=== PATIENT | male | born 1945 | race Caucasian/White ===

== ENCOUNTER 2018-10-03 01:19 | Outpatient (CLI) | payer OTHER, SELFPAY ==
[2018-10-03 12:19] LABS: Anion Gap 10.6 mmol/L (3-11); BUN 19 mg/dL (7-18); CO2 25.4 mmol/L (21.0-32.0); CREATININE 1.11 mg/dL (0.70-1.30); Calcium 9.3 mg/dL (8.5-10.1); Chloride 103 mmol/L (98-107); Glucose 143 mg/dL (70-100); Potassium 4.5 mmol/L (3.5-5.1); Sodium 139 mmol/L (136-145)
== END 2018-10-03 01:39 ==
PROVIDERS: PCP Family Medicine; Visit Provider Family Medicine
DX: I10 Essential (primary) hypertension (principal)
CPT/HCPCS: 36415; 80048

== ENCOUNTER 2018-11-21 12:22 | Outpatient (REF) | payer OTHER, SELFPAY ==
--- NOTE | 2018-11-21 11:40 | SKI_PTH ---
PATIENT: Anthony Jones LOC: PAGE U#:[id number] AGE/SX: 73/M ROOM: RE11/21/[address]: Vahe Bah MD : 1945 BED: DIS: 11/21/2018 SPEC #: [id number] RECD: 11/21/18 12:53 STATUS: NOHEMYMitul RECesar #: [id number] VIVIENNE: 11/21/18 11:[address]: Vahe Bah DEPT: Surgical Specimen RECD BY: Tanya Corey Tissues: 1 - SKIN BIOPSY(SHAVE/PUNCH) Procedures: SKIN LEVEL 4 Comments: [id number]
== END 2018-11-21 12:42 ==
LOC: LBN 12:22
PROVIDERS: PCP Family Medicine; Visit Provider Family Medicine
DX: L73.8 Other specified follicular disorders (principal)
CPT/HCPCS: 88305

== ENCOUNTER 2018-12-09 13:35 | Emergency (ER) | payer OTHER, SELFPAY ==
[2018-12-09 13:53] VITALS: BP 122/66; PULSE 80; RESP 14; TEMP 36.3; O2SAT 96
--- NOTE | 2018-12-09 14:18 | W.ED.GENAD ---
Discharge Plan Disposition Patient Disposition: HOME Condition: Good Discharge Details Chief Complaint: Orthopedic Clinical Impression: Contusion of elbow, right Reason For Visit: right elbow injury Primary Care Provider: Vahe Bah ED Provider: Nelson King Adena Meds and New Rx's Prescriptions: Continued lisinopril 5 mg tablet 5 mg PO DAILY Qty: 90 RF: 4 sildenafil (antihypertensive) 20 mg tablet 20 mg PO As Directed MDD 100 mg Qty: 30 RF: 4 hydrocortisone [Proctozone-HC] 30 GM cream with perineal applicator 1 applic RC QID Qty: 30 RF: 2 simvastatin 40 MG tablet 40 mg PO DAILY Qty: 90 RF: 4 nitroglycerin 0.4 mg tablet, sublingual 0.4 mg SL ONCE MDD 2 tabs Qty: 50 RF: 0 ibuprofen 600 mg Tablet 600 mg PO PRN PRNRF: 0 Discharge Instructions Additional Instructions: X-rays of your elbow show no acute fracture. Should get better over the next week. Use the sling for comfort for the first few days as needed. Ice on and off to help with pain and swelling. Ibuprofen or acetaminophen as needed for pain. Follow-up with your doctor in 1-2 weeks if not getting better. Return to ED for any significant worsening of pain, numbness, weakness. Referrals: Vahe Bah MD [Primary Care Provider] - Medical Decision Making Patient with isolated injury to the right elbow status post fall. He had no loss of consciousness and did not strike his head. Spine is cleared clinically. He has no other complaints. He took ibuprofen at home. X-ray of the right elbow obtained. Per my review as well as radiology read there is no acute fracture. Patient will be placed in a sling for comfort for the next couple of days. Continue use of Tylenol or Motrin for pain. Ice on and off. Follow-up with primary care in 1-2 weeks if not better. Return to ED for worsening pain/swelling, numbness or weakness distally. HPI General Mode of arrival: ambulatory. Date/Time Provider Initiated Documentation: 12/09/18 14:12. Limitations to Documentation: no limitations. Information obtained by: patient. HPI Narrative: Patient presents to ED with right elbow pain. Slipped and fell on the ice landing on his right elbow directly. He is right-hand dominant. He denies injury elsewhere. He did not strike his head. He has no neck or back pain. He has no chest pain or difficulty breathing. He has pain in the elbow only but had pain in the entire arm with the initial fall. He has no numbness or weakness. Related Data Home Medications Medication Instructions Recorded Confirmed hydrocortisone [Proctozone-HC] 1 applic QID #30 script 11/29/17 12/09/18 simvastatin 40 mg PO DAILY #90 tab-cap 11/29/17 12/09/18 lisinopril 5 mg tablet 5 mg PO DAILY #90 tab-cap 09/12/18 12/09/18 nitroglycerin 0.4 mg sublingual 0.4 mg SL ONCE #50 tab MDD 2 tabs 09/12/18 12/09/18 tablet sildenafil (antihypertensive) 20 20 mg PO As Directed #30 tab MDD 09/12/18 12/09/18 mg tablet 100 mg ibuprofen 600 mg PO PRN PRN 12/09/18 12/09/18 Previous Rx's Medication Instructions Recorded hydrocortisone [Proctozone-HC] 1 applic QID #30 script 11/29/17 simvastatin 40 mg PO DAILY #90 tab-cap 11/29/17 lisinopril 5 mg tablet 5 mg PO DAILY #90 tab-cap 09/12/18 nitroglycerin 0.4 mg sublingual 0.4 mg SL ONCE #50 tab MDD 2 tabs 09/12/18 tablet sildenafil (antihypertensive) 20 20 mg PO As Directed #30 tab MDD 09/12/18 mg tablet 100 mg Allergies Allergy/AdvReac Type Severity Reaction Status Date / Time cetirizine HCl [From [facility]] Allergy Intermediate Hives Verified 12/09/18 13:58 atorvastatin AdvReac Severe joint pains Verified 12/09/18 13:58 General Stated Complaint: Orthopedic BHARAT: 4 Review of Systems Constitutional Denies headache(s) ENT Denies headache(s) Cardiovascular Denies chest pain, Denies syncope and Denies dyspnea Respiratory Denies dyspnea Gastrointestinal Denies nausea and Denies vomiting Musculoskeletal Denies numbness and Denies tingling Comments: elbow pain Integumentary/Breasts Denies wounds Neurologic Denies syncope, Denies headache(s), Denies focal weakness, Denies numbness, Denies sensory deficit, Denies tingling and Denies paresthesias [facility] Medical History Coronary atherosclerosis of [place] coronary vessel (Chronic 08/23/95) 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 Maternal Grandfather Heart disease Sister No problems noted. Son No problems noted. Daughter No problems noted. Daughter No problems noted. Social History Smoking/Tobacco Use Status: Former Tobacco Use Quit Date: 09/24/05 Alcohol Intake: current Alcohol Intake frequency: holidays/special occasions only Drug use: Never Substance use type: does not use Pets and animals: Yes Pets and animals: cat(s) Duration: decline to answer Frequency: 3-4 times per week Jennifer/Mu-Ism: Rastafarian Special jennifer needs: No Do you feel safe at home: Yes Do you feel safe in your relationship?: Yes Exam Const General: cooperative, comfortable and no acute distress Orientation: alert and oriented x3 HENMT Head: normocephalic and atraumatic Neck Neck: trachea midline and supple Chest Chest: no tenderness Resp Effort & Inspection: normal respiratory effort Auscultation: clear to auscultation bilaterally Cardio Rate: regular rate Rhythm: regular rhythm Heart Sounds: S1 normal and S2 normal Back/Spine/Pelvis Cervical Spine: cervical ROM normal and No cervical spinal tenderness Thoracic/Lumbar Spine: thoraco-lumbar ROM normal, No thoracic spinal tenderness and No lumbar spinal tenderness Skin Trauma: no lacerations or abrasions Neuro General: alert, oriented x3, no focal motor deficits and CN's II-XI intact bilaterally Cognition: normal cognition Speech: speech normal Extrem General: normal exam except as noted Right upper extremity: shoulder/upper arm Details: normal to inspection and normal ROM; no tenderness, elbow/forearm Details: normal to inspection, tenderness Location: of the radial head, abnormal ROM and distal pulses intact; no swelling and wrist Details: normal to inspection and normal ROM Course Vital Signs Temperature 97.3 F L 12/09/18 13:53 Pulse 80 12/09/18 13:53 Respiratory Rate 14 12/09/18 13:53 Blood Pressure 122/66 12/09/18 13:53 Pulse Oximetry 96 12/09/18 13:53 Temperature 97.3 F L 12/09/18 13:53 Temperature Source Temporal Artery Scan 12/09/18 13:53 Pulse 80 12/09/18 13:53 Respiratory Rate 14 12/09/18 13:53 Respiratory Effort 12/09/18 13:57 Blood Pressure 122/66 12/09/18 13:53 Pulse Oximetry 96 12/09/18 13:53 Oxygen Delivery Method Room Air 12/09/18 13:53 Oxygen Flow Rate 0 12/09/18 13:53 Pain Level 3 12/09/18 13:53
--- NOTE | 2018-12-09 14:44 | DI.RAD_ITS ---
SYMPTOMS/DIAGNOSIS: TRAUMA RIGHT ELBOW: Three views. No acute fracture or dislocation is present.
== END 2018-12-09 15:40 | disposition home or self-care (01) ==
PROVIDERS: Emergency Provider Emergency Medicine; PCP Family Medicine
DX: S50.01XA Contusion of right elbow, initial encounter (principal); W00.0XXA Fall on same level due to ice and snow, initial encounter
CPT/HCPCS: 99283; 73080; 99282

== ENCOUNTER 2019-01-07 13:36 | Outpatient (CLI) | payer OTHER, SELFPAY ==
[2019-01-07 14:04] LABS: Hemoglobin A1C 5.7 % (4.5-6.2)
== END 2019-01-07 13:56 ==
PROVIDERS: PCP Family Medicine; Visit Provider Family Medicine
DX: R73.9 Hyperglycemia, unspecified (principal)
CPT/HCPCS: 36415; 83036

== ENCOUNTER 2019-06-16 14:54 | Outpatient (REF) | payer OTHER, SELFPAY ==
--- NOTE | 2019-06-16 14:48 | SKI_PTH ---
PATIENT: Anthony Jones LOC: PAGE U#:[id number] AGE/SX: 73/M ROOM: RE06/16/[address]: Fernando Singh DO : 1945 BED: DIS: 06/16/2019 SPEC #: [id number] RECD: 06/16/19 18:11 STATUS: FATOU REQ #: [id number] VIVIENNE: 06/16/19 14:[address]: Fernando Singh DEPT: Surgical Specimen RECD BY: Tanya Corey ENTERED: 06/16/19 18:12 SP TYPE: EDWARD LI DR: Vahe Bah MD Tissues: 1 - SKIN BIOPSY(SHAVE/PUNCH) Procedures: SKIN LEVEL 4 Comments: [id number]
== END 2019-06-16 15:14 ==
LOC: LBN 14:54
PROVIDERS: PCP Family Medicine; Visit Provider Otolaryngology Otolaryngology/Facial Plastic Surgery
DX: C44.41 Basal cell carcinoma of skin of scalp and neck (principal); Z85.828 Personal history of other malignant neoplasm of skin
CPT/HCPCS: 88305

== ENCOUNTER 2019-07-21 06:09 | Day surgery (SDC) | payer OTHER, SELFPAY ==
[2019-07-21 06:33] VITALS: BP 104/66; PULSE 66; RESP 16; TEMP 36.6; O2SAT 94
[2019-07-21] MEDS: Lactated Ringers 1,000 ML 80 ML IV (07:01)
--- NOTE | 2019-07-21 07:56 | SKI_PTH ---
PATIENT: Anthony Jones LOC: CLAUDE U#:[id number] AGE/SX: 73/M ROOM: RE07/21/[address]: Fernando Singh DO : 1945 BED: DIS: 07/21/2019 SPEC #: [id number] RECD: 07/21/19 12:14 STATUS: FATOU REQ #: [id number] VIVIENNE: 07/21/19 07:[address]: Fernando Singh DEPT: Surgical Specimen RECD BY: Tanya Corey ENTERED: 07/21/19 12:22 SP TYPE: EDWARD LI DR: Vahe Bah MD Tissues: 1 - SKIN BIOPSY(SHAVE/PUNCH) 2 - SKIN BIOPSY(SHAVE/PUNCH) 3 - FROZEN SECTION EXAM Procedures: FROZEN SECTION EXTRA SKIN LEVEL 4 FROZEN SECTION EXAM Comments: [id number]
[2019-07-21] MEDS: Oxymetazolone 0.05% SPRAY 15 ML BTL (08:03)
[2019-07-21] MEDS: Bacitracin 30 GM TUBE (08:21)
--- NOTE | 2019-07-21 08:24 | W.PM.DSUDISC ---
Discharge Plan Disposition Patient Disposition: HOME Condition: Good Discharge Details Attending Provider: Fernando Singh Primary Care Provider: Vahe Bah Home Meds and New Rx's Prescriptions: No Action lisinopril 5 mg tablet 5 mg PO BID Qty: 180 RF: 4 nitroglycerin 0.4 mg tablet, sublingual 0.4 mg SL ONCE MDD 2 tabs Qty: 50 RF: 0 simvastatin 40 mg tablet 40 mg PO DAILY Qty: 90 RF: 4 hydrocortisone [Proctozone-HC] 2.5 % cream with perineal applicator 1 applic topical QID Qty: 30 RF: 2 ibuprofen 600 mg Tablet 600 mg PO PRN PRNRF: 0 Discharge Instructions Additional Instructions: see sheet Equipment/Supplies: Brace Remove Dressings/Wound Care:: 24 hours Shower/Bathe:: 24 hours Diet:: As Tolerated
[2019-07-21 09:55] VITALS: BP 100/70; PULSE 61; RESP 14; TEMP 36.5; O2SAT 96
--- NOTE | 2019-07-21 10:57 | ROE_ITS ---
DATE OF PROCEDURE: July 21, 2019 PREOPERATIVE DIAGNOSIS: Basal cell carcinoma left infralobular area upper neck. POSTOPERATIVE DIAGNOSIS: Same. PROCEDURE: Excision basal cell carcinoma frozen section and complex closure with T-plasty superiorly for reconstruction right below the earlobe, left side. SURGEON: Fernando Singh D.O. ANESTHESIA: MAC sedation and 9 cc's of 1% Lidocaine with 1:100,000 epinephrine. COMPLICATIONS: None. CONDITION: The patient tolerated the procedure well. SPECIMENS: Frozen section left neck, initially positive at the base and periphery; frozen section ma rgins clear; complex reconstruction performed. INDICATIONS FOR PROCEDURE: This is a pleasant 73-year-old male who presents with a basal cell carcin kelly of the left neck, proven on biopsy in the office. The decision was made forth to proceed with de la rosa rgery. Risks and complications were discussed in detail. Consent was placed in the Chart. PROCEDURE: The patient was brought back to the operating suite in stable condition, given IV sedatio n. A time-out was taken to confirm proper patient and procedure. 9 cc's of 1% Lidocaine with 1:100, 000 epinephrine was injected into the left infralobular area of the left upper neck. The patient was prepped and draped in a sterile fashion. A #15 blade scalpel was used to excise a 2.5 primary lesio n. Colored sutures were placed for pathological analysis. Frozen section was performed. Margins we re negative. Complex reconstruction was performed, #4-0 Monocryl T-plasty superiorly to not distort the earlobe with reconstruction was performed with back-cut and 12 o'clock permanent dog-ear excision . #4-0 nylon in a running fashion was performed with interrupted technique at the T-plasty superiorl y at 12 o'clock margin. Total blood loss 2 cc's. The patient was stable to PACU.
== END 2019-07-21 09:55 | disposition home or self-care (01) ==
PROVIDERS: PCP Family Medicine; Visit Provider Otolaryngology Otolaryngology/Facial Plastic Surgery
PROC: (CPT 11623; principal; 2019-07-21 07:30)
DX: C44.41 Basal cell carcinoma of skin of scalp and neck (principal)
CPT/HCPCS: 11623; 13132; 88305; 88331; 88332

== ENCOUNTER 2019-09-30 08:00 | Outpatient (CLI) | payer OTHER, SELFPAY ==
[2019-09-30 09:41] LABS: Anion Gap 10.7 mmol/L (3-11); BUN 19 mg/dL (7-18); CO2 25.3 mmol/L (21.0-32.0); CREATININE 1.04 mg/dL (0.70-1.30); Calcium 8.9 mg/dL (8.5-10.1); Chloride 106 mmol/L (98-107); Glucose 92 mg/dL (74-106); Potassium 4.3 mmol/L (3.5-5.1); Sodium 142 mmol/L (136-145)
== END 2019-09-30 08:20 ==
PROVIDERS: PCP Family Medicine; Visit Provider Family Medicine
DX: I10 Essential (primary) hypertension (principal)
CPT/HCPCS: 80048

== ENCOUNTER 2020-05-19 10:57 | Outpatient (CLI) | payer OTHER, SELFPAY ==
--- NOTE | 2020-05-19 09:00 | DI.RAD_ITS ---
EXAM: XR SHOULDER RT COMPLETE 2+V CLINICAL HISTORY: right shoulder pain TECHNIQUE: COMPARISON: No exams were available for comparison FINDINGS: Two views were obtained. There is moderate marginal osteophyte formation of the humeral head and gle noid. Moderate hypertrophic degenerative changes of the AC joint noted. Cartilaginous joint space o f glenohumeral joint appears fairly well maintained. IMPRESSION: Degenerative changes as described above RADIATION DOSE DELIVERED: Total DLP
== END 2020-05-19 11:17 ==
PROVIDERS: PCP Family Medicine; Referring Provider Family Medicine; Visit Provider Student in an Organized Health Care Education/Training Program
DX: M19.011 Primary osteoarthritis, right shoulder (principal); M25.511 Pain in right shoulder; M75.21 Bicipital tendinitis, right shoulder; M75.22 Bicipital tendinitis, left shoulder; M75.51 Bursitis of right shoulder; I10 Essential (primary) hypertension
CPT/HCPCS: 99204; 99215; 73030

== ENCOUNTER 2020-06-21 08:57 | Inpatient (IN) | payer OTHER, SELFPAY ==
[2020-06-21] VITALS (101 sets, daily range): BP systolic 85–179; BP diastolic 48–109; PULSE 81–147; RESP 4–41; TEMP 36.7–39.6; O2SAT 82–99
--- NOTE | 2020-06-21 09:00 | RT.EKG_ITS ---
APPROVED REPORT Exam: Resting ECG Patient Location: E HR:106 bpm ECG Measurements Heart Rate 106 AXIS DE 139 P 70 QRSd 96 QRS -35 QT 337 T 42 QTc 447 Conclusion Regular sinus tachycardia with narrow complex qrs. Inferior infarct, old...Q >35mS, II III aVF
--- NOTE | 2020-06-21 09:30 | DI.RAD_ITS ---
EXAM: XR PORTABLE CHEST AP CLINICAL HISTORY: SOB, Cough, Chest pressure TECHNIQUE: 2D digital imaging was performed. COMPARISON: CR CHEST 2 VIEWS PA,LAT from 03/29/2010 FINDINGS: The heart size is normal. The aorta is mildly tortuous. There are increased interstitial markings g reater in the upper lobes. No superimposed infiltrate or effusion is seen. IMPRESSION: No acute abnormality.
--- NOTE | 2020-06-21 09:33 | W.ED.GENAD ---
Discharge Plan Disposition Patient Disposition: [facility] INPATIENT Condition: Stable Discharge Details Clinical Impression: Bilateral pneumonia Primary Care Provider: Darren Barbour ED Provider: Jose Luis Watts Home Meds and New Rx's Prescriptions: No Action sildenafil (pulm.hypertension) 20 mg tablet 20 mg PO As Directed MDD 100 mg Qty: 30 RF: 4 nitroglycerin 0.4 mg tablet, sublingual 0.4 mg SL ONCE MDD 2 tabs Qty: 50 RF: 0 hydrocortisone [Proctozone-HC] 2.5 % cream with perineal applicator 1 applic topical QID Qty: 30 RF: 2 simvastatin 40 mg tablet 40 mg PO DAILY Qty: 90 RF: 4 triamcinolone acetonide 0.1 % cream 1 applic TP BID PRN (Reason: scrotal dermatitis) Qty: 30 RF: 1 lisinopril 5 mg tablet 5 mg PO BID Qty: 180 RF: 4 ibuprofen 600 mg Tablet 600 mg PO PRN PRNRF: 0 minocycline 100 mg capsule 100 mg PO DAILY RF: 0 Medical Decision Making This is a 74-year-old male with coronary artery disease he states he presents today after 3 to 4 days of dry cough cough, low-grade fever at home, body aches, as well as shortness of breath that is worse with exertion and associated with chest tightness that improves with rest. He arrives afebrile with a pulse of 107, blood pressure 100/65 with increased respiratory rate approximately 28 and 92% on room air. Differential diagnosis would include a viral pneumonitis with hypoxia, pneumonia, ischemic coronary disease as well as congestive heart failure. Patient placed on a cardiac/vascular sonographer, IV access obtained he is referred for laboratory testing, chest x-ray, EKG. EKG reveals a sinus tachycardia of approximately [address] segment elevation. Labs: White count 10, hematocrit 41, platelets 160. D-dimer significantly elevated at greater than 7500. Sodium 133, potassium 4.3, chloride 101, bicarb 26, BUN 25, creatinine 1.5, AST 43, ALT 72, BNP 2356. Chest x-ray with increased interstitial markings, no infiltrate or effusion. Given elevated d-dimer, patient referred for CT scan of the chest: No PE. Patient does have bilateral upper lobe infiltrates. Upon return from CAT scan, patient noted to have shaking chill and to spike a temperature to 39 degrees for which he was given acetaminophen, and blood cultures and lactic acid were obtained. Consistent with bilateral upper lobe pneumonia with mild hypoxia. Note is made of his cardiac history and elevated BNP. We will continue judicious administration of fluids, antipyretics. Case discussed with Dr. Saleh and patient to be admitted. Of note, patient's second troponin resulted in indeterminate range of 0.18. HPI General Mode of arrival: ambulatory. Date/Time Provider Initiated Documentation: 06/21/20 09:02. Limitations to Documentation: no limitations. Information obtained by: patient. History of Present Illness 74 year old M presents to the emergency department with the chief complaint of Dry cough, low-grade fever, low oxygen at home, described as moderate, Quality is described as constant, and is localized to the chest. Patient reports no radiation. Patient started experiencing this day(s) and it has been intermittent. Rest improves symptom(s), Movement worsens symptoms . Patient notes chest pain, cough, fever/chills, shortness of breath and weakness; denies syncope. Patient did receive the following treatments prior to arrival, none Related Data Home Medications Medication Instructions Recorded Confirmed nitroglycerin 0.4 mg sublingual 0.4 mg SL ONCE #50 tab MDD 2 tabs 09/12/18 06/21/20 tablet ibuprofen 600 mg PO PRN PRN 12/09/18 06/21/20 hydrocortisone 2.5 % topical cream 1 applic TOPICAL QID #30 script 07/07/19 06/21/20 with perineal applicator sildenafil (pulm.hypertension) 20 20 mg PO As Directed #30 tab MDD 09/23/19 06/21/20 mg tablet 100 mg simvastatin 40 mg tablet 40 mg PO DAILY #90 tab-cap 04/09/20 06/21/20 triamcinolone acetonide 0.1 % 1 applic TP BID PRN #30 gm 05/25/20 06/21/20 topical cream lisinopril 5 mg tablet 5 mg PO BID #180 tab-cap 06/01/20 06/21/20 minocycline 100 mg PO DAILY 06/21/20 06/21/20 Previous Rx's Medication Instructions Recorded nitroglycerin 0.4 mg sublingual 0.4 mg SL ONCE #50 tab MDD 2 tabs 09/12/18 tablet hydrocortisone 2.5 % topical cream 1 applic TOPICAL QID #30 script 07/07/19 with perineal applicator sildenafil (pulm.hypertension) 20 20 mg PO As Directed #30 tab MDD 09/23/19 mg tablet 100 mg simvastatin 40 mg tablet 40 mg PO DAILY #90 tab-cap 04/09/20 triamcinolone acetonide 0.1 % 1 applic TP BID PRN #30 gm 05/25/20 topical cream lisinopril 5 mg tablet 5 mg PO BID #180 tab-cap 06/01/20 Allergies Allergy/AdvReac Type Severity Reaction Status Date / Time cetirizine HCl [From [facility]] Allergy Intermediate Hives Verified 05/19/20 09:06 atorvastatin AdvReac Severe joint pains Verified 05/19/20 09:06 General Stated Complaint: Chest Pain BHARAT: 2 Review of Systems Narrative: Low-grade fever of 101 at home, low oxygen at home, no travel, no known sick contacts. 8 systems reviewed and otherwise negative. See HPI. 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 SMALLS; 3 TUBULAR ADENOMAS Colonoscopy - MAC (10/19/17) DR. SMALLS; 3 TUBULAR ADENOMAS History of colonoscopy History of intravascular stent placement History of surgical removal of lesion History of total cystectomy Open Carpal Tunnel release (~2006) PROCEDURES EXCISION OF PILONID CYST INSERT 3 VASCULAR STENTS, 05/30 Skin Cancer Removal (~2009) Status post carpal tunnel release Status post cholecystectomy Status post vasectomy Vasectomy Family History Mother , AGE 93 Heart disease Father , AGE 50 Pancreatic cancer Sister No problems noted. Maternal Grandfather , AGE 74 Heart disease Sister No problems noted. Son No problems noted. Daughter No problems noted. Daughter No problems noted. Social History Smoking/Tobacco Use Status: Former Tobacco Use Quit Date: 09/24/05 Tobacco: How many years used: 20 Alcohol Intake: current Alcohol Intake frequency: holidays/special occasions only Alcohol type: wine and hard liquor Drug use: Never Substance use type: does not use Caregiver/Support person: No Household members: spouse Housing: house Communication Needs: Hard of Hearing Do you need help understanding health information?: Rarely Pets and animals: No Sexually active: Yes Do you think of yourself as: straight/heterosexual Current gender identity: male What is your relationship status?: How often do you talk on the phone with friends or family?: once per week How often do you get together with friends or relatives?: once per week How often do you attend uatsdin or scientology services?: 1-3 times per year Do you belong to any clubs or organized social groups?: no Panel score (0-1 are the most socially isolated patients): 1 What type of physical activity do you participate in: walking and other Details: rowing machine Duration: 15-30 minutes/day Frequency: 3-4 times per week Jennifer/Caodaism: Gnosticism Special jennifer needs: No Seatbelt use: always Helmet use: Yes Helmet use: always Drive intox or ride w/intox 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 Pleasant, well groomed, interactive. HEAD: Normocephalic, atraumatic ENT: Mucous membranes moist, oropharynx unremarkable, External ear exam unremarkable EYES: PERRL, EOMI NECK: Full ROM, no MEGAN, no menigismus CHEST/RESP: Nontender, diminished bilaterally CARDIOVASCULAR: Regular and tachycardic, distant, no murmur, rub laith. 2+ Rad pulse bilateral ABDOMEN: Soft, nontender, no mass. +Bowel sounds EXT: Full ROM, no edema, no rash Neuro: Grossly normal neurologic exam, conversant, interactive. Psych: Speech fluent, thoughts congruent, affect normal Course Vital Signs Vital signs: Vital Signs Temperature 37 C 06/21/20 09:14 Pulse 107 H 06/21/20 09:14 Respiratory Rate 29 H 06/21/20 09:14 Blood Pressure 99/65 L 06/21/20 09:14 Pulse Oximetry 92 06/21/20 09:14 Temperature 37 C 06/21/20 09:14 Pulse 107 H 06/21/20 09:14 Respiratory Rate 20 06/21/20 09:26 Respiratory Effort 06/21/20 09:26 Respiratory Depth Normal 06/21/20 09:26 Respiratory Pattern Irregular 06/21/20 09:26 Blood Pressure 99/65 L 06/21/20 09:14 Blood Pressure Position Supine 06/21/20 09:14 Pulse Oximetry 96 06/21/20 09:15 Oxygen Delivery Method Nasal Cannula 06/21/20 09:15 Oxygen Flow Rate 2 06/21/20 09:15 Pain Level 1 06/21/20 09:26 Comment 06/21/20 09:14
[2020-06-21] MEDS: Normal Saline Flush 10 ML SYR IVP (09:40)
[2020-06-21 10:04] LABS: Absolute Basophil Count 0.01 10^3/uL (0.0-0.2); Absolute Eosinophil Count 0.52 10^3/uL (0.0-0.7); Absolute Lymphocyte Count 0.43 10^3/uL (1.2-3.4); Absolute Monocyte Count 0.67 10^3/uL (0.1-0.8); Absolute Neutrophil Count 8.76 10^3/uL (1.2-6.7); Basophils % 0.1; HCT 41.4 % (40.0-50.0); HGB 13.8 g/dL (13.5-17.5); Lymphocytes % 4.1; MCH 32.5 pg (27.0-33.0); MCHC 33.3 % (32.0-36.0); MCV 97.6 fL (80-95); MPV 9.1 fL (8.0-11.0); Monocytes % 6.4; Neutrophils % 83.4; Nucleated RBC 0 %; Platelet Count 160 10^3/uL (130-400); RBC 4.24 10^6/uL (4.36-5.78); RDW 13.2 % (11.8-14.1); RDW-SD 47.5 fL; WBC 10.49 10^3/uL (4.4-10.8)
[2020-06-21 10:20] LABS: INR 1.2 (0.9-1.1); PTT Activated 29.4 sec (21.0-31.4); Prothrombin Time 11.7 sec (9.3-11.0)
[2020-06-21 10:41] LABS: ALT 72 U/L (16-63); AST 43 U/L (15-37); Albumin 2.8 g/dL (3.4-5.0); Alkaline Phosphatase 82 U/L (46-116); Anion Gap 5.8 mmol/L (3-11); BUN 25 mg/dL (7-18); Bilirubin, Total 0.6 mg/dL (0.2-1.0); CO2 26.2 mmol/L (21.0-32.0); CREATININE 1.58 mg/dL (0.70-1.30); Calcium 8.5 mg/dL (8.5-10.1); Chloride 101 mmol/L (98-107); Estimated GFR 42.97 (mL/min/1.73m2); Glucose 139 mg/dL (74-106); Magnesium 2.1 mg/dL (1.8-2.4); NT-proBNP 2356 pg/mL (<300); Potassium 4.3 mmol/L (3.5-5.1); Sodium 133 mmol/L (136-145); Total Protein 6.8 g/dL (6.4-8.2); Troponin I 0.06 ng/mL (<0.06)
[2020-06-21 10:57] LABS: D-Dimer > 7500 ng/mlFEU (<500)
--- NOTE | 2020-06-21 11:40 | DI.CT_ITS ---
EXAM: CT CHEST PE CTA CLINICAL HISTORY: Shortness of breath, low-grade fever, elev ddimer. TECHNIQUE: Imaging Protocol: Axial CT angiography was performed with multi-slice acquisition and mu lti-planar and/or 3D reconstructions. CONTRAST MATERIAL: Intravenous: Omnipaque 350 Contrast volume:70 ml COMPARISON: CR CHEST 2 VIEWS PA,LAT from 03/29/2010 CR XR PORTABLE CHEST AP from 06/21/2020 FINDINGS: Exam is somewhat limited due to respiratory motion. Pulmonary Arteries: No evidence of filling defect to suggest pulmonary emboli. Tracheobronchial tree: Patent where visualized. Mediastinum and Mago: No dominant adenopathy or fluid collection. Pulmonary parenchyma: There are patchy areas of increased opacities in both upper lobes. The finding s are greatest in the medial right upper lobe, superior to the right hilum. Dependent changes versus additional infiltrate right lung base. There are underlying interstitial changes. Pleura: No effusion or pneumothorax. Heart: The heart is not dilated. coronary artery calcifications are seen. Aorta: Thoracic aorta non-dilated. No evidence of dissection. Upper abdomen: Small hiatal hernia. Status post cholecystectomy. Bones: Degenerative changes. IMPRESSION: No evidence of pulmonary embolism. Bilateral infiltrates, greatest in the right upper lobe medially. 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 RADIATION DOSE DELIVERED: 335.05mGy.cm Total DLP DATA REPOSITORY: All CT scans at this facility are submitted to the National Radiology Data Registry (NRDR) Dose Index Registry (DIR) with the [employer] (ACR). RADIATION OPTIMIZATION: All CT scans at this facility use at least one of these dose optimization te chniques: automated exposure control; mA and/or kV adjustment per patient size (includes targeted exa ms where dose is matched to clinical indication); or iterative reconstruction.
[2020-06-21] MEDS: Omnipaque 350 MG/ML 100 ML BTL IV (11:52)
[2020-06-21] MEDS: Acetaminophen 500 MG TAB 650 MG PO (11:53)
[2020-06-21] MEDS: Normal Saline 1,000 ML 150 ML IV (12:06)
[2020-06-21 12:12] LABS: Bilirubin Negative (Negative); Blood Small (Negative); Clarity Clear (Clear); Glucose Negative (Negative); Ketones Negative (Negative); Leukocyte Esterase Negative (Negative); Nitrite Negative (Negative); Urobilinogen 0.2 EU/dL (Up TO 0.2); pH 5.5 (5-8)
[2020-06-21 12:22] LABS: Bacteria Moderate HPF (Negative); Crystals Negative HPF (Negative); Epithelial Cells Rare HPF (Negative); Other Cells Few Renal (Negative)
[2020-06-21 12:23] LABS: C & S Indicated? Yes; Mucus Trace (Negative)
[2020-06-21] MEDS: cefTRIAXone 1 GM/50 ML BAG IVPB ×3 (12:23→16:19)
[2020-06-21 12:30] LABS: Troponin I 0.18 ng/mL (<0.06)
[2020-06-21] MEDS: Albuterol/Ipratropium 3 ML UPD VIAL UPD (12:32)
[2020-06-21] MEDS: Aspirin 325 MG TAB PO (12:46)
[2020-06-21 12:47] LABS: Lactate 2.2 mmol/L (0.9-1.7)
[2020-06-21 12:58] LABS: C-Reactive Protein 18.96 mg/dL (0.0-0.3)
[2020-06-21 13:20] LABS: Ferritin 813 ng/mL (26-388)
[2020-06-21 13:33] LABS: Procalcitonin 0.8 ng/mL
[2020-06-21] MEDS: DOXYCYCLINE 100 MG in Normal Saline 100 ML IVPB (16:10)
[2020-06-21] MEDS: Enoxaparin 40 MG/0.4 ML SYR SC (16:10)
[2020-06-21] MEDS: Normal Saline 1,000 ML 1000 ML IV (16:36)
[2020-06-21] MEDS: Acetaminophen 325 MG TAB 650 MG PO (16:39)
[2020-06-21] MEDS: Lidocaine 2% Jelly 6 ML SYR (17:15)
--- NOTE | 2020-06-21 17:41 | HPE_ITS ---
Date of service: 06/21/20 Time of Service: 17:41 Assessment and Plan Assessment and plan (1) Sepsis: Status: Acute Assessment and plan: Due to bilateral PNA, present on admission. I wonder if dental work or the scrotal cellulitis could not have been the inciting events. Await blood cultures. I have changed abx to vancomycin, zosyn, and doxycycline. Continue aggressive IVF. Monitor I/Os. Patient was upgraded to ICU level of care due to borderline low BPs. Trend CRP, lactates, procalcitonin. (2) Sepsis associated hypotension: Status: Acute Assessment and plan: As above. Fluid responsive at this time. Patient is full code and is willing to have pressors/central line, if needed. So far MAPs are >65. Monitor in the ICU. (3) Bilateral pneumonia: Status: Acute Assessment and plan: As above (4) JERRELL (acute kidney injury): Status: Acute Assessment and plan: Due to sepsis. Continue IVF and treat underlying infection. Perkins catheter ordered for I/O's. (5) DVT prophylaxis: Status: Acute Assessment and plan: lovenox (6) Discharge planning issues: Status: Acute Assessment and plan: Full code. Total Critical Care Time 45 minutes. History of Present Illness History of Present Illness Chief Complaint: dry cough, fever, shortness of rbeath Narrative: Mr Jones is a 74 year old male with PMHx of CAD s/p 3 stents, as well as h/o HTN, dislipidemia, and recent scrotal cellulitis, treated with minocycline as outpatient, who presented to [facility] ED today with 4 days of malaise, fatigue/somnolence, as well as body aches, shortness of breath, especially with exertion, and dry cough. He thought it might be COVID-19, but had not been in contact with anyone who might have COVID-19, per him. His family does not always wear masks around him when they visit, however. He did have subjective fevers. When he came to the ED today, he was found to have a temperature of 39, tachycardia to low 100s. He was placed on 2L of O2 for O2 sats of 82%, but this has since been weaned off. His workup revealed bilateral infiltrates, greatest in RUL, as well as chronic interstitial changes. He was initiated on broad spectrum antibiotics, and we were asked to admit the patient. The patient does endorse getting a dental cleaning about 10 days ago. 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 SMALLS; 3 TUBULAR ADENOMAS Colonoscopy - MAC (10/19/17) DR. SMALLS; 3 TUBULAR ADENOMAS History of colonoscopy History of intravascular stent placement History of surgical removal of lesion History of total cystectomy Open Carpal Tunnel release (~2006) PROCEDURES EXCISION OF PILONID CYST INSERT 3 VASCULAR STENTS, 05/30 Skin Cancer Removal (~2009) Status post carpal tunnel release Status post cholecystectomy Status post vasectomy Vasectomy Family History Mother , AGE 93 Heart disease Father , AGE 50 Pancreatic cancer Sister No problems noted. Maternal Grandfather , AGE 74 Heart disease Sister No problems noted. Son No problems noted. Daughter No problems noted. Daughter No problems noted. Social History Smoking/Tobacco Use Status: Former Tobacco Use Quit Date: 09/24/05 Tobacco: How many years used: 20 Alcohol Intake: current Alcohol Intake frequency: holidays/special occasions only Alcohol type: wine and hard liquor Drug use: Never Substance use type: does not use Caregiver/Support person: No Household members: spouse Housing: house Communication Needs: Hard of Hearing Do you need help understanding health information?: Rarely Pets and animals: No Sexually active: Yes Do you think of yourself as: straight/heterosexual Current gender identity: male What is your relationship status?: How often do you talk on the phone with friends or family?: once per week How often do you get together with friends or relatives?: once per week How often do you attend yazidism or scientology services?: 1-3 times per year Do you belong to any clubs or organized social groups?: no Panel score (0-1 are the most socially isolated patients): 1 What type of physical activity do you participate in: walking and other Details: rowing machine Duration: 15-30 minutes/day Frequency: 3-4 times per week Jennifer/Pentecostal: Latter Day Special jennifer needs: No Seatbelt use: always Helmet use: Yes Helmet use: always Drive intox 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 w/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: No Do you feel safe at home: Yes Do you feel safe in your relationship?: Yes Meds Home Medications and Allergies Home Medications Medication Instructions Recorded Confirmed Type simvastatin 40 mg tablet 40 mg PO DAILY #90 tab-cap 04/09/20 06/21/20 Rx lisinopril 5 mg tablet 5 mg PO BID #180 tab-cap 06/01/20 06/21/20 Rx Allergies Allergy/AdvReac Type Severity Reaction Status Date / Time cetirizine HCl [From [facility]] Allergy Intermediate Hives Verified 05/19/20 09:06 atorvastatin AdvReac Severe joint pains Verified 05/19/20 09:06 Exam Narrative Exam Narrative: General: pleasant middle-aged male, A&Ox3, appears sick, but is mentating well and able to answer all questions appropriately Neurological: A&Ox3, no focal deficits Psychiatric: appropriate speech pattern/content Skin: Visible skin intact, including scrotum HEENT: Atraumatic, normocephalic, EOMI, dry MM, clear oropharynx, no subman dibular or cervical lymphadenopathy, no goiter or JVD Cardiovascular: RRR, tachycardic to 110s, no m/r/g Lungs: Breath sounds difficult to hear due to negative pressure fan in the room, but he does have B air entry; seemingly nonlabored breathing Gastrointestinal: soft, nontender, nondistended Genitourinary: scrotum without evidence of cellulitis/rash/folliculitis Extremities: no edema BLEs, BLEs are warm, +1 pedal pulses B Results Imaging Additional studies: CXR: No acute abnormality. CTA chest: No evidence of pulmonary embolism. Bilateral infiltrates, greatest in the right upper lobe medially. Interstitial changes, likely chronic. EKG: HR 106, sinus tachycardia, old inferior infarct, nonspecific ST-T changes Labs Result diagrams: 06/21/20 09:40 06/21/20 09:40 Labs: Laboratory Results - last 24 hr 06/21/20 06/21/20 06/21/20 09:40 09:40 09:40 WBC 10.49 RBC 4.24 L Hgb 13.8 Hct 41.4 MCV 97.6 H MCH 32.5 MCHC 33.3 RDW 13.2 Plt Count 160 MPV 9.1 Immature Gran % 1.0 Neutrophils % 83.4 Lymphocytes % 4.1 Monocytes % 6.4 Eosinophils % 5.0 Basophils % 0.1 Nucleated RBC % 0 Absolute Neutrophils 8.76 H Absolute Lymphocytes 0.43 L Absolute Monocytes 0.67 Absolute Eosinophils 0.52 Absolute Basophils 0.01 PT 11.7 H INR 1.2 H APTT 29.4 D-Dimer > 7500 H VBG Lactate Sodium 133 L Potassium 4.3 Chloride 101 Carbon Dioxide 26.2 Anion Gap 5.8 BUN 25 H Creatinine 1.58 H Estimated GFR/1.73 m2 42.97 Glucose 139 H Calcium 8.5 Magnesium 2.1 Ferritin Total Bilirubin 0.6 AST 43 H ALT 72 H Alkaline Phosphatase 82 Troponin I 0.06 C-Reactive Protein NT-Pro-B Natriuret Pep 2356 H Total Protein 6.8 Albumin 2.8 L Procalcitonin Urine Color Urine Clarity Urine pH Ur Specific [place] Urine Protein Urine Ketones Urine Blood Urine Nitrite Urine Bilirubin Urine Urobilinogen Ur Leukocyte Esterase Urine RBC Urine WBC Ur Epithelial Cells Urine Crystals Urine Bacteria Urine Casts Urine Mucus Urine Other Ur Culture Indicated? Urine Glucose 06/21/20 06/21/20 06/21/20 11:55 12:00 12:15 WBC RBC Hgb Hct MCV MCH MCHC RDW Plt Count MPV Immature Gran % Neutrophils % Lymphocytes % Monocytes % Eosinophils % Basophils % Nucleated RBC % Absolute Neutrophils Absolute Lymphocytes Absolute Monocytes Absolute Eosinophils Absolute Basophils PT INR APTT D-Dimer VBG Lactate 2.2 H* Sodium Potassium Chloride Carbon Dioxide Anion Gap BUN Creatinine Estimated GFR/1.73 m2 Glucose Calcium Magnesium Ferritin Total Bilirubin AST ALT Alkaline Phosphatase Troponin I 0.18 H* C-Reactive Protein NT-Pro-B Natriuret Pep Total Protein Albumin Procalcitonin Urine Color Yellow Urine Clarity Clear Urine pH 5.5 Ur Specific [place] 1.020 Urine Protein 30 H Urine Ketones Negative Urine Blood Small H Urine Nitrite Negative Urine Bilirubin Negative Urine Urobilinogen 0.2 Ur Leukocyte Esterase Negative Urine RBC 10-20 H Urine WBC 5-10 Ur Epithelial Cells Rare Urine Crystals Negative Urine Bacteria Moderate Urine Casts Comment Urine Mucus Trace Urine Other Few renal Ur Culture Indicated? Yes Urine Glucose Negative 06/21/20 06/21/20 06/21/20 12:15 12:15 12:17 WBC RBC Hgb Hct MCV MCH MCHC RDW Plt Count MPV Immature Gran % Neutrophils % Lymphocytes % Monocytes % Eosinophils % Basophils % Nucleated RBC % Absolute Neutrophils Absolute Lymphocytes Absolute Monocytes Absolute Eosinophils Absolute Basophils PT INR APTT D-Dimer VBG Lactate Sodium Potassium Chloride Carbon Dioxide Anion Gap BUN Creatinine Estimated GFR/1.73 m2 Glucose Calcium Magnesium Ferritin 813 H Total Bilirubin AST ALT Alkaline Phosphatase Troponin I Cancelled C-Reactive Protein 18.96 H NT-Pro-B Natriuret Pep Total Protein Albumin Procalcitonin 0.8 Urine Color Urine Clarity Urine pH Ur Specific [place] Urine Protein Urine Ketones Urine Blood Urine Nitrite Urine Bilirubin Urine Urobilinogen Ur Leukocyte Esterase Urine RBC Urine WBC Ur Epithelial Cells Urine Crystals Urine Bacteria Urine Casts Urine Mucus Urine Other Ur Culture Indicated? Urine Glucose Last Vital Signs Temp 38.3 C H 06/21/20 16:39 Pulse 104 H 06/21/20 17:31 Resp 20 06/21/20 17:31 BP 105/66 06/21/20 17:31 Pulse Ox 94 06/21/20 17:31 COVID-19 Screening Have you,or household,traveled outside [place] in last 14 days?: No Had IN PERSON contact w/suspected or confirmed C-19 person: No
[2020-06-21 18:39] LABS: Troponin I 0.81 ng/mL (<0.06)
[2020-06-21 18:43] LABS: Lactate 0.7 mmol/L (0.6-1.4)
--- NOTE | 2020-06-21 18:45 | RT.EKG_ITS ---
APPROVED REPORT Exam: Resting ECG Patient Location: I HR:96 bpm ECG Measurements Heart Rate 96 AXIS SC 143 P 47 QRSd 101 QRS -39 QT 340 T 28 QTc 430 Conclusion Sinus rhythm...normal P axis, V-rate 60- 99 Inferior infarct, old...Q >35mS, II III aVF
[2020-06-21] MEDS: PIPERACILLIN/TAZO 3.375 GM in Normal Saline 50 ML IVPB (19:55)
[2020-06-21 21:51] LABS: Lactate 1.1 mmol/L (0.6-1.4)
[2020-06-22] VITALS (49 sets, daily range): BP systolic 87–153; BP diastolic 60–98; PULSE 83–110; RESP 15–39; TEMP 36.5–38.6; O2SAT 89–96
--- NOTE | 2020-06-22 | DI.US_ITS ---
APPROVED REPORT EXAM: Comprehensive 2D, Doppler, and color-flow Echocardiogram Patient Location: In-Patient Room/Bed: PNB522 Family Law Legal Assistant: Mary Javier RDCS (AE) Indications: Bacteremia, CHF, Pulmonary HTN Other Information Study Quality: Adequate Conclusion Left Ventricle : The left ventricle is normal size. The left ventricular systolic function is normal. The left ventricular ejection fraction is within the normal range. There is normal left ventricular wall thickness. There is normal LV segmental wall motion. The left ventricular diastolic function is normal. LVEF is 55-60%. Right Ventricle : The right ventricle is normal size. The right ventricular systolic function is norm al. The RVSP is 23.9 mmHg. Atria : The left atrium size is normal. The right atrium size is normal. Valves: There are no hemodynamically significant valvular lesions. Great Vessels : The aortic root is normal in size. The ascending aorta is normal in size. Aortic arch is normal in caliber. IVC is normal in size and collapses >50% with inspiration. There are no prior images available for comparison. Wall motion Left Ventricle The left ventricle is normal size. The left ventricular systolic function is normal. The left ventric ular ejection fraction is within the normal range. There is normal left ventricular wall thickness. T here is normal LV segmental wall motion. The left ventricular diastolic function is normal. There is no ventricular septal defect visualized. LVEF is 55-60%. Right Ventricle The right ventricle is normal size. The right ventricular systolic function is normal. The RVSP is 23 .9 mmHg. Atria The left atrium size is normal. The right atrium size is normal. The interatrial septum is intact wit h no evidence for an atrial septal defect. Aortic Valve The aortic valve is normal in structure. Aortic valve is trileaflet. There is no aortic valvular sten osis. No aortic regurgitation is present. There is no aortic valvular vegetation. Mitral Valve The mitral valve is normal in structure. No evidence of mitral valve stenosis. Trace mitral regurgita tion. There is no evidence of mitral valve vegetations. Tricuspid Valve The tricuspid valve is normal in structure. There is no tricuspid valve stenosis. Trace tricuspid reg urgitation. There is no tricuspid valve vegetations. Pulmonic Valve Pulmonic valve is not well visualized. There is no pulmonic valvular stenosis. There is no pulmonic v alvular regurgitation. Great Vessels The aortic root is normal in size. The ascending aorta is normal in size. Aortic arch is normal in ca liber. IVC is normal in size and collapses >50% with inspiration. Pericardium There is no pericardial effusion. 2D Dimensions IVSD d PLAX 0.84 cm M: 0.6-1.2 LV Vol A2C d MOD 94.3 mL LVPW d PLAX 0.87 cm M: 0.6 - 1.2 LV Vol A4C d MOD 108.6 mL LVID d PLAX 5.12 cm M: 4.2 - 5.8 LA vol/ BSA A2C s A-L 17.3 mL/m2 LVDs 3.55 cm M: 2.5 - 4.0 LA vol/ BSA A4C s A-L 15.7 mL/m2 Ao Root d 3.00 cm M: 3.1 - 3.7 LA Vol/ BSA Biplane s A-L 17.4 mL/m2 RA Area A4C 13.63 cm2 LA Area A4C s MOD 12.53 cm2 RA Vol/ BSA A4C s A-L 19.6 mL/m2 LA Area A2C s MOD 12.46 cm2 Ao Asc Diam d 3.38 cm M: 2.6 - 3.4 LV EF A4C MOD 57.3 % LV EF Teichholz 56.6 % LV EF A2C MOD 54.8 % LVEF (Piña's) 53.33 % M: 52 - 72 LV EF Biplane MOD 53.3 % LV Volume 77.29 mL M: 62 - 150 SV 53.98 mL LV Volume Index 40.89 mL/m2 M: 34 - 74 SV Index 28.46 mL/m2 LV Vol Biplane MOD 101.2 mL FS 29.75 % M-Mode TAPSE 2.37 cm (M/F) >1.7 LV Diastology MV E' medial 0.075 (>0.07 m/s) E/A Ratio 0.8 LV E/e MED 10.85 (<14) MV E Vmax 0.82 (0.4-1.3 m/s) MV E' lateral 0.108 (>0.1 m/s) MV A Vmax 1.00 (0.4-1.3 m/s) LV E/e LAT 7.55 (<14) MV E/A Ratio 0.80 MV E/E' medial 10.89 MV E/E' lateral 7.59 Aortic Valve LVOT Area 2.99 cm2 AoV Area Vmax 2.26 cm2 LVOT Vmax 1.08 m/s AoV Area/ BSA (Vmax) 1.19 cm2/m2 LVOT Mean [place]. 0.74 m/s BOONE Mean [place]. 2.16 cm2 LVOT Peak Grad 4.7 mmHg BOONE Mean [place]. Index 1.14 cm2/m2 LVOT Mean Grad 2.6 mmHg LVOT VTI 0.197 m LVOT Diam s 1.95 cm AoV Vmax 1.43 m/s Velocity Ratio 0.75 AoV Mean [place]. 1.03 m/s AoV Peak Grad 8.2 mmHg LVOT SV 58.93 mL AoV Mean Grad 4.6 mmHg AoV VTI 0.252 m AoV Area VTI 2.34 cm2 AoV Area/ BSA (VTI) 1.23 cm/m2 Mitral Valve MV DT 188 (160-240 msec) MV PHT 54 msec MV Area PHT 4.04 cm2 Pulmonary Valve PV Vmax 1.15 (0.5-1.5 m/s) RVOT Peak Gr. 3.43 mmHg PV Peak Grad 5.3 mmHg RVOT Mean Gr. 1.90 mmHg PV Mean Grad 3.4 mmHg RVOT VTI 0.167 m PV VTI 0.201 m RVOT Vmax 0.93 m/s Tricuspid Valve TR Peak Grad 20.8 mmHg TR Vmax 2.29 m/s RA Pressure 3.00 mmHg RVSP (TR) 23.9 mmHg
[2020-06-22] MEDS: PIPERACILLIN/TAZO 3.375 GM in Normal Saline 50 ML IVPB ×5 (00:05→23:59)
[2020-06-22] MEDS: Acetaminophen 325 MG TAB 650 MG PO ×3 (00:07→16:45)
[2020-06-22] MEDS: DOXYCYCLINE 100 MG in Normal Saline 100 ML IVPB ×2 (03:46→16:48)
[2020-06-22] MEDS: Normal Saline Flush 10 ML SYR IVP (04:05)
[2020-06-22 05:07] LABS: Lactate 0.7 mmol/L (0.6-1.4)
[2020-06-22 05:11] LABS: Abs Immature Grans 0.03 10^3/uL (0.0-0.06); Absolute Lymphocyte Count 0.62 10^3/uL (1.2-3.4); HCT 38.7 % (40.0-50.0); HGB 12.7 g/dL (13.5-17.5); MCH 31.8 pg (27.0-33.0); MCHC 32.8 % (32.0-36.0); MPV 9.2 fL (8.0-11.0); Nucleated RBC 0 %; Platelet Count 146 10^3/uL (130-400); RBC 3.99 10^6/uL (4.36-5.78); RDW 13.4 % (11.8-14.1); RDW-SD 47.9 fL; WBC 8.79 10^3/uL (4.4-10.8)
[2020-06-22 05:29] LABS: ALT 60 U/L (16-63); AST 37 U/L (15-37); Absolute Neutrophil Count 7.38 10^3/uL (1.2-6.7); Albumin 2.3 g/dL (3.4-5.0); Alkaline Phosphatase 72 U/L (46-116); Anion Gap 10.5 mmol/L (3-11); BUN 17 mg/dL (7-18); Bilirubin, Direct 0.19 mg/dL (0.00-0.20); Bilirubin, Total 0.5 mg/dL (0.2-1.0); C-Reactive Protein 17.59 mg/dL (0.0-0.3); CO2 22.5 mmol/L (21.0-32.0); CREATININE 1.11 mg/dL (0.70-1.30); Calcium 7.5 mg/dL (8.5-10.1); Chloride 105 mmol/L (98-107); Glucose 104 mg/dL (74-106); Magnesium 1.8 mg/dL (1.8-2.4); Potassium 4.3 mmol/L (3.5-5.1); Sodium 138 mmol/L (136-145); Total Protein 5.5 g/dL (6.4-8.2)
[2020-06-22 05:30] LABS: Absolute Eosinophil Count 0.26 10^3/uL (0.0-0.7); Absolute Monocyte Count 0.53 10^3/uL (0.1-0.8); Diff Comment Manual Differential
[2020-06-22 05:34] LABS: Troponin I 0.68 ng/mL (<0.06)
[2020-06-22 05:38] LABS: D-Dimer 5344 ng/mlFEU (<500)
[2020-06-22 06:26] LABS: Ferritin 949 ng/mL (26-388)
[2020-06-22] MEDS: Normal Saline 1,000 ML 125 ML IV (07:00)
--- NOTE | 2020-06-22 07:45 | RT.EKG_ITS ---
APPROVED REPORT Exam: Resting ECG Patient Location: I HR:94 bpm ECG Measurements Heart Rate 94 AXIS GA 146 P 66 QRSd 96 QRS -41 QT 347 T 36 QTc 434 Conclusion Sinus rhythm...normal P axis, V-rate 60- 99 Inferior infarct, old...Q >35mS, II III aVF
--- NOTE | 2020-06-22 08:16 | W.PM.PROGNOT ---
Date of Service Date of service: 06/22/20 Time of Service: 11:10 Assessment and Plan Assessment and plan (1) Sepsis: Status: Acute Assessment and plan: Due to bilateral PNA, present on admission. Clinically better and no longer hypotensive. Continue vancomycin, zosyn, and doxycycline. Await blood cultures. Decrease IVF. Continue to trend CRP, procalcitonin. LA normalized. Ok to d/c razo and [facility] Continue to monitor I/Os. (2) Sepsis associated hypotension: Status: Resolved Assessment and plan: As above. Fluid responsive, did not require pressors. Decrease IVF. Transfer out of ICU. LA normalized. (3) Bilateral pneumonia: Status: Acute Assessment and plan: As above (4) Elevated troponin: Status: Acute Assessment and plan: In setting of impending septic shock. Echo and cardiology consults are pending. The patient is on asa. Check FLP. (5) JERRELL (acute kidney injury): Status: Resolved Assessment and plan: Due to sepsis. Cr now at baseline. Decrease IVF and pull razo (will need a voiding trial). Continue to monitor Cr, I/O's, daily weights (6) DVT prophylaxis: Status: Acute Assessment and plan: lovenox (7) Discharge planning issues: Status: Acute Assessment and plan: Full code. Transfer out of ICU to NH with tele. Subjective Subjective Interval history since last seen: Feels better. Headache is better. Less short of breath. Cough productive of greenish sputum. Denies dizziness, chest pain, shortness of breath at rest, nausea. Temp is 36.6 right now. 38.6 overnight. SBPs up to 110s. Overnight 88-89% on RA, 1 L - 90s. Now on room air in the 90s. Good UOP. COVID negative. Exam Narrative Exam Narrative: General: pleasant middle-aged male, A&Ox3, looks better today HEENT: EOMI, MMM Cardiovascular: RRR, ?quiet TEODORA Lungs: Expiratory wheezing B which mostly clears with a cough. He does have a transient expiratory squak. Gastrointestinal: soft, nontender, nondistended Genitourinary: Has a razo - clear yellow urine Extremities: no edema BLEs Objective Last Vital Signs Temp 37.6 C H 06/22/20 05:55 Pulse 93 H 06/22/20 07:01 Resp 23 06/22/20 07:01 BP 122/66 06/22/20 07:01 Pulse Ox 93 06/22/20 07:01 Laboratory Results - last 24 hr 06/21/20 06/21/20 06/21/20 09:40 09:40 09:40 WBC 10.49 RBC 4.24 L Hgb 13.8 Hct 41.4 MCV 97.6 H MCH 32.5 MCHC 33.3 RDW 13.2 Plt Count 160 MPV 9.1 Immature Gran % 1.0 Neutrophils % 83.4 Lymphocytes % 4.1 Monocytes % 6.4 Eosinophils % 5.0 Basophils % 0.1 Nucleated RBC % 0 Absolute Neutrophils 8.76 H Absolute Lymphocytes 0.43 L Absolute Monocytes 0.67 Absolute Eosinophils 0.52 Absolute Basophils 0.01 PT 11.7 H INR 1.2 H APTT 29.4 D-Dimer > 7500 H VBG Lactate Sodium 133 L Potassium 4.3 Chloride 101 Carbon Dioxide 26.2 Anion Gap 5.8 BUN 25 H Creatinine 1.58 H Estimated GFR/1.73 m2 42.97 Glucose 139 H Calcium 8.5 Magnesium 2.1 Ferritin Total Bilirubin 0.6 Conjugated Bilirubin AST 43 H ALT 72 H Alkaline Phosphatase 82 Troponin I 0.06 C-Reactive Protein NT-Pro-B Natriuret Pep 2356 H Total Protein 6.8 Albumin 2.8 L Procalcitonin Urine Color Urine Clarity Urine pH Ur Specific [place] Urine Protein Urine Ketones Urine Blood Urine Nitrite Urine Bilirubin Urine Urobilinogen Ur Leukocyte Esterase Urine RBC Urine WBC Ur Epithelial Cells Urine Crystals Urine Bacteria Urine Casts Urine Mucus Urine Other Ur Culture Indicated? Urine Glucose 06/21/20 06/21/20 06/21/20 11:55 12:00 12:15 WBC RBC Hgb Hct MCV MCH MCHC RDW Plt Count MPV Immature Gran % Neutrophils % Lymphocytes % Monocytes % Eosinophils % Basophils % Nucleated RBC % Absolute Neutrophils Absolute Lymphocytes Absolute Monocytes Absolute Eosinophils Absolute Basophils PT INR APTT D-Dimer VBG Lactate 2.2 H* Sodium Potassium Chloride Carbon Dioxide Anion Gap BUN Creatinine Estimated GFR/1.73 m2 Glucose Calcium Magnesium Ferritin Total Bilirubin Conjugated Bilirubin AST ALT Alkaline Phosphatase Troponin I 0.18 H* C-Reactive Protein NT-Pro-B Natriuret Pep Total Protein Albumin Procalcitonin Urine Color Yellow Urine Clarity Clear Urine pH 5.5 Ur Specific [place] 1.020 Urine Protein 30 H Urine Ketones Negative Urine Blood Small H Urine Nitrite Negative Urine Bilirubin Negative Urine Urobilinogen 0.2 Ur Leukocyte Esterase Negative Urine RBC 10-20 H Urine WBC 5-10 Ur Epithelial Cells Rare Urine Crystals Negative Urine Bacteria Moderate Urine Casts Comment Urine Mucus Trace Urine Other Few renal Ur Culture Indicated? Yes Urine Glucose Negative 06/21/20 06/21/20 06/21/20 12:15 12:15 12:17 WBC RBC Hgb Hct MCV MCH MCHC RDW Plt Count MPV Immature Gran % Neutrophils % Lymphocytes % Monocytes % Eosinophils % Basophils % Nucleated RBC % Absolute Neutrophils Absolute Lymphocytes Absolute Monocytes Absolute Eosinophils Absolute Basophils PT INR APTT D-Dimer VBG Lactate Sodium Potassium Chloride Carbon Dioxide Anion Gap BUN Creatinine Estimated GFR/1.73 m2 Glucose Calcium Magnesium Ferritin 813 H Total Bilirubin Conjugated Bilirubin AST ALT Alkaline Phosphatase Troponin I Cancelled C-Reactive Protein 18.96 H NT-Pro-B Natriuret Pep Total Protein Albumin Procalcitonin 0.8 Urine Color Urine Clarity Urine pH Ur Specific [place] Urine Protein Urine Ketones Urine Blood Urine Nitrite Urine Bilirubin Urine Urobilinogen Ur Leukocyte Esterase Urine RBC Urine WBC Ur Epithelial Cells Urine Crystals Urine Bacteria Urine Casts Urine Mucus Urine Other Ur Culture Indicated? Urine Glucose 06/21/20 06/21/20 06/21/20 18:00 18:30 21:40 WBC RBC Hgb Hct MCV MCH MCHC RDW Plt Count MPV Immature Gran % Neutrophils % Lymphocytes % Monocytes % Eosinophils % Basophils % Nucleated RBC % Absolute Neutrophils Absolute Lymphocytes Absolute Monocytes Absolute Eosinophils Absolute Basophils PT INR APTT D-Dimer VBG Lactate 0.7 1.1 Sodium Potassium Chloride Carbon Dioxide Anion Gap BUN Creatinine Estimated GFR/1.73 m2 Glucose Calcium Magnesium Ferritin Total Bilirubin Conjugated Bilirubin AST ALT Alkaline Phosphatase Troponin I 0.81 H* C-Reactive Protein NT-Pro-B Natriuret Pep Total Protein Albumin Procalcitonin Urine Color Urine Clarity Urine pH Ur Specific [place] Urine Protein Urine Ketones Urine Blood Urine Nitrite Urine Bilirubin Urine Urobilinogen Ur Leukocyte Esterase Urine RBC Urine WBC Ur Epithelial Cells Urine Crystals Urine Bacteria Urine Casts Urine Mucus Urine Other Ur Culture Indicated? Urine Glucose 06/22/20 06/22/20 06/22/20 04:50 04:50 04:50 WBC 8.79 RBC 3.99 L Hgb 12.7 L Hct 38.7 L MCV 97.0 H MCH 31.8 MCHC 32.8 RDW 13.4 Plt Count 146 MPV 9.2 Immature Gran % See Differential Neutrophils % 84.0 Lymphocytes % 7.0 Monocytes % 6.0 Eosinophils % 3.0 Basophils % 0.0 Nucleated RBC % 0 Absolute Neutrophils 7.38 H Absolute Lymphocytes 0.62 L Absolute Monocytes 0.53 Absolute Eosinophils 0.26 Absolute Basophils 0.00 PT INR APTT D-Dimer VBG Lactate 0.7 Sodium 138 Potassium 4.3 Chloride 105 Carbon Dioxide 22.5 Anion Gap 10.5 BUN 17 D Creatinine 1.11 Estimated GFR/1.73 m2 >= 60.00 Glucose 104 Calcium 7.5 L Magnesium 1.8 Ferritin 949 H Total Bilirubin 0.5 Conjugated Bilirubin 0.19 AST 37 ALT 60 Alkaline Phosphatase 72 Troponin I C-Reactive Protein 17.59 H NT-Pro-B Natriuret Pep Total Protein 5.5 L Albumin 2.3 L Procalcitonin Urine Color Urine Clarity Urine pH Ur Specific [place] Urine Protein Urine Ketones Urine Blood Urine Nitrite Urine Bilirubin Urine Urobilinogen Ur Leukocyte Esterase Urine RBC Urine WBC Ur Epithelial Cells Urine Crystals Urine Bacteria Urine Casts Urine Mucus Urine Other Ur Culture Indicated? Urine Glucose 06/22/20 06/22/20 04:50 04:50 WBC RBC Hgb Hct MCV MCH MCHC RDW Plt Count MPV Immature Gran % Neutrophils % Lymphocytes % Monocytes % Eosinophils % Basophils % Nucleated RBC % Absolute Neutrophils Absolute Lymphocytes Absolute Monocytes Absolute Eosinophils Absolute Basophils PT INR APTT D-Dimer 5344 H VBG Lactate Sodium Potassium Chloride Carbon Dioxide Anion Gap BUN Creatinine Estimated GFR/1.73 m2 Glucose Calcium Magnesium Ferritin Total Bilirubin Conjugated Bilirubin AST ALT Alkaline Phosphatase Troponin I 0.68 H* C-Reactive Protein NT-Pro-B Natriuret Pep Total Protein Albumin Procalcitonin Urine Color Urine Clarity Urine pH Ur Specific [place] Urine Protein Urine Ketones Urine Blood Urine Nitrite Urine Bilirubin Urine Urobilinogen Ur Leukocyte Esterase Urine RBC Urine WBC Ur Epithelial Cells Urine Crystals Urine Bacteria Urine Casts Urine Mucus Urine Other Ur Culture Indicated? Urine Glucose EKG: ST, HR 93, old inferior [place], no changes from yesterday.
[2020-06-22 08:38] LABS: COVID-19 RT-PCR UVMMC Result Negative (Negative)
[2020-06-22] MEDS: Simvastatin 40 MG TAB PO (09:11)
[2020-06-22] MEDS: Aspirin E.C. 81 MG TABEC PO (09:11)
--- NOTE | 2020-06-22 11:06 | TELEFU_ITS ---
Date of service: 06/22/20 Time of Service: 11:06 Nutritional Follow up NOTE: 74 year old male admitted to ICU with sepsis, PNA with JERRELL with hx of CAD, HTN. BMI indicates obesity. Diet advanced today to Heart healthy but no intake. 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 Will continue to monitor and be available. Time Spent in Nutritional Counseling and Treatment: 0 time spent face to face
--- NOTE | 2020-06-22 11:13 | PHA.REVIEW ---
Pharmacy Admission Review - Admission Clinical Review (Last Reviewed 06/21/20 @ 17:49 by Nicolasa Saleh MD) Discharge planning issues (Acute) DVT prophylaxis (Acute) Sepsis associated hypotension (Acute) JERRELL (acute kidney injury) (Acute) Sepsis (Acute) Bilateral pneumonia (Acute) cetirizine HCl [From Zyrtec] Allergy (Intermediate, Verified 05/19/20 09:06) Hives atorvastatin Adverse Reaction (Severe, Verified 05/19/20 09:06) joint pains Height 5 ft 7 in Weight 87.3 kg - Renal Dosing Renal Dosing: BUN 17 mg/dL (7-18) D 06/22/20 04:50 Creatinine 1.11 mg/dL (0.70-1.30) 06/22/20 04:50 Medications needing adjustments: Reviewed (Crcl ~60.7 mL/min. Vanco dosing should be adjusted due to improvement in renal function. Zosyn could be increased for current indication, but might put the pt at an increased risk of JERRELL as it's being given with vanco. I talked to the provider about this, going to continue at the current dose.) - Anticoagulation Anticoagulation: Hgb 12.7 g/dL (13.5-17.5) L 06/22/20 04:50 Hct 38.7 % (40.0-50.0) L 06/22/20 04:50 Plt Count 146 10^3/uL (130-400) 06/22/20 04:50 INR 1.2 (0.9-1.1) H 06/21/20 09:40 Creatinine 1.11 mg/dL (0.70-1.30) 06/22/20 04:50 DVT Prohphylaxis: Reviewed Medications: Enoxaparin Therapeutic Anticoagulation: N/A - Opiate Usage Evaluate Pain Scale/Pains Meds: N/A - Relevant Labs Sodium 138 mmol/L (136-145) 06/22/20 04:50 Potassium 4.3 mmol/L (3.5-5.1) 06/22/20 04:50 Chloride 105 mmol/L (98-107) 06/22/20 04:50 Magnesium 1.8 mg/dL (1.8-2.4) 06/22/20 04:50 C-Reactive Protein 17.59 mg/dL (0.0-0.3) H 06/22/20 04:50 Electrolytes, C-Reactive P, ESR: Reviewed - DM Control DM Control: Glucose 104 mg/dL (74-106) 06/22/20 04:50 Insulin Dosing: N/A - Heart Failure/MT Heart Failure/MT: Troponin I 0.68 ng/mL (<0.06) H* 06/22/20 04:50 NT-Pro-B Natriuret Pep 2356 pg/mL (<300) H 06/21/20 09:40 EF%, SANDRA's, B-Blockers, Diuretics: Reviewed - BP Control BP Control: Blood Pressure 107/60 Blood Pressure 113/69 Blood Pressure 87/63 Blood Pressure 109/71 Blood Pressure 122/66 Blood Pressure 110/67 Blood Pressure 106/67 If elevated: N/A - Qtc Review If Elevated: N/A (Most recent QTc 434) - IV to PO Switch IV Medications: Reviewed - Home Meds Home Med List reviewed: Reviewed Relevent Home Meds Not ordered & why?: both meds ordered - Current meds Current Medication Order Review: Intervened (discontinued DI meds, already had been given) - Comments Comments/Follow Ups: Watch VS, SCr, labs, for med changes (renal dose adjustments), and for micro results. Antibiotic Activity - Pharmacy Antibiotic Review Pharmacy Antibiotic Activity: Renal function adjustment (Vanco dose adjusted due to improved renal function to target a trough of 16.2. Zosyn and doxycycline continue. Blood and urine cultures no growth @24 hours. Sputum culture pending.)
--- NOTE | 2020-06-22 11:33 | W.CARDCONSUL ---
Date of service: 06/22/20 Time of Service: 11:33 Assessment and Plan Assessment and plan (1) Elevated troponin: Status: Acute Assessment and plan: 1. Elevated troponin: This is most likely a type II non-STEMI in the setting of sepsis. The patient has known coronary artery disease with stenting in the past but has no symptoms to suggest a plaque rupture. EKG and echocardiogram are reassuring. The troponin peaked at 0.8 and is now downtrending already. ?Do not recommend anticoagulation. Aspirin should suffice without additional P2 Y 12 inhibitor. ?Continue simvastatin ?When patient is stable would reinitiate blood pressure medications. It sounds as though according to [facility] records he did not tolerate a beta-umair in the past. Okay to continue without this. ?Patient had nuclear stress test in January 2019 and I think without any additional symptoms, she is okay to hold off on further testing at this point. Would consider stress testing should the patient develop anginal type symptoms. History of Present Illness History of Present Illness Chief Complaint: Elevated trop Narrative: Mr Jones is a 74-year-old male with past medical history significant for hypertension hyperlipidemia coronary artery disease (status post NJ and PCI to the proximal and mid LAD, ostial d1) who was admitted yesterday with sepsis. The patient was found to have an elevated troponin at 0.8. He was diagnosed with bilateral pneumonia and JERRELL. Overnight he received broad-spectrum antibiotics and his sepsis-like picture resolved. He did not need pressors and responded well to fluid. His troponin has trended down. His echocardiogram this morning showed no wall motion abnormalities and he has not complained of any chest pain or recent cardiac like symptoms. 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 SMALLS; 3 TUBULAR ADENOMAS Colonoscopy - MAC (10/19/17) DR. SMALLS; 3 TUBULAR ADENOMAS History of colonoscopy History of intravascular stent placement History of surgical removal of lesion History of total cystectomy Open Carpal Tunnel release (~2006) PROCEDURES EXCISION OF PILONID CYST INSERT 3 VASCULAR STENTS, 05/30 Skin Cancer Removal (~2009) Status post carpal tunnel release Status post cholecystectomy Status post vasectomy Vasectomy Family History Mother , AGE 93 Heart disease Father , AGE 50 Pancreatic cancer Sister No problems noted. Maternal Grandfather , AGE 74 Heart disease Sister No problems noted. Son No problems noted. Daughter No problems noted. Daughter No problems noted. Social History Smoking/Tobacco Use Status: Former Tobacco Use Quit Date: 09/24/05 Tobacco: How many years used: 20 Alcohol Intake: current Alcohol Intake frequency: holidays/special occasions only Alcohol type: wine and hard liquor Drug use: Never Substance use type: does not use Caregiver/Support person: No Household members: spouse Housing: house Communication Needs: Hard of Hearing Do you need help understanding health information?: Rarely Pets and animals: No Sexually active: Yes Do you think of yourself as: straight/heterosexual Current gender identity: male What is your relationship status?: How often do you talk on the phone with friends or family?: once per week How often do you get together with friends or relatives?: once per week How often do you attend taoist or adventist services?: 1-3 times per year Do you belong to any clubs or organized social groups?: no Panel score (0-1 are the most socially isolated patients): 1 What type of physical activity do you participate in: walking and other Details: rowing machine Duration: 15-30 minutes/day Frequency: 3-4 times per week Jennifer/Cheondoism: Adventist Special jennifer needs: No Seatbelt use: always Helmet use: Yes Helmet use: always Drive intox or ride w/intox garbage 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: No Do you feel safe at home: Yes Do you feel safe in your relationship?: Yes Exam Const General: comfortable and no acute distress HENMT Head: normocephalic and atraumatic Eyes General: appearance normal, both eyes and all related structures Resp Effort & Inspection: normal respiratory effort Auscultation: clear to auscultation bilaterally Cardio Jugular venous pressure: no JVD Palpation: normal PMI Rate: regular rate Rhythm: regular rhythm Heart Sounds: S1 normal and S2 normal (No Murmurs, Rubs or Gallops) GI Palpation: soft Auscultation: normoactive bowel sounds Skin General skin exam: no rashes or lesions noted Extrem General: normal to inspection and no clubbing, cyanosis or edema Psych Appearance: grossly normal Results Last Vital Signs Temp 36.5 C 06/22/20 09:17 Pulse 91 H 06/22/20 10:01 Resp 34 H 06/22/20 10:01 BP 107/60 06/22/20 10:01 Pulse Ox 96 06/22/20 10:01 Labs Result diagrams: 06/22/20 04:50 06/22/20 04:50 Labs: Laboratory Results - last 24 hr 06/21/20 06/21/20 06/21/20 09:45 11:55 12:00 WBC RBC Hgb Hct MCV MCH MCHC RDW Plt Count MPV Immature Gran % Neutrophils % Lymphocytes % Monocytes % Eosinophils % Basophils % Nucleated RBC % Absolute Neutrophils Absolute Lymphocytes Absolute Monocytes Absolute Eosinophils Absolute Basophils D-Dimer VBG Lactate Sodium Potassium Chloride Carbon Dioxide Anion Gap BUN Creatinine Estimated GFR/1.73 m2 Glucose Calcium Magnesium Ferritin Total Bilirubin Conjugated Bilirubin AST ALT Alkaline Phosphatase Troponin I 0.18 H* C-Reactive Protein Total Protein Albumin Procalcitonin Urine Color Yellow Urine Clarity Clear Urine pH 5.5 Ur Specific [place] 1.020 Urine Protein 30 H Urine Ketones Negative Urine Blood Small H Urine Nitrite Negative Urine Bilirubin Negative Urine Urobilinogen 0.2 Ur Leukocyte Esterase Negative Urine RBC 10-20 H Urine WBC 5-10 Ur Epithelial Cells Rare Urine Crystals Negative Urine Bacteria Moderate Urine Casts Comment Urine Mucus Trace Urine Other Few renal Ur Culture Indicated? Yes Urine Glucose Negative COVID-19 PCR Negative Nasopharyn COVID-19 PCR Not Applicable Ref Test Perform Site [place] [facility] 06/21/20 06/21/20 06/21/20 12:15 12:15 12:15 WBC RBC Hgb Hct MCV MCH MCHC RDW Plt Count MPV Immature Gran % Neutrophils % Lymphocytes % Monocytes % Eosinophils % Basophils % Nucleated RBC % Absolute Neutrophils Absolute Lymphocytes Absolute Monocytes Absolute Eosinophils Absolute Basophils D-Dimer VBG Lactate 2.2 H* Sodium Potassium Chloride Carbon Dioxide Anion Gap BUN Creatinine Estimated GFR/1.73 m2 Glucose Calcium Magnesium Ferritin 813 H Total Bilirubin Conjugated Bilirubin AST ALT Alkaline Phosphatase Troponin I C-Reactive Protein 18.96 H Total Protein Albumin Procalcitonin 0.8 Urine Color Urine Clarity Urine pH Ur Specific [place] Urine Protein Urine Ketones Urine Blood Urine Nitrite Urine Bilirubin Urine Urobilinogen Ur Leukocyte Esterase Urine RBC Urine WBC Ur Epithelial Cells Urine Crystals Urine Bacteria Urine Casts Urine Mucus Urine Other Ur Culture Indicated? Urine Glucose COVID-19 PCR Nasopharyn COVID-19 PCR Ref Test Perform Site 06/21/20 06/21/20 06/21/20 12:17 18:00 18:30 WBC RBC Hgb Hct MCV MCH MCHC RDW Plt Count MPV Immature Gran % Neutrophils % Lymphocytes % Monocytes % Eosinophils % Basophils % Nucleated RBC % Absolute Neutrophils Absolute Lymphocytes Absolute Monocytes Absolute Eosinophils Absolute Basophils D-Dimer VBG Lactate 0.7 Sodium Potassium Chloride Carbon Dioxide Anion Gap BUN Creatinine Estimated GFR/1.73 m2 Glucose Calcium Magnesium Ferritin Total Bilirubin Conjugated Bilirubin AST ALT Alkaline Phosphatase Troponin I Cancelled 0.81 H* C-Reactive Protein Total Protein Albumin Procalcitonin Urine Color Urine Clarity Urine pH Ur Specific [place] Urine Protein Urine Ketones Urine Blood Urine Nitrite Urine Bilirubin Urine Urobilinogen Ur Leukocyte Esterase Urine RBC Urine WBC Ur Epithelial Cells Urine Crystals Urine Bacteria Urine Casts Urine Mucus Urine Other Ur Culture Indicated? Urine Glucose COVID-19 PCR Nasopharyn COVID-19 PCR Ref Test Perform Site 06/21/20 06/22/20 06/22/20 21:40 04:50 04:50 WBC RBC Hgb Hct MCV MCH MCHC RDW Plt Count MPV Immature Gran % Neutrophils % Lymphocytes % Monocytes % Eosinophils % Basophils % Nucleated RBC % Absolute Neutrophils Absolute Lymphocytes Absolute Monocytes Absolute Eosinophils Absolute Basophils D-Dimer VBG Lactate 1.1 0.7 Sodium 138 Potassium 4.3 Chloride 105 Carbon Dioxide 22.5 Anion Gap 10.5 BUN 17 D Creatinine 1.11 Estimated GFR/1.73 m2 >= 60.00 Glucose 104 Calcium 7.5 L Magnesium 1.8 Ferritin 949 H Total Bilirubin 0.5 Conjugated Bilirubin 0.19 AST 37 ALT 60 Alkaline Phosphatase 72 Troponin I C-Reactive Protein 17.59 H Total Protein 5.5 L Albumin 2.3 L Procalcitonin Urine Color Urine Clarity Urine pH Ur Specific [place] Urine Protein Urine Ketones Urine Blood Urine Nitrite Urine Bilirubin Urine Urobilinogen Ur Leukocyte Esterase Urine RBC Urine WBC Ur Epithelial Cells Urine Crystals Urine Bacteria Urine Casts Urine Mucus Urine Other Ur Culture Indicated? Urine Glucose COVID-19 PCR Nasopharyn COVID-19 PCR Ref Test Perform Site 06/22/20 06/22/20 06/22/20 04:50 04:50 04:50 WBC 8.79 RBC 3.99 L Hgb 12.7 L Hct 38.7 L MCV 97.0 H MCH 31.8 MCHC 32.8 RDW 13.4 Plt Count 146 MPV 9.2 Immature Gran % See Differential Neutrophils % 84.0 Lymphocytes % 7.0 Monocytes % 6.0 Eosinophils % 3.0 Basophils % 0.0 Nucleated RBC % 0 Absolute Neutrophils 7.38 H Absolute Lymphocytes 0.62 L Absolute Monocytes 0.53 Absolute Eosinophils 0.26 Absolute Basophils 0.00 D-Dimer 5344 H VBG Lactate Sodium Potassium Chloride Carbon Dioxide Anion Gap BUN Creatinine Estimated GFR/1.73 m2 Glucose Calcium Magnesium Ferritin Total Bilirubin Conjugated Bilirubin AST ALT Alkaline Phosphatase Troponin I 0.68 H* C-Reactive Protein Total Protein Albumin Procalcitonin Urine Color Urine Clarity Urine pH Ur Specific [place] Urine Protein Urine Ketones Urine Blood Urine Nitrite Urine Bilirubin Urine Urobilinogen Ur Leukocyte Esterase Urine RBC Urine WBC Ur Epithelial Cells Urine Crystals Urine Bacteria Urine Casts Urine Mucus Urine Other Ur Culture Indicated? Urine Glucose COVID-19 PCR Nasopharyn COVID-19 PCR Ref Test Perform Site
[2020-06-22] MEDS: guaiFENesin 600 MG TABCR PO ×2 (12:12→19:38)
[2020-06-22 12:26] LABS: Troponin I 0.62 ng/mL (<0.06)
--- NOTE | 2020-06-22 14:25 | CHAPLAIN ---
Anthony was in bed when I visited. His was on the phone, out of the room. Anthony shared some personal history telling me about his family work life. He is a member of the 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 He said it's likely she'll find out and he hopes not to be here long.
--- NOTE | 2020-06-22 16:47 | INITIAL_ITS ---
- If Service Date Differs Date of service: 06/22/20 Time of Service: 16:47 Care Management Initial Assess REASON FOR HOSPITALIZATION:: Sepsis due to PNA with Hypoxia, JERRELL PAST MEDICAL HISTORY/PAST SURGICAL HISTORY:: Medical History . Carpal tunnel syndrome. Cellulitis of scrotum. 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 Coronary atherosclerosis of [place] coronary vessel (08/23/95). A) [place] 05/30. B) 2 STENTS PLACED 06/12/06. Crohn's disease. Essential hypertension (08/31/16). Herpes zoster. Hypercholesterolemia. Malignant neoplasm of skin. 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 Myocardial infarction (08/23/05). Onychomycosis. Scrotal rash. Shoulder pain, right. Skin cancer, basal cell. Surgical History . Cholecystectomy. Colonoscopy - MAC (08/19/12). DR. SMALLS; 3 TUBULAR ADENOMAS. Colonoscopy - MAC (10/19/17). DR. SMALLS; 3 TUBULAR ADENOMAS. History of colonoscopy. History of intravascular stent placement. History of surgical removal of lesion. History of total cystectomy. Open Carpal Tunnel release (~2006). PROCEDURES. EXCISION OF PILONID CYST. INSERT 3 VASCULAR STENTS, 05/30. Skin Cancer Removal (~2009). Status post carpal tunnel release. Status post cholecystectomy. Status post vasectomy. Vasectomy PREVIOUS FUNCTIONAL STATUS/SOCIAL/FAMILY SUPPORTS:: Anthony lives in [facility] with his , Blanca. They live in a two story house. He is retired. He has three children and five grand children. He is independent at baseline, and is able to complete his ADL's without assistance. CURRENT FUNCTIONAL STATUS:: Anthony was sitting up in bed in the ICU when CM met with him. His was by his side. He stated that he was feeling better today than when he arrived. He was pleasant and engaged in conversation. Per report, provider is awaiting blood cultures to determine abx course. He was seen by Cardiology today as well. CM will continue to follow. ADVANCE DIRECTIVES:: On file, Blanca listed as agent. Has patient been provided with info about the portal/API?: Yes Did the patient sign up for the portal?: Yes (previously) CODE STATUS:: Full Code INSURANCE COVERAGE / FINANCIAL ISSUES:: Commercial MCR replacement- [employer] CURRENT HOME/COMMUNITY SERVICES/EQUIPMENT:: No current services or equipment. PRIMARY CARE PHYSICIAN:: Darren Barbour POTENTIAL DISCHARGE NEEDS:: Evaluations for further needs, follow up appointments PATIENT/FAMILY EDUCATION NEEDS:: Review discharge instructions regarding activity levels and medication, discussion of self care needs including ask me three and goals of care. ANTICIPATED BARRIERS TO DISCHARGE:: None identified. TRANSPORTATION:: Via private vehicle by family. PLAN:: Anticipate Anthony will return home when medically cleared. His will drive him home when ready via private vehicle. He will follow up with his PCP and discharge plan of care. CM will continue to follow.
[2020-06-22] MEDS: Enoxaparin 40 MG/0.4 ML SYR SC (16:48)
[2020-06-22] MEDS: Normal Saline 1,000 ML 75 ML IV ×2 (19:37→22:17)
[2020-06-23] VITALS (9 sets, daily range): BP systolic 113–134; BP diastolic 69–84; PULSE 80–101; RESP 2–22; TEMP 35.8–37.6; O2SAT 92–98
[2020-06-23] MEDS: Acetaminophen 325 MG TAB 650 MG PO (04:23)
[2020-06-23] MEDS: DOXYCYCLINE 100 MG in Normal Saline 100 ML IVPB ×2 (04:24→15:42)
[2020-06-23] MEDS: PIPERACILLIN/TAZO 3.375 GM in Normal Saline 50 ML IVPB ×3 (05:28→18:50)
[2020-06-23 06:56] LABS: Abs Immature Grans 0.03 10^3/uL (0.0-0.06); Absolute Basophil Count 0.01 10^3/uL (0.0-0.2); Absolute Eosinophil Count 0.62 10^3/uL (0.0-0.7); Absolute Lymphocyte Count 0.81 10^3/uL (1.2-3.4); Absolute Monocyte Count 0.71 10^3/uL (0.1-0.8); Basophils % 0.1; Eosinophils % 7.5; HCT 40.1 % (40.0-50.0); HGB 13.5 g/dL (13.5-17.5); Immature Grans % 0.4; Lymphocytes % 9.8; MCH 31.8 pg (27.0-33.0); MCHC 33.7 % (32.0-36.0); MCV 94.4 fL (80-95); Monocytes % 8.6; Neutrophils % 73.6; Nucleated RBC 0 %; Platelet Count 176 10^3/uL (130-400); RBC 4.25 10^6/uL (4.36-5.78); RDW 13.2 % (11.8-14.1); RDW-SD 45.9 fL; WBC 8.28 10^3/uL (4.4-10.8)
[2020-06-23 07:08] LABS: BUN 12 mg/dL (7-18); Chloride 104 mmol/L (98-107); Glucose 100 mg/dL (74-106); HDL Cholesterol 20 mg/dL (40-60); Magnesium 1.6 mg/dL (1.8-2.4); Potassium 3.7 mmol/L (3.5-5.1)
[2020-06-23 07:10] LABS: Anion Gap 9.9 mmol/L (3-11); CO2 22.1 mmol/L (21.0-32.0); CREATININE 0.93 mg/dL (0.70-1.30); Calcium 8.3 mg/dL (8.5-10.1); Calculated LDL 46 mg/dL (<100); Cholesterol 93 mg/dL (<200); Sodium 136 mmol/L (136-145); Triglyceride 137 mg/dL (<150)
[2020-06-23 07:21] LABS: C-Reactive Protein 12.72 mg/dL (0.0-0.3)
[2020-06-23 08:09] LABS: Hemoglobin A1C 5.6 % (<5.7)
--- NOTE | 2020-06-23 09:22 | DI.RAD_ITS ---
EXAM: XR PORTABLE CHEST AP CLINICAL HISTORY: worsening shortness of breath TECHNIQUE: 2D digital imaging was performed. COMPARISON: CR XR PORTABLE CHEST AP from 06/21/2020 FINDINGS: Leads overlie the chest. Heart size remains normal. The aorta is mildly tortuous. No focal area of consolidation or effusion is seen. There is no overt pulmonary edema. No pneumothorax is seen. IMPRESSION: No acute pulmonary findings. DATA REPOSITORY: RADIATION DOSE DELIVERED:
[2020-06-23] MEDS: Albuterol/Ipratropium 3 ML UPD VIAL UPD (09:27)
[2020-06-23] MEDS: Normal Saline Flush 10 ML SYR IVP ×2 (09:46→11:38)
[2020-06-23] MEDS: guaiFENesin 600 MG TABCR PO ×2 (09:46→20:05)
[2020-06-23] MEDS: Aspirin E.C. 81 MG TABEC PO (09:46)
[2020-06-23] MEDS: MAGNESIUM SULFATE 2 GM/50 ML BAG IVPB (11:30)
[2020-06-23 11:38] LABS: NT-proBNP 7228 pg/mL (<300)
--- NOTE | 2020-06-23 15:00 | PGE_ITS ---
Date of Service Date of service: 06/23/20 Time of Service: 15:01 Assessment and Plan Assessment and plan (1) Sepsis: Status: Resolved Assessment and plan: Due to bilateral PNA, present on admission, now much clinically improved. Continue zosyn, and doxycycline. D/c vancomycin. Blood cx negative. IVF d/c'ed. In fact, giving 1 dose of lasix due to suspected slight iatrogenic f luid overload. Continue to trend CRP, procalcitonin. LA normalized. Continue to monitor I/Os. (2) Sepsis associated hypotension: Status: Resolved Assessment and plan: As above. Fluid responsive, did not require pressors. D/c IVF. LA normalized. (3) Bilateral pneumonia: Status: Acute Assessment and plan: As above (4) Elevated troponin: Status: Acute Assessment and plan: Type 2 NSTEMI in setting of impending septic shock. Echo w/o wall motion abnormalities, LVEF 55-60%. Does have evidence of mild pulmonary hypertension, but that is unlikely to be of significance in current clinical situation. The patient is on asa. Continue statin. No need for further ischemic workup unless develops anginal sx, per cardiology. (5) JERRELL (acute kidney injury): Status: Resolved Assessment and plan: Due to sepsis. Cr now at baseline. Checking PVRs. (6) DVT prophylaxis: Status: Acute Assessment and plan: lovenox (7) Discharge planning issues: Status: Acute Assessment and plan: Full code. Anticipate discharge home within the next 24 hours. Subjective Subjective Interval history since last seen: Mr Jones feels better. He has been having coughing episodes where he gets severely short of breath. Per patient, he noticed that this happens especially when he lays down flat. The last time this happened was last night. He denies dizziness, chest pain, shortness of breath now, or nausea. He endorses urinary frequency. Exam Narrative Exam Narrative: General: pleasant middle-aged male, A&Ox3, looks better, but does appear slightly anxious. He is able to talk for about 4-5 words before needing to take a new breath HEENT: EOMI, MMM Cardiovascular: RRR, ?quiet TEODORA Lungs: Improved aeration B; no wheezing heard today; RLL crackles Gastrointestinal: soft, nontender, nondistended Extremities: no edema BLEs, wearing TEDs Objective Last Vital Signs Temp 36.7 C 06/23/20 11:05 Pulse 85 06/23/20 11:05 Resp 20 06/23/20 11:05 BP 113/69 06/23/20 11:05 Pulse Ox 95 06/23/20 11:05 Laboratory Results - last 24 hr 06/23/20 06/23/20 06/23/20 06:33 06:33 06:33 WBC 8.28 RBC 4.25 L Hgb 13.5 Hct 40.1 MCV 94.4 MCH 31.8 MCHC 33.7 RDW 13.2 Plt Count 176 MPV 9.0 Immature Gran % 0.4 Neutrophils % 73.6 Lymphocytes % 9.8 Monocytes % 8.6 Eosinophils % 7.5 Basophils % 0.1 Nucleated RBC % 0 Absolute Neutrophils 6.10 Absolute Lymphocytes 0.81 L Absolute Monocytes 0.71 Absolute Eosinophils 0.62 Absolute Basophils 0.01 Sodium 136 Potassium 3.7 Chloride 104 Carbon Dioxide 22.1 Anion Gap 9.9 BUN 12 Creatinine 0.93 Estimated GFR/1.73 m2 >= 60.00 Glucose 100 Hemoglobin A1c 5.6 Calcium 8.3 L Magnesium 1.6 L C-Reactive Protein 12.72 H NT-Pro-B Natriuret Pep 7228 H Triglycerides 137 Total Cholesterol 93 LDL Cholesterol, Calc 46 HDL Cholesterol 20 L CXR: No acute pulmonary findings.
[2020-06-23] MEDS: Furosemide 20 MG/2 ML VIAL IVP (15:42)
[2020-06-23] MEDS: Enoxaparin 40 MG/0.4 ML SYR SC (15:42)
--- NOTE | 2020-06-23 16:11 | CMPROGNOTE_ITS ---
- If Service Date Differs Date of service: 06/23/20 Time of Service: 16:11 Care Management Progress Note S/O: Anthony was sitting up in his chair when CM met with him. He reported that he is feeling much better today, and would like to discuss his discharge plan. Per provider, Anthony will remain at [facility] overnight for continued monitoring. He may be ready for discharge tomorrow. He has been having episodes of SOB, which is being monitored. Anthony states that he is anxious to return home. CM will continue to follow. A: Anthony is a 74 year old male admitted to [facility] on 06/21/20 with Sepsis d/t Bilateral PNA. P: Anticipate Anthony will return home with no additional services once medically cleared. His will drive him home via private vehicle when ready. He will follow up with his PCP and discharge plan of care. CM will continue to follow.
[2020-06-23 16:48] LABS: Bilirubin Negative (Negative); Blood Trace-lysed (Negative); Clarity Clear (Clear); Glucose Negative (Negative); Ketones Negative (Negative); Leukocyte Esterase Negative (Negative); Nitrite Negative (Negative); Specific Gravity 1.025 (1.005-1.025); Urobilinogen 0.2 EU/dL (Up TO 0.2)
[2020-06-23 16:59] LABS: Bacteria Negative HPF (Negative); C & S Indicated? No; Casts 0-2 Hyaline LPF (Negative); Crystals Negative HPF (Negative); Epithelial Cells Negative HPF (Negative); Mucus Trace (Negative); WBC 0-2 HPF (0-5)
[2020-06-23] MEDS: Simvastatin 40 MG TAB PO (20:05)
[2020-06-24] MEDS: PIPERACILLIN/TAZO 3.375 GM in Normal Saline 50 ML IVPB ×3 (00:40→11:55)
[2020-06-24] MEDS: Normal Saline Flush 10 ML SYR IVP ×2 (02:03→03:39)
[2020-06-24 03:26] VITALS: BP 134/87; PULSE 91; RESP 18; TEMP 36.9; O2SAT 93
[2020-06-24] MEDS: DOXYCYCLINE 100 MG in Normal Saline 100 ML IVPB (03:38)
--- NOTE | 2020-06-24 04:48 | NUR.NOTE ---
Nursing Note: This RN checked this patient to recheck the telemetry. The patient was standing and was about to go out of the room, he removed his telemetry and pull out his IV saying he was about to go home. RN reoriented the patient about the time and the place. Will assess as necessary.
[2020-06-24 06:55] LABS: Abs Immature Grans 0.05 10^3/uL (0.0-0.06); Absolute Basophil Count 0.02 10^3/uL (0.0-0.2); Absolute Eosinophil Count 0.75 10^3/uL (0.0-0.7); Absolute Lymphocyte Count 1.16 10^3/uL (1.2-3.4); Absolute Neutrophil Count 5.44 10^3/uL (1.2-6.7); Basophils % 0.2; Eosinophils % 9.1; HCT 37.1 % (40.0-50.0); HGB 12.8 g/dL (13.5-17.5); Immature Grans % 0.6; Lymphocytes % 14.1; MCH 32.2 pg (27.0-33.0); MCHC 34.5 % (32.0-36.0); MCV 93.2 fL (80-95); Monocytes % 9.7; Neutrophils % 66.3; Nucleated RBC 0 %; Platelet Count 208 10^3/uL (130-400); RBC 3.98 10^6/uL (4.36-5.78); RDW 13.2 % (11.8-14.1); RDW-SD 45.4 fL; WBC 8.22 10^3/uL (4.4-10.8)
[2020-06-24 07:30] LABS: BUN 13 mg/dL (7-18); CREATININE 1.01 mg/dL (0.70-1.30); Calcium 8.8 mg/dL (8.5-10.1); Chloride 104 mmol/L (98-107); Glucose 104 mg/dL (74-106); Magnesium 1.9 mg/dL (1.8-2.4); Potassium 3.7 mmol/L (3.5-5.1); Sodium 137 mmol/L (136-145)
[2020-06-24 07:37] VITALS: BP 129/78; PULSE 79; RESP 18; TEMP 36.9; O2SAT 94
[2020-06-24] MEDS: Aspirin E.C. 81 MG TABEC PO (07:52)
[2020-06-24] MEDS: guaiFENesin 600 MG TABCR PO (07:52)
[2020-06-24 09:17] LABS: Procalcitonin 1.1 ng/mL
[2020-06-24 09:35] LABS: Vancomycin, Trough 6.2 ug/mL (10.0-20.0)
--- NOTE | 2020-06-24 10:59 | IN_ITS ---
Date of service: 06/24/20 Time of Service: 10:59 PT Notes Visit Reasons: SEPSIS DUE TO BUE PNEUMONIA WITH HYPOXIA, JERRELL Physical Therapy Inpatient Initial Evaluation Date: 06/24/2020 Referring Doctor: Nicolasa Saleh MD PT Orders: PT CONSULT: Limited ability Precautions: Fall. Standard. Activity as tolerated. Patient Profile/Admitting Diagnosis: Anthnoy is a 74-year-old male to the ED on 06/13/2020 with 3 days worth of increasing cough, low-grade fever, body aches, and shortness of breath. Patient is diagnosed with sepsis, sepsis associated hypotension, bilateral pneumonia, acute kidney injury, and elevated troponin. 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 SMALLS; 3 TUBULAR ADENOMAS Colonoscopy - MAC (10/19/17) DR. SMALLS; 3 TUBULAR ADENOMAS History of colonoscopy History of intravascular stent placement History of surgical removal of lesion History of total cystectomy Open Carpal Tunnel release (~2006) PROCEDURES EXCISION OF PILONID CYST INSERT 3 VASCULAR STENTS, 05/30 Skin Cancer Removal (~2009) Status post carpal tunnel release Status post cholecystectomy Status post vasectomy Vasectomy Social History/Home Situation: Lives with Blanca in a 2-level house with a flight of steps to the cellar where his home office is and another flight of steps to the bedroom with rails on B sides with rails on B sides as well. Equipment Owned/DME: None Subjective: Feels significantly better today and is hopeful that he can go home today. Denies dizziness, chest pain, and lightheadedness. Objective: General Observation: Telemetry in place. Mental Status: ALert and oriented x 4 Pain: None reported ROM: Right Upper Extremity: Shoulder Flexion only allows 90 degrees of flexion. Shoulder abduction allows about 80 degrees of flexion. Elbow flexion WFL. Wrist flexion WFL. Opening and closing of hand WFL. Left Upper Extremity: Shoulder Flexion WFL. Shoulder abduction WFL. Elbow flex ion WFL. Wrist flexion WFL. Opening and closing of hand WFL. Right Lower Extremity: Hip flexion WFL. Hip abduction WFL. Knee flexion WFL. Ankle dorsiflexion WFL. Ankle plantarflexion WFL. Left Lower Extremity: Hip flexion WFL. Hip abduction WFL. Knee flexion WFL. Ankle dorsiflexion WFL. Ankle plantarflexion WFL. Strength: Right Upper Extremity: Shoulder flexors 3-/5. Shoulder abductors 3-/5. Elbow flexors 5/5. Elbow extensors 5/5. [employer] strong. Left Upper Extremity: Shoulder flexors 5/5. Shoulder abductors 5/5. Elbow flexors 5/5. Elbow extensors 5/5. [employer] Psychologist strong. Right Lower Extremity: Hip flexors 5/5. Hip abductors 5/5. Knee flexors 5/5. Knee extensors 5/5. Ankle dorsiflexors 5/5. Ankle plantarflexors 5/5. Left Lower Extremity:Hip flexors 5/5. Hip abductors 5/5. Knee flexors 5/5. Knee extensors 5/5. Ankle dorsiflexors 5/5. Ankle plantarflexors 5/5. Sensation: Intact as to pain and pressure on bilateral lower extremities. Bed Mobility/Transfers: Rolling independent Supine to sit independent Sit to supine independent Sit to stand independent Stand to sit independent Bed to chair independent Chair to bed independent Gait: Independent with level surface ambulation for 1,620 feet duirng the 6- minute walk test administered to him today with minimal SOB and oxygen saturation range of 90-96% on room air. Balance: Static Sitting: Normal Dynamic Sitting: Normal Static Standing: Normal Dynamic Standing: Normal Special Tests: Mobility Limitations Standardized Measure [facility] AM-PAC 6 clicks Basic Mobility Inpatient Short Form: Raw Score: 24 CMS Score: 0% deficit Informed Consent/Education: Patient instructed in purpose of PT consult and plan of care. Assessment: Anthony demonstrates limitation of range of motion and weakness on the right shoulder which he was getting outpatient therapy services for. He plans on resuming same services as soon as he discharges from this hospital. Mobility-christianson, he does not present any functional deficits at this time with 6- minute walk test result of 1,620 feet which is close to the norm of 1,729 feet for healthy individuals 70 to 79 years old[place] [address] low complexity based on the following: History: 74-year-old male with impairment level findings, functional limitations, and past medical history as indicated above Examination: No demonstrable impairment in mobility level as seen above Presentation: Stable Decision Makin low complexity Goals: N/A. PT eval only. Plan of Care/Treatment Plan: N/A. PT eval only. DISCHARGE RECOMMENDATIONS: Continue with outpatient PT services for rehabilitation of the right shoulder as previously. TREATMENT CODE/TIME: 33185 x 36 minutes beginning at 10:59 AM. Thank you for the opportunity to participate in the care of this patient. Melvi eMndez PT, DPT, CLT [facility] [place]
[2020-06-24 11:30] VITALS: BP 141/85; PULSE 87; RESP 18; TEMP 36.7; O2SAT 95
--- NOTE | 2020-06-24 14:23 | DSE_ITS ---
Date of service: 06/24/20 Time of Service: 14:24 DS: Diagnosis Discharge Diagnosis (1) Sepsis: Status: Resolved (2) Sepsis associated hypotension: Status: Resolved (3) Bilateral pneumonia: Status: Acute (4) NSTEMI (non-ST elevated myocardial infarction): Status: Acute (5) JERRELL (acute kidney injury): Status: Resolved (6) Lactic acidosis: Status: Resolved (7) COVID-19 ruled out by laboratory testing: Status: Acute Discharge Plan Disposition Patient Disposition: HOME Condition: Stable Discharge Details Reason For Visit: SEPSIS DUE TO BUE PNEUMONIA WITH HYPOXIA, JERRELL Admit Date/Time: 06/21/20 12:18 Admit Provider: Nicolasa Saleh Attending Provider: Nicolasa Saleh Primary Care Provider: Darren Barbour Hospital Course Hospital Course: Mr Jones is a 74 year old male with PMHx of CAD s/p stents x 3 in the past, as well as hypertension, hyperlipidemia, and suspected Crohn's disease in the past (presently quiescent), who was admitted to [facility] hospitalist service on 06/21/2020 with sepsis due to bilateral pneumonia. He was initiated on broad spectrum antibiotics (vancomycin, zosyn, doxycycline). Shortly after being admitted, he was noted to develop hypotension and was transferred to the ICU for aggressive IV fluids with closer monitoring. He was fluid responsive and did not require vasopressors and was transferred out of the ICU on hospital day 2. He was transiently hypoxic, but this resolved within the first couple of hours of admission. He did have elevated lactic acid and an JERRELL initially, but these resolved with above therapy. His blood cultures were negative. COVID-19 was ruled out by nasopharyngeal PCR. In setting of sepsis with impending septic s hock, he also had an elevation of his troponin which was felt to be a type 2 NSTEMI in setting of sepsis. Cardiology evaluated the patient and felt that, given lack of wall motion abnormalities on the echo, further ischemic workup is not warranted at this time, but should the patient develop any anginal symptoms, it would need to be pursued. The patient never had chest pain or any arrhythmic events during his hospitalization. He is being sent home with 1 week of augmentin and doxycycline due to the severity of his disease. It should be noted that the patient has changes consistent with chronic lung disease on his imaging and this should be further investigated as outpatient. He is medically stable for discharge home today. Care for patient as well as completion of his discharge summary on day of discharge took 1 hour. Home Meds and New Rx's Prescriptions: New aspirin 81 mg Tablet,Delayed Release (Dr/Ec) 81 mg PO DAILY Qty: 0 RF: 0 guaifenesin [Mucinex] 600 mg Tablet Extended Release 12hr 600 mg PO BID PRN PRN (Reason: cough) Qty: 14 RF: 0 amoxicillin-pot clavulanate [Augmentin] 875-125 mg tablet 1 tab PO BID Qty: 14 RF: 0 doxycycline hyclate 100 mg capsule 100 mg PO BID Qty: 14 RF: 0 albuterol sulfate 90 mcg/actuation HFA aerosol inhaler 2 puff inhalation QID PRN (Reason: shortness of breath or wheezing) Qty: 18 RF: 0 Continued simvastatin 40 mg tablet 40 mg PO DAILY Qty: 90 RF: 4 lisinopril 5 mg tablet 5 mg PO BID Qty: 180 RF: 4 Discharge Instructions Instructions: Doxycycline (By mouth), Piperacillin/Tazobactam (Injection), Bacterial Pneumonia (DC) Additional Instructions: Finish your antibiotics as prescribed. Your antibiotics can make you sensitive to sunlight - wear sunscreen and stay away from the sun, if possible. Return to the hospital with any fever, bleeding, chest pain, or shortness of breath. Referrals: Darren Barbour [Primary Care Provider] - 07/06/20 10:20 am Activity:: Activity as Tolerated Equipment/Supplies:: No Equipment Needed Diet:: As Tolerated Discharge Orders Discharge Orders: Discharge Order (Routine); Ordered 06/24/20 Ordered By: Nicolasa Saleh DS: Summary Status at Discharge Functional status at discharge: independent ambulation Overall status at discharge: patient is back to baseline Mental Status: mental status grossly normal Speech and Movement: speech and movement normal Mood: congruent mood Affect: normal affect Exam Narrative Exam Narrative: General: pleasant middle-aged male, A&Ox3, looks well, able to tell a lengthy story with no evidence of respiratory distress HEENT: EOMI, MMM Cardiovascular: RRR, no m/r/g Lungs: CTAB Gastrointestinal: soft, nontender, nondistended Extremities: no edema BLEs, wearing TEDs Psych Mental Status: mental status grossly normal Speech and Movement: speech and movement normal Mood: congruent mood Affect: normal affect DS: Data Vitals/I&O Vitals and I&O: Vital Signs Temperature 36.7 C 06/24/20 11:30 Temperature Source Tympanic 06/24/20 11:30 Pulse 87 06/24/20 11:30 Pulse Rhythm Regular 06/24/20 09:00 Pulse 106 H 06/22/20 18:01 Respiratory Rate 18 06/24/20 11:30 Respiratory Effort Non-Labored 06/24/20 09:00 Respiratory Depth Normal 06/24/20 09:00 Respiratory Pattern Normal 06/24/20 09:00 Blood Pressure 141/85 H 06/24/20 11:30 Blood Pressure Mean 85 06/22/20 18:01 Blood Pressure Position Supine 06/21/20 20:00 Pulse Oximetry 95 06/24/20 11:30 Oxygen Delivery Method Room Air 06/24/20 11:30 Oxygen Flow Rate 0 06/24/20 11:30 Pain Level 0 06/24/20 11:30 Comment 06/21/20 09:14 Intake & Output 06/23/20 06/24/20 06/24/20 23:59 11:59 23:59 Intake Total 1930 / 4210 1080 / 1130 50 / 1130 Output Total 575 / 1175 120 / 120 Balance 1355 / 3035 960 / 1010 50 / 1010 Weight 76.4 kg Intake: IV 1450 / 2850 200 / 250 50 / 250 Oral 480 / 1360 880 / 880 Output: Urine 575 / 1175 120 / 120 Other: Urine Color Pale Yellow Urine Appearance Clear Urine Odor Normal Comment void x1 by the toilet Voiding Methods Toilet Data Completed and Pending Completed studies during hospitalization [Text1]: CXR 06/21/2020: No acute abnormality. CTA chest 06/21/2020: No evidence of pulmonary embolism. Bilateral infiltrates, greatest in the right upper lobe medially. Interstitial changes, likely chronic. Echo 06/22/2020: Left Ventricle : The left ventricle is normal size. The left ventricular systolic function is normal. The left ventricular ejection fraction is within the normal range. There is normal left ventricular wall thickness. There is normal LV segmental wall motion. The left ventricular diastolic function is normal. LVEF is 55-60%. Right Ventricle : The right ventricle is normal size. The right ventricular systolic function is normal. The RVSP is 23.9 mmHg. Atria : The left atrium size is normal. The right atrium size is normal. Valves: There are no hemodynamically significant valvular lesions. Great Vessels : The aortic root is normal in size. The ascending aorta is normal in size. Aortic arch is normal in caliber. IVC is normal in size and collapses >50% with inspiration. There are no prior images available for comparison. CXR 06/23/2020: No acute pulmonary findings. Labs on day of discharge: Labs from last 24 hours 06/24/20 06/24/20 06/24/20 09:07 06:29 06:29 WBC 8.22 RBC 3.98 L Hgb 12.8 L Hct 37.1 L MCV 93.2 MCH 32.2 MCHC 34.5 RDW 13.2 Plt Count 208 MPV 9.0 Immature Gran % 0.6 Neutrophils % 66.3 Lymphocytes % 14.1 Monocytes % 9.7 Eosinophils % 9.1 Basophils % 0.2 Nucleated RBC % 0 Absolute Neutrophils 5.44 Absolute Lymphocytes 1.16 L Absolute Monocytes 0.80 Absolute Eosinophils 0.75 H Absolute Basophils 0.02 Sodium Potassium Chloride Carbon Dioxide Anion Gap BUN Creatinine Estimated GFR/1.73 m2 Glucose Calcium Magnesium Procalcitonin 1.1 Urine Color Urine Clarity Urine pH Ur Specific Leroy Urine Protein Urine Ketones Urine Blood Urine Nitrite Urine Bilirubin Urine Urobilinogen Ur Leukocyte Esterase Urine RBC Urine WBC Ur Epithelial Cells Urine Crystals Urine Bacteria Urine Casts Urine Mucus Ur Culture Indicated? Urine Glucose Vancomycin Trough 6.2 L 06/24/20 06/23/20 06:29 15:50 WBC RBC Hgb Hct MCV MCH MCHC RDW Plt Count MPV Immature Gran % Neutrophils % Lymphocytes % Monocytes % Eosinophils % Basophils % Nucleated RBC % Absolute Neutrophils Absolute Lymphocytes Absolute Monocytes Absolute Eosinophils Absolute Basophils Sodium 137 Potassium 3.7 Chloride 104 Carbon Dioxide 24.0 Anion Gap 9.0 BUN 13 Creatinine 1.01 Estimated GFR/1.73 m2 >= 60.00 Glucose 104 Calcium 8.8 Magnesium 1.9 Procalcitonin Urine Color Yellow Urine Clarity Clear Urine pH 6.0 Ur Specific Leroy 1.025 Urine Protein Negative Urine Ketones Negative Urine Blood Trace-lysed H Urine Nitrite Negative Urine Bilirubin Negative Urine Urobilinogen 0.2 Ur Leukocyte Esterase Negative Urine RBC 5-10 H Urine WBC 0-2 Ur Epithelial Cells Negative Urine Crystals Negative Urine Bacteria Negative Urine Casts 0-2 hyaline Urine Mucus Trace Ur Culture Indicated? No Urine Glucose Negative Vancomycin Trough Preliminary micro results at discharge 06/22/20 12:20 Sputum Culture - Preliminary Sputum - Expectorated Normal Marlys 06/21/20 12:27 Blood Culture - Preliminary Blood NO GROWTH 48 HOURS 06/21/20 12:15 Blood Culture - Preliminary Blood NO GROWTH 48 HOURS [facility] Medical History Carpal tunnel syndrome Cellulitis of scrotum Combined arterial insufficiency and corporo-venous occlusive erectile dysfunction (04/04/18) Coronary atherosclerosis of [place] coronary vessel (08/23/95) A) [place] 05/30 B) 2 STENTS PLACED 06/12/06 Crohn's disease Essential hypertension (08/31/16) Herpes zoster Hypercholesterolemia 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 SMALLS; 3 TUBULAR ADENOMAS Colonoscopy - MAC (10/19/17) DR. SMALLS; 3 TUBULAR ADENOMAS History of colonoscopy History of intravascular stent placement History of surgical removal of lesion History of total cystectomy Open Carpal Tunnel release (~2006) PROCEDURES EXCISION OF PILONID CYST INSERT 3 VASCULAR STENTS, 05/30 Skin Cancer Removal (~2009) Status post carpal tunnel release Status post cholecystectomy Status post vasectomy Vasectomy Family History Mother , AGE 93 Heart disease Father , AGE 50 Pancreatic cancer Sister No problems noted. Maternal Grandfather , AGE 74 Heart disease Sister No problems noted. Son No problems noted. Daughter No problems noted. Daughter No problems noted. Social History Smoking/Tobacco Use Status: Former Tobacco Use Quit Date: 09/24/05 Tobacco: How many years used: 20 Alcohol Intake: current Alcohol Intake frequency: holidays/special occasions only Alcohol type: wine and hard liquor Drug use: Never Substance use type: does not use Caregiver/Support person: No Household members: spouse Housing: house Communication Needs: Hard of Hearing Do you need help understanding health information?: Rarely Pets and animals: No Sexually active: Yes Do you think of yourself as: straight/heterosexual Current gender identity: male What is your relationship status?: How often do you talk on the phone with friends or family?: once per week How often do you get together with friends or relatives?: once per week How often do you attend rastafarian or rastafari services?: 1-3 times per year Do you belong to any clubs or organized social groups?: no Panel score (0-1 are the most socially isolated patients): 1 What type of physical activity do you participate in: walking and other Details: rowing machine Duration: 15-30 minutes/day Frequency: 3-4 times per week Jennifer/Yarsanism: Denominational Special jennifer needs: No Seatbelt use: always Helmet use: Yes Helmet use: always Drive intox or ride w/intox limo driver: No Do you feel safe at home: Yes Do you feel safe in your relationship?: Yes
--- NOTE | 2020-06-24 14:44 | PDOC.CMDIS ---
- If Service Date Differs Date of service: 06/24/20 Time of Service: 14:44 LACE Index Scoring Tool - Questions: Length of Stay (in days): 4 - 6 Acuity (Admit via E.D.?): Yes Comorbidities: Previous M.I., Mild Liver/Renal Disease, Any Tumor E.D. Visits: 1 - Answers: Total Score: 13 Risk of Readmission: High Risk Care Management Discharge Reason for Hospitalization: Sepsis due to PNA with Hypoxia, JERRELL Discharge Plan: Anthony will return home today with no additional services. His will drive him home via private vehicle when ready. He will follow up with her PCP and discharge plan of care. He is happy to be going home. Patient/Family Education Needs: Review discharge instructions regarding activity levels and medications, discussion of self care needs and goals of care.
== END 2020-06-24 16:06 | disposition home or self-care (01) | DRG 871 ==
LOC: ER 12:46 → ICU 06-22 06:55 → MS 06-22 21:49
PROVIDERS: General Practice; Admitting Provider Internal Medicine; Emergency Provider Emergency Medicine; PCP Family Medicine; Visit Provider Internal Medicine
DX: A41.9 Sepsis, unspecified organism (principal); I21.A1 Myocardial infarction type 2; J18.9 Pneumonia, unspecified organism; N17.9 Acute kidney failure, unspecified; K50.90 Crohn's disease, unspecified, without complications; Z11.59 Encounter for screening for other viral diseases; R09.02 Hypoxemia; I25.10 Atherosclerotic heart disease of native coronary artery without angina pectoris; Z95.5 Presence of coronary angioplasty implant and graft; I10 Essential (primary) hypertension; E78.5 Hyperlipidemia, unspecified; I25.2 Old myocardial infarction; E78.00 Pure hypercholesterolemia, unspecified
CPT/HCPCS: 36415; 71275; 80048; 80053; 80061; 80076; 84145; 87040; 90686; 93005; 93306; 94618; 94640; 96361; 96365; 97161; 97530; 99222; 99232; 99233; 99239; 99254; 99285; 99291; J1650; U0003; 71045; 80202; 81003; 81015; 82728; 83036; 83605; 83735; 83880; 84484; 85025; 85379; 85610; 85730; 86140; 87070; 87086; 87205; 93010; 94667; 99284; J0696; J1941; J2543; J3490; J7620

== ENCOUNTER → 2020-06-22 08:08 | Outpatient (BNVA) | payer OTHER, SELFPAY | PROVIDERS: PCP Family Medicine; Referring Provider Family Medicine; Visit Provider Internal Medicine Cardiovascular Disease | DX: R69 Illness, unspecified (principal) ==

== ENCOUNTER 2020-07-03 07:05 | Inpatient (IN) | payer OTHER, SELFPAY ==
[2020-07-03] VITALS (140 sets, daily range): BP systolic 99–143; BP diastolic 44–79; PULSE 78–125; RESP 16–38; TEMP 37.4–38.3; O2SAT 90–98
--- NOTE | 2020-07-03 07:00 | RT.EKG_ITS ---
APPROVED REPORT Exam: Resting ECG Patient Location: E HR:122 bpm ECG Measurements Heart Rate 122 AXIS OH 140 P 60 QRSd 95 QRS -59 QT 316 T 37 QTc 451 Conclusion Rate 122, sinus tachycardia, intervals normal, no significant ST elevation or depression. No evidenc e of STEMI. No significant changes from prior EKG on 06/22/2020
--- NOTE | 2020-07-03 07:25 | W.ED.GENAD ---
Discharge Plan Disposition Patient Disposition: [facility] INPATIENT Condition: Stable Discharge Details Clinical Impression: Pneumonia Admit Date/Time: 07/03/20 10:48 Admit Provider: Luis A Mccloud Attending Provider: Luis A Mccloud Primary Care Provider: Darren Barbour ED Provider: Jose Luis Watts Medical Decision Making <Attila R Jose - Last Filed: 07/03/20 07:46> 74-year-old male with past medical history of CAD s/p stents x 3, hypertension, high cholesterol, suspected Crohn's disease and quiescent phase who was recently admitted here at [facility] at the end of May with pneumonia that eventually led to an STEMI, acute kidney injury, and fulminant sepsis. He was discharged in days ago on Augmentin and doxycycline. He just finished the pills within the last 2 days. He has been taking everything as directed. Patient states that he has had a continued cough, but since he stopped taking the antibiotic he has had notable worsening of the cough, and then over the last 24 to 48 hours development of fever, chills, mild shortness of breath, and what he feels is a return of his previous symptoms. He states that his symptoms at this time feel identical to how he was when he was in the hospital. He denies any hemoptysis, numbness, tingling, weakness, vomiting or diarrhea. Echo on his last visit was relatively unremarkable. CTA on his last visit showed no evidence of mass or pulmonary embolism. Patient denies any other modifying factors. No other complaint at this time. Exam demonstrates minimal crackles in the bases, patient is tachycardic, oxygen appears to be stable. He was febrile at home and took Tylenol last night. His borderline oxygenation, his tachycardia and the suspected etiology of infection the patient does meet sepsis criteria. We will start with a liter bolus of normal saline, evaluate for urinary pulmonary infectious etiologies, get blood cultures. As the patient has been on antibiotics up until just a day or so ago I do feel it reasonable to hold off on broad-spectrum antibiotics right now until we further delineate a source. Patient will be signed out to my colleague Dr. Jose Luis Watts for reevaluation after labs and imaging have returned. EKG 7: 18 Rate 122, sinus tachycardia, intervals normal, no significant ST elevation or depression. No evidence of STEMI. No significant changes from prior EKG on 06/22/2020 <Jose Luis Watts MD - Last Filed: 07/03/20 12:09> Received signout from Dr. Garcia. Please see his note regarding details of today's presentation, history, exam and plan of care. The patient known to me from his emergency department visit on June 21 with admission for pneumonia, he was treated initially on broad-spectrum antibiotics, then discharged on doxycycline and Augmentin which he finished this past . Describes last night recurrent chills, weakness, body ache and cough. Persistent this morning and for which he now presents to the ER. His inflammatory markers are elevated. A noncontrast CT scan of the chest shows residual opacities but overall improved appearance. On my exam he has right basilar rhonchi. Clinically this is a recurrent pneumonia. Troponin negative. 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 Case discussed with Dr. Mccloud, patient to be admitted. Lab Data Lab results reviewed: Yes I reviewed the patient's lab results. Labs: Laboratory Results - last 24 hr 07/03/20 07/03/20 07/03/20 07:30 07:30 07:30 WBC 15.16 H RBC 4.36 Hgb 13.9 Hct 41.7 MCV 95.6 H MCH 31.9 MCHC 33.3 RDW 13.2 Plt Count 470 H D MPV 8.5 Immature Gran % 0.4 Neutrophils % 88.6 Lymphocytes % 3.2 Monocytes % 3.7 Eosinophils % 4.0 Basophils % 0.1 Nucleated RBC % 0 Absolute Neutrophils 13.43 H Absolute Lymphocytes 0.49 L Absolute Monocytes 0.56 Absolute Eosinophils 0.61 Absolute Basophils 0.02 PT INR APTT VBG pH VBG pCO2 VBG pO2 VBG HCO3 VBG Total CO2 VBG O2 Saturation VBG Base Excess VBG Lactate 3.5 H* Sodium 136 Potassium 4.3 Chloride 101 Carbon Dioxide 21.5 Anion Gap 13.5 H BUN 25 H Creatinine 1.37 H Estimated GFR/1.73 m2 50.66 Glucose 196 H Calcium 9.0 Total Bilirubin 0.5 AST 28 ALT 54 Alkaline Phosphatase 78 Troponin I < 0.05 NT-Pro-B Natriuret Pep 1431 H Total Protein 7.8 Albumin 3.1 L Procalcitonin Urine Color Urine Clarity Urine pH Ur Specific [place] Urine Protein Urine Ketones Urine Blood Urine Nitrite Urine Bilirubin Urine Urobilinogen Ur Leukocyte Esterase Urine RBC Urine WBC Ur Epithelial Cells Urine Crystals Urine Bacteria Urine Casts Urine Mucus Ur Culture Indicated? Urine Glucose 07/03/20 07/03/20 07/03/20 07:30 07:30 07:30 WBC RBC Hgb Hct MCV MCH MCHC RDW Plt Count MPV Immature Gran % Neutrophils % Lymphocytes % Monocytes % Eosinophils % Basophils % Nucleated RBC % Absolute Neutrophils Absolute Lymphocytes Absolute Monocytes Absolute Eosinophils Absolute Basophils PT 10.7 INR 1.1 APTT 27.0 VBG pH 7.41 VBG pCO2 33 L VBG pO2 65 VBG HCO3 21 L VBG Total CO2 18 L VBG O2 Saturation 93 VBG Base Excess -4 L VBG Lactate Sodium Potassium Chloride Carbon Dioxide Anion Gap BUN Creatinine Estimated GFR/1.73 m2 Glucose Calcium Total Bilirubin AST ALT Alkaline Phosphatase Troponin I NT-Pro-B Natriuret Pep Total Protein Albumin Procalcitonin 0.2 Urine Color Urine Clarity Urine pH Ur Specific [place] Urine Protein Urine Ketones Urine Blood Urine Nitrite Urine Bilirubin Urine Urobilinogen Ur Leukocyte Esterase Urine RBC Urine WBC Ur Epithelial Cells Urine Crystals Urine Bacteria Urine Casts Urine Mucus Ur Culture Indicated? Urine Glucose 07/03/20 07:50 WBC RBC Hgb Hct MCV MCH MCHC RDW Plt Count MPV Immature Gran % Neutrophils % Lymphocytes % Monocytes % Eosinophils % Basophils % Nucleated RBC % Absolute Neutrophils Absolute Lymphocytes Absolute Monocytes Absolute Eosinophils Absolute Basophils PT INR APTT VBG pH VBG pCO2 VBG pO2 VBG HCO3 VBG Total CO2 VBG O2 Saturation VBG Base Excess VBG Lactate Sodium Potassium Chloride Carbon Dioxide Anion Gap BUN Creatinine Estimated GFR/1.73 m2 Glucose Calcium Total Bilirubin AST ALT Alkaline Phosphatase Troponin I NT-Pro-B Natriuret Pep Total Protein Albumin Procalcitonin Urine Color Yellow Urine Clarity Clear Urine pH 5.5 Ur Specific [place] >= 1.030 H Urine Protein Negative Urine Ketones Negative Urine Blood Trace-intact H Urine Nitrite Negative Urine Bilirubin Negative Urine Urobilinogen 0.2 Ur Leukocyte Esterase Negative Urine RBC 3-5 H Urine WBC 3-5 Ur Epithelial Cells Negative Urine Crystals Negative Urine Bacteria Few Urine Casts Negative Urine Mucus Moderate Ur Culture Indicated? C&s done as ordered Urine Glucose Negative HPI <Attila Garcia, - Last Filed: 07/03/20 07:46> General Date/Time Provider Initiated Documentation: 07/03/20 07:12. HPI Narrative: 74-year-old male with past medical history of CAD s/p stents x 3, hypertension, high cholesterol, suspected Crohn's disease and quiescent phase who was recently admitted here at [facility] at the end of May with pneumonia that eventually led to an STEMI, acute kidney injury, and fulminant sepsis. He was discharged in days ago on Augmentin and doxycycline. He just finished the pills within the last 2 days. He has been taking everything as directed. Patient states that he has had a continued cough, but since he stopped taking the antibiotic he has had notable worsening of the cough, and then over the last 24 to 48 hours development of fever, chills, mild shortness of breath, and what he feels is a return of his previous symptoms. He states that his symptoms at this time feel identical to how he was when he was in the hospital. He denies any hemoptysis, numbness, tingling, weakness, vomiting or diarrhea. Echo on his last visit was relatively unremarkable. CTA on his last visit showed no evidence of mass or pulmonary embolism. Patient denies any other modifying factors. No other complaint at this time. Related Data Home Medications Medication Instructions Recorded Confirmed simvastatin 40 mg tablet 40 mg PO DAILY #90 tab-cap 04/09/20 07/03/20 lisinopril 5 mg tablet 5 mg PO BID #180 tab-cap 06/01/20 07/03/20 albuterol sulfate 2 puff INHALATION QID PRN #18 g 06/24/20 07/03/20 aspirin 81 mg PO DAILY #0 tab 06/24/20 07/03/20 Previous Rx's Medication Instructions Recorded simvastatin 40 mg tablet 40 mg PO DAILY #90 tab-cap 04/09/20 lisinopril 5 mg tablet 5 mg PO BID #180 tab-cap 06/01/20 albuterol sulfate 2 puff INHALATION QID PRN #18 g 06/24/20 aspirin 81 mg PO DAILY #0 tab 06/24/20 Allergies Allergy/AdvReac Type Severity Reaction Status Date / Time cetirizine HCl [From Zyrtec] Allergy Intermediate Hives Verified 07/03/20 07:13 atorvastatin AdvReac Severe joint pains Verified 07/03/20 07:13 General Stated Complaint: RespSymp BHARAT: 3 Review of Systems <Attila Garcia DO - Last Filed: 07/03/20 07:46> All systems reviewed & are unremarkable except as noted in HPI and below PFSH <Attila Garcia DO - Last Filed: 07/03/20 07:46> Medical History Carpal tunnel syndrome Cellulitis of scrotum Combined arterial insufficiency and corporo-venous occlusive erectile dysfunction (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 SMALLS; 3 TUBULAR ADENOMAS Colonoscopy - MAC (10/19/17) DR. SMALLS; 3 TUBULAR ADENOMAS History of colonoscopy History of intravascular stent placement History of surgical removal of lesion History of total cystectomy Open Carpal Tunnel release (~2006) PROCEDURES EXCISION OF PILONID CYST INSERT 3 VASCULAR STENTS, 05/30 Skin Cancer Removal (~2009) Status post carpal tunnel release Status post cholecystectomy Status post vasectomy Vasectomy Family History Mother , AGE 93 Heart disease Father , AGE 50 Pancreatic cancer Sister No problems noted. Maternal Grandfather , AGE 74 Heart disease Sister No problems noted. Son No problems noted. Daughter No problems noted. Daughter No problems noted. Social History Smoking/Tobacco Use Status: Former Tobacco Use Quit Date: 09/24/05 Tobacco: How many years used: 20 Alcohol Intake: current Alcohol Intake frequency: holidays/special occasions only Alcohol type: wine and hard liquor Drug use: Never Substance use type: does not use Caregiver/Support person: No Household members: spouse Housing: house Communication Needs: Hard of Hearing Do you need help understanding health information?: Rarely Pets and animals: No Sexually active: Yes Do you think of yourself as: straight/heterosexual Current gender identity: male What is your relationship status?: How often do you talk on the phone with friends or family?: once per week How often do you get together with friends or relatives?: once per week How often do you attend confucianism or congregation services?: 1-3 times per year Do you belong to any clubs or organized social groups?: no Panel score (0-1 are the most socially isolated patients): 1 What type of physical activity do you participate in: walking and other Details: rowing machine Duration: 15-30 minutes/day Frequency: 3-4 times per week Jennifer/Anglican: Presybeterian Special jennifer needs: No Seatbelt use: always Helmet use: Yes Helmet use: always Drive intox or ride w/intox school bus driver/custodian: No Do you feel safe at home: Yes Do you feel safe in your relationship?: Yes Exam <Attila Garcia DO - Last Filed: 07/03/20 07:46> Narrative Exam Narrative: 1.Const: Well-nourished, Well-developed, appearing stated age 2.Eyes: PERRL, no conjunctival injection, and symmetrical lids. 3.ENT: Atraumatic external nose and ears. Moist MM. Neck: Symmetric, trachea midline, No thyromegaly. 4.CVS: +S1/S2, No murmurs or gallops. Peripheral pulses 2+ and equal in all extremities. Brisk capillary refill in all extremities. 5.RESP: Unlabored respiratory effort. Minimal crackles in the bases. No rhonchi or wheezes. 6.GI: Soft, Nontender/Nondistended, No hepatosplenomegaly. No guarding or rebound. 7.MSK: Normocephalic/Atraumatic, Extremities w/o deformity or ttp No cyanosis or clubbing, Normal movement of all extremities, no calf tenderness. 8.Skin: Warm, Dry. No rashes or lesions. Small abdominal wall bruises present, likely from previous hospital stay. 9.Neuro: analytical strategist II-XII grossly intact. Sensation grossly intact, no focal neurologic deficits. 10.Psych: (AAO) x3. Appropriate mood and affect Course <Attila Garcia DO - Last Filed: 07/03/20 07:46> Vital Signs Vital signs: Vital Signs Temperature 37.4 C 07/03/20 07:08 Pulse 125 H 07/03/20 07:08 Respiratory Rate 18 07/03/20 07:08 Blood Pressure 142/77 H 07/03/20 07:08 Pulse Oximetry 91 L 07/03/20 07:08 Temperature 37.4 C 07/03/20 07:08 Temperature Source Oral 07/03/20 07:08 Pulse 125 H 07/03/20 07:08 Respiratory Rate 18 07/03/20 07:08 Respiratory Effort 07/03/20 07:16 Blood Pressure 142/77 H 07/03/20 07:08 Blood Pressure Position Sitting 07/03/20 07:08 Pulse Oximetry 91 L 07/03/20 07:08 Oxygen Delivery Method Room Air 07/03/20 07:08 Oxygen Flow Rate 0 07/03/20 07:08 Lab/Test Results Lab/Test Results: 07/03/20 07:22 Blood Blood Culture - Pending 07/03/20 07:22 Blood Blood Culture - Pending Sign Out <Attila Garcia DO - Last Filed: 07/03/20 07:46> Sign Out Data: Sign Out Comment: Pending labs and imaging Last updated by Attila Garcia DO at 07/03/20 07:56
[2020-07-03] MEDS: ACETAMINOPHEN 1,000 MG/100 ML BTL 400 MG IVPB (07:40)
[2020-07-03] MEDS: Normal Saline 1,000 ML 1000 ML IV (07:40)
[2020-07-03 07:47] LABS: BE (Venous) -4 mmol/L (-2-3); HCO3 (Venous) 21 mmol/L (23-28); O2 Sat (Venous) 93 %; TCO2 (Venous) 18 mmol/L (24-29); pCO2 (Venous) 33 mmHg (41-51); pH (Venous) 7.41 (7.31-7.41); pO2 (Venous) 65 mmHg
[2020-07-03 07:48] LABS: Abs Immature Grans 0.06 10^3/uL (0.0-0.06); Absolute Basophil Count 0.02 10^3/uL (0.0-0.2); Absolute Monocyte Count 0.56 10^3/uL (0.1-0.8); Basophils % 0.1; HCT 41.7 % (40.0-50.0); HGB 13.9 g/dL (13.5-17.5); Immature Grans % 0.4; Lymphocytes % 3.2; MCH 31.9 pg (27.0-33.0); MCHC 33.3 % (32.0-36.0); MCV 95.6 fL (80-95); MPV 8.5 fL (8.0-11.0); Monocytes % 3.7; Neutrophils % 88.6; Nucleated RBC 0 %; Platelet Count 470 10^3/uL (130-400); RBC 4.36 10^6/uL (4.36-5.78); RDW 13.2 % (11.8-14.1); RDW-SD 46.9 fL; WBC 15.16 10^3/uL (4.4-10.8)
[2020-07-03 07:50] LABS: Lactate 3.5 mmol/L (0.6-1.4)
[2020-07-03 07:53] LABS: Absolute Eosinophil Count 0.61 10^3/uL (0.0-0.7); Absolute Lymphocyte Count 0.49 10^3/uL (1.2-3.4); Absolute Neutrophil Count 13.43 10^3/uL (1.2-6.7)
[2020-07-03 07:58] LABS: Bilirubin Negative (Negative); Blood Trace-intact (Negative); Clarity Clear (Clear); Glucose Negative (Negative); Ketones Negative (Negative); Leukocyte Esterase Negative (Negative); Nitrite Negative (Negative); Specific Gravity >= 1.030 (1.005-1.025); Urobilinogen 0.2 EU/dL (Up TO 0.2); pH 5.5 (5-8)
[2020-07-03 08:09] LABS: Bacteria Few HPF (Negative); C & S Indicated? C&S Done As Ordered; Casts Negative LPF (Negative); Crystals Negative HPF (Negative); Epithelial Cells Negative HPF (Negative); Mucus Moderate (Negative)
[2020-07-03 08:17] LABS: Procalcitonin 0.2 ng/mL
[2020-07-03 08:18] LABS: INR 1.1 (0.9-1.1); Prothrombin Time 10.7 sec (9.3-11.0)
[2020-07-03 08:19] LABS: ALT 54 U/L (16-63); AST 28 U/L (15-37); Albumin 3.1 g/dL (3.4-5.0); Alkaline Phosphatase 78 U/L (46-116); Anion Gap 13.5 mmol/L (3-11); BUN 25 mg/dL (7-18); Bilirubin, Total 0.5 mg/dL (0.2-1.0); CO2 21.5 mmol/L (21.0-32.0); CREATININE 1.37 mg/dL (0.70-1.30); Chloride 101 mmol/L (98-107); Estimated GFR 50.66 (mL/min/1.73m2); Glucose 196 mg/dL (74-106); NT-proBNP 1431 pg/mL (<300); Potassium 4.3 mmol/L (3.5-5.1); Sodium 136 mmol/L (136-145); Total Protein 7.8 g/dL (6.4-8.2); Troponin I < 0.05 ng/mL (<0.06)
--- NOTE | 2020-07-03 08:36 | DI.CT_ITS ---
EXAM: CT CHEST WO CLINICAL HISTORY: Recurrent cough/fever. TECHNIQUE: Imaging protocol: Axial computed tomography images were obtained and coronal and sagittal reformatted images were created and reviewed. COMPARISON: CT CT CHEST PE CTA from 06/21/2020 FINDINGS: Tracheobronchial tree: Patent where visualized. Mediastinum and Mago: No dominant adenopathy or fluid collection. Small hiatal hernia. Pulmonary parenchyma: There has been no change in the subpleural nodule in the lateral aspect of the left lower lobe. There is persistent pleural parenchymal scarring in the lateral aspect of the right upper lobe. There is scarring, atelectasis or residual infiltrate in the left lingula. No new infi ltrates are seen. Atelectasis is seen in the lung bases. Overall, there is been improved appearance of the lungs compared to the prior examination. Pleura: No effusion or pneumothorax. Heart: The heart is not dilated. Moderate coronary artery calcification. No significant pericardial effusion. Aorta: Thoracic aorta non-dilated. Atherosclerosis. Upper abdomen: Status post cholecystectomy. Lymph nodes: Within normal limits. Bones:Degenerative changes in the spine. Soft tissues: Unremarkable. IMPRESSION: 1. Overall, markedly improved appearance of the lungs compared to the prior examination dated 06/13/20 20. 2. No new pulmonary infiltrates are present. 3. Unchanged pleural parenchymal thickening in the right upper lobe and is stable left lower lobe pul monary nodule. RADIATION DOSE DELIVERED: 488.32mGy.cm Total DLP 488.32mGy.cm Total DLP DATA REPOSITORY: All CT scans at this facility are submitted to the National Radiology Data Registry (NRDR) Dose Index Registry (DIR) with the [employer] ([employer]). RADIATION OPTIMIZATION: All CT scans at this facility use at least one of these dose optimization te chniques: automated exposure control; mA and/or kV adjustment per patient size (includes targeted exa ms where dose is matched to clinical indication); or iterative reconstruction.
[2020-07-03] MEDS: Normal Saline 1,000 ML 175 ML IV ×3 (08:45→21:49)
[2020-07-03] MEDS: PIPERACILLIN/TAZO 3.375 GM in Normal Saline 50 ML IVPB ×3 (10:20→21:40)
[2020-07-03 12:23] LABS: Lactate 1.2 mmol/L (0.6-1.4)
[2020-07-03 12:48] LABS: Troponin I 0.08 ng/mL (<0.06)
[2020-07-03] MEDS: Enoxaparin 40 MG/0.4 ML SYR SC (13:03)
--- NOTE | 2020-07-03 13:07 | W.PM.HP.N ---
Date of service: 07/03/20 Time of Service: 13:07 Assessment and Plan Assessment and plan (1) Pneumonia: Status: Acute Assessment and plan: Clinical assessment compatible with recurrent pneumonia: F/C, worsening cough. Also has elevated WBC count w/o other source of infection noted. CXR and CT chest did not reveal any acute infiltrates or consolidations. May seen PNA on a repeat CXR now that he has received IV fluid bolus / hydration. CXR in AM CBC in AM Cont Zosyn and Vanc. Qualifiers: Pneumonia type: due to unspecified organism Laterality: unspecified laterality Lung location: unspecified part of lung Qualified Code(s): J18.9 - Pneumonia, unspecified organism (2) Elevated troponin: Status: Acute Assessment and plan: Initial troponin negative. Repeat troponin 0.08 Likely demand ischemia Previous NSTEMI during last hospitalization. Repeat troponin pending. Telemetry (3) JERRELL (acute kidney injury): Status: Resolved Assessment and plan: Creatinine of 1.37. Creatinine at last admission 1.58 and normalized with fluids/tx of PNA to 1.01 Has received IV hydration. BMP in AM (4) Sepsis: Status: Resolved Assessment and plan: Based on elevated lactate level that has normalized with IV hydration, mild tachynpnea, elevated WBC count. Secondary to presumed PNA. Cont Zosyn and Vanc. (5) Coronary atherosclerosis of [place] coronary vessel: Status: Chronic Assessment and plan: No CP / angina Monitoring troponin level. (6) Essential hypertension: Status: Chronic Assessment and plan: Currently normotensive. On lisinopril at home. Holding currently Monitor History of Present Illness History of Present Illness Chief Complaint: Fever and chills Narrative: This is a 74 yo male with a h/o CAD s/p stents x 3, HTN, HLD, suspected Crohn's disease / quiescent phase. He presented after developing F/C, mild SOA the night prior to admission. He was admitted to [facility] on 06/21/2020 - 06/24/2020 for PNA, sepsis. He also was dxd with an NSTEMI during that hospitalization. He was discharged on Augmentin and Doxycycline. He finished the course of antibiotics 2 days ago. He has continued to cough since the previous admission; worsening since finishing the oral antibiotics. He states his symptoms appear to be similar to those that he presented with previously. He currently reports a ESPITIA that has improved but persists since receiving acetaminophen. No sputum, diarrhea, neck stiffness. On evaluation in ED his respiratory rate was 23, WBC count and Lactate were elevated. He meets sepsis criteris. His CXR did not show any infiltrates or consolidations. CT chest showed improvement in the previous noted pneumonia w/o any new findings. Procalcitonin of 0.2. He was started on Zosyn and Vanocmycin, given IV fluid bolus. His lactate normalized. 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 SMALLS; 3 TUBULAR ADENOMAS Colonoscopy - MAC (10/19/17) DR. SMALLS; 3 TUBULAR ADENOMAS History of colonoscopy History of intravascular stent placement History of surgical removal of lesion History of total cystectomy Open Carpal Tunnel release (~2006) PROCEDURES EXCISION OF PILONID CYST INSERT 3 VASCULAR STENTS, 05/30 Skin Cancer Removal (~2009) Status post carpal tunnel release Status post cholecystectomy Status post vasectomy Vasectomy Family History Mother , AGE 93 Heart disease Father , AGE 50 Pancreatic cancer Sister No problems noted. Maternal Grandfather , AGE 74 Heart disease Sister No problems noted. Son No problems noted. Daughter No problems noted. Daughter No problems noted. Social History Smoking/Tobacco Use Status: Former Tobacco Use Quit Date: 09/24/05 Tobacco: How many years used: 20 Alcohol Intake: current Alcohol Intake frequency: holidays/special occasions only Alcohol type: wine and hard liquor Drug use: Never Substance use type: does not use Caregiver/Support person: No Household members: spouse Housing: house Communication Needs: Hard of Hearing Do you need help understanding health information?: Rarely Pets and animals: No Sexually active: Yes Do you think of yourself as: straight/heterosexual Current gender identity: male What is your relationship status?: How often do you talk on the phone with friends or family?: once per week How often do you get together with friends or relatives?: once per week How often do you attend anglican or worship services?: 1-3 times per year Do you belong to any clubs or organized social groups?: no Panel score (0-1 are the most socially isolated patients): 1 What type of physical activity do you participate in: walking and other Details: rowing machine Duration: 15-30 minutes/day Frequency: 3-4 times per week Jennifer/Uatsdin: Scientologist Special jennifer needs: No Seatbelt use: always Helmet use: Yes Helmet use: always Drive intox 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 Do you feel safe at home: Yes Do you feel safe in your relationship?: Yes Meds Home Medications and Allergies Home Medications Medication Instructions Recorded Confirmed Type simvastatin 40 mg tablet 40 mg PO DAILY #90 tab-cap 04/09/20 07/03/20 Rx lisinopril 5 mg tablet 5 mg PO BID #180 tab-cap 06/01/20 07/03/20 Rx albuterol sulfate 2 puff INHALATION QID PRN #18 g 06/24/20 07/03/20 Rx aspirin 81 mg PO DAILY #0 tab 06/24/20 07/03/20 Rx Allergies Allergy/AdvReac Type Severity Reaction Status Date / Time cetirizine HCl [From [facility]] Allergy Intermediate Hives Verified 07/03/20 07:13 atorvastatin AdvReac Severe joint pains Verified 07/03/20 07:13 Exam Const General: cooperative, no acute distress and ill appearing Nutritional Appearance: average body habitus Orientation: alert and oriented x3 HENMT Head: normocephalic Eyes Conjunctivae: conjunctivae normal Sclera: sclerae normal Pupils: PERRL Neck Neck: full ROM and no JVD Resp Effort & Inspection: normal respiratory effort Auscultation: rales bilaterally in the lower lung wisdom (faint) Cardio Rate: regular rate Rhythm: regular rhythm Heart Sounds: S1 normal and S2 normal GI Palpation: soft Percussion: normal to percussion Auscultation: normal bowel sounds Skin General skin exam: no rashes or lesions noted Extrem General: no clubbing, cyanosis or edema and no calf tenderness Results Labs Result diagrams: 07/03/20 07:30 07/03/20 07:30 Labs: Laboratory Results - last 24 hr 07/03/20 07/03/20 07/03/20 07:30 07:30 07:30 WBC 15.16 H RBC 4.36 Hgb 13.9 Hct 41.7 MCV 95.6 H MCH 31.9 MCHC 33.3 RDW 13.2 Plt Count 470 H D MPV 8.5 Immature Gran % 0.4 Neutrophils % 88.6 Lymphocytes % 3.2 Monocytes % 3.7 Eosinophils % 4.0 Basophils % 0.1 Nucleated RBC % 0 Absolute Neutrophils 13.43 H Absolute Lymphocytes 0.49 L Absolute Monocytes 0.56 Absolute Eosinophils 0.61 Absolute Basophils 0.02 PT INR APTT VBG pH VBG pCO2 VBG pO2 VBG HCO3 VBG Total CO2 VBG O2 Saturation VBG Base Excess VBG Lactate 3.5 H* Sodium 136 Potassium 4.3 Chloride 101 Carbon Dioxide 21.5 Anion Gap 13.5 H BUN 25 H Creatinine 1.37 H Estimated GFR/1.73 m2 50.66 Glucose 196 H Calcium 9.0 Total Bilirubin 0.5 AST 28 ALT 54 Alkaline Phosphatase 78 Troponin I < 0.05 NT-Pro-B Natriuret Pep 1431 H Total Protein 7.8 Albumin 3.1 L Procalcitonin Urine Color Urine Clarity Urine pH Ur Specific [place] Urine Protein Urine Ketones Urine Blood Urine Nitrite Urine Bilirubin Urine Urobilinogen Ur Leukocyte Esterase Urine RBC Urine WBC Ur Epithelial Cells Urine Crystals Urine Bacteria Urine Casts Urine Mucus Ur Culture Indicated? Urine Glucose 07/03/20 07/03/20 07/03/20 07:30 07:30 07:30 WBC RBC Hgb Hct MCV MCH MCHC RDW Plt Count MPV Immature Gran % Neutrophils % Lymphocytes % Monocytes % Eosinophils % Basophils % Nucleated RBC % Absolute Neutrophils Absolute Lymphocytes Absolute Monocytes Absolute Eosinophils Absolute Basophils PT 10.7 INR 1.1 APTT 27.0 VBG pH 7.41 VBG pCO2 33 L VBG pO2 65 VBG HCO3 21 L VBG Total CO2 18 L VBG O2 Saturation 93 VBG Base Excess -4 L VBG Lactate Sodium Potassium Chloride Carbon Dioxide Anion Gap BUN Creatinine Estimated GFR/1.73 m2 Glucose Calcium Total Bilirubin AST ALT Alkaline Phosphatase Troponin I NT-Pro-B Natriuret Pep Total Protein Albumin Procalcitonin 0.2 Urine Color Urine Clarity Urine pH Ur Specific [place] Urine Protein Urine Ketones Urine Blood Urine Nitrite Urine Bilirubin Urine Urobilinogen Ur Leukocyte Esterase Urine RBC Urine WBC Ur Epithelial Cells Urine Crystals Urine Bacteria Urine Casts Urine Mucus Ur Culture Indicated? Urine Glucose 07/03/20 07/03/20 07/03/20 07:50 10:22 12:10 WBC RBC Hgb Hct MCV MCH MCHC RDW Plt Count MPV Immature Gran % Neutrophils % Lymphocytes % Monocytes % Eosinophils % Basophils % Nucleated RBC % Absolute Neutrophils Absolute Lymphocytes Absolute Monocytes Absolute Eosinophils Absolute Basophils PT INR APTT VBG pH VBG pCO2 VBG pO2 VBG HCO3 VBG Total CO2 VBG O2 Saturation VBG Base Excess VBG Lactate 1.2 Sodium Potassium Chloride Carbon Dioxide Anion Gap BUN Creatinine Estimated GFR/1.73 m2 Glucose Calcium Total Bilirubin AST ALT Alkaline Phosphatase Troponin I 0.08 H* NT-Pro-B Natriuret Pep Total Protein Albumin Procalcitonin Urine Color Yellow Urine Clarity Clear Urine pH 5.5 Ur Specific [place] >= 1.030 H Urine Protein Negative Urine Ketones Negative Urine Blood Trace-intact H Urine Nitrite Negative Urine Bilirubin Negative Urine Urobilinogen 0.2 Ur Leukocyte Esterase Negative Urine RBC 3-5 H Urine WBC 3-5 Ur Epithelial Cells Negative Urine Crystals Negative Urine Bacteria Few Urine Casts Negative Urine Mucus Moderate Ur Culture Indicated? C&s done as ordered Urine Glucose Negative Last Vital Signs Temp 37.4 C 07/03/20 07:08 Pulse 86 07/03/20 11:20 Resp 26 H 07/03/20 12:46 BP 110/65 07/03/20 11:20 Pulse Ox 98 07/03/20 12:40 COVID-19 Screening Have you,or household,traveled outside [place] in last 14 days?: No Had IN PERSON contact w/suspected or confirmed C-19 person: No
--- NOTE | 2020-07-03 14:34 | INITIAL_ITS ---
- If Service Date Differs Date of service: 07/03/20 Time of Service: 14:34 Care Management Initial Assess REASON FOR HOSPITALIZATION:: Pneumonia PAST MEDICAL HISTORY/PAST SURGICAL HISTORY:: Medical History . Carpal tunnel syndrome. Cellulitis of scrotum. 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 Coronary atherosclerosis of [place] coronary vessel (08/23/95). A) CT 05/30. B) 2 STENTS PLACED 06/12/06. Crohn's disease. Essential hypertension (08/31/16). Herpes zoster. Hypercholesterolemia. Malignant neoplasm of skin. 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 Myocardial infarction (08/23/05). Onychomycosis. Scrotal rash. Shoulder pain, right. Skin cancer, basal cell. Surgical History . Cholecystectomy. Colonoscopy - MAC (08/19/12). DR. SMALLS; 3 TUBULAR ADENOMAS. Colonoscopy - MAC (10/19/17). DR. SMALLS; 3 TUBULAR ADENOMAS. History of colonoscopy. History of intravascular stent placement. History of surgical removal of lesion. History of total cystectomy. Open Carpal Tunnel release (~2006). PROCEDURES. EXCISION OF PILONID CYST. INSERT 3 VASCULAR STENTS, 05/30. Skin Cancer Removal (~2009). Status post carpal tunnel release. Status post cholecystectomy. Status post vasectomy. Vasectomy PREVIOUS FUNCTIONAL STATUS/SOCIAL/FAMILY SUPPORTS:: Anthony lives in [facility] with his , Blanca. They live in a two story house. He is retired. He has three children and five grand children. He is independent at baseline, and is able to complete his ADL's without assistance. CURRENT FUNCTIONAL STATUS:: Anthony is currently on precautions r/o Covid. Anthony was recently admitted with pneumonia at the end of May. CM will complete full assessment when COVID ruled out. Anthony is a readmission and was found at last admission to have evidence of chronic lung changes requiring close follow up. ADVANCE DIRECTIVES:: On file, Blanca listed as agent. Has patient been provided with info about the portal/API?: No Did the patient sign up for the portal?: Yes (enrolled) CODE STATUS:: Full Code INSURANCE COVERAGE / FINANCIAL ISSUES:: Medicare MVP CURRENT HOME/COMMUNITY SERVICES/EQUIPMENT:: No current services. PRIMARY CARE PHYSICIAN:: POTENTIAL DISCHARGE NEEDS:: Follow up scheduled with primary care, potential referral to pulmonolgy if indicated. PATIENT/FAMILY EDUCATION NEEDS:: Discharge education, limitations and follow up plan of care including ask me three and self management. ANTICIPATED BARRIERS TO DISCHARGE:: None TRANSPORTATION:: Via private car with family at time of discharge PLAN:: Anthony is admitted to the ICU, he is receiving IV Abx, broad spectrim coverage. His WBC is elevated at time of admission, trending troponin's. CM will provide ongoing assessment for discharge needs and coordination of disposition. Readmission - Within the Past 30 Days Yes or No: Y - Date of First Admission Date of 1st Admission: 06/21/20 - Date of this Admission Date of Admission: 07/03/20 This admission was: Through ED - Office Visit Since 1st Admission Have you seen your PCP in the office since discharge?: No Had an appointment Been Scheduled?: Yes Date of Scheduled Appointment: 07/06/2020 - ED visits How many ED visits in the past 12 months: 3 - Assessment for Readmission Summary of readmission circumstances, based upon interviews: Anthony was found to have development of chronic lung concerns on previous admission. Per the documentation by chronic nurse healthcare manager at primary care practice she was unable to reach Anthony by phone and left a voicemail there was no further documentation. Anthony was identified as high risk for readmission last discharge scoring a 13 r/t recent CT, renal disease and history of malignant neoplasm of skin. Recommendations by CM include referral to pulmonary and palliative care during this admission. In addition to primary care appointment scheduled prior to discharge.
[2020-07-03] MEDS: Ketorolac 15 MG/ML VIAL IVP (14:41)
[2020-07-03 15:34] LABS: Troponin I 0.06 ng/mL (<0.06)
[2020-07-03] MEDS: Normal Saline Flush 10 ML SYR IVP (19:56)
[2020-07-03] MEDS: Acetaminophen 325 MG TAB 650 MG PO (20:16)
[2020-07-04] VITALS (53 sets, daily range): BP systolic 100–151; BP diastolic 59–96; PULSE 70–108; RESP 16–34; TEMP 36.9–38.3; O2SAT 93–100
--- NOTE | 2020-07-04 | DI.RAD_ITS ---
EXAM: XR CHEST 2V PA LATERAL CLINICAL HISTORY: PNA TECHNIQUE: 2D digital imaging was performed. COMPARISON: No exams were available for comparison FINDINGS: MEDIASTINUM: Normal. HEART: Normal. PULMONARY VASCULATURE: Normal. LUNGS: There is an infiltrate seen in the posterior basilar aspect of the left lower lobe. PLEURAL SPACE: There is blunting of the left costophrenic angle consistent with a small pleural effus ion. No right pleural effusion or pneumothorax is identified. BONE:Degenerative changes are seen in the spine. OTHER FINDINGS:Normal. IMPRESSION: Small left basilar infiltrate which may represent atelectasis or pneumonia. Small left pleural effus ion. DATA REPOSITORY: RADIATION DOSE DELIVERED:
[2020-07-04] MEDS: Acetaminophen 325 MG TAB 650 MG PO ×4 (00:35→20:05)
[2020-07-04] MEDS: PIPERACILLIN/TAZO 3.375 GM in Normal Saline 50 ML IVPB ×4 (03:58→21:29)
[2020-07-04] MEDS: Normal Saline Flush 10 ML SYR IVP ×3 (06:04→23:31)
[2020-07-04] MEDS: Normal Saline 1,000 ML 175 ML IV (06:20)
[2020-07-04 07:28] LABS: Abs Immature Grans 0.04 10^3/uL (0.0-0.06); Absolute Basophil Count 0.01 10^3/uL (0.0-0.2); Absolute Lymphocyte Count 0.46 10^3/uL (1.2-3.4); Basophils % 0.1; Eosinophils % 10.9; HCT 35.3 % (40.0-50.0); HGB 11.8 g/dL (13.5-17.5); Immature Grans % 0.4; MCH 32.1 pg (27.0-33.0); MCHC 33.4 % (32.0-36.0); MCV 95.9 fL (80-95); MPV 8.7 fL (8.0-11.0); Monocytes % 7.7; Neutrophils % 75.9; Nucleated RBC 0 %; Platelet Count 318 10^3/uL (130-400); RBC 3.68 10^6/uL (4.36-5.78); RDW 13.6 % (11.8-14.1); RDW-SD 48.7 fL; WBC 9.14 10^3/uL (4.4-10.8)
[2020-07-04 07:31] LABS: Absolute Neutrophil Count 6.94 10^3/uL (1.2-6.7)
[2020-07-04 07:39] LABS: ALT 40 U/L (16-63); AST 23 U/L (15-37); Albumin 2.3 g/dL (3.4-5.0); Alkaline Phosphatase 58 U/L (46-116); Anion Gap 7.9 mmol/L (3-11); BUN 11 mg/dL (7-18); Bilirubin, Total 0.6 mg/dL (0.2-1.0); CO2 24.1 mmol/L (21.0-32.0); CREATININE 1.01 mg/dL (0.70-1.30); Calcium 8.1 mg/dL (8.5-10.1); Chloride 107 mmol/L (98-107); Glucose 101 mg/dL (74-106); Potassium 3.9 mmol/L (3.5-5.1); Sodium 139 mmol/L (136-145); Total Protein 6.1 g/dL (6.4-8.2)
--- NOTE | 2020-07-04 08:03 | CMPROGNOTE_ITS ---
- If Service Date Differs Date of service: 07/04/20 Time of Service: 08:03 Care Management Progress Note S/O: Anthony remains acute today, CM reviewed his clinical chart, his WBC has improved as well as his lactate. Anthony's covid and blood cultures are pending will await COVID results before meeting with him face to face. Anticipate Anthony will be discharged home with his spouse once medically ready. A:Anthony is a 74 year old male admitted with pneumonia to the ICU. Recent admission discharged the first June on oral abx. P:Anthony will be discharged home when medically ready per provider. Anticipate a new referral to palliative care which CM has requested. He will need a new prim lucius care appointment scheduled as his is scheduled for 07/06/20 and anticipate he will be in the hospital during that time. CM send the [employer] Sales Representative a message notifying on patients admission. Anthony will transport home via family and private car at time of discharge.
[2020-07-04] MEDS: Aspirin E.C. 81 MG TABEC PO (08:47)
[2020-07-04] MEDS: Simvastatin 40 MG TAB PO (08:47)
--- NOTE | 2020-07-04 09:58 | PHACLINREV_ITS ---
Pharmacy Admission Review - Admission Clinical Review (Last Reviewed 07/03/20 @ 13:26 by Luis A Mccloud MD) Pneumonia (Acute) Elevated troponin (Acute) cetirizine HCl [From [facility]] Allergy (Intermediate, Verified 07/03/20 07:13) Hives atorvastatin Adverse Reaction (Severe, Verified 07/03/20 07:13) joint pains Height 5 ft 8 in Weight 65.771 kg - Renal Dosing Renal Dosing: BUN 11 mg/dL (7-18) D 07/04/20 07:00 Creatinine 1.01 mg/dL (0.70-1.30) 07/04/20 07:00 Medications needing adjustments: Reviewed (~59ML/MIN) - Anticoagulation Anticoagulation: Hgb 11.8 g/dL (13.5-17.5) L D 07/04/20 07:00 Hct 35.3 % (40.0-50.0) L 07/04/20 07:00 Plt Count 318 10^3/uL (130-400) D 07/04/20 07:00 INR 1.1 (0.9-1.1) 07/03/20 07:30 Creatinine 1.01 mg/dL (0.70-1.30) 07/04/20 07:00 DVT Prohphylaxis: Reviewed Medications: Enoxaparin Therapeutic Anticoagulation: N/A - Relevant Labs Sodium 139 mmol/L (136-145) 07/04/20 07:00 Potassium 3.9 mmol/L (3.5-5.1) 07/04/20 07:00 Chloride 107 mmol/L (98-107) 07/04/20 07:00 Electrolytes, C-Reactive P, ESR: Reviewed - DM Control DM Control: Glucose 101 mg/dL (74-106) D 07/04/20 07:00 Insulin Dosing: N/A - Heart Failure/WA Heart Failure/WA: Troponin I 0.06 ng/mL (<0.06) 07/03/20 14:45 NT-Pro-B Natriuret Pep 1431 pg/mL (<300) H 07/03/20 07:30 - BP Control BP Control: Blood Pressure 116/70 Blood Pressure 116/70 Blood Pressure 116/70 Blood Pressure 113/59 Blood Pressure 151/96 Blood Pressure 112/62 Blood Pressure 106/60 Blood Pressure 109/61 Blood Pressure 102/62 Blood Pressure 107/70 Blood Pressure 100/67 Blood Pressure 106/64 Blood Pressure 143/60 If elevated: N/A - Qtc Review If Elevated: N/A - IV to PO Switch IV Medications: Reviewed (IV vanco and pip/tazo, IVF) - Home Meds Home Med List reviewed: Reviewed (lisinopril not ordered(Currently normotensive, Md holding)) - Current meds Current Medication Order Review: Reviewed - Comments Comments/Follow Ups: vanco trough ordered for 07/05@0900
--- NOTE | 2020-07-04 12:19 | W.PM.PROGNOT ---
Date of Service Date of service: 07/04/20 Time of Service: 12:20 Assessment and Plan Assessment and plan (1) Pneumonia: Status: Acute Assessment and plan: Presumed dx. CXR today pending. On Rocephin. WBC count normalized. On RA with normal O2 saturations. Qualifiers: Pneumonia type: due to unspecified organism Laterality: unspecified laterality Lung location: unspecified part of lung Qualified Code(s): J18.9 - Pneumonia, unspecified organism (2) Elevated troponin: Status: Acute Assessment and plan: Mild initial elevation; 0.08. Repeat troponin 0.06. No CP. (3) JERRELL (acute kidney injury): Status: Resolved Assessment and plan: Mild Resolved with IV hydration. Initial creatinine 1.37; now 1.01. Stop IV hydration. (4) Abnormal urinalysis: Status: Acute Assessment and plan: Cx + for gram positive damon; preliminary results. Cont Rocephin and adjust antibiotics according to final ID and sensitivities. Subjective Subjective Patient reports: no new complaints, feels better and bowel movement; denies shortness of breath and fever Interval history since last seen: He states his cough is mild/intermittent Exam Const General: cooperative and no acute distress Nutritional Appearance: average body habitus Orientation: alert and oriented x3 Resp Effort & Inspection: normal respiratory effort Auscultation: rales bilaterally in the lower lung wisdom Cardio Jugular venous pressure: no JVD Rate: regular rate Rhythm: regular rhythm Heart Sounds: S1 normal and S2 normal GI Palpation: soft Auscultation: normal bowel sounds Extrem General: no clubbing, cyanosis or edema and no calf tenderness Objective Last Vital Signs Temp 36.9 C 07/04/20 08:00 Pulse 77 07/04/20 09:06 Resp 25 H 07/04/20 09:06 BP 116/70 07/04/20 09:06 Pulse Ox 97 07/04/20 09:25 Laboratory Results - last 24 hr 07/03/20 07/03/20 07/03/20 10:22 12:10 14:45 WBC RBC Hgb Hct MCV MCH MCHC RDW Plt Count MPV Immature Gran % Neutrophils % Lymphocytes % Monocytes % Eosinophils % Basophils % Nucleated RBC % Absolute Neutrophils Absolute Lymphocytes Absolute Monocytes Absolute Eosinophils Absolute Basophils VBG Lactate 1.2 Sodium Potassium Chloride Carbon Dioxide Anion Gap BUN Creatinine Estimated GFR/1.73 m2 Glucose Calcium Total Bilirubin AST ALT Alkaline Phosphatase Troponin I 0.08 H* 0.06 Total Protein Albumin 07/04/20 07/04/20 07:00 07:00 WBC 9.14 D RBC 3.68 L Hgb 11.8 L D Hct 35.3 L MCV 95.9 H MCH 32.1 MCHC 33.4 RDW 13.6 Plt Count 318 D MPV 8.7 Immature Gran % 0.4 Neutrophils % 75.9 Lymphocytes % 5.0 Monocytes % 7.7 Eosinophils % 10.9 Basophils % 0.1 Nucleated RBC % 0 Absolute Neutrophils 6.94 H Absolute Lymphocytes 0.46 L Absolute Monocytes 0.70 Absolute Eosinophils 1.00 H Absolute Basophils 0.01 VBG Lactate Sodium 139 Potassium 3.9 Chloride 107 Carbon Dioxide 24.1 Anion Gap 7.9 BUN 11 D Creatinine 1.01 Estimated GFR/1.73 m2 >= 60.00 Glucose 101 D Calcium 8.1 L Total Bilirubin 0.6 AST 23 ALT 40 Alkaline Phosphatase 58 Troponin I Total Protein 6.1 L Albumin 2.3 L
[2020-07-04] MEDS: Enoxaparin 40 MG/0.4 ML SYR SC (12:41)
[2020-07-04 21:33] LABS: COVID-19 RT-PCR UVMMC Result Negative (Negative)
[2020-07-05] VITALS (15 sets, daily range): BP systolic 120–144; BP diastolic 58–80; PULSE 73–91; RESP 15–34; TEMP 36.3–37.6; O2SAT 94–99
[2020-07-05] MEDS: PIPERACILLIN/TAZO 3.375 GM in Normal Saline 50 ML IVPB ×2 (04:07→09:41)
[2020-07-05] MEDS: Acetaminophen 325 MG TAB 650 MG PO (06:06)
[2020-07-05] MEDS: Aspirin E.C. 81 MG TABEC PO (07:57)
[2020-07-05] MEDS: Simvastatin 40 MG TAB PO (07:57)
[2020-07-05 09:28] LABS: Vancomycin, Trough 14.1 ug/mL (10.0-20.0)
[2020-07-05] MEDS: Enoxaparin 40 MG/0.4 ML SYR SC (11:18)
--- NOTE | 2020-07-05 12:11 | W.PM.DS.N ---
Date of service: 07/05/20 Time of Service: 12:11 DS: Diagnosis Discharge Diagnosis (1) Pneumonia: Status: Acute (2) Elevated troponin: Status: Acute (3) JERRELL (acute kidney injury): Status: Resolved (4) Abnormal urinalysis: Status: Acute Discharge Plan Disposition Patient Disposition: HOME Condition: Improving Discharge Details Reason For Visit: PNEUMONIA Admit Date/Time: 07/03/20 10:48 Admit Provider: Luis A Mccloud Attending Provider: Luis A Mccloud Primary Care Provider: Darren Barbour Hospital Course Hospital Course: This is a 74 yo male with a h/o CAD s/p stents x 3, HTN, HLD, suspected Crohn's disease / quiescent phase. He presented after developing F/C, mild SOA the night prior to admission. He was admitted to [facility] on 06/21/2020 - 06/24/2020 for PNA, sepsis. He also was dxd with an NSTEMI during that hospitalization. He was discharged on Augmentin and Doxycycline. He finished the course of antibiotics 2 days ago. He has continued to cough since the previous admission; worsening since finishing the oral antibiotics. He states his symptoms appear to be similar to those that he presented with previously. He currently reports a ESPITIA that has improved but persists since receiving acetaminophen. No sputum, diarrhea, neck stiffness. On evaluation in ED his respiratory rate was 23, WBC count and Lactate were elevated. He meets sepsis criteris. His CXR did not show any infiltrates or consolidations. CT chest showed improvement in the previous noted pneumonia w/o any new findings. Procalcitonin of 0.2. He was started on Zosyn and Vanocmycin, given IV fluid bolus. His lactate normalized. His WBC count normalized the day after admission. Clinically he improved each day. Repeat CXR did show a small left basilar infiltrate vs atelectasis. The former favored given the elevated WBC count and fevers. Tm was 38. No fevers noted after that. There is a concern for possible aspiration pneumonia so an outpt speech / swallow evaluation was ordered. He will d/c on 5 days of Augmentin 875mg BID. He has a PCP appt on the day following this discharge. Home Meds and New Rx's Prescriptions: New amoxicillin-pot clavulanate [Augmentin] 875-125 mg tablet 1 tab PO BID Qty: 10 RF: 0 Continued simvastatin 40 mg tablet 40 mg PO DAILY Qty: 90 RF: 4 lisinopril 5 mg tablet 5 mg PO BID Qty: 180 RF: 4 aspirin 81 mg Tablet,Delayed Release (Dr/Ec) 81 mg PO DAILY Qty: 0 RF: 0 albuterol sulfate 90 mcg/actuation HFA aerosol inhaler 2 puff inhalation QID PRN (Reason: shortness of breath or wheezing) Qty: 18 RF: 0 Discharge Instructions Instructions: Community Acquired Pneumonia (GEN) Additional Instructions: Refer to outpatient speech for swallow evaluation. DX: concern for aspiration pneumonia Stand Alone Forms: Juan Manuel Stewart (DSU) Activity:: Activity as Tolerated Equipment/Supplies:: No Equipment Needed Diet:: Low Sodium Discharge Orders Discharge Orders: Discharge Order (Routine); Ordered 07/05/20 Ordered By: Luis A Mccloud DS: Summary Status at Discharge Functional status at discharge: independent ambulation Overall status at discharge: patient is progressing back to baseline Mental Status: mental status grossly normal Speech and Movement: speech and movement normal Mood: congruent mood Affect: normal affect Exam Const General: cooperative and no acute distress Nutritional Appearance: average body habitus Resp Effort & Inspection: normal respiratory effort Auscultation: clear to auscultation bilaterally (with the exception of a short, faint basilar wheeze at end expiration) Cardio Jugular venous pressure: no JVD Rate: regular rate Rhythm: regular rhythm Heart Sounds: S1 normal and S2 normal GI Palpation: soft Auscultation: normal bowel sounds Extrem General: no clubbing, cyanosis or edema and no calf tenderness Psych Mental Status: mental status grossly normal Speech and Movement: speech and movement normal Mood: congruent mood Affect: normal affect DS: Data Vitals/I&O Vitals and I&O: Vital Signs Temperature 36.3 C L 07/05/20 08:50 Temperature Source Temporal Artery Scan 07/05/20 08:50 Pulse 78 07/05/20 08:01 Pulse Rhythm Regular 07/05/20 07:42 Pulse 86 07/05/20 08:01 Respiratory Rate 15 07/05/20 08:01 Respiratory Effort Non-Labored 07/05/20 07:42 Respiratory Depth Normal 07/05/20 07:42 Respiratory Pattern Normal 07/05/20 07:42 Blood Pressure 129/80 07/05/20 08:01 Blood Pressure Mean 92 07/05/20 08:01 Blood Pressure Position Supine 07/04/20 15:35 Pulse Oximetry 99 07/05/20 08:01 Oxygen Delivery Method Room Air 07/05/20 07:40 Oxygen Flow Rate 0 07/05/20 07:40 Pain Level 0 07/05/20 08:50 Intake & Output 07/04/20 07/05/20 07/05/20 23:59 11:59 23:59 Intake Total 490 / 2790.000 640 / 640 Output Total 1350 / 3350 1775 / 1775 Balance -860 / -560.000 -1135 / -1135 Weight 76.4 kg Intake: IV 250 / 2350.000 300 / 300 Oral 240 / 440 340 / 340 Output: Urine 1350 / 3350 1775 / 1775 Other: Urine Color Pale Yellow Yellow Urine Appearance Clear Clear Urine Odor None None Stool Size Moderate Stool Characteristics Formed Voiding Methods Urinal Urinal Data Completed and Pending Labs on day of discharge: Labs from last 24 hours 07/05/20 07/03/20 09:09 07:28 Vancomycin Trough 14.1 COVID-19 PCR Negative Nasopharyn COVID-19 PCR Not Applicable Ref Test Perform Site [facility] Preliminary micro results at discharge 07/03/20 07:55 Blood Culture - Preliminary Blood NO GROWTH 48 HOURS 07/03/20 07:30 Blood Culture - Preliminary Blood NO GROWTH 48 HOURS PFS Medical History Carpal tunnel syndrome Cellulitis of scrotum Combined arterial insufficiency and corporo-venous occlusive erectile dysfunction (04/04/18) Coronary atherosclerosis of [place] coronary vessel (08/23/95) A) [place] 05/30 B) 2 STENTS PLACED 06/12/06 Crohn's disease Essential hypertension (08/31/16) Herpes zoster Hypercholesterolemia 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 SMALLS; 3 TUBULAR ADENOMAS Colonoscopy - MAC (10/19/17) DR. SMALLS; 3 TUBULAR ADENOMAS History of colonoscopy History of intravascular stent placement History of surgical removal of lesion History of total cystectomy Open Carpal Tunnel release (~2006) PROCEDURES EXCISION OF PILONID CYST INSERT 3 VASCULAR STENTS, 05/30 Skin Cancer Removal (~2009) Status post carpal tunnel release Status post cholecystectomy Status post vasectomy Vasectomy Family History Mother , AGE 93 Heart disease Father , AGE 50 Pancreatic cancer Sister No problems noted. Maternal Grandfather , AGE 74 Heart disease Sister No problems noted. Son No problems noted. Daughter No problems noted. Daughter No problems noted. Social History Smoking/Tobacco Use Status: Former Tobacco Use Quit Date: 09/24/05 Tobacco: How many years used: 20 Alcohol Intake: current Alcohol Intake frequency: holidays/special occasions only Alcohol type: wine and hard liquor Drug use: Never Substance use type: does not use Caregiver/Support person: No Household members: spouse Housing: house Communication Needs: Hard of Hearing Do you need help understanding health information?: Rarely Pets and animals: No Sexually active: Yes Do you think of yourself as: straight/heterosexual Current gender identity: male What is your relationship status?: How often do you talk on the phone with friends or family?: once per week How often do you get together with friends or relatives?: once per week How often do you attend buddhist or cheondoism services?: 1-3 times per year Do you belong to any clubs or organized social groups?: no Panel score (0-1 are the most socially isolated patients): 1 What type of physical activity do you participate in: walking and other Details: rowing machine Duration: 15-30 minutes/day Frequency: 3-4 times per week Jennifer/Bahai: Congregational Special jennifer needs: No Seatbelt use: always Helmet use: Yes Helmet use: always Drive intox or ride w/intox helper/driver: No Do you feel safe at home: Yes Do you feel safe in your relationship?: Yes
--- NOTE | 2020-07-05 12:28 | PDOC.CMDIS ---
- If Service Date Differs Date of service: 07/05/20 Time of Service: 12:28 LACE Index Scoring Tool - Questions: Length of Stay (in days): 3 Acuity (Admit via E.D.?): Yes Comorbidities: Previous M.I., Any Tumor E.D. Visits: 2 - Answers: Total Score: 11 Risk of Readmission: High Risk Care Management Discharge Reason for Hospitalization: Pneumonia Discharge Plan: Anthony will return home with no additional services at this time. His will drive him home via private vehicle. He will follow up with his PCP and discharge plan of care. He is happy to be going home. Patient/Family Education Needs: Review discharge instructions regarding activity levels and medications, discussion of self care needs including ask me three.
--- NOTE | 2020-07-05 13:05 | PCNE_ITS ---
Date of service: 07/05/20 Time of Service: 13:05 History of Present Illness Narrative: I am meeting with Anthony and his Blanca at [facility]. He is in the ICU because of sepsis from recurrent pneumonia. The plan is for him to leave today. I was asked to see him regarding his CODE STATUS as well as goals of care. This is his second admission within a short time. They are concerned ab out COPD, CAD etc. When I talked with Anthony his biggest concern was that for the last several month s he has had intermittent skin rashes on his scrotum. 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 Peraza. He is tried antibiotics and triamcinolone cream. He has not tried any antifungals. He also states that it seemed to flare after he was in the hospital the last time and stopped his a ntibiotics. When I asked him how it was today he said that it was good and that you could not see any rash. Both he and his concur that he was becoming more short of breath. On Sunday morning he came to the hospital and was admitted for presumed sepsis. He states that he has had recurring night sweats. He can sometimes take his temperature with a forehead probe and it will read 100. He has not had any work-up for his night sweats that I can see. Consults Consult date: 07/05/20 Requesting physician: Luis A Mccloud Assessment and Plan Assessment and plan (1) Pneumonia: Status: Acute Qualifiers: Pneumonia type: due to unspecified organism Laterality: unspecified laterality Lung location: unspecified part of lung Qualified Code(s): J18.9 - Pneumonia, unspecified organism (2) NSTEMI (non-ST elevated myocardial infarction): Status: Acute (3) JERRELL (acute kidney injury): Status: Resolved (4) Palliative care patient: Status: Acute Assessment and plan: Regarding CODE STATUS we had a full conversation regarding CODE STATUS. He feels that at this time he would like to remain full code but that in 5 years he may change his mind. He and his do have advanced directives. I did remind both he and his that the most important thing is that he continue to discuss his wishes with his so that if things change that she is well aware of his wishes Pneumonia resolving. If he does have problems with COPD in the future I would recommend PFTs etc. CAD in recent past. He does have an appointment with Dr. Barbour tomorrow who will be addressing these issues At this time we did not make a future appointment but will see how things go. If he is hospital again soon I certainly will see him. Scrotal rash?I would recommend that a antifungal be tried if this recurs. The timing of it occurring after antibiotics makes me suspicious that this is actually a fungal infection. Thank you very much for this consult Review of Systems Narrative: He does not have any chest pain he did have shortness of breath he has some epigastric tenderness but intermittently, he has a rash on his scrotum which is now gone. He does have what he describes as night sweats with a temperature of about 100. 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 SMALLS; 3 TUBULAR ADENOMAS Colonoscopy - MAC (10/19/17) DR. SMALLS; 3 TUBULAR ADENOMAS History of colonoscopy History of intravascular stent placement History of surgical removal of lesion History of total cystectomy Open Carpal Tunnel release (~2006) PROCEDURES EXCISION OF PILONID CYST INSERT 3 VASCULAR STENTS, 05/30 Skin Cancer Removal (~2009) Status post carpal tunnel release Status post cholecystectomy Status post vasectomy Vasectomy Family History Mother , AGE 93 Heart disease Father , AGE 50 Pancreatic cancer Sister No problems noted. Maternal Grandfather , AGE 74 Heart disease Sister No problems noted. Son No problems noted. Daughter No problems noted. Daughter No problems noted. Social History Smoking/Tobacco Use Status: Former Tobacco Use Quit Date: 09/24/05 Tobacco: How many years used: 20 Alcohol Intake: current Alcohol Intake frequency: holidays/special occasions only Alcohol type: wine and hard liquor Drug use: Never Substance use type: does not use Caregiver/Support person: No Household members: spouse Housing: house Communication Needs: Hard of Hearing Do you need help understanding health information?: Rarely Pets and animals: No Sexually active: Yes Do you think of yourself as: straight/heterosexual Current gender identity: male What is your relationship status?: How often do you talk on the phone with friends or family?: once per week How often do you get together with friends or relatives?: once per week How often do you attend scientologist or roman catholic services?: 1-3 times per year Do you belong to any clubs or organized social groups?: no Panel score (0-1 are the most socially isolated patients): 1 What type of physical activity do you participate in: walking and other Details: rowing machine Duration: 15-30 minutes/day Frequency: 3-4 times per week Jennifer/Mormonism: Restorationism Special jennifer needs: No Seatbelt use: always Helmet use: Yes Helmet use: always Drive 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 Do you feel safe at home: Yes Do you feel safe in your relationship?: Yes Exam Const General: cooperative, healthy appearing and comfortable Nutritional Appearance: average body habitus Orientation: oriented x3 Limitations: mental status not altered HENMT Head: normal to inspection Ears: hearing grossly normal bilaterally Neck Neck: normal visual inspection Carotids: normal carotid upstroke Lymphatic: no lymphadenopathy noted Resp Effort & Inspection: normal respiratory effort, able to speak in complete sentences, no stridor and no use of accessory muscles Auscultation: clear to auscultation bilaterally and abnormal I/E ratio Cardio Rhythm: regular rhythm Heart Sounds: murmur Skin General skin exam: no rashes or lesions noted (I did not examine his scrotum) Results Last Vital Signs Temp 97.3 F L 07/05/20 08:50 Pulse 78 07/05/20 08:01 Resp 15 07/05/20 08:01 BP 129/80 07/05/20 08:01 Pulse Ox 99 07/05/20 08:01 Labs Result diagrams: 07/04/20 07:00 07/04/20 07:00 Labs: Laboratory Results - last 24 hr 07/03/20 07/05/20 07:28 09:09 Vancomycin Trough 14.1 COVID-19 PCR Negative Nasopharyn COVID-19 PCR Not Applicable Ref Test Perform Site [facility]
--- NOTE | 2020-07-08 16:03 | DI.VRAD_ITS ---
PROCEDURE INFORMATION: Exam: CT Chest Without Contrast Exam date and time: 07/03/2020 8:27 AM Age: 74 years old Clinical indication: Other: Recurrent cough/fever TECHNIQUE: Imaging protocol: Computed tomography of the chest without contrast. Radiation optimization: All CT scans at this facility use at least one of these dose optimization techniques: automated exposure control; mA and/or kV adjustment per patient size (includes targeted exams where dose is matched to clinical indication); or iterative reconstruction. COMPARISON: CT CHEST PE CTA 06/21/2020 11:21 AM FINDINGS: Lungs: Overall improved interval appearance of the lungs. Upper lobe predominant mild mosaic attenuation which likely reflects elements of air trapping. Unchanged areas of posterior pleuroparenchymal thickening. Left lower lobe subpleural solid pulmonary nodule measuring approximately 4 mm (series 4, image 427). Pleural space: No pneumothorax. No pleural effusion. Heart: There is moderate atherosclerotic calcification of the coronary arteries. There is no evidence of pericardial fluid collections. Mediastinal space: Small sliding hiatal hernia. Aorta: No aortic aneurysm. Lymph nodes: Scattered non pathologically enlarged mediastinal and hilar lymph nodes may reflect reactive process. Gallbladder and bile ducts: Cholecystectomy. Bones/joints: Degenerative changes. No acute fracture. Soft tissues: Unremarkable. IMPRESSION: 1. Overall improved interval appearance of the lungs when compared to CT chest dated 06/21/2020. There are residual opacities. 2. There is upper lobe predominant mild mosaic attenuation which likely reflects elements of air trapping; consider small airways process. 3. Unchanged areas of posterior pleuroparenchymal thickening and left lower lobe subpleural solid pulmonary nodule measuring 4 mm as above. 4. Scattered mediastinal and hilar lymph nodes may reflect the above reactive process. 5. Small hiatal hernia. Dictated and Authenticated by: Vahe Rivera MD. Ordering:MARCELLO Amaya MD
--- NOTE | 2020-07-08 16:03 | DI.VRAD_ITS ---
PROCEDURE INFORMATION: Exam: XR Chest, 2 Views Exam date and time: 07/04/2020 9:02 AM Age: 74 years old Clinical indication: Other: Pna TECHNIQUE: Imaging protocol: XR of the chest Views: 2 views. COMPARISON: CT CHEST WO 07/03/2020 8:29 AM FINDINGS: Lungs: There is subsegmental atelectasis in the left base along the left hemidiaphragm. Chronic fibrotic changes are present in the right apex. No pneumonia is seen. Pleural space: There is a new small left pleural effusion blunting the left costophrenic angle. Heart/Mediastinum: Unremarkable. No cardiomegaly. Bones/joints: Unremarkable. IMPRESSION: Since the previous CT scan the patient has developed subsegmental atelectasis in the left lung base and a small left pleural effusion. Dictated and Authenticated by: Nikolay Atkinson MD. Ordering:TOMMY Gunn MD
== END 2020-07-05 13:00 | disposition home or self-care (01) | DRG 871 ==
LOC: ER 10:51 → ICU 11:50
PROVIDERS: Student in an Organized Health Care Education/Training Program; Admitting Provider Family Medicine; Emergency Provider Emergency Medicine; PCP Family Medicine; Visit Provider Family Medicine
DX: A41.9 Sepsis, unspecified organism (principal); J18.9 Pneumonia, unspecified organism; I21.4 Non-ST elevation (NSTEMI) myocardial infarction; N17.9 Acute kidney failure, unspecified; I24.8 Other forms of acute ischemic heart disease; K50.90 Crohn's disease, unspecified, without complications; R51.9 Headache, unspecified; I10 Essential (primary) hypertension; I25.10 Atherosclerotic heart disease of native coronary artery without angina pectoris; Z95.5 Presence of coronary angioplasty implant and graft; E78.5 Hyperlipidemia, unspecified; I25.2 Old myocardial infarction; E78.00 Pure hypercholesterolemia, unspecified; Z11.59 Encounter for screening for other viral diseases
CPT/HCPCS: 36415; 71250; 80053; 82805; 84145; 87040; 87449; 93005; 96361; 96365; 96366; 96367; 99222; 99232; 99239; 99254; 99285; J1650; U0003; 71046; 80202; 81003; 81015; 83605; 83880; 84484; 85025; 85610; 85730; 87086; 93010; 94667; J0131; J1885; J2543; J3370

== ENCOUNTER 2020-11-08 09:04 | Outpatient (CLI) | payer OTHER, SELFPAY ==
[2020-11-08 12:37] LABS: Calculated LDL 73 mg/dL (<100); Cholesterol 132 mg/dL (<200); HDL Cholesterol 34 mg/dL (40-60); Triglyceride 129 mg/dL (<150)
== END 2020-11-08 09:05 | disposition home or self-care (01) ==
LOC: LOS 09:05
PROVIDERS: PCP Family Medicine; Visit Provider Nurse Practitioner Family
DX: E78.5 Hyperlipidemia, unspecified (principal)
CPT/HCPCS: 36415; 80061

== ENCOUNTER 2021-01-15 18:38 | Outpatient (REF) | payer OTHER, SELFPAY | END 2021-01-15 18:39 | disposition home or self-care (01) | LOC: LBN 18:38 | PROVIDERS: PCP Family Medicine; Visit Provider Physician Assistant | DX: L03.012 Cellulitis of left finger (principal) | CPT/HCPCS: 87077; 87070; 87186; 87205 ==

== ENCOUNTER 2021-09-08 07:53 | Emergency (ER) | payer MEDICARE, SELFPAY ==
[2021-09-08] VITALS (25 sets, daily range): BP systolic 101–124; BP diastolic 58–70; PULSE 70–94; RESP 4–24; TEMP 36.6; O2SAT 93–97
--- NOTE | 2021-09-08 08:00 | RT.EKG_ITS ---
APPROVED REPORT Exam: Resting ECG Reason for Exam: sob Patient Location: E HR:72 bpm ECG Measurements Heart Rate 72 AXIS SC 165 P 77 QRSd 112 QRS -24 QT 372 T 36 QTc 407 Conclusion Sinus rhythm...normal P axis, V-rate 60- 99 Inferior infarct, old...Q >35mS, II III aVF
--- NOTE | 2021-09-08 08:15 | DI.CT_ITS ---
Exam(s) CT CHEST PE CTA EXAM: CT CHEST PE CTA CLINICAL HISTORY: SOB, R/O PNA, PE. TECHNIQUE: Imaging Protocol: CT angiography of the chest was performed using pulmonary embolus arley col. Multi planar reconstructions were performed. CONTRAST MATERIAL: Intravenous: Omnipaque 350 Contrast volume: 100 cc COMPARISON: CT CT CHEST WO from 07/03/2020 FINDINGS: CHEST: PULMONARY ARTERIES: There are no intraluminal filling defects to suggest acute pulmonary emboli. LUNGS: There are no infiltrates nor evidence of pulmonary infarction.. No pleural effusions. Small p leural based nodule in the lateral basal segment of the left lower lobe is unchanged measuring 3 mill imeters. No new nodules. No focal findings in the trachea and mainstem bronchi. MEDIASTINUM: There is no hilar nor mediastinal adenopathy. Visualized thyroid unremarkable. CARDIAC: Heart size is upper normal. There is no pericardial effusion.Caliber of the thoracic aorta is within normal limits. Incidentally noted is left vertebral artery originating off the aortic arch instead of from the left subclavian artery. This is a variant of normal. There is no significant sh ift of the interventricular septum. PARTIALLY VISUALIZED UPPERMOST ABDOMEN: No obvious findings OSSEOUS: No significant osseous lesions.. IMPRESSION: 1. No evidence of acute pulmonary emboli. No evidence of pulmonary infarction.No pleural effusions. 2. No infiltrates. Small 3 millimeters pleural base nodule left lower lobe is unchanged from the gutierrez or study of June 2020 and therefore most probably benign. No additional nodules evident. 3. No intrathoracic adenopathy. RADIATION DOSE DELIVERED: 352.84mGy.cm Total DLP DATA REPOSITORY: All CT scans at this facility are submitted to the National Radiology Data Registry (NRDR) Dose Index Registry (DIR) with the [employer] (ACR). RADIATION OPTIMIZATION: All CT scans at this facility use at least one of these dose optimization te chniques: automated exposure control; mA and/or kV adjustment per patient size (includes targeted exa ms where dose is matched to clinical indication); or iterative reconstruction.
[2021-09-08] MEDS: Albuterol/Ipratropium 3 ML UPD VIAL (08:35)
--- NOTE | 2021-09-08 08:36 | ED.GENADUL_ITS ---
Discharge Plan Disposition Patient Disposition: HOME Condition: Stable Discharge Details Clinical Impression: Shortness of breath Primary Care Provider: Darren Barbour ED Provider: Sally Yusuf Home Meds and New Rx's Prescriptions: Continued montelukast [Singulair] 10 mg tablet 10 mg PO DAILY Qty: 30 RF: 2 albuterol sulfate 90 mcg/actuation HFA aerosol inhaler 2 puff inhalation QID PRN (Reason: shortness of breath or wheezing) Qty: 18 RF: 0 sildenafil (pulm.hypertension) 20 mg tablet 20 mg PO As Directed MDD 100 mg Qty: 30 RF: 4 hydrocortisone 2.5 % cream with perineal applicator 1 applic [place] QD-BID PRN (Reason: hemorrhoids) Qty: 30 RF: 2 triamcinolone acetonide 0.1 % cream 1 applic TP BID PRN (Reason: scrotal dermatitis) Qty: 30 RF: 2 aspirin 81 mg Tablet,Delayed Release (Dr/Ec) 81 mg PO DAILY Qty: 0 RF: 0 simvastatin 40 mg tablet 40 mg PO HS RF: 0 lisinopril 10 mg tablet 10 mg PO DAILY RF: 0 Discharge Instructions Instructions: Albuterol (By breathing), Dyspnea (ED) Additional Instructions: If recurrent shortness of breath and/or wheezing please use 2 puffs of the albuterol inhaler every 4-6 hours. If continued shortness of breath, fever, coughing up any yellow or colored sputum or chest pain please return to the ER. Your work-up including EKG, cardiac labs, chest CT are all within normal limits. Your liver enzymes were elevated. Please discuss this with your primary care provider. Follow up with primary care provider in 3-5 days. Return to ED sooner if any worsening or concerns. Increase oral fluids. Referrals: Darren Barbour MD [Primary Care Provider] - 5 days Discharge Data Discharge Date/Time-TO BE ENTERED AT DEPARTURE: 09/08/21 11:21 Medical Decision Making 75-year-old male with history of NSTEMI,, acute kidney injury, sepsis, pneu monia, hypertension and high cholesterol presents to the ER with chief complaint of shortness of breath which began this morning. He reports chest tightness and heaviness and some wheezing on the right side. He states that it feels exactly like when he had pneumonia last. Shortness of breath was resolved upon sitting up. He also reports a cough. He states that he did two rapid Covid test prior to arrival at home which were negative. He denies any other associated symptoms no fever chills nausea vomiting diarrhea or abdominal pain. He is alert and oriented x3 speaking full sentences upon initial exam. Cardiac work-up ordered including EKG serial troponins, chest CT, Covid test, 08 44: DuoNeb ordered at this time. EKG was reviewed by Dr. Antony Shell ER attending, please see his official report review old EKG is available for review. No significant change noted. CBC is largely unremarkable, CMP shows glucose 128, elevated transaminases AST is 247 ALT 582 and alk phos 180, initial troponin within normal limits. The elevated liver enzymes could be from his simvastatin the last normal results were in 2019. I will discuss this with him and have him follow-up with his PCP regarding these results. Bilirubin is within normal limits. FINDINGS: CHEST: PULMONARY ARTERIES: There are no intraluminal filling defects to suggest acute pulmonary emboli. LUNGS: There are no infiltrates nor evidence of pulmonary infarction.. No pleural effusions. Small pleural based nodule in the lateral basal segment of the left lower lobe is unchanged measuring 3 millimeters. No new nodules. No focal findings in the trachea and mainstem bronchi. MEDIASTINUM: There is no hilar nor mediastinal adenopathy. Visualized thyroid unremarkable. CARDIAC: Heart size is upper normal. There is no pericardial effusion.Caliber of the thoracic aorta is within normal limits. Incidentally noted is left vertebral artery originating off the aortic arch instead of from the left subc lavian artery. This is a variant of normal. There is no significant shift of the interventricular septum. PARTIALLY VISUALIZED UPPERMOST ABDOMEN: No obvious findings OSSEOUS: No significant osseous lesions.. IMPRESSION: 1. No evidence of acute pulmonary emboli. No evidence of pulmonary infarction.No pleural effusions. 2. No infiltrates. Small 3 millimeters pleural base nodule left lower lobe is unchanged from the prior study of June 2020 and therefore most probably benign. No additional nodules evident. 3. No intrathoracic adenopathy. 1045: Patient reevaluation lungs are clear to auscultation bilaterally. Patient is feeling much better. Discussed CT with him he reports that he has been working with [employer] with some mild for the last few days and he does reports he has had a allergy to cedar in the past this may have exacerbated his symptoms. I will send him home with an albuterol inhaler and I instructed him on the use and strict return, verbalized understanding. HPI General Mode of arrival: ambulatory . Date/Time Provider Initiated Documentation: 09/08/21 08:02 . Limitations to Documentation: no limitations . Information obtained by: patient, RN notes reviewed and old records reviewed . HPI Narrative: 75-year-old male with history of NSTEMI,, acute kidney injury, sepsis, pneumonia, hypertension and high cholesterol presents to the ER with chief complaint of shortness of breath which began this morning. He reports chest tightness and heaviness and some wheezing on the right side. He states that it feels exactly like when he had pneumonia last. Shortness of breath was resolved upon sitting up. He also reports a cough. He states that he did two rapid Covid test prior to arrival at home which were negative. He denies any other associated symptoms no fever chills nausea vomiting diarrhea or abdominal pain. He is alert and oriented x3 speaking full sentences upon initial exam. Related Data Home Medications Medication Instructions Recorded Confirmed aspirin 81 mg PO DAILY #0 tab 06/24/20 09/08/21 albuterol sulfate 90 mcg/actuation 2 puff INHALATION QID PRN #18 g 11/23/20 06/15/21 aerosol inhaler montelukast 10 mg tablet 10 mg PO DAILY #30 tab 03/29/21 09/08/21 hydrocortisone 2.5 % topical cream 1 applic [place] QD-BID PRN #30 gm 06/03/21 09/08/21 with perineal applicator sildenafil (pulm.hypertension) 20 20 mg PO As Directed #30 tab MDD 06/03/21 09/08/21 mg tablet 100 mg triamcinolone acetonide 0.1 % 1 applic TP BID PRN #30 gm 08/22/21 09/08/21 topical cream lisinopril 10 mg PO DAILY 09/08/21 09/08/21 simvastatin 40 mg PO HS 09/08/21 09/08/21 Previous Rx's Medication Instructions Recorded aspirin 81 mg PO DAILY #0 tab 06/24/20 albuterol sulfate 90 mcg/actuation 2 puff INHALATION QID PRN #18 g 11/23/20 aerosol inhaler montelukast 10 mg tablet 10 mg PO DAILY #30 tab 03/29/21 hydrocortisone 2.5 % topical cream 1 applic WV QD-BID PRN #30 gm 06/03/21 with perineal applicator sildenafil (pulm.hypertension) 20 20 mg PO As Directed #30 tab MDD 06/03/21 mg tablet 100 mg triamcinolone acetonide 0.1 % 1 applic TP BID PRN #30 gm 08/22/21 topical cream Allergies Allergy/AdvReac Type Severity Reaction Status Date / Time cetirizine HCl [From [facility]] Allergy Intermediate Hives Verified 06/15/21 14:40 atorvastatin AdvReac Severe joint pains Verified 06/15/21 14:40 General Stated Complaint: SOB BHARAT: 3 Review of Systems All systems reviewed & are unremarkable except as noted in HPI and below Cardiovascular Cardiovascular: Reports dyspnea Respiratory Respiratory: Reports cough, Reports dyspnea and Reports wheezing Allergic/Immunologic Allergic/Immunologic: Reports wheezing PFSH All Active Problems (Updated 09/08/21 @ 10:48 by Sally Yusuf) Shortness of breath (Acute) Chronic sinusitis (Acute) Palliative care patient (Acute) [place] Full COde Abnormal urinalysis (Acute) Pneumonia (Acute) NSTEMI (non-ST elevated myocardial infarction) (Acute) COVID-19 ruled out by laboratory testing (Acute) Elevated troponin (Acute) Discharge planning issues (Acute) DVT prophylaxis (Acute) Bilateral pneumonia (Acute) Biceps tendinitis of both shoulders (Acute) Left rotator cuff tear (Acute) Traumatic tear of right rotator cuff (Acute ~03/2018) Shoulder pain, right (Acute) Scrotal rash (Acute) Nasal sinus congestion (Acute) Skin cancer, basal cell (Acute) Decreased vision in both eyes (Acute) Double vision (Acute) Post-nasal drip (Acute) Rhinorrhea (Acute) Impacted cerumen of both ears (Acute) Neoplasm of unspecified behavior of bone, soft tissue, and skin (Acute) Inflamed sebaceous cyst (Acute) Polyp of colon (Acute) Bursitis of right shoulder (Chronic) Coronary atherosclerosis of [place] coronary vessel (Chronic 08/23/95) A) OK 05/30 B) 2 STENTS PLACED 06/12/06 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 SMALLS; 3 TUBULAR ADENOMAS Colonoscopy - MAC (10/19/17) DR. SMALLS; 3 TUBULAR ADENOMAS History of colonoscopy History of intravascular stent placement History of surgical removal of lesion History of total cystectomy Open Carpal Tunnel release (~2006) PROCEDURES EXCISION OF PILONID CYST INSERT 3 VASCULAR STENTS, 05/30 Skin Cancer Removal (~2009) Status post carpal tunnel release Status post cholecystectomy Status post vasectomy Vasectomy Family History Mother , AGE 93 Heart disease Father , AGE 50 Pancreatic cancer Sister No problems noted. Maternal Grandfather , AGE 74 Heart disease Sister No problems noted. Son No problems noted. Daughter No problems noted. Daughter No problems noted. Social History Smoking/Tobacco Use Status: Former Tobacco Use Quit Date: 09/24/05 Tobacco: How many years used: 20 Smoking risk assessment performed?: Yes Alcohol Intake: current Alcohol Intake frequency: holidays/special occasions only Alcohol type: wine and hard liquor Drug use: Never Substance use type: does not use Caregiver/Support person: No Household members: spouse Housing: house Communication Needs: Hard of Hearing Do you need help understanding health information?: Rarely Pets and animals: No Sexually active: Yes Do you think of yourself as: straight/heterosexual Current gender identity: male What is your relationship status?: How often do you talk on the phone with friends or family?: once per week How often do you get together with friends or relatives?: decline to answer How often do you attend mu-ism or rastafarian services?: decline to answer Do you belong to any clubs or organized social groups?: no Panel score (0-1 are the most socially isolated patients): 1 What type of physical activity do you participate in: walking and other Details: rowing machine Duration: 15-30 minutes/day Frequency: 1-2 times per week Jennifer/Mosque: [employer] Special jennifer needs: No Seatbelt use: always Helmet use: Yes Helmet use: always Drive intox or ride w/intox 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 Appears stated age. Normal body habitus. Head: Normocephalic, no trauma. Eyes: Pupils PERRL, Red reflex noted, EOM's intact. Eyelids symmetrical without lesions, discharge, or swelling. ENT: Bilateral TM's WNL, External ear normal to inspection, no mastoid TTP, swelling, or erythema, Nasal turbinates WNL, no nasal discharge. Normal dent ition, Posterior pharynx WNL, no exudate. Chest: RRR, Normal S1, S2, distal pulses intact. Resp: Expiratory wheezing noted to right lower base lung wisdom and right upper lung wisdom. Abdomen: Soft, non-distended, Normoactive bowel sounds all 4 quads. Musculoskeletal: Normal gait, 5/5 strength to all four extremities. Skin: No suspicious rashes or lesions. Capillary refill less than 2 sec. Neurologic: Cranial nerves II-XII intact. Alert and oriented x 3. Motor: No deficits noted. Sensory: Intact bilaterally all 4 extremities. Reflexes: DTR's intact bilaterally.. Hematologic/Lymphatic: No ecchymosis, no lymphadenopathy. Course Vital Signs Vital signs: Vital Signs Temperature 36.6 C 09/08/21 08:12 Pulse 76 09/08/21 08:12 Respiratory Rate 18 09/08/21 08:12 Blood Pressure 124/70 09/08/21 08:12 Pulse Oximetry 97 09/08/21 08:12 Temperature 36.6 C 09/08/21 08:12 Temperature Source Temporal Artery Scan 09/08/21 08:12 Pulse 72 09/08/21 08:35 Respiratory Rate 18 09/08/21 08:35 Respiratory Effort Non-Labored 09/08/21 08:19 Respiratory Depth Normal 09/08/21 08:19 Respiratory Pattern Normal 09/08/21 08:19 Blood Pressure 124/70 09/08/21 08:12 Blood Pressure Position Sitting 09/08/21 08:12 Pulse Oximetry 97 09/08/21 08:35 Oxygen Delivery Method Room Air 09/08/21 08:35 Oxygen Flow Rate 0 09/08/21 08:35
[2021-09-08 09:01] LABS: Source Nasal/Nares
[2021-09-08 09:05] LABS: Abs Immature Grans 0.01 10^3/uL (0.0-0.06); Absolute Basophil Count 0.02 10^3/uL (0.0-0.2); Absolute Eosinophil Count 0.41 10^3/uL (0.0-0.7); Absolute Lymphocyte Count 1.45 10^3/uL (1.2-3.4); Absolute Monocyte Count 0.46 10^3/uL (0.1-0.8); Absolute Neutrophil Count 2.94 10^3/uL (1.2-6.7); Basophils % 0.4; Eosinophils % 7.8; HCT 43.3 % (40.0-50.0); HGB 14.3 g/dL (13.5-17.5); Immature Grans % 0.2; Lymphocytes % 27.4; MCH 32.3 pg (27.0-33.0); MCV 97.7 fL (80-95); MPV 8.8 fL (8.0-11.0); Monocytes % 8.7; Neutrophils % 55.5; Nucleated RBC 0 %; Platelet Count 254 10^3/uL (130-400); RBC 4.43 10^6/uL (4.36-5.78); RDW 13.2 % (11.8-14.1); RDW-SD 48.4 fL; WBC 5.29 10^3/uL (4.4-10.8)
[2021-09-08 09:22] LABS: ALT 582 U/L (16-63); AST 247 U/L (15-37); Albumin 3.4 g/dL (3.4-5.0); Alkaline Phosphatase 180 U/L (46-116); Anion Gap 6.6 mmol/L (3-11); BUN 18 mg/dL (7-18); Bilirubin, Total 0.4 mg/dL (0.2-1.0); CO2 27.4 mmol/L (21.0-32.0); CREATININE 1.1 mg/dL (0.70-1.30); Calcium 8.8 mg/dL (8.5-10.1); Chloride 106 mmol/L (98-107); Glucose 128 mg/dL (74-106); Magnesium 2.2 mg/dL (1.8-2.4); Potassium 4.1 mmol/L (3.5-5.1); Sodium 140 mmol/L (136-145); Total Protein 7.8 g/dL (6.4-8.2); Troponin I < 50 ng/L (<or=60)
[2021-09-08 09:41] LABS: COVID-19 PCR Negative (Negative)
[2021-09-08] MEDS: Omnipaque 350 MG/ML 100 ML BTL 70 ML IJ (09:56)
[2021-09-08] MEDS: Inhaler, Assist Device 1 EACH MC (11:00)
[2021-09-08] MEDS: Albuterol HFA 8 GM 60 PUFF INH IH (11:15)
== END 2021-09-08 11:21 | disposition home or self-care (01) ==
PROVIDERS: Emergency Provider Registered Nurse Emergency; PCP Family Medicine
DX: R06.02 Shortness of breath (principal); R07.89 Other chest pain; R06.2 Wheezing; R05.1 Acute cough
CPT/HCPCS: 36415; 71275; 80053; 87635; 93005; 94640; 99285; 83735; 84484; 85025; 85379; 93010; 99284; J3490; J7620

== ENCOUNTER 2021-09-27 03:02 | Outpatient (CLI) | payer MEDICARE, SELFPAY ==
[2021-09-27 11:02] LABS: ALT 373 U/L (16-63); AST 162 U/L (15-37); Albumin 3.8 g/dL (3.4-5.0); Alkaline Phosphatase 125 U/L (46-116); Bilirubin, Direct 0.2 mg/dL (0.0-0.2); Bilirubin, Total 0.5 mg/dL (0.2-1.0); Total Protein 8.3 g/dL (6.4-8.2)
[2021-09-27 11:41] LABS: Vitamin B12 409 pg/mL (193-986)
[2021-09-28 11:38] LABS: Syphilis Serology (RPR) Negative (Negative)
== END 2021-09-27 03:03 | disposition home or self-care (01) ==
LOC: LBO 03:02
PROVIDERS: PCP Family Medicine; Visit Provider Family Medicine
DX: E03.9 Hypothyroidism, unspecified (principal); R74.8 Abnormal levels of other serum enzymes; R41.3 Other amnesia; D64.9 Anemia, unspecified
CPT/HCPCS: 36415; 80076; 82607; 84443; 86592

== ENCOUNTER 2021-10-10 02:19 | Outpatient (CLI) | payer MEDICARE, SELFPAY ==
[2021-10-10 09:51] LABS: ALT 137 U/L (16-63); AST 63 U/L (15-37); Albumin 3.6 g/dL (3.4-5.0); Alkaline Phosphatase 85 U/L (46-116); Bilirubin, Direct 0.1 mg/dL (0.0-0.2); Bilirubin, Total 0.3 mg/dL (0.2-1.0); Total Protein 7.8 g/dL (6.4-8.2)
== END 2021-10-10 02:20 | disposition home or self-care (01) ==
LOC: LBO 02:19
PROVIDERS: PCP Family Medicine; Visit Provider Family Medicine
DX: R74.8 Abnormal levels of other serum enzymes (principal)
CPT/HCPCS: 36415; 80076

== ENCOUNTER 2022-01-09 02:43 | Outpatient (CLI) | payer MEDICARE, SELFPAY ==
[2022-01-09 08:16] LABS: HCT 46.6 % (40.0-50.0); HGB 15.2 g/dL (13.5-17.5); MCH 32.8 pg (27.0-33.0); MCHC 32.6 % (32.0-36.0); MCV 100.4 fL (80-95); MPV 8.9 fL (8.0-11.0); Platelet Count 240 10^3/uL (130-400); RBC 4.64 10^6/uL (4.36-5.78); RDW 12.9 % (11.8-14.1); RDW-SD 47.6 fL
[2022-01-09 09:05] LABS: ALT 37 U/L (16-63); AST 23 U/L (15-37); Albumin 3.7 g/dL (3.4-5.0); Alkaline Phosphatase 60 U/L (46-116); Bilirubin, Direct 0.1 mg/dL (0.0-0.2); Bilirubin, Total 0.5 mg/dL (0.2-1.0); Total Protein 7.4 g/dL (6.4-8.2)
== END 2022-01-09 02:44 | disposition home or self-care (01) ==
LOC: LBO 02:43
PROVIDERS: PCP Family Medicine; Visit Provider Family Medicine
DX: G72.89 Other specified myopathies (principal); R53.83 Other fatigue
CPT/HCPCS: 36415; 80076; 85027

== ENCOUNTER 2022-06-22 04:25 | Outpatient (CLI) | payer MEDICARE, SELFPAY ==
[2022-06-22 12:46] LABS: Abs Immature Grans 0.02 10^3/uL (0.0-0.06); Absolute Basophil Count 0.03 10^3/uL (0.0-0.2); Absolute Eosinophil Count 0.33 10^3/uL (0.0-0.7); Absolute Lymphocyte Count 1.49 10^3/uL (1.2-3.4); Absolute Monocyte Count 0.59 10^3/uL (0.1-0.8); Absolute Neutrophil Count 4.57 10^3/uL (1.2-6.7); Basophils % 0.4; Eosinophils % 4.7; HCT 44.4 % (40.0-50.0); Immature Grans % 0.3; Lymphocytes % 21.2; MCH 32.2 pg (27.0-33.0); MCHC 33.8 % (32.0-36.0); MCV 95 fL (80-95); MPV 9.1 fL (8.0-11.0); Monocytes % 8.4; Platelet Count 287 10^3/uL (130-400); RBC 4.66 10^6/uL (4.36-5.78); RDW 13.2 % (11.8-14.1); RDW-SD 46.5 fL; WBC 7.03 10^3/uL (4.4-10.8)
[2022-06-22 14:19] LABS: ALT 40 U/L (16-63); AST 25 U/L (15-37); Albumin 3.7 g/dL (3.4-5.0); Alkaline Phosphatase 66 U/L (46-116); Anion Gap 8.2 mmol/L (3-11); BUN 19 mg/dL (7-18); Bilirubin, Total 0.4 mg/dL (0.2-1.0); CO2 24.8 mmol/L (21.0-32.0); CREATININE 0.9 mg/dL (0.70-1.30); Calcium 9.1 mg/dL (8.5-10.1); Chloride 105 mmol/L (98-107); Estimated GFR 87.96 (mL/min/1.73m2); Glucose 103 mg/dL (74-106); Potassium 4.3 mmol/L (3.5-5.1); Sodium 138 mmol/L (136-145); Total Protein 7.8 g/dL (6.4-8.2)
== END 2022-06-22 04:26 | disposition home or self-care (01) ==
LOC: LOS 04:26
PROVIDERS: PCP Family Medicine; Visit Provider Family Medicine
DX: D64.9 Anemia, unspecified (principal); R10.9 Unspecified abdominal pain
CPT/HCPCS: 36415; 80053; 85025

== ENCOUNTER 2023-01-25 01:50 | Outpatient (CLI) | payer MEDICARE, SELFPAY ==
[2023-01-25 12:08] LABS: HCT 48.3 % (40.0-50.0); MCH 31.7 pg (27.0-33.0); MCHC 33.1 % (32.0-36.0); MCV 96 fL (80-95); MPV 8.8 fL (8.0-11.0); Platelet Count 339 10^3/uL (130-400); RBC 5.04 10^6/uL (4.36-5.78); RDW 13.1 % (11.8-14.1); RDW-SD 46.1 fL; WBC 8.77 10^3/uL (4.4-10.8)
[2023-01-25 12:27] LABS: ALT 41 U/L (16-63); AST 26 U/L (15-37); Albumin 3.9 g/dL (3.4-5.0); Alkaline Phosphatase 63 U/L (46-116); Anion Gap 1.9 mmol/L (3-11); BUN 21 mg/dL (7-18); Bilirubin, Total 0.5 mg/dL (0.2-1.0); CO2 30.1 mmol/L (21.0-32.0); CREATININE 1.2 mg/dL (0.70-1.30); Calcium 9.1 mg/dL (8.5-10.1); Calculated LDL 75 mg/dL (<100); Chloride 105 mmol/L (98-107); Cholesterol 141 mg/dL (<200); Glucose 100 mg/dL (74-106); HDL Cholesterol 40 mg/dL (40-60); Potassium 4.4 mmol/L (3.5-5.1); Sodium 137 mmol/L (136-145); TSH (W/Ref FT4) 2.73 uIU/mL (0.36-3.74); Total Protein 8.4 g/dL (6.4-8.2); Triglyceride 133 mg/dL (<150)
== END 2023-01-25 01:51 | disposition home or self-care (01) ==
LOC: LOS 01:50
PROVIDERS: PCP Family Medicine; Visit Provider Family Medicine
DX: E78.5 Hyperlipidemia, unspecified (principal); E03.9 Hypothyroidism, unspecified; R10.9 Unspecified abdominal pain; R53.83 Other fatigue; R77.9 Abnormality of plasma protein, unspecified
CPT/HCPCS: 36415; 80053; 80061; 85027; 84443

== ENCOUNTER 2023-02-01 02:55 | Outpatient (CLI) | payer MEDICARE, SELFPAY ==
[2023-02-05 13:23] LABS: Albumin 56.6 % (55.8-66.1); Albumin g/dL 4.1 g/dL (3.6-5.2); Total Protein 7.3 g/dL (6.3-8.2)
== END 2023-02-01 02:56 | disposition home or self-care (01) ==
PROVIDERS: PCP Family Medicine; Visit Provider Family Medicine
DX: R53.83 Other fatigue (principal); E03.9 Hypothyroidism, unspecified
CPT/HCPCS: 36415; 84165

== ENCOUNTER → 2023-11-12 13:49 | Outpatient (BNVA) | payer MEDICARE, SELFPAY | PROVIDERS: PCP Family Medicine; Referring Provider Family Medicine; Visit Provider Surgery | DX: K64.8 Other hemorrhoids (principal); I25.2 Old myocardial infarction; Z86.73 Personal history of transient ischemic attack (TIA), and cerebral infarction without residual deficits; Z79.82 Long term (current) use of aspirin | CPT/HCPCS: 99213 ==

== ENCOUNTER → 2023-12-17 12:55 | Outpatient (BNVA) | payer MEDICARE, SELFPAY | PROVIDERS: PCP Family Medicine; Visit Provider Surgery | DX: K64.8 Other hemorrhoids (principal) | CPT/HCPCS: 99212 ==

== ENCOUNTER 2023-12-21 07:20 | Day surgery (SDC) | payer MEDICARE, SELFPAY ==
[2023-12-21 07:37] VITALS: BP 125/79; PULSE 82; RESP 20; TEMP 36.5; O2SAT 97
--- NOTE | 2023-12-21 08:46 | ANES.PREOP_ITS ---
General Info Date of Service Date Performed: 12/21/23 Height: 5 ft 8 in Weight: 71.7 kg Body Mass Index (BMI): 24.0 Surgical Procedure: Operation Date: 12/21/23 09:10 Proposed Procedure Side Surgeon p Cataract Extraction with IOL Implant Left Luis A Kc MD Meds Allergies and Home Medications Allergies Allergy/AdvReac Type Severity Reaction Status Date / Time cetirizine HCl [From [facility]] Allergy Intermediate Hives Verified 12/21/23 07:48 atorvastatin AdvReac Severe joint pains Verified 12/21/23 07:48 Home Medication Medication Instructions Recorded aspirin 81 mg tablet,delayed 81 mg PO DAILY #0 tabs 06/24/20 release triamcinolone acetonide 0.1 % 1 applic topical BID PRN scrotal 11/30/22 topical cream dermatitis #30 grams sildenafil (pulm.hypertension) 20 20 mg PO As Directed #30 tabs 10/15/23 mg tablet hydrocortisone acetate 25 mg 25 mg GA QHS Internal hemorrhoids 11/12/23 rectal suppository #24 ea lisinopril 10 mg tablet 10 mg PO DAILY #90 tabs 12/04/23 simvastatin 40 mg tablet 40 mg PO HS #90 tabs 12/04/23 Current Visit Medications: Current Medications Generic Name Dose Route Start Last Admin Trade Name Freq PRN Reason Stop Dose Admin Acetaminophen 1,000 mg 12/21/23 06:00 Acetaminophen 500 Mg Tab PO 01/20/24 05:59 Q4H PRN PRN Balanced Salt Solution 500 ml 12/21/23 06:00 Balanced Salt Soln.-Plus 500 Ml Bag OP 01/20/24 05:59 DIRECTED [facility] Miscellaneous Medication 0 ml 12/21/23 06:00 Prednisolone 1%, Moxifloxacin 0.5%, Bromfenac 0.09% 5ml Btl OS 01/20/24 05:59 DIRECTED NOELLE Miscellaneous Medication 0 ml 12/21/23 06:00 12/21/23 08:07 Tropicam./Phenyleph. (1/2.5%) 10 Ml Btl OS 01/20/24 05:59 1 drp DIRECTED NOELLE Administration Tetracaine HCl 0 ml 12/21/23 06:00 Tetracaine 0.5% 4 Ml Btl OS 01/20/24 05:59 DIRECTED NOELLE PFSH Active Problems Active Problems: Problem Status Onset Code Nuclear age-related cataract, left eye H25.12 Internal hemorrhoid, bleeding K64.8 Bleeding hemorrhoids K64.9 Foot pain, left M79.672 Eczema L30.9 Elevated serum protein level R77.9 Fatigue R53.83 Trigger finger M65.30 Exposure to COVID-19 virus Z20.822 Knee pain, left M25.562 Memory impairment R41.3 Elevated liver enzymes R74.8 Shortness of breath R06.02 Chronic sinusitis J32.9 Abnormal urinalysis R82.90 Pneumonia J18.9 Lactic acidosis E87.2 NSTEMI (non-ST elevated myocardial infarction) I21.4 COVID-19 ruled out by laboratory testing Z03.818 Elevated troponin R79.89 Discharge planning issues Z02.9 DVT prophylaxis Z29.9 Sepsis associated hypotension A41.9, I95.9 JERRELL (acute kidney injury) N17.9 Sepsis A41.9 Bilateral pneumonia J18.9 Biceps tendinitis of both shoulders M75.21, M75.22 Left rotator cuff tear M75.102 Traumatic tear of right rotator cuff ~03/2018 S46.011A Shoulder pain, right M25.511 Scrotal rash R21 Nasal sinus congestion R09.81 Skin cancer, basal cell C44.91 Decreased vision in both eyes H54.3 Double vision H53.2 Post-nasal drip R09.82 Rhinorrhea J00 Impacted cerumen of both ears H61.23 Neoplasm of unspecified behavior of bone, soft tissue, and skin D49.2 Inflamed sebaceous cyst L72.3 Polyp of colon K63.5 Bursitis of right shoulder M75.51 Coronary atherosclerosis of [place] coronary vessel 08/23/95 I25.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 Crohn's disease K50.90 Essential hypertension 08/31/16 I10 Hypercholesterolemia E78.00 Malignant neoplasm of skin C44.90 Smoker F17.200 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 SMALLS; 3 TUBULAR ADENOMAS Colonoscopy - MAC (08/19/12) DR. SMALLS; 3 TUBULAR ADENOMAS Cholecystectomy Tobacco Smoking/Tobacco Use Status: Former Tobacco Use Passive smoking exposure: Yes Second hand exposure: Yes Alcohol Alcohol Intake: current Alcohol intake frequency: a few times a month Alcohol type: wine Substance Use Substance use: Never Substance use type: does not use Vital Signs and Lab Results Vital Signs Most Recent Vital Signs in EMR: Most Recent Vital Signs Temp Pulse Resp BP Pulse Ox 36.5 C 82 20 125/79 97 12/21/23 07:37 12/21/23 07:37 12/21/23 07:37 12/21/23 07:37 12/21/23 07:37 Lab Results Blood Type / Crossmatch: No Data to Display Complete Blood Count: No Data to Display Complete Metabolic Panel: No Data to Display Liver Function Panel: No Data to Display Coagulation Panel: No Data to Display Cardiac Panel: No Data to Display Arterial Blood Gas: No Data to Display Venous Blood Gas: No Data to Display Pancreas Panel: No Data to Display Thyroid Panel: No Data to Display Infectious Disease: No Data to Display Blood Cultures: No Data to Display Toxicology Panel: No Data to Display Imaging and Studies Imaging and Studies Study information below may be from another EMR and interpreted by another provider. Please see original notes in EMR for more complete details. EKG Summary: 09/08/2021: Exam: Resting ECG Reason for Exam: sob Patient Location: E HR:72 bpm ECG Measurements Heart Rate 72 AXIS GA 165 P 77 QRSd 112 QRS -24 QT 372 T36 QTc 407 Conclusion Sinus rhythm...normal P axis, V-rate 60- 99 Inferior infarct, old...Q >35mS, II III aVF I have reviewed and I agree with the emergency room physician's ECG interpretation. Electronically signed by: <Electronically signed by Rhonda Garcia M.D. in [place]> 09/08/21 1127 Cosigned by: Echocardiogram Summary: 06/22/2020: Conclusion Left Ventricle : The left ventricle is normal size. The left ventricular systolic function is normal. The left ventricular ejection fraction is within the normal range. There is normal left ventricular wall thickness. There is normal LV segmental wall motion. The left ventricular diastolic function is normal. LVEF is 55-60%. Right Ventricle : The right ventricle is normal size. The right ventricular systolic function is normal. The RVSP is 23.9 mmHg. Atria : The left atrium size is normal. The right atrium size is normal. Valves: There are no hemodynamically significant valvular lesions. Great Vessels : The aortic root is normal in size. The ascending aorta is normal in size. Aortic arch is normal in caliber. IVC is normal in size and collapses >50% with inspiration. There are no prior images available for comparison. Anesthesia Assessment and Plan Anesthesia History Personal History: No History of Anesthesia Complications Family History: No Family History of Anesthesia Complications Exercise Tolerance Exercise Tolerance: Metabolic Equivalents>4 Pertinent Negatives Pertinent Negatives: No Symptoms of GERD Cardiac & Pulmonary Exam Cardiac Exam: Normal S1/S2 Heart Sounds Pulmonary Exam: Clear Bilateral Breath Sounds Implantable Cardiac Device Does patient have a Pacemaker or an ICD?: No Airway Exam Known Difficult Airway: No Mallampati Class: 2 Mouth Opening: Normal (> 3cm) Thyromental Distance: Greater than 3 cm Neck Range of Motion: Full ROM Neck Circumference: Normal Teeth Condition: Normal Dentition ASA Classification ASA Score: ASA 3 Emergency Case?: No NPO Status NPO Status: NPO Clears >2 hours, Solids >8 hours Anesthesia Plan Resuscitation Status: Full Code Anesthesia Technique: MAC Anesthesia Airway Planned: Natural Airway Monitors Used: Standard Monitors
[2023-12-21 09:14] VITALS: BMI 24.0
[2023-12-21] MEDS: Balanced Salt Soln.-PLUS 500 ML BAG OP (09:25)
[2023-12-21] MEDS: Duovisc Viscoelastic System EACH 1 EACH (09:26)
[2023-12-21] MEDS: Povidone-Iodine Ophth 30 ML BTL (09:27)
[2023-12-21] MEDS: Tetracaine 0.5% 4 ML BTL OS (09:28)
[2023-12-21] MEDS: Lidocaine 1% Pres-Free 5 ML VIAL (09:28)
[2023-12-21 09:40] VITALS: BP 135/76; PULSE 73; RESP 14; TEMP 36.4; O2SAT 97
--- NOTE | 2023-12-21 09:42 | ROE_ITS ---
Date of service: 12/21/23 Time of Service: 09:42 Operative Note Operative Note DATE OF PROCEDURE: 12/21/23 PRE-OP DIAGNOSIS: Nuclear cataract, left eye POST-OP DIAGNOSIS: same PROCEDURE: Cataract extraction using phacoemulsification with intraocular lens implant, left eye SURGEON: Luis A Kc ANESTHESIA TYPE: Local By Surgeon and MAC Refer to Anesthesia Record PATHOLOGY: none sent COMPLICATIONS: None Patient was transported to: same day Patient's condition: stable Implants: Morgan Clareon [id number] Indications: Progressive decreased vision due to cataract, left eye Procedure Description: CATARACT SURGERY OPERATIVE REPORT PREOPERATIVE DIAGNOSIS: Nuclear cataract, left eye POSTOPERATIVE DIAGNOSIS: Same OPERATION: Cataract extraction using phacoemulsification with posterior chamber intraocular lens implant, left eye. IOL: IOL Foster Care Case Manager/Model: Morgan Clareon [id number] IOL Power: + 25.5 diopters IOL Serial Number: [id number] Optic Diameter: 6.0mm Haptic/Overall Diameter: 13.0mm PHACO INFO: Morgan Mozillaurion Vision System with OZil and Active Fluidics Cumulative Dispersed Energy (CDE): 6.59 seconds SURGEON: Luis A Kc MD, CYNTHIA ANESTHESIA: Monitored Anesthesia Care (MAC), with local sub-tenon's anesthetic infiltration COMPLICATIONS: None SPECIMENS: None INDICATIONS FOR PROCEDURE: The patient is a 78-year-old male with history of diminished visual acuity in his left eye secondary to the development of nuclear cataract. He is significantly symptomatic that he desires cataract surgery and attempt to improve and maximize his vision. The option of cataract surgery was offered to the patient and he wished to proceed. See office notes for detailed information. PROCEDURE: The correct surgical eye was identified and marked as the left eye and the pupil was dilated in the preoperative area using mydriatics and cycloplegics. The dilated pupil size was 6.0 mm. The patient elected to proceed without oral sedation. The patient was brought to the operating room where cardiopulmonary monitoring was instituted and surgical time-out was performed, confirming the correct operative eye and IOL power. Topical anesthesia was administered and ophthalmic povidone-iodine 5% was instilled into the conjunctival fornices. The emily-ocular area was prepped with Betadine 10% solution and draped in the usual sterile fashion for intraocular surgery, including an aperture drape. A Tegaderm transparent film dressing was cut in half and used to cover the lashes and lid margins. Care was taken to sequester the lashes and lid margins under the Tegaderm dressing. A lid speculum was placed between the lids of the operative eye and the Morgan LuxOR Revalia operating microscope was maneuvered into position. Gini scissors were then used to make a conjunctival buttonhole approximately 6mm posterior to the limbus in the inferonasal quadrant. Blunt dissection was carried out to expose bare sclera, and a blunt-tipped sub-tenon?s anesthesia cannula was introduced and passed posteriorly along the globe where non- preserved plain lidocaine was injected into posterior sub-Tenon?s space. A sideport knife was used to make a paracentesis port. Intraocular phenylephrine/lidocaine was injected into the anterior chamber. The anterior chamber was then filled with viscoelastic. A keratome knife was used construct a two-plane clear corneal tunnel extending 2.0mm into clear cornea. A flap was raised on the anterior capsule and capsulorhexis forceps were used to complete a continuous curvilinear capsulorhexis of 5.0 mm. Balanced salt solution was then used to perform cortical cleaving hydrodissection and nuclear hydrodelineation until the lens could be freely rotated within the capsular bag. The lens nucleus was then disassembled and removed within the capsular bag and iris plane using phacoemulsification. Residual cortical material was removed using the irrigation/aspiration handpiece. The posterior capsule was carefully polished to remove as much residual lens epithelial cells as safely possible. The capsular bag was then inflated and the anterior chamber deepened with viscoelastic. The lens implant described above was inserted into the capsular bag using the Morgan Autonome Injector. A Kuglen hook was used to dial the IOL into position. Residual viscoelastic was then removed first from posterior to the IOL, then from the anterior chamber using the I/A handpiece. The lens implant was noted to center nicely within the capsular bag. The incisions were stromally hydrated, and the anterior chamber was reformed using BSS. Then 0.5cc of moxifloxacin 1.0mg/ml were injected into the capsular bag and anterior chamber. The incisions were checked with a Weck spear and found to be secure. Several drops of ophthalmic povidone-iodine 5% were then applied to the eye followed by two drops of combination steroid/NSAID/antibiotic solution. The drapes were removed and a clear plastic protective eye shield was placed over the eye. The patient was then returned to Same Day Surgery in stable condition.
--- NOTE | 2023-12-21 09:42 | W.PM.DSUDISC ---
Date of service: 12/21/23 Time of Service: 09:42 Discharge Plan Disposition Patient Disposition: Home Discharge Details Attending Provider: Luis A Kc Primary Care Provider: Darren Barbour Home Meds and New Rx's Prescriptions: No Action simvastatin 40 mg tablet 40 mg PO HS Qty: 90 3RF lisinopril 10 mg tablet 10 mg PO DAILY Qty: 90 3RF hydrocortisone acetate 25 mg suppository 25 mg MO QHS Qty: 24 6RF triamcinolone acetonide 0.1 % cream 1 applic TP BID PRN (Reason: scrotal dermatitis) Qty: 30 2RF sildenafil (pulm.hypertension) 20 mg tablet 20 mg PO As Directed MDD 100 mg Qty: 30 4RF Rx Instructions: 2-5 tabs two hours before intercourse aspirin 81 mg Tablet,Delayed Release (Dr/Ec) 81 mg PO DAILY Qty: 0 0RF Discharge Instructions Stand Alone Forms: DSU Post-Op Cataract, Juan Manuel Stewart (DSU) Discharge Orders Discharge Orders: Discharge Order (Routine); Ordered 12/21/23 Ordered By: Luis A Kc DS: Diagnosis Discharge Diagnosis (1) Nuclear age-related cataract, left eye: Status: Resolved
--- NOTE | 2023-12-21 10:04 | W.ANESPOSTOP ---
Postoperative Evaluation Date, Time and Location Date Performed: 12/21/23 Time Performed: 09:45 Patient Location: Day Surgery Unit Vital Signs Most Recent Imported Vital Signs: Most Recent Vital Signs Temp Pulse Resp BP Pulse Ox 36.4 C L 73 14 135/76 97 12/21/23 09:40 12/21/23 09:40 12/21/23 09:40 12/21/23 09:40 12/21/23 09:40 Pain Score Most Recent Pain Score: Most Recent Pain Score Pain Level 0 12/21/23 09:40 Assessment Mental Status: Awake (Alert & Oriented to Patient Baseline) Airway and Respiratory Function: Patent airway with normal (patient baseline) respiratory exam Cardiovascular Function: Hemodynamically Stable Hydration Status: Adequately Hydrated Nausea & Vomiting: No Nausea or Vomiting Pain: Pt. Denies Any Pain Peripheral Nerve Block: Patient did not receive a nerve block
--- NOTE | 2023-12-21 10:27 | ROE_ITS ---
Date of service: 12/21/23 Time of Service: 10:28 Operative Note Operative Note DATE OF PROCEDURE: 12/21/23 PRE-OP DIAGNOSIS: Nuclear/cortical cataract, left eye POST-OP DIAGNOSIS: same PROCEDURE: Morgan Clareon [id number] SURGEON: Luis A Kc ANESTHESIA TYPE: Local By Surgeon and MAC Refer to Anesthesia Record PATHOLOGY: none sent COMPLICATIONS: None Patient was transported to: same day Patient's condition: stable Implants: Morgan Clareon [id number] Indications: Progressive decreased vision due to cataract, left eye Procedure Description: CATARACT SURGERY OPERATIVE REPORT PREOPERATIVE DIAGNOSIS: Nuclear/cortical cataract, left eye POSTOPERATIVE DIAGNOSIS: Same OPERATION: Cataract extraction using phacoemulsification with posterior chamber intraocular lens implant, left eye. IOL: IOL Outreach Rep/Model: Morgan Clareon [id number] IOL Power: + 19.0 diopters IOL Serial Number: [id number] Optic Diameter: 6.0mm Haptic/Overall Diameter: 13.0mm PHACO INFO: Morgan Interventional Imagingurion Vision System with OZil and Active Fluidics Cumulative Dispersed Energy (CDE): 8.21 seconds SURGEON: Luis A Kc MD, CYNTHIA ANESTHESIA: Monitored Anesthesia Care (MAC), with local sub-tenon's anesthetic infiltration COMPLICATIONS: None SPECIMENS: None INDICATIONS FOR PROCEDURE: Patient is a 67-year-old male with history of diminished visual acuity in both eyes secondary to the development of bilateral nuclear/cortical cataract. He is previous undergone cataract surgery in his right eye in 2008. He now presents for cataract surgery in the left eye to improve and maximize his vision there. See office notes for detailed information. PROCEDURE: The correct surgical eye was identified and marked as the left eye and the pupil was dilated in the preoperative area using mydriatics and cycloplegics. The dilated pupil size was 7.0 mm. The patient was brought to the operating room where cardiopulmonary monitoring was instituted and surgical time-out was performed, confirming the correct operative eye and IOL power. He was given intravenous sedation, Versed 3 mg. Topical anesthesia was administered and ophthalmic povidone-iodine 5% was instilled into the conjunctival fornices. The emily-ocular area was prepped with Betadine 10% solution and draped in the usual sterile fashion for intraocular surgery, including an aperture drape. A Tegaderm transparent film dressing was cut in half and used to cover the lashes and lid margins. Care was taken to sequester the lashes and lid margins under the Tegaderm dressing. A lid speculum was placed between the lids of the operative eye and the Morgan LuxOR Revalia operating microscope was maneuvered into position. Gini scissors were then used to make a conjunctival buttonhole approximately 6mm posterior to the limbus in the inferonasal quadrant. Blunt dissection was carried out to expose bare sclera, and a blunt-tipped sub-tenon?s anesthesia cannula was introduced and passed posteriorly along the globe where non- preserved plain lidocaine was injected into posterior sub-Tenon?s space. A sideport knife was used to make a paracentesis port. Intraocular phenylephrine/lidocaine was injected into the anterior chamber. The anterior chamber was then filled with viscoelastic. A keratome knife was used construct a two-plane clear corneal tunnel extending 2.0mm into clear cornea. A flap was raised on the anterior capsule and capsulorhexis forceps were used to complete a continuous curvilinear capsulorhexis of 5.0 mm. Balanced salt solution was then used to perform cortical cleaving hydrodissection and nuclear hydrodelineation until the lens could be freely rotated within the capsular bag. The lens nucleus was then disassembled and removed within the capsular bag and iris plane using phacoemulsification. Residual cortical material was removed using the irrigation/aspiration handpiece. The posterior capsule was carefully polished to remove as much residual lens epithelial cells as safely possible. The capsular bag was then inflated and the anterior chamber deepened with viscoelastic. The lens implant described above was inserted into the capsular bag using the Morgan Autonome Injector. A Kuglen hook was used to dial the IOL into position. Residual viscoelastic was then removed first from posterior to the IOL, then from the anterior chamber using the I/A handpiece. The lens implant was noted to center nicely within the capsular bag. The incisions were stromally hydrated, and the anterior chamber was reformed using BSS. Then 0.5cc of moxifloxacin 1.0mg/ml were injected into the capsular bag and anterior chamber. The incisions were checked with a Weck spear and found to be secure. Several drops of ophthalmic povidone-iodine 5% were then applied to the eye followed by two drops of combination steroid/NSAID/antibiotic solution. The drapes were removed and a clear plastic protective eye shield was placed over the eye. The patient was then returned to Same Day Surgery in stable condition.
--- NOTE | 2023-12-21 10:27 | W.PM.DSUDISC ---
Date of service: 12/21/23 Time of Service: 10:27 Discharge Plan Disposition Patient Disposition: Home Discharge Details Attending Provider: Luis A Kc Primary Care Provider: Darren Barbour Home Meds and New Rx's Prescriptions: No Action simvastatin 40 mg tablet 40 mg PO HS Qty: 90 3RF lisinopril 10 mg tablet 10 mg PO DAILY Qty: 90 3RF hydrocortisone acetate 25 mg suppository 25 mg [place] QHS Qty: 24 6RF triamcinolone acetonide 0.1 % cream 1 applic TP BID PRN (Reason: scrotal dermatitis) Qty: 30 2RF sildenafil (pulm.hypertension) 20 mg tablet 20 mg PO As Directed MDD 100 mg Qty: 30 4RF Rx Instructions: 2-5 tabs two hours before intercourse aspirin 81 mg Tablet,Delayed Release (Dr/Ec) 81 mg PO DAILY Qty: 0 0RF Discharge Instructions Stand Alone Forms: DSU Post-Op Cataract, Juan Manuel Stewart (DSU) Discharge Orders Discharge Orders: Discharge Order (Routine); Ordered 12/21/23 Ordered By: Luis A Kc DS: Diagnosis Discharge Diagnosis (1) Nuclear age-related cataract, left eye: Status: Resolved
== END 2023-12-21 09:50 | disposition home or self-care (01) ==
LOC: SUR 07:21
PROVIDERS: PCP Family Medicine; Visit Provider Ophthalmology
PROC: (CPT 66984; principal; 2023-12-21 09:00)
DX: H25.12 Age-related nuclear cataract, left eye (principal); Z98.41 Cataract extraction status, right eye
CPT/HCPCS: 66984; 00123; V2632; J2003

== ENCOUNTER 2024-01-04 07:00 | Day surgery (SDC) | payer MEDICARE, SELFPAY ==
--- NOTE | 2024-01-03 20:44 | W.PREOPHP ---
Assessment and Plan Assessment and plan (1) Nuclear age-related cataract, right eye: Status: Acute Assessment and plan: Assessment: Visually significant cataract, right eye. Plan: Cataract extraction with intraocular lens implant, left eye History of Present Illness History of Present Illness Chief Complaint: decreased vision right eye Narrative: The patient is a 77-year-old male with history of progressive decreased vision in both eyes at both distance and near. He was noted today significant difficulty with night driving due to glare, and had difficulty with reading fine print. He is using a magnifying glass to read. On examination he was noted to have moderate bilateral nuclear cataracts. He was significantly symptomatic that he desired cataract surgery and attempt to improve and maximize his vision. He underwent cataract surgery in the left eye on 12/20/2023, and is doing well postoperatively. He now presents for cataract surgery in the right eye. Review of Systems All systems reviewed & are unremarkable except as noted in HPI and below PFSH All Active Problems Nuclear age-related cataract, right eye (Acute) Internal hemorrhoid, bleeding (Acute) Bleeding hemorrhoids (Acute) Foot pain, left (Acute) Eczema (Acute) Elevated serum protein level (Acute) Fatigue (Acute) Trigger finger (Acute) left 5th Exposure to COVID-19 virus (Acute) Knee pain, left (Acute) Memory impairment (Acute) Elevated liver enzymes (Acute) Shortness of breath (Acute) Chronic sinusitis (Acute) Abnormal urinalysis (Acute) Pneumonia (Acute) NSTEMI (non-ST elevated myocardial infarction) (Acute) COVID-19 ruled out by laboratory testing (Acute) Elevated troponin (Acute) Discharge planning issues (Acute) DVT prophylaxis (Acute) Bilateral pneumonia (Acute) Biceps tendinitis of both shoulders (Acute) Left rotator cuff tear (Acute) Traumatic tear of right rotator cuff (Acute ~03/2018) Shoulder pain, right (Acute) Scrotal rash (Acute) Nasal sinus congestion (Acute) Skin cancer, basal cell (Acute) Decreased vision in both eyes (Acute) Double vision (Acute) Post-nasal drip (Acute) Rhinorrhea (Acute) Impacted cerumen of both ears (Acute) Neoplasm of unspecified behavior of bone, soft tissue, and skin (Acute) Inflamed sebaceous cyst (Acute) Polyp of colon (Acute) Bursitis of right shoulder (Chronic) Coronary atherosclerosis of [place] coronary vessel (Chronic 08/23/95) A) [place] 05/30 B) 2 STENTS PLACED 06/12/06 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) Crohn's disease (Chronic) Essential hypertension (Chronic 08/31/16) Hypercholesterolemia (Chronic) Malignant neoplasm of skin (Chronic) nasal tip-basal cell; parietal region-basal cell; 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 SMALLS; 3 TUBULAR ADENOMAS Colonoscopy - MAC (08/19/12) DR. SMALLS; 3 TUBULAR ADENOMAS Cholecystectomy Family History Mother , AGE 93 Heart disease Father , AGE 50 Pancreatic cancer Sister No problems noted. Maternal Grandfather , AGE 74 Heart disease Sister No problems noted. Son No problems noted. Daughter No problems noted. Daughter No problems noted. Social History Smoking/Tobacco Use Status: Former Tobacco Use Quit Date: 09/24/05 Tobacco: How many years used: 36 Second Hand Exposure: Yes Smoking risk assessment performed?: Yes Alcohol Intake: current Alcohol Intake frequency: a few times a month Alcohol type: wine Drug use: Never Substance use type: does not use Caregiver/Support person: Yes Household members: spouse Housing: house Communication Needs: Hard of Hearing Do you need help understanding health information?: Rarely Pets and animals: No Sexually active: Yes Do you think of yourself as: straight/heterosexual Current gender identity: male What is your relationship status?: How often do you talk on the phone with friends or family?: decline to answer How often do you get together with friends or relatives?: decline to answer How often do you attend orthodox or rastafarian services?: decline to answer Do you belong to any clubs or organized social groups?: no Panel score (0-1 are the most socially isolated patients): 1 What type of physical activity do you participate in: walking and other Details: rowing machine Duration: 30-45 minutes/day Frequency: daily Jennifer/Scientology: No preference Special jennifer needs: No Seatbelt use: always Helmet use: Yes Helmet use: always Drive intox or ride 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 Do you feel safe at home: Yes Do you feel safe in your relationship?: Yes Meds Allergies and Home Medications Allergies Allergy/AdvReac Type Severity Reaction Status Date / Time cetirizine HCl [From [facility]] Allergy Intermediate Hives Verified 01/04/24 07:18 atorvastatin AdvReac Severe joint pains Verified 01/04/24 07:18 Home Medications Medication Instructions Recorded Confirmed Type aspirin 81 mg tablet,delayed 81 mg PO DAILY #0 tabs 06/24/20 01/04/24 Rx release triamcinolone acetonide 0.1 % 1 applic topical BID PRN scrotal 11/30/22 01/04/24 Rx topical cream dermatitis #30 grams sildenafil (pulm.hypertension) 20 20 mg PO As Directed #30 tabs 10/15/23 01/04/24 Rx mg tablet hydrocortisone acetate 25 mg 25 mg ID QHS Internal hemorrhoids 11/12/23 01/04/24 Rx rectal suppository #24 ea lisinopril 10 mg tablet 10 mg PO DAILY #90 tabs 12/04/23 01/04/24 Rx simvastatin 40 mg tablet 40 mg PO HS #90 tabs 12/04/23 01/04/24 Rx hydrocortisone 2.5 % topical cream applic topical 01/04/24 History Exam Eyes Other: Most recent ocular examination is significant for corrected visual acuity of 20/30 OD, 20/40 OS. Extract motility is normal. Intraocular pressure is 20 OD, 16 OS. Slit-lamp examination is significant for moderate nuclear cataract in the right eye. There is a well-positioned PCIOL in the left eye with Clear posterior capsule. Pupils dilate to 6 mm. Funduscopic examination shows disc cupping of 0.6 OD 0.5 OS with normal vessels, macula and peripheral retina. There are number of moderate floaters in the vitreous in both eyes. Resp Auscultation: clear to auscultation bilaterally Cardio Rate: regular rate Rhythm: regular rhythm
[2024-01-04 07:00] VITALS: BP 127/77; PULSE 82; RESP 16; TEMP 36.4; O2SAT 95
--- NOTE | 2024-01-04 07:16 | W.ANESPRE ---
General Info Date of Service Date Performed: 01/04/24 Height: 5 ft 8 in Weight: 71.7 kg Body Mass Index (BMI): 24.0 Surgical Procedure: Operation Date: 01/04/24 08:40 Proposed Procedure Side Surgeon p Cataract Extraction with IOL Implant Right Luis A Kc MD Meds Allergies and Home Medications Allergies Allergy/AdvReac Type Severity Reaction Status Date / Time cetirizine HCl [From [facility]] Allergy Intermediate Hives Verified 01/02/24 11:47 atorvastatin AdvReac Severe joint pains Verified 01/02/24 11:47 Home Medication Medication Instructions Recorded aspirin 81 mg tablet,delayed 81 mg PO DAILY #0 tabs 06/24/20 release triamcinolone acetonide 0.1 % 1 applic topical BID PRN scrotal 11/30/22 topical cream dermatitis #30 grams sildenafil (pulm.hypertension) 20 20 mg PO As Directed #30 tabs 10/15/23 mg tablet hydrocortisone acetate 25 mg 25 mg AL QHS Internal hemorrhoids 11/12/23 rectal suppository #24 ea lisinopril 10 mg tablet 10 mg PO DAILY #90 tabs 12/04/23 simvastatin 40 mg tablet 40 mg PO HS #90 tabs 12/04/23 Current Visit Medications: Current Medications Generic Name Dose Route Start Last Admin Trade Name Freq PRN Reason Stop Dose Admin Acetaminophen 1,000 mg 01/04/24 06:00 Acetaminophen 500 Mg Tab PO 02/03/24 05:59 Q4H PRN PRN Balanced Salt Solution 500 ml 01/04/24 06:00 Balanced Salt Soln.-Plus 500 Ml Bag OP 02/03/24 05:59 DIRECTED [facility] Miscellaneous Medication 0 ml 01/04/24 06:00 Prednisolone 1%, Moxifloxacin 0.5%, Bromfenac 0.09% 5ml Btl OD 02/03/24 05:59 DIRECTED [facility]ELLE Miscellaneous Medication 0 ml 01/04/24 06:00 Tropicam./Phenyleph. (1/2.5%) 10 Ml Btl OD 02/03/24 05:59 DIRECTED NOELLE Tetracaine HCl 0 ml 01/04/24 06:00 Tetracaine 0.5% 4 Ml Btl OD 02/03/24 05:59 DIRECTED NOELLE PFSH Active Problems Active Problems: Problem Status Onset Code Nuclear age-related cataract, right eye H25.11 Nuclear age-related cataract, left eye H25.12 Internal hemorrhoid, bleeding K64.8 Bleeding hemorrhoids K64.9 Foot pain, left M79.672 Eczema L30.9 Elevated serum protein level R77.9 Fatigue R53.83 Trigger finger M65.30 Exposure to COVID-19 virus Z20.822 Knee pain, left M25.562 Memory impairment R41.3 Elevated liver enzymes R74.8 Shortness of breath R06.02 Chronic sinusitis J32.9 Abnormal urinalysis R82.90 Pneumonia J18.9 Lactic acidosis E87.2 NSTEMI (non-ST elevated myocardial infarction) I21.4 COVID-19 ruled out by laboratory testing Z03.818 Elevated troponin R79.89 Discharge planning issues Z02.9 DVT prophylaxis Z29.9 Sepsis associated hypotension A41.9, I95.9 JERRELL (acute kidney injury) N17.9 Sepsis A41.9 Bilateral pneumonia J18.9 Biceps tendinitis of both shoulders M75.21, M75.22 Left rotator cuff tear M75.102 Traumatic tear of right rotator cuff ~03/2018 S46.011A Shoulder pain, right M25.511 Scrotal rash R21 Nasal sinus congestion R09.81 Skin cancer, basal cell C44.91 Decreased vision in both eyes H54.3 Double vision H53.2 Post-nasal drip R09.82 Rhinorrhea J00 Impacted cerumen of both ears H61.23 Neoplasm of unspecified behavior of bone, soft tissue, and skin D49.2 Inflamed sebaceous cyst L72.3 Polyp of colon K63.5 Bursitis of right shoulder M75.51 Coronary atherosclerosis of [place] coronary vessel 08/23/95 I25.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 Crohn's disease K50.90 Essential hypertension 08/31/16 I10 Hypercholesterolemia E78.00 Malignant neoplasm of skin C44.90 Smoker F17.200 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 SMALLS; 3 TUBULAR ADENOMAS Colonoscopy - MAC (08/19/12) DR. SMALLS; 3 TUBULAR ADENOMAS Cholecystectomy Tobacco Smoking/Tobacco Use Status: Former Tobacco Use Passive smoking exposure: Yes Second hand exposure: Yes Alcohol Alcohol Intake: current Alcohol intake frequency: a few times a month Alcohol type: wine Substance Use Substance use: Never Substance use type: does not use Vital Signs and Lab Results Lab Results Blood Type / Crossmatch: No Data to Display Complete Blood Count: No Data to Display Complete Metabolic Panel: No Data to Display Liver Function Panel: No Data to Display Coagulation Panel: No Data to Display Cardiac Panel: No Data to Display Arterial Blood Gas: No Data to Display Venous Blood Gas: No Data to Display Pancreas Panel: No Data to Display Thyroid Panel: No Data to Display Infectious Disease: No Data to Display Blood Cultures: No Data to Display Toxicology Panel: No Data to Display Imaging and Studies Imaging and Studies Study information below may be from another EMR and interpreted by another provider. Please see original notes in EMR for more complete details. EKG Summary: 09/08/2021: Exam: Resting ECG Reason for Exam: sob Patient Location: E HR:72 bpm ECG Measurements Heart Rate 72 AXIS AL 165 P 77 QRSd 112 QRS -24 QT 372 T36 QTc 407 Conclusion Sinus rhythm...normal P axis, V-rate 60- 99 Inferior infarct, old...Q >35mS, II III aVF I have reviewed and I agree with the emergency room physician's ECG interpretation. Electronically signed by: <Electronically signed by Rhonda Garcia M.D. in OV> 09/08/21 1127 Cosigned by: Echocardiogram Summary: 06/22/2020: Conclusion Left Ventricle : The left ventricle is normal size. The left ventricular systolic function is normal. The left ventricular ejection fraction is within the normal range. There is normal left ventricular wall thickness. There is normal LV segmental wall motion. The left ventricular diastolic function is normal. LVEF is 55-60%. Right Ventricle : The right ventricle is normal size. The right ventricular systolic function is normal. The RVSP is 23.9 mmHg. Atria : The left atrium size is normal. The right atrium size is normal. Valves: There are no hemodynamically significant valvular lesions. Great Vessels : The aortic root is normal in size. The ascending aorta is normal in size. Aortic arch is normal in caliber. IVC is normal in size and collapses >50% with inspiration. There are no prior images available for comparison. Anesthesia Assessment and Plan Anesthesia History Personal History: No History of Anesthesia Complications Family History: No Family History of Anesthesia Complications Exercise Tolerance Exercise Tolerance: Metabolic Equivalents>4 Pertinent Negatives Pertinent Negatives: No Symptoms of GERD Cardiac & Pulmonary Exam Cardiac Exam: Normal S1/S2 Heart Sounds Pulmonary Exam: Clear Bilateral Breath Sounds Implantable Cardiac Device Does patient have a Pacemaker or an ICD?: No Airway Exam Known Difficult Airway: No Mallampati Class: 2 Mouth Opening: Normal (> 3cm) Thyromental Distance: Greater than 3 cm Neck Range of Motion: Full ROM Neck Circumference: Normal Teeth Condition: Normal Dentition ASA Classification ASA Score: ASA 2 Emergency Case?: No NPO Status NPO Status: NPO Clears >2 hours, Solids >8 hours Anesthesia Plan Resuscitation Status: Full Code Anesthesia Technique: MAC Anesthesia Airway Planned: Natural Airway Monitors Used: Standard Monitors
[2024-01-04 07:17] VITALS: BMI 24.0
[2024-01-04] MEDS: Lidocaine 1% Pres-Free 5 ML VIAL (08:20)
[2024-01-04] MEDS: Duovisc Viscoelastic System EACH 1 EACH (08:20)
[2024-01-04] MEDS: Povidone-Iodine Ophth 30 ML BTL (08:21)
[2024-01-04] MEDS: Tetracaine 0.5% 4 ML BTL OD (08:22)
[2024-01-04] MEDS: Balanced Salt Soln.-PLUS 500 ML BAG OP (08:22)
[2024-01-04 08:38] VITALS: BP 125/81; PULSE 75; RESP 16; TEMP 36.8; O2SAT 97
--- NOTE | 2024-01-04 08:38 | W.PM.DSUDISC ---
Date of service: 01/04/24 Time of Service: 08:38 Discharge Plan Disposition Patient Disposition: Home Discharge Details Attending Provider: Luis A Kc Primary Care Provider: Darren Barbour Home Meds and New Rx's Prescriptions: No Action simvastatin 40 mg tablet 40 mg PO HS Qty: 90 3RF lisinopril 10 mg tablet 10 mg PO DAILY Qty: 90 3RF hydrocortisone acetate 25 mg suppository 25 mg [place] QHS Qty: 24 6RF triamcinolone acetonide 0.1 % cream 1 applic TP BID PRN (Reason: scrotal dermatitis) Qty: 30 2RF sildenafil (pulm.hypertension) 20 mg tablet 20 mg PO As Directed MDD 100 mg Qty: 30 4RF Rx Instructions: 2-5 tabs two hours before intercourse hydrocortisone 2.5 % cream TOPICAL Patient Comments: APPLY RECTALLY TO HEMORRHOIDS ONE TO TWO TIMES DAILY NEEDED aspirin 81 mg Tablet,Delayed Release (Dr/Ec) 81 mg PO DAILY Qty: 0 0RF Discharge Instructions Stand Alone Forms: DSU Post-Op CataractJuan Manuel (DSU) Discharge Orders Discharge Orders: Discharge Order (Routine); Ordered 01/04/24 Ordered By: Luis A Kc DS: Diagnosis Discharge Diagnosis (1) Nuclear age-related cataract, right eye: Status: Resolved
--- NOTE | 2024-01-04 08:39 | W.PM.OP ---
Date of service: 01/04/24 Time of Service: 08:39 Operative Note Operative Note DATE OF PROCEDURE: 01/04/24 PRE-OP DIAGNOSIS: Nuclear cataract, right eye POST-OP DIAGNOSIS: same PROCEDURE: Cataract extraction using phacoemulsification with intraocular lens implant, right eye SURGEON: Luis A Kc ANESTHESIA TYPE: Local By Surgeon and MAC Refer to Anesthesia Record ESTIMATED BLOOD LOSS: 0 PATHOLOGY: none sent COMPLICATIONS: None Patient was transported to: same day Patient's condition: stable Implants: Morgan Clareon [id number] Indications: Progressive decreased vision due to cataract, right eye Procedure Description: CATARACT SURGERY OPERATIVE REPORT PREOPERATIVE DIAGNOSIS: Nuclear cataract, right eye POSTOPERATIVE DIAGNOSIS: Same OPERATION: Cataract extraction using phacoemulsification with posterior chamber intraocular lens implant, right eye. IOL: IOL Hair Spinning Machine Operator/Model: Morgan Clareon [id number] IOL Power: + 24.5 diopters IOL Serial Number: [id number] Optic Diameter: 6.0mm Haptic/Overall Diameter: 13.0mm PHACO INFO: MorganBureaux A Partagerurion Vision System with OZil and Active Fluidics Cumulative Dispersed Energy (CDE): 5.76 seconds SURGEON: Luis A Kc MD, CYNTHIA ANESTHESIA: Monitored Anesthesia Care (MAC), with local sub-tenon's anesthetic infiltration COMPLICATIONS: None SPECIMENS: None INDICATIONS FOR PROCEDURE: The patient is a 78-year-old male with history of diminished visual acuity in both eyes secondary to the development of bilateral nuclear cataract. He is significantly symptomatic that he desires cataract surgery and attempt to improve and maximize his vision. The option of cataract surgery was offered to the patient and he wished to proceed. He has already undergone cataract surgery in the left eye and is doing well postoperatively. See office notes for detailed information. PROCEDURE: The correct surgical eye was identified and marked as the right eye and the pupil was dilated in the preoperative area using mydriatics and cycloplegics. The dilated pupil size was 7.0 mm. The patient elected to proceed without oral sedation. The patient was brought to the operating room where cardiopulmonary monitoring was instituted and surgical time-out was performed, confirming the correct operative eye and IOL power. Topical anesthesia was administered and ophthalmic povidone-iodine 5% was instilled into the conjunctival fornices. The emily-ocular area was prepped with Betadine 10% solution and draped in the usual sterile fashion for intraocular surgery, including an aperture drape. A Tegaderm transparent film dressing was cut in half and used to cover the lashes and lid margins. Care was taken to sequester the lashes and lid margins under the Tegaderm dressing. A lid speculum was placed between the lids of the operative eye and the Morgan LuxOR Revalia operating microscope was maneuvered into position. Gini scissors were then used to make a conjunctival buttonhole approximately 6mm posterior to the limbus in the inferonasal quadrant. Blunt dissection was carried out to expose bare sclera, and a blunt-tipped sub-tenon?s anesthesia cannula was introduced and passed posteriorly along the globe where non-preserved plain lidocaine was injected into posterior sub-Tenon?s space. A sideport knife was used to make a paracentesis port. Intraocular phenylephrine/lidocaine was injected into the anterior chamber. The anterior chamber was then filled with viscoelastic. A keratome knife was used to construct a two--plane clear corneal tunnel extending 2.0mm into clear cornea. A flap was raised on the anterior capsule and capsulorhexis forceps were used to complete a continuous curvilinear capsulorhexis of 5.5 mm. Balanced salt solution was then used to perform cortical cleaving hydrodissection and nuclear hydrodelineation until the lens could be freely rotated within the capsular bag. The lens nucleus was then disassembled and removed within the capsular bag and iris plane using phacoemulsification. Residual cortical material was removed using the I/A handpiece. The posterior capsule was carefully polished to remove as much residual lens epithelial cells as safely possible. The capsular bag was then inflated and the anterior chamber deepened with cohesive viscoelastic. The lens implant described above was inserted into the capsular bag using the Morgan Autonome Injector. A Kuglen hook was used to dial the IOL into position. Residual viscoelastic was then removed first from posterior to the IOL, then from the anterior chamber using the I/A handpiece. The lens implant was noted to center nicely within the capsular bag. The incisions were stromally hydrated, and the anterior chamber was reformed using BSS. Then 0.5cc of moxifloxacin 1.0mg/ml were injected into the capsular bag and anterior chamber. The incisions were checked with a Weck spear and found to be secure. Several drops of ophthalmic povidone-iodine 5% were then applied to the eye followed by two drops of combination steroid/NSAID/antibiotic solution. The drapes were removed and a clear plastic protective eye shield was placed over the eye. The patient was then returned to Same Day Surgery in stable condition.
--- NOTE | 2024-01-04 08:50 | W.ANESPOSTOP ---
Postoperative Evaluation Date, Time and Location Date Performed: 01/04/24 Time Performed: 08:50 Patient Location: Day Surgery Unit Vital Signs Most Recent Imported Vital Signs: Most Recent Vital Signs Temp Pulse Resp BP Pulse Ox 36.8 C 75 16 125/81 97 01/04/24 08:38 01/04/24 08:38 01/04/24 08:38 01/04/24 08:38 01/04/24 08:38 Pain Score Most Recent Pain Score: Most Recent Pain Score Pain Level 0 01/04/24 08:38 Assessment Mental Status: Awake (Alert & Oriented to Patient Baseline) Airway and Respiratory Function: Patent airway with normal (patient baseline) respiratory exam Cardiovascular Function: Hemodynamically Stable Hydration Status: Adequately Hydrated Nausea & Vomiting: No Nausea or Vomiting Pain: Pt. Denies Any Pain Peripheral Nerve Block: Patient did not receive a nerve block
== END 2024-01-04 08:53 | disposition home or self-care (01) ==
LOC: SUR 07:01
PROVIDERS: PCP Family Medicine; Visit Provider Ophthalmology
PROC: (CPT 66984; principal; 2024-01-04 08:30)
DX: H25.11 Age-related nuclear cataract, right eye (principal); F17.200 Nicotine dependence, unspecified, uncomplicated; I10 Essential (primary) hypertension; Z98.42 Cataract extraction status, left eye
CPT/HCPCS: 66984; 00123; V2632; J2003

== ENCOUNTER 2024-01-30 08:58 | Outpatient (CLI) | payer MEDICARE, SELFPAY ==
[2024-01-30 12:25] LABS: Estimated GFR 76.56 (mL/min/1.73m2); Potassium 4.5 mmol/L (3.5-5.1)
== END 2024-01-30 08:59 | disposition home or self-care (01) ==
LOC: LOS 08:58
PROVIDERS: PCP Family Medicine; Referring Provider Family Medicine; Visit Provider Family Medicine
DX: I10 Essential (primary) hypertension (principal)
CPT/HCPCS: 36415; 82565; 84132

== ENCOUNTER 2024-05-30 00:42 | Outpatient (CLI) | payer MEDICARE, SELFPAY ==
--- OUTSIDE RECORDS SUMMARY | 2024-05-30 00:44 | XMS_ITS | Encounter Summary ---
Author Organization [facility] Address [address] [place] [address] Care Team Providers Care Teacher Citizenship Name Role Phone Lety Camacho MD Primary Care Provider [phone] Encounter Details Date Type Department Care Team (Late st Contact Info) Description 07/21/2019 Results Only [facility] [phone] Laverne Alegria, [address] [place] [address] Social History Tobacco Use Types Packs/Day Years Used Date Smoking Tobacco: Never Assessed Sex and Gender Information Value Date Recorded Sex Assigned at Not on file Gender Identity Not on file Sexual Orientation Not on file documented as of this encounter Plan of Treatment Not on file documented as of this encounter Procedures Procedure Name Priority Date/Time Associated Diagnosis Comments SURGICAL PATHOLOGY Routine 07/21/2019 17 :16 EDT documented in this encounter Results * SURGICAL PATHOLOGY (07/21/2019 17:16 EDT) Pathology Report: SURGICAL PATHOLOGY REPORT Reports generated via electronic interface contain original data; however they are lacking the format of the original report. Caution should be taken when reading/interpret ing unformatted reports. Name: ? ANTHONY JONES ? Accession #: ? [id number] ? : ? 1945 (Age: 73) ??M ? Collect Date: ? 07/21/2019 ? Location: ? [facility] ? Receive Date: ? 07/21/2019 ? Provider: LAVERNE ALEGRIA DO Copy to: LETY CAMACHO MD ? Final Pathologic Diagnosis: A. ??SKIN OF NECK, LEFT INFRALOBULAR/UPPE R, EXCISION: - Basal cell carcinoma, nodular type. - Margins negative for basal cell carcinoma. - Epidermal reparative change and dermal scar, consistent with biopsy site. B. ??SKIN OF NECK, LEFT INFRALOBULAR/UPPE R, 12 O'CLOCK DOG EAR, EXCISION: - No basal cell carcinoma identified. Microscopic Description: Irregularly shaped islands of atypical basal cells infiltrate the dermis. ??The basal cells have scant cytoplasm and round dark nuclei. ??Mitotic figures and apoptotic bodies are evident. ??The nuclei at the periphery of the islands have a palisaded arrangement. ??The islands are associated with a fibromyxoid stroma and there is cleft formation between some of the islands and stroma. ??(Dr. Joshua)/[facility] Document reviewed and electronically signed by: MELISA JOSHUA MD Report ??Date: 07/23/2019 17:46 By the signature above, the attending physician certifies that he/she has personally conducted a gross and/or microscopic examination of the described specimens and rendered or confirmed the above diagnosis. Specimen(s) Received: A. ??Left infralobular/uppe r neck, 12 o'clock blank, 3 o'clock white, 6 o'clock blue, 9 o'clock black B. ??12 o'clock dog ear, left infralobular upper neck, purple Clinical History: Left neck skin cancer Intraoperative Interpretation: A. ??SKIN, LEFT UPPER NECK, INFRALOBULAR, ELLIPSE EXCISION: - FSA1: ??Residual basal cell carcinoma. ??Skin edge and deep margins are free of carcinoma. - FSA2: ??Residual basal cell carcinoma. ??Skin edge and deep margins are free of carcinoma. - FSA3: ??No definitive carcinoma identified. - Frozen section diagnoses were discussed with Dr. Alegria on 07/21/19 at 8:29 AM in person. ?? Frozen section was performed and evaluated at [facility] on 07/21/[address] Ronald Baez. ??Specimen received at 7:58 AM. Staining and slide quality acceptable for interpretation. ??Dr. Ronald Baez 07/21/19 9:00 AM B. ??SKIN, 12 O'CLOCK DOG EAR, LEFT INFRALOBULAR UPPER NECK, ADDITIONAL MARGIN, EXCISION (FSB1): - No definitive carcinoma identified. - Frozen section diagnosis discussed with Dr. Alegria in person on 07/21/19 at 8:29 AM. Frozen section performed and evaluated at [facility] on 07/21/[address] Ronald Baez. ??Specimen received at 8:10 AM. ??Staining and slide quality acceptable for interpretation. ??Dr. Ronald Baez 07/21/19 9:10 AM Gross Description: A. ?Received fresh labelled with proper patient identification (initials B, B) and left infralobular upper neck is an oriented elliptical excision of skin with a white suture designating 3 o'clock, a blue suture designating 6 o'clock and a black suture designating 9 o'clock (2.6 cm from 12 o'clock to 6 o'clock, 1.5 cm from 3 o'clock to 9 o'clock, and is excised to a depth of 0.5 cm). The 12-3-6 o'clock aspect is blue inked and the 6-9-12 o'clock aspect is black inked. The specimen is serially sectioned from 12 o'clock (level 1) to 6 o'clock (level 7) and is entirely submitted for frozen section analysis as FS A1 through FS A3 with the interpretation as above. The specimen is entirely submitted as follows: BLOCK JUÁREZ A1- ??FS control A1, 12 o'clock tip, reverse en face A2- ??FS control A1, level 2 A3- ??FS control A1, level 3 A4- ??FS control A2, level 4 A5- ??FS control A2, level 5 A6- ??FS control A3 level 6 A7- ??FS control A3, 6 o'clock tip, reverse en face B. ?Received fresh labelled with proper patient identification (initials B, B) and 12 o'clock dog ear purple, left infralobular upper neck is a small excision of skin (1.5 x 0.3 cm, excised to a depth of 0.3 cm). Purple ink is on one edge. The subcutis and dermis is inked, and the specimen is submitted whole en face as FSB1 with the interpretation as above. The specimen is submitted whole in B1. CHRISTOPHER Muse (ASCP) 07/22/2019 9:37 AM End of Report [facility] 07/21/2019 17:1 6 EDT 07/21/2019 17:16 EDT Laverne Alegria DO PATHOLOGY ORDER [facility] [address] [place] [address] documented in this encounter Visit Diagnoses Not on filedocumented in this encounter Care Teams Teacher Citizenship Relationship Specialty Start Date End Date Lety Camacho MD PCP - General 08/21/12 documented as of this encounter
--- OUTSIDE RECORDS SUMMARY | 2024-05-30 00:44 | XMS_ITS | Clinical Summary ---
Author Organization [facility] Address [address] [place] [address] Care Team Providers Care Glass Selector Name Role Phone Vahe Bah MD Primary Care Provider [phone] Social History Tobacco Use Types Packs/Day Years Used Date Smoking Tobacco: Never Assessed Interpersonal Safety Answer Date Record ed Physically Hurt Never 04/25/2020 Verbally Threaten Not on file 04/25/2020 Sex and Gender Information Value Date Recorded Sex Assigned at Not on file Gender Identity Not on file Sexual Orientation Not on file Plan of Treatment Health Maintenance Due Date Last Done Comments Hepatitis C Screen 1945 RSV Immunization ( o r 60+ Years) (1 - 1-dose 60+ series) 2004 Fall Risk Screening 2009 COVID-19 Vaccine (2022-24 season) 2023 Care Teams Glass Selector Relationship Specialty Start Date End Date Vahe Bah MD PCP - General 08/21/12
--- OUTSIDE RECORDS SUMMARY | 2024-05-30 00:44 | XMS_ITS | Encounter Summary ---
Author Organization [facility] Address [address] [place] [address] Care Team Providers Care Concrete Building Assembler Name Role Phone Vahe Bah MD Primary Care Provider [phone] Encounter Details Date Type Department Care Team (Latest Contact Info) Description 07/21/2019 14:05 EDT - 07/21/2019 23:59 EDT Hospital Encounter [address] [address] Unknown, Provider, Discharge Disposition: Home or Self Care Social History Tobacco Use Types Packs/Day Years Used Date Smoking Tobacco: Never Assessed Sex and Gender Information Value Date Recorded Sex Assigned at Not on file Gender Identity Not on file Sexual Orientation Not on file documented as of this encounter Discharge Disposition Disposition Code Departure Means Destination Home or Self Nursing Home documented in this encounter Plan of Treatment Not on file documented as of this encounter Visit Diagnoses Not on filedocumented in this encounter Care Teams Concrete Building Assembler Relationship Specialty Start Date End Date Vahe Bah MD PCP - General 08/21/12 documented as of this encounter
--- OUTSIDE RECORDS SUMMARY | 2024-05-30 00:44 | XMS_ITS | Encounter Summary ---
Author Organization [facility] Address [facility] [place] [address] Care Team Providers Care Drafter Civil Name Role Phone Darren Barbour MD Primary Care Provider [phone] Encounter Details Date Type Department Care Team (Late st Contact Info) Description 06/07/2020 Refill Dermatology at [address] [place] [address] Anahi Ness, COIL REWIND MACHINE OPERATOR Social History Tobacco Use Types Packs/Day Years Used Date Smoking Tobacco: Never Smokeless Tobacco: Never Alcohol Use Standard Drinks/Week Comments Not Asked 0 (1 standard drink = 0.6 oz pur e alcohol) Sex and Gender Information Value Date Recorded Sex Assigned at Not on file Gender Identity Not on file Sexual Orientation Not on file documented as of this encounter Plan of Treatment Not on file documented as of this encounter Visit Diagnoses Not on filedocumented in this encounter Care Teams Drafter Civil Relationship Specialty Start Date End Date Darren Barbour MD [address] [place] [address] [address] [place] [address] PCP - General Family Medicine 05/07/20 documented as of this encounter
--- OUTSIDE RECORDS SUMMARY | 2024-05-30 00:44 | XMS_ITS | Encounter Summary ---
Author Organization Count Includes [facility] Address [facility] [place] [address] Care Team Providers Care Pastoral Assistant Name Role Phone Vahe Bah MD Primary Care Provider [phone] Encounter Details Date Type Department Care Team (Late st Contact Info) Description 05/13/2019 9:00 AM EDT Office Visit Cardiology at [address] [address] Mario Alberto Londono MD [facility] [place] [address] Coronary artery disease, angina presence unspecified, unspecified vessel or lesion type, unspecified whether enterprise or transplanted heart; Chest pain, unspecified type; Essential hypertension Social History Tobacco Use Types Packs/Day Years Used Date Smoking Tobacco: Never Smokeless Tobacco: Never Alcohol Use Standard Drinks/Week Comments Not Asked 0 (1 standard drink = 0.6 oz pur e alcohol) Sex and Gender Information Value Date Recorded Sex Assigned at Not on file Gender Identity Not on file Sexual Orientation Not on file documented as of this encounter Last Filed Vital Signs Vital Sign Reading Time Taken Comments Blood Pressure 105/68 05/13/2019 9:02 AM EDT Pulse 88 05/13/2019 9:02 AM EDT Temperature - - Respiratory Rate - - Oxygen Saturation 98% 05/13/2019 9:02 AM EDT Inhaled Oxygen Concentration - - Weight 76.2 kg (168 lb) 05/13/2019 9:02 AM EDT Height 172.7 cm (5' 8) 05/13/2019 9:02 AM EDT Body Mass Index 25.54 05/13/2019 9:02 AM EDT documented in this encounter Progress Notes * Mario Alberto Londono MD - 05/13/2019 9:00 AM EDT Cardiology Clinic Note CC: Chest pain Patient Name: Anthony Jones HPI: 73 yr old man with HLD, HTN, CAD s/p MD and PCI to prox and mid-LAD, ostial D1 who here for evaluation of CAD. Did not receive routine CV follow up care after his MD back in 2005. Sent for a stress test back in January and is here to f/u on the results. He denies any recurrence of exertional sxs since our last appt. States that he has been busy/active all Summer with no symptoms. Denies CP, HANSON, etc. Currently renovating a house next door to him. Taking lisinopril 5 mg BID with good control of BP. Did not like metoprolol-- felt worn down on this medication. Has an [facility] spreadsheet of his BPs with him today; SBP: 110-130 mmHg; Avg BP: 125/69 mmHg. 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 Basal cell carcinoma C44.91 ??? 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 Hyperlipidemia E78.5 ??? CAD (coronary artery disease) I25.10 ??? Actinic keratosis L57.0 ??? History of basal cell carcinoma Z85.828 ??? Urticaria L50.9 ??? Chest pain R07.9 ??? Essential hypertension I10 ??? Crohn's disease K50.90 No past surgical history on file. Meds: Outpatient Medications Marked as Taking for the 05/13/19 encounter (Office Visit) with Mario Alberto Londono MD Medication Sig Dispense Refill ??? simvastatin (ZOCOR) 40 mg Tablet Take 40 mg by mouth daily. ??? lisinopril (PRINIVIL;ZESTRIL) 5 mg tablet Take 5 mg by mouth 2 times daily. ??? [DISCONTINUED] simvastatin (ZOCOR) 80 mg tablet 40MG = 1 Tablet(s), PO, Once daily ??? nystatin-triamcinolone (MYCOLOG) ointment 1 Appl(s), Top, PRN ??? triamcinolone (KENALOG) 0.1 % ointment 1 Appl(s), Top, PRN Social History Socioeconomic History ??? Marital status: Spouse name: Not on file ??? Number of children: Not on file ??? Years of education: Not on file ??? Highest education level: Not on file Occupational History ??? Not on file Social Needs ??? Financial resource strain: Not on file ??? Food insecurity: Worry: Not on file Inability: Not on file ??? Transportation needs: Medical: Not on file Non-medical: Not on file Tobacco Use ??? Smoking status: Never Smoker ??? Smokeless tobacco: Never Used Substance and Sexual Activity ??? Alcohol use: Not on file ??? Drug use: Not on file ??? Sexual activity: Not on file Lifestyle ??? Physical activity: Days per week: Not on file Minutes per session: Not on file ??? Stress: Not on file Relationships ??? Social connections: Talks on phone: Not on file Gets together: Not on file Attends confucianist service: Not on file Active member of club or organization: Not on file Attends meetings of clubs or organizations: Not on file Relationship status: Not on file ??? Intimate partner violence: Fear of current or ex partner: Not on file Emotionally abused: Not on file Physically abused: Not on file Forced sexual activity: Not on file Other Topics Concern ??? Not on file Social History Narrative ??? Not on file 24 HR Review of Systems: Constitutional: No fevers; chills or malaise Eyes: No visual disturbances ENT: No jaw pain; no difficulty swallowing or chewing, no mouth sores/mucositis Neck: No neck pain Cardiovascular: No Chest Pain; No palpitations Respiratory: No SOB; No HANSON; No cough GI/Abdomen: No Diarrhea; No Constipation; No Nausea/Vomiting : No dysuria; no hematuria Extremities: No swelling; No calf tenderness; no bleeding Neuro: No headaches; No sensory deficits Vitals: Last value Range last 24 hrs Temperature Temp: -- Heart Rate Heart Rate: 88 Heart Rate: [88] Blood Pressure BP: 105/68 BP: (105)/(68) Respiratory Rate Resp: -- SpO2 SpO2: 98 % SpO2: [98 %] Examination: CONST: Pleasant, Well-appearing NEURO: Oriented x3; no obvious deficits PSYCH: NAD, Normal mood HEENT: Non-icteric sclera MSK: Ambulates w/o difficulty CV: JVP not elevated; RRR, normal S1+S2, no murmurs PULM: CTAB GI: Soft, non-tender, non-distended, +BS EXTREMITIES: No lower extremity edema; 2+ Radial pulses bilaterally SKIN: No rashes Laboratory: No results for input(s): WBC, HGB, HCT, PLATELET in the last 168 hours. No results for input(s): NA, K, CL, CO2, BUN, CREATININE in the last 168 hours. No results for input(s): AST, ALT, ALKPHOS, BILITOT, BILIDIR in the last 168 hours. No results for input(s): CALCIUM, PHOS in the last 168 hours. EKG: Diagnostic Studies: Nuclear Stress Test (01/2019) FINDINGS: No fixed or reversible perfusion defects are present. Myocardial function: There is normal wall motion and wall thickening. Left ventricular ejection fraction: 67 % (normal greater than 50%) IMPRESSION: No ischemia or scar. Left ventricular function is normal. TTE (2005) 1) Mild AR. 2) Atrial septal aneurysm, Doppler and constrast suggestive but not diagnostic for small shunt flow. 3) Normal biventricular function. 4) No prior images available for comparison except cath 11-Jun-06 stents x3 LAD/D1. Cardiac Cath (2005) Conclusions: * One vessel coronary artery disease (LAD) * Moderately decreased left ventricular ejection fraction (EF-45%) * No evidence of mitral regurgitation * Successful stent insertion of the proximal LAD lesion * Successful stent insertion of the mid LAD lesion * Successful stent insertion of the ostial D1 lesion I have personally reviewed the above ECG & imaging studies ASSESSMENT: This is an extremely pleasant 73 yr old man with HLD, HTN, CAD s/p MD and PCI to prox and mid-LAD, ostial D1 who was referred here by his PCP after experiencing an unusual constellation of symptoms during strenuous exertion approximately 5 months ago. He describes feeling rapid onset, intense fatigue associated with a headache while pulling up hiwot in a house that he is rehabilitating. Denied any chest discomfort or dyspnea during this episode. Fortunately, his symptoms have resolved since I last saw him. He is remained active all summer with no chest discomfort or dyspnea despite remaining quite physically active renovating the house next door to him. I did send him for a nuclear stress test which was performed back in January. The results of this were largely reassuring. There is no evidence of ischemia or scar. He performed 7 METS of activity with a Pepper treadmill score of 6 (low risk). Overall, I am quite pleased that his testing was benign and that he is feeling well today. He felt tired on metoprolol and has since discontinued that medication. Blood pressure remains well controlled on lisinopril 5 mg twice daily. No other changes were made today. PLAN: # ASCVD - No recurrence of exertional sxs; doing well overall - Nuclear stress test was benign (01/2019); 7.4 METS, DTS: 6 (low risk) - Resume ASA 81 mg daily; - Continue simvastatin 40 mg daily; has had joint aches/pains with other statins # Hypertension - Well controlled - Avg BP at home: 125/69 mmHg - Continue lisinopril 5 mg BID Follow-up in 1 yr Mario Alberto Londono MD, FACP, FACC Section of Cardiovascular Medicine [facility] Interpretative Dancercdl program coordinator [facility] documented in this encounter Plan of Treatment Not on file documented as of this encounter Visit Diagnoses Diagnosis Coronary artery disease, angina presence unspecified, unspecified vessel or lesion type, unspecified whether enterprise or transplanted heart Chest pain, unspecified type Essential hypertension Unspecified essential hypertension documented in this encounter Care Teams Pastoral Assistant Relationship Specialty Start Date End Date Vahe Bah MD [address] [place] [address] PCP - General 08/16/10 05/06/20 documented as of this encounter
--- OUTSIDE RECORDS SUMMARY | 2024-05-30 00:44 | XMS_ITS | Encounter Summary ---
Author Organization [facility] Address [address] [place] [address] Care Team Providers Care Drum Worker Name Role Phone Lety Camacho MD Primary Care Provider [phone] Encounter Details Date Type Department Care Team (Late st Contact Info) Description 06/16/[address] [facility] [phone] Laverne Alegria, [address] [place] [address] Social History Tobacco Use Types Packs/Day Years Used Date Smoking Tobacco: Never Assessed Sex and Gender Information Value Date Recorded Sex Assigned at Not on file Gender Identity Not on file Sexual Orientation Not on file documented as of this encounter Plan of Treatment Not on file documented as of this encounter Procedures Procedure Name Priority Date/Time Associated Diagnosis Comments SURGICAL PATHOLOGY Routine 06/16/2019 22 :56 EDT documented in this encounter Results * SURGICAL PATHOLOGY (06/16/2019 22:56 EDT) Pathology Report: SURGICAL PATHOLOGY REPORT Reports generated via electronic interface contain original data; however they are lacking the format of the original report. Caution should be taken when reading/interpret ing unformatted reports. Name: ? ANTHONY JONES ? Accession #: ? [id number] ? : ? 1945 (Age: 73) ??M ? Collect Date: ? 06/16/2019 ? Location: ? [facility] ? Receive Date: ? 06/16/2019 ? Provider: LAVERNE ALEGRIA DO Copy to: LETY CAMACHO MD ? Final Pathologic Diagnosis: SKIN OF INFRALOBULE, LEFT, SHAVE BIOPSY: - Basal cell carcinoma, nodular type, involving the biopsy base and peripheral edges. Document reviewed and electronically signed by: BERHANE GOYAL MD Report ??Date: 06/18/2019 09:12 By the signature above, the attending physician certifies that he/she has personally conducted a gross and/or microscopic examination of the described specimens and rendered or confirmed the above diagnosis. Specimen(s) Received: Left infralobule Clinical History: History of skin cancer, recent punch biopsy showing at least actinic; clinical diagnosis code: ??D49.2 Gross Description: ? Received in formalin labelled with proper patient identification (initials B, B) and left infralobule is a shave biopsy of mari-white partially brown skin lesion (1.4 x 1.1 x 0.1 cm). The margin is inked blue. Quadrisected and submitted in 1 and 2. Gena Calzada 06/17/2019 8:09 AM End of Report [facility] 06/16/2019 22:5 6 EDT 06/16/2019 22:56 EDT Laverne Alegria DO PATHOLOGY ORDER [facility] [address] [place] [address] documented in this encounter Visit Diagnoses Not on filedocumented in this encounter Care Teams Drum Worker Relationship Specialty Start Date End Date Lety Camacho MD PCP - General 08/21/12 documented as of this encounter
--- OUTSIDE RECORDS SUMMARY | 2024-05-30 00:44 | XMS_ITS | Encounter Summary ---
Author Organization [facility] Address [facility] [place] [address] Care Team Providers Care Bar Finish Operator Name Role Phone Vahe Bah MD Primary Care Provider [phone] Reason for Visit * Diagnostic Test (Routine) - Closed Specialty Diagnoses / Procedures Referred By Contac t Referred To Contact Radiology Diagnoses Coronary artery disease, angina presence unspecified, unspecified vessel or lesion type, unspecified whether [place] or transplanted heart Chest pain, unspecified type Procedures NM Exercise Stress Myocardial Perfusion Mario Alberto Londono MD [facility] [place] [address] [place] [address] Referral ID Status Reason Start Date Expiration Date V isits Requested Visits Authorized [id number] Closed Specialty Service Requested 02/14/2019 03/31/2019 1 1 Encounter Details Date Type Department Care Team (Latest Contact Info) Description 02/18/2019 10:10 AM EDT - 02/18/2019 11:59 PM EDT Hospital Encounter [place] [address] Mario Alberto Londono MD [facility] [place] [address] Discharge Disposition: Home Social History Tobacco Use Types Packs/Day Years Used Date Smoking Tobacco: Never Smokeless Tobacco: Never Alcohol Use Standard Drinks/Week Comments Not Asked 0 (1 standard drink = 0.6 oz pur e alcohol) Sex and Gender Information Value Date Recorded Sex Assigned at Not on file Gender Identity Not on file Sexual Orientation Not on file documented as of this encounter Medications at Time of Discharge Medication Sig Dispensed Refills Start Date End Date lisinopril (PRINIVIL;ZESTRIL) 5 mg tablet Take 5 mg by mouth 2 times daily. nystatin-triamcinolone (MYCOLOG) ointment 1 Appl(s), Top, PRN 08/10/2006 triamcinolone (KENALOG) 0.1 % ointment 1 Appl(s), Top, PRN 08/10/2006 metoprolol succinate (TOPROL-XL) 25 mg Tablet Sustained Release 24 hr Take 1 tablet by mouth daily for 90 days. 90 tablet 3 02/05/2019 05/06/2019 aspirin 81 mg Tablet, Delayed Release (E.C.) Take 1 tablet by mouth daily. 30 tablet 3 02/05/2019 05/13/2019 simvastatin (ZOCOR) 80 mg tablet 40MG = 1 Tablet(s), PO, Once daily 12/07/2006 05/13/2019 documented as of this encounter Plan of Treatment Not on file documented as of this encounter Procedures Procedure Name Priority Date/Time Associated Diagnosis Comments NM EXERCISE STRESS AND REST MYOCARDIAL PERFUSION Routine 02/18/2019 12:09 PM EDT Coronary artery disease, angina presence unspecified, unspecified vessel or lesion type, unspecified whether [place] or transplanted heart Chest pain, unspecified type documented in this encounter Visit Diagnoses Not on filedocumented in this encounter Administered Medications Inactive Administered Medications - up to 3 most recent administrations Medication Order MAR Action Action Date Dose Rate Site technetium (Tc-99m) sestamibi injection 7.5 mCi 7.5 mCi, Intravenous, ONCE PRN, 1 dose, Starting on Sun02/18/19 at 1030, Until Sun02/18/19 at 1030, Per Protocol, IV: R-ACF, Routine Given 02/18/2019 10:30 AM EDT 7.5 mCi documented in this encounter Care Teams Bar Finish Operator Relationship Specialty Start Date End Date Vahe Bah MD [address] [place] [address] [facility] [address] [place] [address] PCP - General 08/16/10 05/06/20 documented as of this encounter
--- OUTSIDE RECORDS SUMMARY | 2024-05-30 00:44 | XMS_ITS | Encounter Summary ---
Author Organization [facility] Address [address] [place] [address] Care Team Providers Care Jukebox Operator Name Role Phone Lety Bah MD Primary Care Provider Encounter Details Date Type Department Care Team (Late st Contact Info) Description 11/21/2018 Results Only [facility] [phone] Lety Bah MD [address] [place] [address] Social History Tobacco Use Types Packs/Day Years Used Date Smoking Tobacco: Never Assessed Sex and Gender Information Value Date Recorded Sex Assigned at Not on file Gender Identity Not on file Sexual Orientation Not on file documented as of this encounter Plan of Treatment Not on file documented as of this encounter Procedures Procedure Name Priority Date/Time Associated Diagnosis Comments SURGICAL PATHOLOGY Routine 11/21/2018 16 :05 EST documented in this encounter Results * SURGICAL PATHOLOGY (11/21/2018 16:05 EST) Pathology Report: SURGICAL PATHOLOGY REPORT Reports generated via electronic interface contain original data; however they are lacking the format of the original report. Caution should be taken when reading/interpreting unformatted reports. Name: ? ANTHONY JONES ? Accession #: ? [id number] ? : ? 1945 (Age: 73) ??M ? Collect Date: ? 11/21/2018 ? Location: ? [facility] ? Receive Date: ? 11/21/2018 ? Provider: LETY BAH MD Copy to: ? Final Pathologic Diagnosis: SKIN OF NECK, LEFT, PUNCH BIOPSY: - Portion of skin with chronic actinic damage and prominent sebaceous lobules. See microscopic and comment. Comment: Although the findings are not fully developed, in one portion of the biopsy, the sebaceous lobules appear more prominent raising sebaceous hyperplasia as a consideration. ??Clinical correlation is recommended. ??(Dr. Morales)/[facility] [[email or web address]] Microscopic Description: Sections consist of a punch biopsy of skin. ??There is basketweave to compacted orthokeratosis overlying an epidermis which is relatively unremarkable. ??Ectatic blood vessels and patchy lymphomononuclear inflammation is noted within the dermis. ??At one edge, the sebaceous lobules appear greater in density. ??Multiple levels have been reviewed. ??(Dr. Morales)/[facility] [[email or web address]] Document reviewed and electronically signed by: BROOKE MORALES MD Report ??Date: 11/22/2018 15:17 By the signature above, the attending physician certifies that he/she has personally conducted a gross and/or microscopic examination of the described specimens and rendered or confirmed the above diagnosis. Specimen(s) Received: Left side of neck Clinical History: 4.0 mm punch biopsy edge of lesion Gross Description: ? Received in formalin labelled with proper patient identification (initials B, B) and Lt side of neck is a 0.4 cm dusky pink mari circular skin excised to a depth of 0.2 cm. Entirely submitted in 1. CHRISTOPHER Hutchins (ASCP) 11/21/2018 4:22 PM End of Report [facility] 11/21/2018 16:0 5 EST 11/21/2018 16:05 EST Lety Bah MD PATHOLOGY ORDERABLES [facility] [address] [place] [address] documented in this encounter Visit Diagnoses Not on filedocumented in this encounter Care Teams Jukebox Operator Relationship Specialty Start Date End Date Lety Bah MD PCP - General 08/21/12 documented as of this encounter
--- OUTSIDE RECORDS SUMMARY | 2024-05-30 00:44 | XMS_ITS | Encounter Summary ---
Author Organization [facility] Address [facility] [place] [address] Care Team Providers Care Director Of Research And Development Name Role Phone Vahe Bah MD Primary Care Provider [phone] Reason for Visit * Diagnostic Test (Routine) - Closed Specialty Diagnoses / Procedures Referred By Contac t Referred To Contact Radiology Diagnoses Coronary artery disease, angina presence unspecified, unspecified vessel or lesion type, unspecified whether [place] or transplanted heart Chest pain, unspecified type Procedures NM Exercise Stress Myocardial Perfusion Mario Alberto Londono MD [facility] [place] [address] [place] [address] Referral ID Status Reason Start Date Expiration Date V isits Requested Visits Authorized [id number] Closed Specialty Service Requested 02/14/2019 03/31/2019 1 1 Encounter Details Date Type Department Care Team (Latest Contact Info) Description 02/18/2019 10:10 AM EDT - 02/18/2019 11:59 PM EDT Hospital Encounter [place] [address] Mario Alberto Londono MD [facility] [place] [address] Discharge Disposition: Home Social History [...] unspecified vessel or lesion type, unspecified whether [place] or transplanted heart Chest pain, unspecified type documented in this encounter Visit Diagnoses Not on filedocumented in this encounter Administered Medications Inactive Administered Medications - up to 3 most recent administrations Medication Order MAR Action Action Date Dose Rate Site technetium (Tc-99m) sestamibi injection 25.5 mCi 25.5 mCi, Intravenous, ONCE PRN, 1 dose, Starting on Sun02/18/19 at 1202, Until Sun02/18/19 at 1202, Per Protocol, IV: R-ACF, Routine Given 02/18/2019 12:02 PM EDT 25.5 mCi documented in this encounter Care Teams Director Of Research And Development Relationship Specialty Start Date End Date Vahe Bah MD [address] [place] [address] [address] [facility] [address] [place] [address] PCP - General 08/16/10 05/06/20 documented as of this encounter
--- OUTSIDE RECORDS SUMMARY | 2024-05-30 00:44 | XMS_ITS | Encounter Summary ---
Author Organization [facility] Address [address] [place] [address] Care Team Providers Care Plaster Patternmaker Name Role Phone Vahe Bah MD Primary Care Provider [phone] Encounter Details Date Type Department Care Team (Latest Contact Info) Description 11/21/2018 18:37 EST - 11/21/2018 23:59 EST Hospital Encounter [address] [address] Unknown, Provider, Discharge Disposition: Home or Self Care Social History Tobacco Use Types Packs/Day Years Used Date Smoking Tobacco: Never Assessed Sex and Gender Information Value Date Recorded Sex Assigned at Not on file Gender Identity Not on file Sexual Orientation Not on file documented as of this encounter Discharge Disposition Disposition Code Departure Means Destination Home or Self [place] documented in this encounter Plan of Treatment Not on file documented as of this encounter Visit Diagnoses Not on filedocumented in this encounter Care Teams Plaster Patternmaker Relationship Specialty Start Date End Date Vahe Bah MD PCP - General 08/21/12 documented as of this encounter
--- OUTSIDE RECORDS SUMMARY | 2024-05-30 00:44 | XMS_ITS | Encounter Summary ---
Author Organization [facility] [place] [address] Care Team Providers Care Field Support Specialist Name Role Phone Darren Barbour MD Primary Care Provider [phone] Reason for Visit * Reason Comments Follow-up Encounter Details Date Type Department Care Team (Late st Contact Info) Description 08/03/2020 4:30 PM EST Office Visit Dermatology at [address] [phone] Kevin Peraza MD [address] [place] [address], [place] [address] Scrotal erythema Social History Tobacco Use Types Packs/Day Years Used Date Smoking Tobacco: Never Smokeless Tobacco: Never Alcohol Use Standard Drinks/Week Comments Not Asked 0 (1 standard drink = 0.6 oz pur e alcohol) Sex and Gender Information Value Date Recorded Sex Assigned at Not on file Gender Identity Not on file Sexual Orientation Not on file documented as of this encounter Progress Notes * Kevin Peraza MD - 08/03/2020 4:30 PM EST Problem: 1. Follow-up Red scrotum syndrome Anthony follows up after last being seen 2 months ago. I seen him in the middle of May and started on a 2-month course of minocycline. By the end the month however he developed a pneumonia and was in and out was hospitalized and the minocycline stopped. He only took it for about 10 days. He states that the itching and redness of the scrotum tends to be a bit better than it was before but is still present. It has not totally resolved. Physical examination today reveals mild erythema of the scrotum without scaling or peeling. He has a noriega red hemangioma of the right upper cutaneous lip. Assessment and plan: Red scrotum syndrome, improved 1. Continue with topical applications of triamcinolone 0.1% cream 3-4 times a week when needed if needed to control this. 2. Expressed to patient my belief that this will run its course over the course the winter and thenresolve. 3. Patient notes that he is much better than baseline and he is seeing improvement gradually over time. Noriega red hemangioma right upper lip 1. Could consider electro desiccation of this 2. Patient reassured about its benign nature. CC: Darren Barbour MD documented in this encounter Plan of Treatment Not on file documented as of this encounter Visit Diagnoses Diagnosis Scrotal erythema Other specified disorder of male genital organs documented in this encounter Care Teams Field Support Specialist Relationship Specialty Start Date End Date Darren Barbour MD [address] [place] [address] PCP - General Family Medicine 05/07/20 documented as of this encounter
--- OUTSIDE RECORDS SUMMARY | 2024-05-30 00:44 | XMS_ITS | Encounter Summary ---
Author Organization [facility] Address [address] [place] [address] Care Team Providers Care Onshore Diver Name Role Phone Vahe Bah MD Primary Care Provider [phone] Encounter Details Date Type Department Care Team (Late st Contact Info) Description 07/03/2020 Lab Requisition [facility] Pathology & Laboratory Medicine - [address] [address] Outr Resulting Lab, Provider Social History Tobacco Use Types Packs/Day Years [...] Procedure Name Priority Date/Time Associated Diagnosis Comments ZZCOVID-19 TEST [facility] PCR Today 07/03/2020 7:28 EDT COVID-19 TESTING Routine 07/03/2020 7:28 EDT documented in this encounter Results * COVID-19 TEST [facility] PCR (07/03/2020 7:28 EDT) Swab ENTIRE NASOPHARYNX / Unknown 07/03/2020 7:28 EDT 07/04/2020 15:59 EDT Provider Outr Resulting Lab MICROBIOLOGY - GENERAL ORDERABLES [facility] [address] [place] [address] * COVID-19 TESTING (07/03/2020 7:28 EDT) COVID-19 rt-PCR Result Negative Negative 07/04/2020 19:12 EDT [facility] Comment: This test has not been FDA cleared or approved. This test has been authorized by FDA under an EUA for use by authorized laboratories. This test has been authorized only for detection of nucleic acid from 2019-nCoV, not for any other viruses or pathogens. This test is only authorized for the duration of the declaration that circumstances exist justifying the authorization of emergency use of in vitro diagnostic tests for detection and/or diagnosis of 2019-nCoV under section 564(b)(1) of Act, 21 U.S.C ?? 360bbb-3(b) (1), unless the authorization is terminated or revoked sooner. Negative results do not preclude 2019-nCoV infection and should not be used as the sole basis for treatment or other patient management decisions. Negative results must be combined with clinical observations, patient history, and epidemiological information. Performed on the [employer] Fusion instrument Performing Lab [place] [facility] Lab 07/04/2020 19:12 EDT [facility] Swab 07/03/2020 7:28 EDT 07/04/2020 15:59 EDT Provider Outr Resulting Lab MICROBIOLOGY - GENERAL ORDERABLES [facility] [address] [place] [address] documented in this encounter Visit Diagnoses Not on filedocumented in this encounter Care Teams Onshore Diver Relationship Specialty Start Date End Date Vahe Bah MD PCP - General 08/21/12 documented as of this encounter
--- OUTSIDE RECORDS SUMMARY | 2024-05-30 00:44 | XMS_ITS | Encounter Summary ---
Author Organization [facility] Address [address] [place] [address] Care Team Providers Care Vending Machine Collector Name Role Phone Unavailable Primary Care Provider Unavailabl e Encounter Details Date Type Department Care Team (Late st Contact Info) Description 07/04/2010 Results Only [facility] [phone] Laverne Alegria, [address] [place], [place] [id number] Social History Tobacco Use Types Packs/Day Years Used Date Smoking Tobacco: Never Assessed Sex and Gender Information Value Date Recorded Sex Assigned at Not on file Gender Identity Not on file Sexual Orientation Not on file documented as of this encounter Plan of Treatment Not on file documented as of this encounter Procedures Procedure Name Priority Date/Time Associated Diagnosis Comments SURGICAL PATHOLOGY Routine 07/04/2010 0:00 EDT documented in this encounter Results * SURGICAL PATHOLOGY (07/04/2010 0:00 EDT) Pathology Report: SURGICAL PATHOLOGY REPORT ? Reports generated via electronic interface contain original data; ? however they are lacking the format of the original report. ? Caution should be taken when reading/interpreting unformatted reports. ? Name: ? ROBERT, ANTHONY ? Accession #: ? [id number] ? : ? 1945 (Age: 64) ??M ? Collect Date: ? 07/04/2010 ? Location: ? [facility] ? Receive Date: ? 07/05/2010 ? Provider: LAVERNE M ALEGRIA DO ? Copy to: CHUY MAHESH PA ? Final Pathologic Diagnosis: ? A. ?Skin of nasal tip, shave biopsy: ? 1. ?Basal cell carcinoma, superficial and nodular types. ??See ? microscopic and comment. ? - Lesion extends to base of biopsy specimen. ? B. ?? Skin of parietal region, right medial, shave biopsy: ? 1. ?? Basal cell carcinoma, superficial and nodular types, with focal ? infiltrative pattern. ?- Lesion extends to peripheral edge and base of biopsy specimen. ? C. ?? Skin of parietal region, right lateral, shave biopsy: ? 1. ?? Focal squamous cell carcinoma in situ. ? - Follicular extension identified. ? - Squamous cell carcinoma in situ extends to base of biopsy specimen. ? Comment: ? In specimen (C), the predominant finding within the biopsy specimen is that of an actinic keratosis. ??However, in foci, full thickness atypia is identified, consistent with squamous cell carcinoma in situ. ??The in situ component shows ?? follicular extension which extends to the biopsy base. ??Features of actinic ? keratosis extend to the biopsy edge and base. ??(Dr. Everett)/[facility] ? Microscopic Description: ? (A) ??Emanating from the epidermis and present within the dermis are ? irregularly shaped islands of atypical basal cells. The basal cells have scant ?? cytoplasm and round dark nuclei. ??Mitotic figures and apoptotic bodies are ? evident. ??The nuclei at the periphery of the islands have a palisaded ? arrangement. ??The islands are associated with a fibromyxoid stroma and there is cleft formation between some of the islands and stroma. ? (B) ??Emanating from the epidermis and extending into the dermis are irregularly shaped islands and cords of atypical basal cells. ??Many of the islands are small and angulate. ??The basal cells have scant cytoplasm and round dark nuclei. ? Mitotic figures and apoptotic bodies are evident. ??Some nuclei at the periphery of some of the larger islands have a palisaded arrangement. ??There is ? fibroplasia and myxoid change of the stroma with cleft formation between some of the islands and stroma. ? (C) ??The stratum corneum is thickened by orthokeratosis and parakeratosis. The epidermis is of variable thickness with areas of relative hyperplasia. ??The keratinocytes show a variable degree of nuclear atypia that focally involves the full thickness of the epidermis. ??There is nuclear enlargement, dispolarity and overlap. ??Mitotic figures are noted in superficial layers of the epidermis. ??The dermis is marked by solar elastosis, vascular ectasia, and a lymphohistiocytic ?? infiltrate. (Dr. Everett)/[facility] ? Document reviewed and electronically signed by: ? BROOKE EVERETT MD ? Report ??Date: 07/07/2010 16:27 ? By the signature above, the attending physician certifies that he/she has ? personally conducted a gross and/or microscopic examination of the described ? specimens and rendered or confirmed the above diagnosis. ? Specimen(s) Received: ? A. ?Nasal tip ? B. ? Right parietal ??medial ? C. ? Right parietal ??lateral ? Clinical History: ? Rash and other non-specific skin eruption; clinical diagnosis code: 782.1 ? Gross Description: ? Received in formalin labelled Robert Anthony and nasal tip is a shave ?? biopsy of mari skin measuring 0.5 x 0.5 x 0.1 cm. ??The specimen is bisected and ?? submitted entirely as (A). ? Received in formalin labelled [place], Anthony and R parietal medial is a shave biopsy of mari-white skin measuring 0.8 x 0.8 x 0.1 cm. ??The specimen is ? quadrisected and submitted entirely as (B). ? Received in formalin labelled Robert, Anthony and R parietal lateral is a ? shave biopsy of letty ribeiro skin measuring 0.9 x 0.8 x 0.1 cm. ??The ? specimen is quadrisected and submitted entirely as (C). ??(Aliyah Martinez)/[facility] ? End of Report ? VICKIE SANTOS 07/04/2010 07/05/2010 8:4 2 EDT Laverne Alegria DO PATHOLOGY ORDER [facility] VICKIE SANTOS [address] [place] [address] documented in this encounter Visit Diagnoses Not on filedocumented in this encounter
--- OUTSIDE RECORDS SUMMARY | 2024-05-30 00:44 | XMS_ITS | Encounter Summary ---
Author Organization [facility] Address [facility] [place] [address] Care Team Providers Care Dinkey Engine Operator Name Role Phone Vahe Bah MD Primary Care Provider [phone] Encounter Details Date Type Department Care Team (Latest Contact Info) Description 02/18/2019 10:09 AM EDT Hospital Encounter [place] [phone] Mario Alberto Londono MD [facility] [place] [address] Coronary artery disease, angina presence unspecified, unspecified vessel or lesion type, unspecified whether [place] or transplanted heart; Chest pain, unspecified type Discharge Disposition: Home Social History Tobacco Use [...] Procedure Name Priority Date/Time Associated Diagnosis Comments NUCLEAR EXERCISE STRESS CARDIOLOGY Routine 02/18/2019 12:08 PM EDT Coronary artery disease, angina presence unspecified, unspecified vessel or lesion type, unspecified whether [place] or transplanted heart Chest pain, unspecified type documented in this encounter Results * Nuclear Exercise Stress Cardiology (02/18/2019 12:08 PM EDT) Anatomical Region Laterality Modality Other Mario Alberto Londono MD [facility] documented in this encounter Visit Diagnoses Diagnosis Coronary artery disease, angina presence unspecified, unspecified vessel or lesion type, unspecified whether [place] or transplanted heart Chest pain, unspecified type documented in this encounter Care Teams Dinkey Engine Operator Relationship Specialty Start Date End Date Vahe Bah MD [address] [place] [address] PCP - General 08/16/10 05/06/20 documented as of this encounter
--- OUTSIDE RECORDS SUMMARY | 2024-05-30 00:44 | XMS_ITS | Encounter Summary ---
Author Organization [facility] Address [address] [place] [address] Care Team Providers Care Quiller Operator Name Role Phone Vaeh Bah MD Primary Care Provider [phone] Encounter Details Date Type Department Care Team (Late st Contact Info) Description 06/21/2020 Lab Requisition [facility] Pathology & Laboratory Medicine - [address] [address] Outr Resulting Lab, Provider Social History Tobacco [...] Comments ZZCOVID-19 TEST [facility] PCR Today 06/21/2020 9:45 EDT COVID-19 TESTING Routine 06/21/2020 9:45 EDT documented in this encounter Results * COVID-19 TEST [facility] PCR (06/21/2020 9:45 EDT) Swab ENTIRE NASOPHARYNX / Unknown 06/21/2020 9:45 EDT 06/21/2020 15:34 EDT Provider Outr Resulting Lab MICROBIOLOGY - GENERAL ORDERABLES [facility] [address] [place] [address] * COVID-19 TESTING (06/21/2020 9:45 EDT) COVID-19 rt-PCR Result Negative Negative 06/21/2020 22:56 EDT [facility] Comment: This test has not [...] history, and epidemiological information. Performed on the [employer] Fusion instrument Performing Lab [facility] Lab 06/21/2020 22:56 EDT [facility] Swab 06/21/2020 9:45 EDT 06/21/2020 15:34 EDT Provider Outr Resulting Lab MICROBIOLOGY - GENERAL ORDERABLES [facility] [address] [place] [address] documented in this encounter Visit Diagnoses Not on filedocumented in this encounter Care Teams Quiller Operator Relationship Specialty Start Date End Date Vahe Bah MD PCP - General 08/21/12 documented as of this encounter
--- OUTSIDE RECORDS SUMMARY | 2024-05-30 00:44 | XMS_ITS | Encounter Summary ---
Author Organization [facility] Address [facility] [place] [address] Care Team Providers Care Gold Prospector Name Role Phone Vahe Bah MD Primary Care Provider [phone] Reason for Referral * Diagnostic Test (Routine) - Closed Specialty Diagnoses / Procedures Referred By Contac t Referred To Contact Radiology Diagnoses Coronary artery disease, angina presence unspecified, unspecified vessel or lesion type, unspecified whether [place] or transplanted heart Chest pain, unspecified type Procedures NM Exercise Stress Myocardial Perfusion Mario Alberto Londono MD [facility] [place] [address] [place] [address] Referral ID Status Reason Start Date Expiration Date V isits Requested Visits Authorized [id number] Closed Specialty Service Requested 02/14/2019 03/31/2019 1 1 * Diagnostic Test (Routine) - Closed Specialty Diagnoses / Procedures Referred By Contac t Referred To Contact Radiology Diagnoses Coronary artery disease, angina presence unspecified, unspecified vessel or lesion type, unspecified whether [place] or transplanted heart Chest pain, unspecified type Procedures NM Exercise Stress CT Component Mario Alberto Londono MD [facility] [place] [address] [facility] [place] [address] Referral ID Status Reason Start Date Expiration Date V isits Requested Visits Authorized [id number] Closed Specialty Service Requested 02/05/2019 02/05/2020 1 1 Reason for Visit * Consultation (Routine) - Closed Specialty Diagnoses / Procedures Referred By Contac t Referred To Contact Cardiology Diagnoses CHEST PAIN Vahe Bah MD [address] [facility] [address] [place] [address] [facility] Cardiology [address] [place] [phone] Referral ID Status Reason Start Date Expiration Date V isits Requested Visits Authorized [id number] Closed Consult, Test & Treat Connection Center 01/28/2019 01/28/2020 1 1 Encounter Details Date Type Department Care Team (Late st Contact Info) Description 02/05/2019 10:00 AM EDT Office Visit Cardiology at [address] [phone] Mario Alberto Londono MD [facility] [place] [address] Coronary artery disease, angina presence unspecified, unspecified vessel or lesion type, unspecified whether [place] or transplanted heart; Essential hypertension; Chest pain, unspecified type Social History Tobacco Use Types Packs/Day Years [...] Sign Reading Time Taken Comments Blood Pressure 147/78 02/05/2019 10:03 AM EDT Pulse 71 02/05/2019 10:03 AM EDT Temperature - - Respiratory Rate - - Oxygen Saturation 98% 02/05/2019 10:03 AM EDT Inhaled Oxygen Concentration - - Weight 77.8 kg (171 lb 8 oz) 02/05/2019 10:03 AM EDT Height 172.7 cm (5' 8) 02/05/2019 10:03 AM EDT Body Mass Index 26.08 02/05/2019 10:03 AM EDT documented in this encounter Progress Notes * Mario Alberto Londono MD - 02/05/2019 10:00 AM EDT Cardiology Clinic Note CC: Patient Name: Anthony Jones HPI: 73 yr old man with HLD, HTN, CAD s/p SC and PCI to prox and mid-LAD, ostial D1 who here for evaluation of CAD. Did not receive routine CV follow up care after his SC back in 2005. Approx 3 weeks ago, he reports that he was doing very strenuous work pulling up hiwot at a househe is working on. While working he developed right shoulder pain-- has chronic right shoulder pain.Also developed intense fatigue and a headache; both symptoms occurred rather abruptly. Symptoms resolved in about 30 mins with rest. Has not had any recurrence of these symptoms. Notes some dyspnea with physical exertion (ie walking up hills) but states that this is not necessarily a new symptom. Never had chest discomfort or pressure. During his prior SC, presenting symptom was headache and jaw pain. Never had chest pain. The fatigue he experienced during his recent episode reminded him of hisMI; did not have the diaphoresis or clammy feeling this time, however. Prior to this episode, he denies similar symptoms but does note that he has not felt great in thepast 6 months. No specific cardiac complaints; rather, has felt a lack of ambition. 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 lisinopril (PRINIVIL;ZESTRIL) 5 mg tablet Take 5 mg by mouth daily. ??? simvastatin (ZOCOR) 80 mg tablet 40MG = [...] file Gets together: Not on file Attends mandaeism service: Not on file Active member of [...] Temperature Temp: -- Heart Rate Heart Rate: 71 Heart Rate: [71] Blood Pressure BP: 147/78 BP: (147)/(78) Respiratory Rate Resp: -- SpO2 SpO2: 98 [...] the last 168 hours. EKG: Diagnostic Studies: TTE (2005) 1) Mild AR. 2) Atrial [...] old man with HLD, HTN, CAD s/p SC and PCI to prox and mid-LAD, ostial D1 who is referred here by his PCP after experiencing an unusual constellation of symptoms during strenuous exertion approximately 1 month ago. He describes feeling rapid onset, intense fatigueassociated with a headache while pulling up hiwot in a house that he is rehabilitating. Denies any chest discomfort or dyspnea during this episode. However, the intense fatigue reminded him of symptoms which preceded his SC back in 2005. Since this episode, he is back to his baseline state of health and denies any current cardiovascular issues or complaints. He has a printout of his vital signs from home, which reveals that his blood pressure is well controlled outside of the office despite being slightly elevated at today's visit. Physical exam is largely benign and his ECG demonstrates an inferior infarct. Given his moderate to high pretest probability based on risk factors and his medical history, I think proceeding with a nuclear stress test for further evaluation of his atypical symptoms is reasonable. In terms of medical therapies, he is only taking simvastatin. I will have him resume aspirin 81 mg daily and add metoprolol succinate 25 mg daily. We briefly discussed the idea of changing statins, though I am reluctant to change too many things at today's visit. We will readdress his statin therapy at our next visit. PLAN: # ASCVD - One episode of atypical symptoms 1 month ago - Resume ASA 81 mg daily; start metop succinate 25 mg daily - Continue simvastatin 40 mg daily; briefly discussed changing; will defer for now and discuss changing this again at next visit - Will start metoprolol succinate 25 mg daily # Exertional symptoms - Will send for a nuclear stress test; advised to hold metoprolol for 48 hours prior to stress test - Start metoprolol, as above - Discussed signs and symptoms prompt him to call me or seek medical attention Follow-up with me in 3 months Mario Alberto Londono MD, FACP, FACC Section of Cardiovascular Medicine [facility] [place] Finisheresthetician makeup artist [facility] documented in this encounter Plan of Treatment Not on file documented as of this encounter Procedures Procedure Name Priority Date/Time Associated Diagnosis Comments EKG 12-LEAD Routine 02/05/2019 10:10 AM EDT Coronary artery disease, angina presence unspecified, unspecified vessel or lesion type, unspecified whether [place] or transplanted heart Essential hypertension Chest pain, unspecified type documented in this encounter Results * NM Exercise Stress CT Component (02/18/2019 12:33 PM EDT) Anatomical Region Laterality Modality Nuclear Medicine Narrative 02/18/2019 5:01 PM EDT EXAMINATION: NM EXERCISE STRESS CT COMPONENT CLINICAL HISTORY: Study performed for attenuation correction of the myocardial perfusion scan. TECHNIQUE: A limited field of view, non-contrast, non-breath hold, low dose CT scan of the region surrounding the myocardium was performed for the purpose of attenuation correction of the myocardial perfusion scan. COMPARISON: None INCIDENTAL CT FINDINGS: Coronary and aortic calcifications. Thank you for letting us participate in the care of this patient. For questions regarding this report, please contact the number below. ? Procedure Note Tommy Verma MD - 02/18/2019 EXAMINATION: NM EXERCISE STRESS CT COMPONENT CLINICAL HISTORY: Study performed for attenuation correction of themyocardial perfusion scan. TECHNIQUE: A limited field of view, non-contrast, non-breath hold, lowdose CT scan of the region surrounding the myocardium was performed for thepurpose of attenuation correction of the myocardial perfusion scan. COMPARISON: None INCIDENTAL CT FINDINGS: Coronary and aortic calcifications. Thank you for letting us participate in the care of this patient. Forquestions regarding this report, please contact the number below. Mario Alberto Londono MD IMG NM ORDERABLES * NM Exercise Stress Myocardial Perfusion (02/18/2019 12:09 PM EDT) Anatomical Region Laterality Modality Nuclear Medicine Impressions 02/18/2019 12:56 PM EDT No ischemia or scar. ??Left ventricular function is normal. Thank you for letting us participate in the care of this patient. For questions regarding this report, please contact the number below. ? Electronically signed by: SURINDER Garcia [facility] ([phone]), at 02/18/2019 12:56 PM Narrative 02/18/2019 12:56 PM EDT EXAMINATION: NM EXERCISE STRESS MYOCARDIAL PERFUSION CLINICAL HISTORY: 73 yr old man with CAD s/p SC (2005) now with recurrent symptoms (facial tightness, shoulder pain) TECHNIQUE: During rest, 7.5 mCi of technetium-99 sestamibi were administered intravenously. Approximately 15 minutes later, SPECT images of the heart were obtained with reconstruction in the short, vertical long and horizontal long axes. The patient was then exercised to 7 METS to a peak heart rate of 139 bpm which is 95 % of the maximum predicted heart rate. ??25.5 mCi of technetium-99m sestamibi was then administered intravenously and the patient was exercised for one and one half additional minutes. Images of the heart were then again obtained with SPECT reconstruction. A low dose CT scan was acquired for the purpose of attenuation correction. COMPARISON: None FINDINGS: No fixed or reversible perfusion defects are present. Functional analysis: Myocardial function: There is normal wall motion and wall thickening. Left ventricular ejection fraction: 67 % (normal greater than 50%) INCIDENTAL CT FINDINGS: Procedure Note Ernesto Padilla MD - 02/18/2019 EXAMINATION: NM EXERCISE STRESS MYOCARDIAL PERFUSION CLINICAL HISTORY: 73 yr old man with CAD s/p SC (2005) now withrecurrent symptoms (facial tightness, shoulder pain) TECHNIQUE: During rest, 7.5 mCi of technetium-99 sestamibi wereadministered intravenously. Approximately 15 minutes later, SPECT images of the heartwere obtained with reconstruction in the short, vertical long and horizontallong axes. The patient was then exercised to 7 METS to a peak heart rate of 139 bpmwhich is 95 % of the maximum predicted heart rate. 25.5 mCi of technetium-99m sestamibi was then administered intravenously and the patient wasexercised for one and one half additional minutes. Images of the heart were then again obtained with SPECT reconstruction. A low dose CT scan was acquired for the purpose of attenuationcorrection. COMPARISON: None FINDINGS: No fixed or reversible perfusion defects are present. Functional analysis: Myocardial function: There is normal wall motion and wall thickening. Left ventricular ejection fraction: 67 % (normal greater than 50%) INCIDENTAL CT FINDINGS: IMPRESSION No ischemia or scar. Left ventricular function is normal. Thank you for letting us participate in the care of this patient. Forquestions regarding this report, please contact the number below. Electronically signed by: Ernesto Padilla [facility]([phone]), at 02/18/2019 12:56 PM Mario Alberto Londono MD IMG NM ORDERABLES * Nuclear Exercise Stress Cardiology (02/18/2019 12:08 PM EDT) Anatomical Region Laterality Modality Other Mario Alberto Londono MD CARDIAC SERVICES O RDERABLES * EKG 12 Lead (02/05/2019 10:10 AM EDT) Ventricular rate 66 BPM MUSE SYSTEM Atrial Rate 66 BPM MUSE SYSTEM P-R Interval 144 ms MUSE SYSTEM QRS Duration 98 ms MUSE SYSTEM Q-T Interval 376 ms MUSE SYSTEM QTC Calculated (Bezet) 394 ms MUSE SYSTEM Calculated P [place] 66 degrees MUSE SYSTEM Calculated R [place] -6 degrees MUSE SYSTEM Calculated T [place] 29 degrees MUSE SYSTEM INTERPRETATION Normal sinus rhythm Inferior infarct (cited on or before 10-JUN-2006) Abnormal ECG When compared with ECG of 12-JUN-2006 07:13, T wave inversion no longer evident in Anterolateral leads Confirmed by MD MARIO, DOMITILA ([id number]) on 02/05/2019 10:46:08 AM MUSE SYSTEM 02/05/2019 10:1 0 AM EDT 02/05/2019 10:46 AM EDT Mario Alberto Londono MD ECG ORDERABLES MUSE SYSTEM documented in this encounter Visit Diagnoses Diagnosis Coronary artery disease, angina presence unspecified, unspecified vessel or lesion type, unspecified whether [place] or transplanted heart Essential hypertension Unspecified essential hypertension Chest pain, unspecified type Coronary artery disease, angina presence unspecified, unspecified vessel or lesion type, unspecified whether [place] or transplanted heart Chest pain, unspecified type Coronary artery disease, angina presence unspecified, unspecified vessel or lesion type, unspecified whether [place] or transplanted heart Chest pain, unspecified type documented in this encounter Care Teams Gold Prospector Relationship Specialty Start Date End Date Vahe Bah MD [address] [facility] [address] [place] [address] PCP - General 08/16/10 05/06/20 documented as of this encounter
--- OUTSIDE RECORDS SUMMARY | 2024-05-30 00:44 | XMS_ITS | Encounter Summary ---
Author Organization [facility] Address [address] [place] [address] Care Team Providers Care Seafood Specialist Name Role Phone Unavailable Primary Care Provider Unavailabl e Encounter Details Date Type Department Care Team (Late st Contact Info) Description 08/12/2004 Results Only [facility] [address] [place] [address] Archie Grigsby MD [address] [place] [id number] Social History Tobacco Use Types Packs/Day Years Used Date Smoking Tobacco: Never Assessed Sex and Gender Information Value Date Recorded Sex Assigned at Not on file Gender Identity Not on file Sexual Orientation Not on file documented as of this encounter Plan of Treatment Not on file documented as of this encounter Procedures Procedure Name Priority Date/Time Associated Diagnosis Comments SURGICAL PATHOLOGY Routine 08/12/2004 0:00 EST documented in this encounter Results * SURGICAL PATHOLOGY (08/12/2004 0:00 EST) Pathology Report: SURGICAL PATHOLOGY REPORT Reports generated via electronic interface contain original data; however they are lacking the format of the original report. Caution should be taken when reading/interpreti ng unformatted reports. Name: ? ROBERTANTHONY Bauman ? Accession #: ? [id number] ? : ? 1945 (Age: 58) ??M ? Collect Date: ? 08/12/2004 ? Location: ? [facility] ? Receive Date: ? 08/12/2004 ? Provider: ARCHIE GRIGSBY MD Copy to: LETY GRAF MD ? Final Pathologic Diagnosis: ? Gallbladder, cholecystectomy: 1. ?Acute and chronic cholecystitis. 2. ?Cholelithiasis. Document reviewed and electronically signed by: JUNIOR VAUGHAN MD Report ??Date: 08/16/2004 18:06 By the signature above, the attending physician certifies that he/she has personally conducted a gross and/or microscopic examination of the described specimens and rendered or confirmed the above diagnosis. Specimen(s) Received: ? Gallbladder Clinical History: ? Biliary colic Gross Description: ? Received in formalin labelled Robert and gallbladder is the product of a cholecystectomy which includes gallbladder and a portion of the cystic duct. The gallbladder measures 10.0 x 3.2 x 2.9 cm. ??The cystic duct portion measures 0.5 cm in length by 0.4 cm in average outer diameter. ??The pre-serosal surface is mari-pink with focal white fibrosis. ??The gallbladder is opened to reveal approximately 30.0 cc' s of green-brown bile. ??There is one mari-brown, ovoid, pure cholesterol cholelith measuring 2.2 x 1.5 x 1.5 cm. ??The gallbladder mucosa is predominantly mari-yellow and velvety. ??There are areas of focal hemorrhagic mucosa which cover approximately 20% of the mucosal surface. ??The cystic duct emits a probe. ??The cystic duct margin is black inked. ??No cystic duct lymph node is grossly identified. ??The cystic duct margin and mid and distal portions of the gallbladder mucosa are submitted in one cassette. ??(Dr. Goddard)/m End of Report [facility] 08/12/2004 08/12/2004 15: 05 EST Archie Grigsby MD PATHOLOGY ORDERABLE S Performing Organization Address City/State/[facility] Co de Phone Number [facility] [address] [place] [address] documented in this encounter Visit Diagnoses Not on filedocumented in this encounter
--- OUTSIDE RECORDS SUMMARY | 2024-05-30 00:44 | XMS_ITS | Referral Summary ---
Author Organization [facility] Address [address] [place] [address] Care Team Providers Care Cracker Dough Mixer Name Role Phone Vahe Bah MD Primary Care Provider [phone] Social History Tobacco Use Types Packs/Day Years Used Date Smoking Tobacco: Never Assessed Interpersonal Safety Answer Date Record ed Physically Hurt Never 04/25/2020 Verbally Threaten Not on file 04/25/2020 Sex and Gender Information Value Date Recorded Sex Assigned at Not on file Gender Identity Not on file Sexual Orientation Not on file Plan of Treatment Not on file Care Teams Cracker Dough Mixer Relationship Specialty Start Date End Date Vahe Bah MD PCP - General 08/21/12
--- OUTSIDE RECORDS SUMMARY | 2024-05-30 00:44 | XMS_ITS | Encounter Summary ---
Author Organization [facility] Address [address] [place] [address] Care Team Providers Care Job Training Specialist Name Role Phone Vahe Bah MD Primary Care Provider [phone] Encounter Details Date Type Department Care Team (Latest Contact Info) Description 06/16/2019 14:23 EDT - 06/16/2019 23:59 EDT Hospital Encounter [address] [address] Unknown, Provider, Discharge Disposition: Home or Self Care Social History Tobacco Use Types Packs/Day Years Used Date Smoking Tobacco: Never Assessed Sex and Gender Information Value Date Recorded Sex Assigned at Not on file Gender Identity Not on file Sexual Orientation Not on file documented as of this encounter Discharge Disposition Disposition Code Departure Means Destination Home or Self Half-Way documented in this encounter Plan of Treatment Not on file documented as of this encounter Visit Diagnoses Not on filedocumented in this encounter Care Teams Job Training Specialist Relationship Specialty Start Date End Date Vahe Bah MD PCP - General 08/21/12 documented as of this encounter
--- OUTSIDE RECORDS SUMMARY | 2024-05-30 00:44 | XMS_ITS | Encounter Summary ---
Author Organization [facility] Address [address] [place] [address] Care Team Providers Care Vapor Coater Name Role Phone Unknown, Provider Primary Care Provider Encounter Details Date Type Department Care Team (Late st Contact Info) Description 08/19/2012 Results Only [facility] ([facility]) [address] [place], [place] [address] Tj Moreno MD [address] [place], [place] [id number] Social History Tobacco Use Types Packs/Day Years Used Date Smoking Tobacco: Never Assessed Sex and Gender Information Value Date Recorded Sex Assigned at Not on file Gender Identity Not on file Sexual Orientation Not on file documented as of this encounter Plan of Treatment Not on file documented as of this encounter Procedures Procedure Name Priority Date/Time Associated Diagnosis Comments SURGICAL PATHOLOGY Routine 08/19/2012 0:00 EST documented in this encounter Results * SURGICAL PATHOLOGY (08/19/2012 0:00 EST) Pathology Report: SURGICAL PATHOLOGY REPORT Reports generated via electronic interface contain original data; however they are lacking the format of the original report. Caution should be taken when reading/interpreti ng unformatted reports. Name: ? ANTHONY JONES ? Accession #: ? [id number] ? : ? 1945 (Age: 66) ??M ? Collect Date: ? 08/19/2012 ? Location: ? [facility] ? Receive Date: ? 08/19/2012 ? Provider: TJ MORENO MD Copy to: LETY CAMACHO MD ? Final Pathologic Diagnosis: ? Colon, transverse, polyps, biopsies: ? - Tubular adenomas. Document reviewed and electronically signed by: JUNIOR VAUGHAN MD Report ??Date: 08/22/2012 15:39 By the signature above, the attending physician certifies that he/she has personally conducted a gross and/or microscopic examination of the described specimens and rendered or confirmed the above diagnosis. Specimen(s) Received: ? Transverse colon polyps x3 Clinical History: ? H/O colon adenomas Gross Description: ? Received in formalin labelled Robert, Anthony and transverse colon polyps x3 are three mari-white to light mari biopsies which vary in size from 0.4 x 0.2 x 0.1 cm up to 0.3 x 0.3 x 0.2 cm. ??The specimens are submitted intact in one cassette. (Rosanna Perez)/mpl End of Report [facility] 08/19/2012 08/19/2012 16: 48 EST Tj Moreno MD PATHOLOGY ORDERABLES [facility] [address] [place] [address] documented in this encounter Visit Diagnoses Not on filedocumented in this encounter Care Teams Vapor Coater Relationship Specialty Start Date End Date Unknown, Provider, PCP - General 07/07/10 08/20/12 documented as of this encounter
--- OUTSIDE RECORDS SUMMARY | 2024-05-30 00:44 | XMS_ITS | Encounter Summary ---
Author Organization [facility] [place] [address] Care Team Providers Care Bioinformaticist Name Role Phone Darren Barbour MD Primary Care Provider [phone] Reason for Visit * Reason Comments Follow-up Encounter Details Date Type Department Care Team (Late Contact Info) Description 06/07/2020 9:45 AM EDT Office Visit Dermatology at [address] [phone] Kevin Peraza MD [address] [place] [address], [place] [address] Scrotal erythema Social History Tobacco Use Types [...] Progress Notes * Kevin Peraza MD - 06/07/2020 9:45 AM EDT Problem: Red scrotum syndrome Anthony follows up after last seeing me in 2012. In the meantime, starting in February of this year, he developed an itchy red discomfort of the scrotum and gives me a 3 page detailed accounting of his physician interactions since then. Dr. Grecia Bardales from Urology had contacted me about this problem back in late February and I had suggested the option of doxycycline and the option of nonsteroidal creams such as Protopic and Elidel. He has continued to use triamcinolone cream and gets rapid improvement of his symptoms with this he states. He was seen by dermatology at [facility] in April and was advisedto use triamcinolone cream as needed, and the note mentioned the option of using other nonsteroidaltopicals. Patient had states that this area remains red. It is not anywhere near as itchy as it wasback in February but is also not totally gone. His scrotum will start out a light pink color in the morning but beet red by the end of the day. He was given a course of doxycycline 100 mg 1 p.o. daily,which he took for a month. Unfortunately this made him feel very fatigued, he had to take 2 naps a day. He also noted that it made him somewhat photosensitive. Physical examination reveals a pleasant 74-year-old gentleman who has light redness almost appearing physiologic rather than pathologic on the scrotum, but it is early on in the day. There are no excoriations, there is no dermatitis. The inner thighs are clear without any intertrigo dermatitis. Assessment and plan: Red scrotum syndrome 1. Would recommend systemic therapy would recommend that we try minocycline 100 mg 1 p.o. nightly for the next 2 months then return to clinic dispense #60 with 1 refill 2. Prescription will be called in to [facility] 3. Continue as needed use of triamcinolone 0.1% cream. He knows to use this minimally. He understands the potential for steroidal atrophy. 4. Addressed the patient's frustration with a long course of this condition. Explained that it is not quickly cured but takes time. 5. Return to clinic in 2 months for repeat check. Cc: MD Grecia Hartley MD documented in this encounter Plan of Treatment Not on file documented as of this encounter Visit Diagnoses Diagnosis Scrotal erythema Other specified disorder of male genital organs documented in this encounter Care Teams Bioinformaticist Relationship Specialty Start Date End Date Darren Barbour MD [address] [place] [address] PCP - General Family Medicine 05/07/20 documented as of this encounter
--- OUTSIDE RECORDS SUMMARY | 2024-05-30 00:44 | XMS_ITS | Encounter Summary ---
Author Organization [facility] Address [address] [place] [address] Care Team Providers Care County Or City Auditor Name Role Phone Vahe Bah MD Primary Care Provider [phone] Encounter Details Date Type Department Care Team (Late st Contact Info) Description 02/02/2023 Lab Requisition [facility] Pathology & Laboratory Medicine - [address] [address] Outr Resulting Lab, Provider Social History Tobacco [...] Procedure Name Priority Date/Time Associated Diagnosis Comments SPEP, INCLUDES QUANTITATION OF MONOCLONAL SPIKE PERFORMABLE Today 02/01/2023 16:20 EDT SPEP, INCLUDES QUANTITATION OF MONOCLONAL SPIKE Routine 02/01/2023 16:20 EDT PROTEIN, TOTAL Today 02/01/2023 16:20 EDT documented in this encounter Results * (ABNORMAL) SPEP, INCLUDES QUANTITATION OF MONOCLONAL SPIKE PERFORMABLE (02/01/2023 16:20 EDT) Albumin % 56.6 55.8 - 66.1 % 02/05/2023 13:17 [facility] Albumin g/dL 4.1 3.6 - 5.2 g/dL 02/05/2023 13:17 [facility] Alpha-1 % 3.9 2.9 - 4.9 % 02/05/2023 13:17 [facility] Alpha-1 g/dL 0.30 0.15 - 0.40 g/dL 02/05/2023 13:17 [facility] Alpha-2 % 9.4 7.1 - 11.8 % 02/05/2023 13:17 [facility] Alpha-2 g/dL 0.70 0.50 - 1.00 g/dL 02/05/2023 13:17 [facility] Beta % 11.2 8.4 - 13.1 % 02/05/2023 13:17 [facility] Beta g/dL 0.80 0.60 - 1.20 g/dL 02/05/2023 13:17 [facility] Gamma % 18.9(H) 11.1 - 18.8 % 02/05/2023 13:17 [facility] Gamma g/dL 1.40 0.60 - 1.60 g/dL 02/05/2023 13:17 [facility] SPEP Comment No apparent monoclonal protein seen on serum electrophoresis 02/05/2023 13:17 [facility] Comment:See scanned/suppleme ntary report. Total Protein 7.3 6.3 - 8.2 g/dL 02/05/2023 13:17 [facility] Blood VENOUS BLOOD / Unknown 02/01/2023 16:20 EDT 02/02/2023 18:01 EDT Provider Outr Resulting Lab CHEMISTRY & BLOOD GAS ORDERABLES [facility] [address] [place] [address] * PROTEIN, TOTAL (02/01/2023 16:20 EDT) Blood VENOUS BLOOD / Unknown 02/01/2023 16:20 EDT 02/02/2023 18:01 EDT Provider Outr Resulting Lab CHEMISTRY & BLOOD GAS ORDERABLES [facility] [address] [place] [address] documented in this encounter Visit Diagnoses Not on filedocumented in this encounter Care Teams [place] City Auditor Relationship Specialty Start Date End Date Vahe Bah MD PCP - General 08/21/12 documented as of this encounter
--- OUTSIDE RECORDS SUMMARY | 2024-05-30 00:44 | XMS_ITS | Encounter Summary ---
Author Organization [facility] Address [facility] [place] [address] Care Team Providers Care Finance Officer Name Role Phone Vahe Bah MD Primary Care Provider [phone] Encounter Details Date Type Department Care Team (Late st Contact Info) Description 01/29/2019 Orders Only Cardiology at [address] [phone] Mario Alberto Londono MD [facility] [place] [address] Chest pain, unspecified type (Primary Dx); Coronary artery disease, angina presence unspecified, unspecified vessel or lesion type, unspecified whether [place] or transplanted heart; Essential hypertension Social History Tobacco Use Types Packs/Day Years Used Date Smoking Tobacco: Never Alcohol Use Standard Drinks/Week Comments Not Asked 0 (1 standard drink = 0.6 oz pur e alcohol) Sex and Gender Information Value Date Recorded Sex Assigned at Not on file Gender Identity Not on file Sexual Orientation Not on file documented as of this encounter Plan of Treatment Not on file documented as of this encounter Results * EKG 12 Lead (02/05/2019 10:10 AM EDT) Ventricular rate 66 BPM MUSE SYSTEM Atrial Rate 66 BPM MUSE SYSTEM P-R Interval 144 ms MUSE SYSTEM QRS Duration 98 ms MUSE SYSTEM Q-T Interval 376 ms MUSE SYSTEM QTC Calculated (Bezet) 394 ms MUSE SYSTEM Calculated P [place] 66 degrees MUSE SYSTEM Calculated R [place] -6 degrees MUSE SYSTEM Calculated T [place] 29 degrees MUSE SYSTEM INTERPRETATION Normal sinus [...] documented in this encounter Visit Diagnoses Diagnosis Chest pain, unspecified type- Primary Coronary artery disease, angina presence unspecified, unspecified vessel or lesion type, unspecified whether [place] or transplanted heart Essential hypertension Unspecified essential hypertension documented in this encounter Care Teams Finance Officer Relationship Specialty Start Date End Date Vahe Bah MD [address] [place] [address] PCP - General 08/16/10 05/06/20 documented as of this encounter
--- OUTSIDE RECORDS SUMMARY | 2024-05-30 00:44 | XMS_ITS | Encounter Summary ---
Author Organization [facility] Address [address] [place] [address] Care Team Providers Care Automatic Lathe Tender Name Role Phone Vahe Bah MD Primary Care Provider [phone] Encounter Details Date Type Department Care Team (Late st Contact Info) Description 09/27/2021 Lab Requisition [facility] Pathology & Laboratory Medicine - [address] [address] Outr Resulting Lab, Provider Social History Tobacco [...] Procedure Name Priority Date/Time Associated Diagnosis Comments SYPHILIS SEROLOGY Routine 09/27/2021 9:08 EST documented in this encounter Results * SYPHILIS SEROLOGY (09/27/2021 9:08 EST) Syphilis Serology Negative Negative 09/28/2021 11:33 EST [facility] Blood VENOUS BLOOD / Unknown 09/27/2021 9:08 EST 09/27/2021 18:09 EST Provider Outr Resulting Lab IMMUNOLOGY A [place] SEROLOGY ORDERABLES [facility] [address] [place] [address] documented in this encounter Visit Diagnoses Not on filedocumented in this encounter Care Teams Automatic Lathe Tender Relationship Specialty Start Date End Date Vahe Bah MD PCP - General 08/21/12 documented as of this encounter
--- OUTSIDE RECORDS SUMMARY | 2024-05-30 00:44 | XMS_ITS | Encounter Summary ---
Author Organization [facility] Address [facility] [place] [address] Care Team Providers Care Top Frame Fitter Name Role Phone Darren Barbour MD Primary Care Provider [phone] Reason for Visit * Reason Comments Dermatitis * Consultation (Routine) - Closed Specialty Diagnoses / Procedures Referred By oRro carcamo Referred To Contact Dermatology Diagnoses Dermatitis, unspecified SCROTAL DERMATITIS Rula Payne M, [employer] OF [employer] SLAKER [address] [place] [address] [facility] Dermatology [address] [place] [address] Referral ID Status Reason Start Date Expiration Date V isits Requested Visits Authorized [id number] Closed Consult, Test & Treat Connection Center PCP Updated and/or Approved 04/07/2020 04/07/2021 1 1 Encounter Details Date Type Department Care Team (Late st Contact Info) Description 05/07/2020 3:30 PM EDT Office Visit Dermatology at [facility] [address] [place] [phone] Gala Poole MD [facility] [place] [address] Scrotal erythema Social History Tobacco Use Types [...] as of this encounter Progress Notes * Gala Poole T - 05/07/2020 3:30 PM EDT Images from the original note were not included. DERMATOLOGY - NEW PATIENT NOTE Date of service: 05/07/2020 Anthony Jones : 1945, 74 y.o. Chief Complaint: Chief Complaint Patient presents with ??? Dermatitis HPI: Anthony Jones is a 74 y.o. male referred by Rula Payne with the following concerns: New patient here today for a rash located on the scrotum that has been present since early February. The affected areas were very itchy, painful, and burning, especially when sitting, walking, and showering. He has previously treated the rash with cephalexin 500 mg QID for 5 days, nystatin cream, triamcinolone cream, and doxycycline 100 mg for 1 month. The rash has since been getting better and todayis a good day with minimal redness and no symptoms of stinging/itching/burning. He has not been applying triamcinolone for 1 week nor taking any other medicines or applying any topicals. He denies any changes to his skin care routine prior to the onset of the rash. He uses a hypoallergenic soap. Hedenies every having a problem like this before. Patient notes that he was working outside while it was warm prior to the onset of the rash. Relevant Skin History: - Okay to leave detailed message with results? Yes - Skin cancer (including type): Yes - BCC on the face x2 - 2019: BCC on face x1 - 2019: BCC on neck Family History: - Melanoma: unknown Relevant Social History: - - Retired - 3 children Meds: Current Outpatient Medications Medication Sig Dispense Refill ??? simvastatin (ZOCOR) 40 mg Tablet Take 40 mg by mouth daily. ??? lisinopril (PRINIVIL;ZESTRIL) 5 mg tablet Take 5 mg by mouth 2 times daily. ??? nystatin-triamcinolone (MYCOLOG) ointment 1 Appl(s), Top, PRN ??? triamcinolone (KENALOG) 0.1 % ointment 1 Appl(s), Top, PRN No current facility-administered medications for this visit. Allergies: Allergies Allergen Reactions ??? Atorvastatin Other (See Comments) muscle aches ??? Cetirizine Hives Review of Systems: - General: Feels well - Skin: No other skin concerns. Examination: - Constitutional: Patient was alert, well-appearing and in no noticeable distress. - Focused Exam: Skin examination of the lower abdomen, genitals, and thighs was normal with the exception of the findings listed below - A nurse/MA was present and on standby during my examination. Diagnosis/Skin findings/Assessment/Plan: #. Scrotal erythema: Ill-defined mild erythema limited to the sctrutm without any scaling. Surrounding skin clear - patient reported hx of worsened redness and stinging which is improved today - discussed possibility of an irritant contact dermatitis that is improving - Recommend loose-fitting breathable clothing and changing out of sweaty clothes immediately - Recommend sensitive skin care: Dove fragrance free bar soap (folds/feet only), Cerave cream/Vanicream/Aveeno daily moisturizer within a few minutes of getting out of shower, lukewarm showers. Pat dry wet areas rather than rubbing, and making sure the areas are dry prior to getting dressed. - If rash recurs, can continue Rx: triamcinolone 0.1% cream with flares: apply twice daily to the affected areas on the scotum for 7 days, then stop - Discussed risks of prolonged topical corticosteroid use - Consider pimecrolimus (elidel) treatment if further treatment is required - Instructed patient to call if rash recurs RTC: PRN Note initiated by FRANK Del Cid. I, FRANK Del Cid, have performed the documentation for this encounter in the presence of andacting as a scribe for Gala Poole MD. I performed the services which were documented by the scribe, and I agree with the accuracy of the documentation in this encounter. Gala Poole MD Reviewed and signed by Gala Poole MD Resident in Dermatology [facility] Staff manufacturing test engineer: Abraham Stevens MD Department of Dermatology [facility] * Abraham Stevens MD - 05/07/2020 3:30 PM EDT I directly supervised Dr. Poole during this office visit. Dr. Poole presented the history and physical exam to me. I then saw and examined this patient with Dr. Poole. We reviewed the history and pertinent details and I confirmed the physical findings. I agree with the details of the history and physical exam as documented in Dr. Poole's note. Discussed the importance of avoiding [facility] use of triamcinolone ointment on the scrotum. If recurs then should transition to tacrolimus ointment. ABRAHAM STEVENS MD Staff Physician documented in this encounter Plan of Treatment Not on file documented as of this encounter Visit Diagnoses Diagnosis Scrotal erythema Other specified disorder of male genital organs documented in this encounter Care Teams Top Frame Fitter Relationship Specialty Start Date End Date Darren Barbour MD [address] [place] [address] PCP - General Family Medicine 05/07/20 documented as of this encounter
--- OUTSIDE RECORDS SUMMARY | 2024-05-30 00:44 | XMS_ITS | Encounter Summary ---
Author Organization [facility] Address [address] [place] [address] Care Team Providers Care Contract Negotiator Name Role Phone Unavailable Primary Care Provider Unavailabl e Encounter Details Date Type Department Care Team (Late st Contact Info) Description 11/22/1999 Results Only [facility] [address] [place] [address] Dion East MD Social History Tobacco Use Types Packs/Day Years Used Date Smoking Tobacco: Never Assessed Sex and Gender Information Value Date Recorded Sex Assigned at Not on file Gender Identity Not on file Sexual Orientation Not on file documented as of this encounter Plan of Treatment Not on file documented as of this encounter Procedures Procedure Name Priority Date/Time Associated Diagnosis Comments SURGICAL PATHOLOGY Routine 11/22/1999 15 :53 EST documented in this encounter Results * SURGICAL PATHOLOGY (11/22/1999 15:53 EST) Pathology Report: SURGICAL PATHOLOGY REPORT Reports generated via electronic interface contain original data; however they are lacking the format of the original report. Caution should be taken when reading/interpreti ng unformatted reports. Name: ? ROBERT ANTHONY ? Accession #: ? [id number] ? : ? 1945 (Age: 54) ??M ? Collect Date: ? 11/22/1999 ? Location: ?Receive Date: ? 11/22/1999 ? Provider: DION EAST MD Copy to: DION GRAF MD ? Final Pathologic Diagnosis: MICROSCOPIC DIAGNOSIS: ? Rectum, 5 cm, biopsies: ? - No specific pathologic features. Document reviewed and electronically signed by: Conversion for VANESSA DE PAZ Report ??Date: 11/24/1999 00:00 By the signature above, the attending physician certifies that he/she has personally conducted a gross and/or microscopic examination of the described specimens and rendered or confirmed the above diagnosis. Specimen(s) Received: TISSUE SUBMITTED: ? 1. ??5 cm CLINICAL DATA: ? R/O colitis, flex sig bxy - WNL, pruritis ani and rectal bleeding ? x1 despite Rx Gross Description: GROSS: ? Received in formalin labelled Robert and rectum 5 cm are two ? irregular mari-pink, focally hemorrhagic soft tissues each ? measuring 0.3 cm in greatest dimension. ??Submitted intact in one ? cassette. ??(Dr. Michel-MAZIN)/tmg ?? End of Report VICKIE SANTOS 11/22/1999 15:5 3 EST 11/22/1999 15:54 EST Dion East MD PATHOLOGY ORDERABLES VICKIE SANTOS [address] [place] [address] documented in this encounter Visit Diagnoses Not on filedocumented in this encounter
--- OUTSIDE RECORDS SUMMARY | 2024-05-30 00:44 | XMS_ITS | Encounter Summary ---
Author Organization [facility] Address [address] [place] [address] Care Team Providers Care Registered Nurse Practitioner Name Role Phone Unavailable Primary Care Provider Unavailabl e Encounter Details Date Type Department Care Team (Late st Contact Info) Description 06/16/2004 Results Only [facility] - [facility] [address] [place] [address] Lety Rodgers MD [address] [place] [phone] Social History Tobacco Use Types Packs/Day Years Used Date Smoking Tobacco: Never Assessed Sex and Gender Information Value Date Recorded Sex Assigned at Not on file Gender Identity Not on file Sexual Orientation Not on file documented as of this encounter Plan of Treatment Not on file documented as of this encounter Procedures Procedure Name Priority Date/Time Associated Diagnosis Comments SURGICAL PATHOLOGY Routine 06/16/2004 0:00 EDT documented in this encounter Results * SURGICAL PATHOLOGY (06/16/2004 0:00 EDT) Pathology Report: SURGICAL PATHOLOGY REPORT Reports generated via electronic interface contain original data; however they are lacking the format of the original report. Caution should be taken when reading/interpreti ng unformatted reports. Name: ? ANTHONY JONES ? Accession #: ? [id number] ? : ? 1945 (Age: 58) ??M ? Collect Date: ? 06/16/2004 ? Location: ? [facility] ? Receive Date: ? 06/16/2004 ? Provider: ERMIAS RODGERS MD Copy to: LETY GRAF MD ? Final Pathologic Diagnosis: ? Colon, splenic flexure, biopsy: 1. ?Tubular adenoma. 2. ?No high grade dysplasia. Document reviewed and electronically signed by: Viridiana Walters MD Report ??Date: 06/20/2004 16:17 By the signature above, the attending physician certifies that he/she has personally conducted a gross and/or microscopic examination of the described specimens and rendered or confirmed the above diagnosis. Specimen(s) Received: ? Polyp @ splenic flexure Clinical History: ? Personal hx colon polyps; Hx of IBD; Polyp @ 70 cm; R/O IBS Gross Description: ? Received in [place]e' s fixative labelled [place] and polyp at splenic flexure is a mari-pink 0.5 x 0.3 x 0.2 cm soft tissue fragment. ??The specimen is entirely submitted in one cassette. ??(Sha Bentley/[facility] End of Report VICKIE SANTOS 06/16/2004 06/16/2004 15: 33 EDT Lety Rodgers MD PATHOLOGY ORDERABLES VICKIE SANTOS [address] [place] [address] documented in this encounter Visit Diagnoses Not on filedocumented in this encounter
--- OUTSIDE RECORDS SUMMARY | 2024-05-30 00:44 | XMS_ITS | Clinical Summary ---
Author Organization [facility] Address [facility] [place] [address] Care Team Providers Care Salesforce Trainer Name Role Phone Darren Barbour MD Primary Care Provider [phone] Allergies Active Allergy Reactions Criticality Noted Date Comments Atorvastatin Other (See Comments) 06/03/2012 muscle aches Cetirizine Hives 01/29/2019 Medications Medication Sig Dispensed Refills Start Date End Date Status nystatin-triamcino lone (MYCOLOG) ointment 1 Appl(s), Top, PRN 08/10/2006 Activ e triamcinolone (KENALOG) 0.1 % ointment 1 Appl(s), Top, PRN 08/10/2006 Activ e lisinopril (PRINIVIL;ZESTRIL) 5 mg tablet Take 5 mg by mouth 2 times daily. Active simvastatin (ZOCOR) 40 mg Tablet Take 40 mg by mouth daily. 05/09/2019 Active nystatin (MYCOSTATIN) Cream APPLY 1 APPLICATION TOPICALLY TWO TIMES A DAY 03/08/2020 Active triamcinolone (KENALOG) 0.1 % Cream APPLY TOPICALLY TWO TIMES A DAY NEEDED FOR SCROTAL DERMATITIS 05/25/2020 Active minocycline (Minocin;Dynacin) 100 mg Capsule Take one capsule by mouth nightly for 2 months. 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 (05/01/2011): far right parietal scalp Hyperlipidemia 05/01/2011 CAD (coronary artery disease) 05/01/2011 Overview (06/23/2012): H/o [place], stents 2006 Immunizations Name Administration Dates Next Due Influenza Vaccine, Whole 08/10/2006 Pneumococcal Polysaccharide (Pneumovax 23) 09/24 TD Adult 09/24/1998 Social History Tobacco Use Types Packs/Day Years Used Date Smoking Tobacco: Never Smokeless Tobacco: Never Alcohol Use Standard Drinks/Week Comments Not Asked 0 (1 standard drink = 0.6 oz pur e alcohol) Sex and Gender Information Value Date Recorded Sex Assigned at Not on file Gender Identity Not on file Sexual Orientation Not on file Last Filed Vital Signs Vital Sign Reading [...] Mass Index 25.54 05/13/2019 9:02 AM EDT Plan of Treatment Health Maintenance Due Date Last Done Comments Hepatitis C Screening 1962 Tdap adult 1963 Zoster vaccine (1 of 2) 1994 Advance Directive 1999 Tetanus vaccine 09/24/2008 09/24/1998 Pneumoccocal Vaccine: 65+ (2 of 2 - PCV) 2009 09/24/1998 Covid-19 Vaccine (1 - 2022-24 season) 2023 Influenza (Flu) vaccine (1 o f 1 - Influenza standard series) 05/25/2024 08/10/2006 Care Teams Salesforce Trainer Relationship Specialty Start Date End Date Darren Barbour MD [address] [place], [place] [id number] PCP - General Family Medicine 05/07/20
--- OUTSIDE RECORDS SUMMARY | 2024-05-30 00:44 | XMS_ITS | Encounter Summary ---
Author Organization [facility] Address [facility] [place] [address] Care Team Providers Care Teaching Assistant Name Role Phone Vahe Bah MD Primary Care Provider [phone] Reason for Referral * Diagnostic Test (Routine) - Closed Specialty Diagnoses / Procedures Referred By Contac t Referred To Contact Radiology Diagnoses Coronary artery disease, angina presence unspecified, unspecified vessel or lesion type, unspecified whether nikolai or transplanted heart Chest pain, unspecified type Procedures NM Exercise Stress CT Component Mario Alberto Londono MD [facility] [place] [address] [place] [address] Referral ID Status Reason Start Date Expiration Date V isits Requested Visits Authorized [id number] Closed Specialty Service Requested 02/05/2019 02/05/2020 1 1 Reason for Visit * Diagnostic Test (Routine) - Closed Specialty Diagnoses / Procedures Referred By Contac t Referred To Contact Radiology Diagnoses Coronary artery disease, angina presence unspecified, unspecified vessel or lesion type, unspecified whether nikolai or transplanted heart Chest pain, unspecified type Procedures NM Exercise Stress CT Component Mario Alberto Londono MD [facility] [place] [address] [place] [address] Referral ID Status Reason Start Date Expiration Date V isits Requested Visits Authorized [id number] Closed Specialty Service Requested 02/05/2019 02/05/2020 1 1 Encounter Details Date Type Department Care Team (Latest Contact Info) Description 02/18/2019 10:10 AM EDT - 02/18/2019 11:59 PM EDT Hospital En[place] [address] Mario Alberto Londono MD [facility] [place] [address] Coronary artery disease, angina presence unspecified, unspecified vessel or lesion type, unspecified whether nikolai or transplanted heart; Chest pain, unspecified type [...] Date/Time Associated Diagnosis Comments NM EXERCISE STRESS CT COMPONENT Routine 02/18/2019 12:33 PM EDT Coronary artery disease, angina presence unspecified, unspecified vessel or lesion type, unspecified whether nikolai or transplanted heart Chest pain, unspecified type [...] Mario Alberto Londono MD IMG NM ORDERABLES documented in this encounter Visit Diagnoses Diagnosis Coronary artery disease, angina presence unspecified, unspecified vessel or lesion type, unspecified whether nikolai or transplanted heart Chest pain, unspecified type documented in this encounter Care Teams Teaching Assistant Relationship Specialty Start Date End Date Vahe Bah MD [address] [place] [address] PCP - General 08/16/10 05/06/20 documented as of this encounter
--- OUTSIDE RECORDS SUMMARY | 2024-05-30 00:44 | XMS_ITS | Encounter Summary ---
Author Organization [facility] [place] [address] Care Team Providers Care Bottle Blowing Machine Tender Name Role Phone Vahe Bah MD Primary Care Provider [phone] Reason for Referral * Diagnostic Test (Routine) - Closed Specialty Diagnoses / Procedures Referred By Contac t Referred To Contact Radiology Diagnoses Coronary artery disease, angina presence unspecified, unspecified vessel or lesion type, unspecified whether belkofski or transplanted heart Chest pain, unspecified type Procedures NM Exercise Stress Myocardial Perfusion Mario Alberto Londono MD [facility] [place] [address] [place] [address] Referral ID Status Reason Start Date Expiration Date V isits Requested Visits Authorized [id number] Closed Specialty Service Requested 02/14/2019 03/31/2019 1 1 Reason for Visit * Diagnostic Test (Routine) - Closed Specialty Diagnoses / Procedures Referred By Contac t Referred To Contact Radiology Diagnoses Coronary artery disease, angina presence unspecified, unspecified vessel or lesion type, unspecified whether belkofski or transplanted heart Chest pain, unspecified type Procedures NM Exercise Stress Myocardial Perfusion Mario Alberto Londono MD [facility] [place] [address] [place] [address] Referral ID Status Reason Start Date Expiration Date V isits Requested Visits Authorized [id number] Closed Specialty Service Requested 02/14/2019 03/31/2019 1 1 Encounter Details Date Type Department Care Team (Latest Contact Info) Description 02/18/2019 10:09 AM EDT Hospital Encounter Nuclear Medicine at [facility] [place] [address] Mario Alberto Londono MD [facility] [place] [address] Coronary artery disease, angina presence unspecified, unspecified vessel or lesion type, unspecified whether belkofski or transplanted heart; Chest pain, unspecified type [...] unspecified vessel or lesion type, unspecified whether belkofski or transplanted heart Chest pain, unspecified type documented in this encounter Results * NM Exercise Stress Myocardial Perfusion (02/18/2019 12:09 PM EDT) Anatomical Region Laterality Modality Nuclear Medicine Impressions 02/18/2019 12:56 PM EDT No ischemia or scar. ??Left ventricular function is normal. Thank you for letting us participate in the care of this patient. For questions regarding this report, please contact the number below. ? Narrative 02/18/2019 12:56 PM EDT EXAMINATION: NM EXERCISE STRESS MYOCARDIAL PERFUSION CLINICAL HISTORY: 73 yr old man with CAD s/p OK (2005) now with recurrent symptoms (facial tightness, [...] 73 yr old man with CAD s/p OK (2005) now withrecurrent symptoms (facial tightness, shoulder [...] the number below. Mario Alberto Londono [place] [facility] [place] documented in this encounter Visit Diagnoses Diagnosis Coronary artery disease, angina presence unspecified, unspecified vessel or lesion type, unspecified whether belkofski or transplanted heart Chest pain, unspecified type documented in this encounter Care Teams Bottle Blowing Machine Tender Relationship Specialty Start Date End Date Vahe Bah MD [address] [address] PCP - General 08/16/10 05/06/20 documented as of this encounter
--- OUTSIDE RECORDS SUMMARY | 2024-05-30 00:45 | XMS_ITS | Encounter Summary ---
Author Organization [facility] Address [facility] [place] [address] Care Team Providers Care Photonics Technician Name Role Phone Vahe Bah MD Primary Care Provider [phone] Reason for Visit * Reason Comments Annual Exam Encounter Details Date Type Department Care Team (Late st Contact Info) Description 06/03/2013 8:30 AM EDT Office Visit Dermatology [address] [place], [place] [address] Kevin Peraza MD [address] [place] [address] RD, [place] [address] History of basal cell carcinoma (Primary Dx); Urticaria Social History Tobacco Use Types Packs/Day Years [...] Progress Notes * Kevin Peraza MD - 06/03/2013 8:55 AM EDT Problems: 1. Yearly skin checkup. 2. 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 3. History of urticaria triggered by summertime heat. 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 Benadryl gives him some relief. [facility] gave him a course of prednisone, which helped. Zyrtec seemed to cause swelling and worsened his symptoms in his face and neck. He has not noted any new skin lesions of concern. He does bring up today a scaling patch on the right hip that he has had for about five years. Physical examination reveals a 6 x 7-cm, scaling patch consistent with parapsoriasis versus CTCL. There is no evidence of recurrence of BCCA on the right restorationist, nor on the nasal tip. He has no urticaria today. Careful examination of the head and the neck, the chest, the back, hands, arms, and forearms is otherwise benign. Assessment and Plan: 1. Urticaria. a. It appears to be related to physical heat. b. I recommended a trial of hydroxyzine 25 mg one or two p.o. q.4-6 h. p.r.n. for occurrences; #60 dispensed with three refills. c. Discussed that we will need to treat this symptomatically, that there is unfortunately not a cure. 2. History of BCCAs. a. No evidence of recurrence at previously treated sites, as noted above. 3. Rule out CTCL versus parapsoriasis, right hip. a. Today shave biopsy was obtained from the hip site. b. The area was lightly electrodesiccated, and triple antibiotic ointment and Band-Aid placed. Wound care instructions and supplies given. c. The patient was also given a prescription for triamcinolone 0.1% cream to apply b.i.d. to the affected areas to relieve some of the itching and scaling and erythema of the site; 60 grams dispensed with three refills. d. I will notify the patient of biopsy results when these are available, within the next week. e. [id number] reminder in one year. COPY: Vahe Bah M.D. documented in this encounter Plan of Treatment Not on file documented as of this encounter Visit Diagnoses Diagnosis History of basal cell carcinoma- Primary Personal history of other malignant neoplasm of skin Urticaria Urticaria, unspecified documented in this encounter Care Teams Photonics Technician Relationship Specialty Start Date End Date Vahe Bah MD [address] [place] [address] PCP - General 08/16/10 05/06/20 documented as of this encounter
--- OUTSIDE RECORDS SUMMARY | 2024-05-30 00:45 | XMS_ITS | Encounter Summary ---
Author Organization [facility] [place] [address] Care Team Providers Care Regional Psychiatric Director Name Role Phone Vahe Bah MD Primary Care Provider [phone] Reason for Visit * Reason Comments Skin Check Encounter Details Date Type Department Care Team (Late st Contact Info) Description 05/02/2011 9:15 AM EDT Office Visit Dermatology [address] [place], [place] [address] Kevin Peraza MD [address] [place] [address] RD, [place] [address] Actinic keratosis (Primary Dx); History of basal cell carcinoma Social History Tobacco Use Types Packs/Day Years [...] Progress Notes * Kevin Peraza MD - 05/02/2011 9:44 AM EDT Problems: 1. Nasal tip lesion. 2. Question urticaria. 3. History of nonmelanoma cutaneous malignancies. Anthony follows up after last being seen in July. At that time I treated three BCCa(s) with C & D and these have healed well. These were present two on the right episcopalian and one on the nasal tip. However he over the last several months noted urticaria and itching that develops with either heat or with sun exposure. He recalls actually last summer having had a similar event. He was given a course of Prednisone but as soon as he stopped it the itching began again. He has now been taking Benadryl which seems to work well for him both the topical and the oral. Physical examination reveals a pleasant 65-year-old gentleman who has an actinic on the nasal tip just below the BCCa C & D scar. He has no active urticaria or dermatitis today. Sun exposed skin examination is otherwise unremarkable. The two right episcopalian sites show hypopigmented scars but without any evidence of recurrent BCCa. Assessment & Plan: History of BCCa(s). a. No evidence of recurrence. b. Patient reassured. Actinic keratosis, nasal tip. a. LN2 x2 applied to site. Urticaria. a. By history this is related to heat more than to the sun. b. Recommended symptomatic therapy with Benadryl taking p.r.n. for flares and trying to avoid the sun and heat. c. Discussed the option of non sedating Claritin or Zyrtec, but the patient states that Benadryl is not sedating for him. d. I would like to see him if and when he gets another flare to definitively diagnose this, because clinically he has no urticaria today. e. RTC p.r.n. documented in this encounter Plan of Treatment Not on file documented as of this encounter Visit Diagnoses Diagnosis Actinic keratosis- Primary History of basal cell carcinoma Personal history of other malignant neoplasm of skin documented in this encounter Care Teams Regional Psychiatric Director Relationship Specialty Start Date End Date Vahe Bah MD [address] [facility] [place] [address] PCP - General 08/16/10 05/06/20 documented as of this encounter
--- OUTSIDE RECORDS SUMMARY | 2024-05-30 00:45 | XMS_ITS | Encounter Summary ---
Author Organization [facility] [place] [address] Care Team Providers Care Php Wordpress Developer Name Role Phone Vahe Bah MD Primary Care Provider [phone] Encounter Details Date Type Department Care Team (Late st Contact Info) Description 05/01/2011 Abstract Dermatology [address] [place], [place] [id number] Keisha De Los Santos RN Social History Tobacco Use Types Packs/Day Years Used Date Smoking Tobacco: Never Assessed Sex and Gender Information Value Date Recorded Sex Assigned at Not on file Gender Identity Not on file Sexual Orientation Not on file documented as of this encounter Plan of Treatment Not on file documented as of this encounter Visit Diagnoses Not on filedocumented in this encounter Care Teams Php Wordpress Developer Relationship Specialty Start Date End Date Vahe Bah MD [address] [place] [address] PCP - General 08/16/10 05/06/20 documented as of this encounter
--- OUTSIDE RECORDS SUMMARY | 2024-05-30 00:45 | XMS_ITS | Encounter Summary ---
[place] [address] Care Team Providers Care Box Icer Name Role Phone Vahe Bah MD Primary Care Provider [phone] Reason for Visit * Reason Comments Skin Check Encounter Details Date Type Department Care Team (Late st Contact Info) Description 06/03/2012 9:30 AM EDT Office Visit Dermatology [address] [place], [place] [address] Kevin Peraza MD [address] [place] [address] RD, [place] [address] Basal cell carcinoma (Primary Dx) Social History Tobacco Use Types Packs/Day Years [...] Progress Notes * Kevin Peraza MD - 06/03/2012 9:55 AM EDT dictated documented in this encounter Miscellaneous Notes * Miscellaneous - Kimberly Michael - 06/06/2012 2:26 PM EDT documented in this encounter Plan of Treatment Not on file documented as of this encounter Visit Diagnoses Diagnosis Basal cell carcinoma- Primary Basal cell carcinoma of skin, site unspecified documented in this encounter Care Teams Box Icer Relationship Specialty Start Date End Date Vahe Bah MD [address] [place] [address] PCP - General 08/16/10 05/06/20 documented as of this encounter
--- OUTSIDE RECORDS SUMMARY | 2024-05-30 00:45 | XMS_ITS | Encounter Summary ---
Author Organization [facility] Address [facility] [place] [address] Care Team Providers Care Tobacco Weigher Name Role Phone Vahe Bah MD Primary Care Provider [phone] Encounter Details Date Type Department Care Team (Late st Contact Info) Description 06/03/2013 9:12 PM EDT - 06/03/2013 11:59 PM EDT Hospital [place] [phone] Kevin Garza MD [address] [place] [address] RD, [place] [address] Discharge Disposition: Home Social History Tobacco Use [...] % ointment 1 Appl(s), Top, PRN 08/10/2006 atenolol (TENORMIN) 50 mg tablet Take 50 mg by mouth daily. 02/05/2019 nitroGLYcerin (NITROSTAT) 0.[address] 0.4 mg under the tongue as needed. 0.4 mg = 1 tablet 02/05/2019 simvastatin (ZOCOR) 80 mg tablet 40MG = 1 Tablet(s), PO, Once daily 12/07/2006 05/13/2019 HYDROCORTISONE (PROCTOCREAM-HC RECT) 08/10/20062018 b complex vitamins capsule 08/10/2006 02/05/2019 ascorbic acid (VITAMIN C) 500 mg tablet 08/10/2006 02/05/2019 ENTERIC COATED ASPIRIN ORAL 325mg, PO, Once daily 08/10/2006 02/05/2019 clopidogrel (PLAVIX) 75 mg tablet 75MG = 1 Tablet(s), PO, Once daily 08/10/2006 02/05/2019 documented as of this encounter Plan of Treatment Not on file documented as of this encounter Procedures Procedure Name Priority Date/Time Associated Diagnosis Comments SURGICAL PATHOLOGY REPORT Routine 06/03/2013 8:30 AM EDT documented in this encounter Results * Surgical Pathology Report (06/03/2013 8:30 AM EDT) Surgical Pathology Report ? [facility] ? Provider: ?? KEVIN GARZA ?? Pt. Name: ?? ANTHONY JONES ? Acc #: ?[id number] ? Pt. ? Col Date: ?? 06/03/2013 ? /Sex: ?1945,(67 years),Male ? Rec Date: ?? 06/03/2013 ? LOC: ?[facility] ? SURGICAL PATHOLOGY ? ---Pathologic Diagnosis--- ? Skin, right hip, shave biopsy: ? Parakeratosis, focal lichenoid/interface reaction, and perivascular and ? focally interstitial lymphocytic inflammation with exocytosis of ? lymphocytes, and increased eosinophils, (see Comment). ? CR-0 ? 06/04/13 ? VMS ? 06/08/13 Verified by: ? Dona Santos MD ? Dermatopathologist ? (Electronic Signature) ? The attending pathologist whose signature appears on this report has ? reviewed all diagnostic slides and has edited the gross and/or ? microscopic portion of the report in rendering the final pathologic ? diagnosis. ? ---Comment--- ? The biopsy shows a mixture of CD4 and CD8 positive lymphocytes in both the ? epidermis and dermis. ??There are abundant eosinophils in the dermis. ??The ? histologic differential diagnosis includes a drug eruption. ? CTCL cannot be excluded, but the findings are not diagnostic because of the ? mixed features. ??Clonality studies can be performed if clinically desired, ? however, as drug eruptions can sometimes be clonal, it would be ideal to ? exclude this possibility first. ? ---Microscopic Description--- ? Immunohistochemistry Studies: ? Formalin-fixed, paraffin-embedded tissue sections are studied using the B- ? SA system technique with appropriate positive and negative controls. ??These ? IHC studies provide the pathologist with adjunctive diagnostic information. ? Antibody specificity has been verified by testing antibodies on a series of ? in-house tissues with known immunohistochemical performance ? characteristics. The clinical interpretation of any antibody positive ? staining or its absence is evaluated within the context of clinical ? presentation, morphology, histopathological criteria and other diagnostic ? tests. ? Block ?Antibody ?Result (Positive/Negative) ? A2 ? CD2 ? Preserved expression. ?CD3 ? Positive, majority of infiltrate. ? CD4 ? Positive, approx. 50%. ? CD5 ? Preserved expression. ? [facility] ? Provider: ?? KEVIN GARZA ?? Pt. Name: ?? ANTHONY JONES ? Acc #: ?[id number] ? Pt. ? Col Date: ?? 06/03/2013 ? /Sex: ?1945,(67 years),Male ? Rec Date: ?? 06/03/2013 ? LOC: ?[facility] ? SURGICAL PATHOLOGY ? CD7 ? Preserved expression. ?CD8 ? Positive, approx. 50%. ?CD20 ?Positive rare B cells. ?CD30 ?Positive rare cells. ? ---Gross Description--- ? A - Labeled/Fixative: Patient's name, formalin. ? Quantity/Size: Single, 1.5 x 1.0 cm shave. ? Tissue Description: Muller skin. ? Sections/Processing: Inked, serially sectioned. (T2) ??cl ? ---Clinical Information--- ? Specimen Submitted: ? A - (R) hip, shave ? Clinical History: ? Five year history of eczematous pruritic patch 6 x 7 cm ? 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 Report to: ? Kevin Garza MD, III ? Dermatology ? [address], [address] ? [place], [place] [address] SARA BAUGHIUM 06/03/2013 8:30 AM EDT Kevin Garza MD PATHOLOGY/CYTOLOGY O RDERABLES SARA VARGAS documented in this encounter Visit Diagnoses Not on filedocumented in this encounter Care Teams Tobacco Weigher Relationship Specialty Start Date End Date Vahe Bah MD [address] [place] [address] PCP - General 08/16/10 05/06/20 documented as of this encounter
--- OUTSIDE RECORDS SUMMARY | 2024-05-30 00:45 | XMS_ITS | Encounter Summary ---
[place] [address] Care Team Providers Care Med Surg Nurse Name Role Phone Unavailable Primary Care Provider Unavailabl e Encounter Details Date Type Department Care Team (Late st Contact Info) Description 08/10/2010 8:45 AM EST Office Visit Dermatology [facility] [facility] [address] [place] [address] Kevin Peraza MD [address] [place] [address] RD, [place] [address] Social History Tobacco Use Types Packs/Day Years [...]
--- NOTE | 2024-05-30 08:30 | DI.RAD_ITS ---
Exam(s) XR HIP RT COMPLETE AP PELVIS EXAM: XR HIP RT COMPLETE AP PELVIS CLINICAL HISTORY: rt hip pain,m25.551. TECHNIQUE: 2D digital imaging was performed. COMPARISON: No exams were available for comparison FINDINGS: 3 views No evidence of pelvic nor hip fracture. Bone density is normal. No osseous lesions. There are mild degenerative changes in the right hip. Symphysis pubis appears unremarkable as do the sacroiliac mei ints. IMPRESSION: Mild degenerative changes in the right hip. DATA REPOSITORY: RADIATION DOSE DELIVERED:
== END 2024-05-30 01:02 ==
LOC: DI 00:42
PROVIDERS: PCP Family Medicine; Visit Provider Family Medicine
DX: M25.551 Pain in right hip (principal)
CPT/HCPCS: 73502

== ENCOUNTER 2024-06-05 15:51 | Outpatient (REF) | payer MEDICARE, SELFPAY ==
[2024-06-05 21:25] LABS: Bilirubin Negative (Negative); Blood Trace-intact (Negative); Clarity Clear (Clear); Glucose Negative (Negative); Ketones Negative (Negative); Leukocyte Esterase Negative (Negative); Nitrite Negative (Negative); Specific Gravity 1.025 (1.005-1.025); Urobilinogen 0.2 mg/dL (Up to 0.2); pH 6.5 (5-8)
[2024-06-05 22:01] LABS: Bacteria Rare HPF (Negative); C & S Indicated? No; Casts Negative LPF (Negative); Crystals Negative HPF (Negative); Epithelial Cells Negative HPF (Negative); Mucus Negative (Negative); WBC Negative HPF (0-5)
== END 2024-06-05 15:52 | disposition home or self-care (01) ==
LOC: LBN 15:51
PROVIDERS: PCP Family Medicine; Visit Provider Family Medicine
DX: N39.0 Urinary tract infection, site not specified (principal)
CPT/HCPCS: 81003; 81015

== ENCOUNTER 2024-06-20 01:04 | Outpatient (CLI) | payer MEDICARE, SELFPAY ==
--- NOTE | 2024-06-20 15:06 | DI.RAD_ITS ---
Exam(s) XR LUMBAR SPINE COMPLETE EXAM: XR LUMBAR SPINE COMPLETE CLINICAL HISTORY: low back pain and rt sided sciatica,m54.9. TECHNIQUE: 2D digital imaging was performed. COMPARISON: No exams were available for comparison FINDINGS: Five views No evidence of fracture, listhesis, nor pars defects. Bone density normal. No osseous lesions. The re is mild disc space narrowing at L4-5 and L5-S1 levels. There are no prominent degenerative change s in the facet joints. Anterior osseous lipping noted at L1-2 level. There is no scoliosis. Sacroi liac joints appear unremarkable. No osseous lesions. IMPRESSION: Mild multilevel disc space narrowing. No prominent facet arthropathy. No listhesis. DATA REPOSITORY: RADIATION DOSE DELIVERED:
== END 2024-06-20 01:24 ==
LOC: DI 01:04
PROVIDERS: PCP Family Medicine; Visit Provider Family Medicine
DX: M51.37 Other intervertebral disc degeneration, lumbosacral region (principal)
CPT/HCPCS: 72110

== ENCOUNTER 2024-07-11 00:27 | Outpatient (CLI) | payer MEDICARE, SELFPAY ==
--- NOTE | 2024-07-11 07:15 | DI.MRI_ITS ---
Exam(s) MR LUMBAR SPINE WO EXAM: MR LUMBAR SPINE WO CLINICAL HISTORY: radicular symptoms, no improvement w/ PT,low back pain, m54.50. TECHNIQUE: Multiplanar multisequence MRI of the Lumbar spine was performed. COMPARISON: CR XR HIP RT COMPLETE AP PELVIS from 05/30/2024 CR XR LUMBAR SPINE COMPLETE from 06/20/2024 FINDINGS: Bones: The last intervertebral disc space is designated the L5/S1 level for the numbering purpose of this examination. The vertebral body heights are well maintained. Alignment is satisfactory. There are mild degenerative endplate signal changes present. The findings are most marked at L4-5 and L5-S 1. There is a large area of decreased T1 signal in the right iliac bone. There is a smaller 2.1 cm a zay of decreased T1 signal in the left iliac bone medially and superiorly. These areas show heteroge neous signal on the T2 weighted images. Cord: The conus tip ends at the T12 level. It is of normal size and signal intensity. T12-L1: No disc herniations or bulges are present. No central spinal canal or neural foraminal stenos is. L1-2: No disc herniations or bulges are present. No central spinal canal or neural foraminal stenosis . L2-3: No disc herniations or bulges are present. No central spinal canal or neural foraminal stenosis . L3-4: There is a small central disc herniation. Degenerative changes of the facets are seen. There is mild narrowing of the central spinal canal. There is mild bilateral neural foraminal stenosis, le ft greater than right. L4-5: There is a large central disc herniation. There are degenerative changes of the facets and hyp ertrophy of the ligamentum flavum. There is moderately severe central spinal canal stenosis. The di sc does appear to compress the L5 nerve roots bilaterally. There is moderate bilateral neural forami nal stenosis. L5-S1: There is a mild diffuse disc bulge. No central spinal canal or neural foraminal stenosis. Soft tissues: The visualized SI joints and sacrum are well maintained. The paraspinal soft tissues ar e unremarkable. Visualized abdominal organs: There are small bilateral simple cysts in the kidneys. No follow-up is recommended. IMPRESSION: 1. Abnormal signal seen in the right iliac bone. Primary diagnostic concern is for metastatic diseas e. Whole-body bone scan is recommended for further evaluation. MRI of the pelvis may also be obtain ed for further characterization. 2. 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 This in conjunction with the degenera tive changes causes central spinal canal and neural foraminal stenosis. There also appears to be com pression of the L5 nerve roots bilaterally secondary to lateral recess stenosis. 3. Degenerative changes at L3-L4 causing central spinal canal and neural foraminal stenosis. Unexpected findings DATA REPOSITORY:
== END 2024-07-11 00:47 ==
LOC: DI 00:27
PROVIDERS: PCP Family Medicine; Visit Provider Family Medicine
DX: M48.062 Spinal stenosis, lumbar region with neurogenic claudication (principal)
CPT/HCPCS: 72148

== ENCOUNTER 2024-07-17 03:51 | Outpatient (CLI) | payer MEDICARE, SELFPAY ==
[2024-07-17 15:45] LABS: Abs Immature Grans 0.04 10^3/uL (0.0-0.06); Absolute Basophil Count 0.03 10^3/uL (0.0-0.2); Absolute Eosinophil Count 0.45 10^3/uL (0.0-0.7); Absolute Lymphocyte Count 1.71 10^3/uL (1.2-3.4); Absolute Monocyte Count 0.64 10^3/uL (0.1-0.8); Absolute Neutrophil Count 6.46 10^3/uL (1.2-6.7); Basophils % 0.3 %; Eosinophils % 4.8 %; HCT 38.7 % (40.0-50.0); HGB 13.2 g/dL (13.5-17.5); Immature Grans % 0.4 %; Lymphocytes % 18.3 %; MCHC 34.1 % (32.0-36.0); MCV 97 fL (80-95); MPV 8.8 fL (8.0-11.0); Monocytes % 6.9 %; Neutrophils % 69.3 %; Platelet Count 276 10^3/uL (130-400); RDW-SD 46.8 fL; WBC 9.33 10^3/uL (4.4-10.8)
[2024-07-17 16:16] LABS: ALT 21 U/L (16-63); AST 24 U/L (15-37); Albumin 3.3 g/dL (3.4-5.0); Alkaline Phosphatase 128 U/L (46-116); Anion Gap 8.2 mmol/L (3-11); BUN 21 mg/dL (7-18); Bilirubin, Total 0.35 mg/dL (0.2-1.0); CO2 25.8 mmol/L (21.0-32.0); Calcium 9.3 mg/dL (8.5-10.1); Chloride 106 mmol/L (98-107); Estimated GFR 76.56 (mL/min/1.73m2); Glucose 117 mg/dL (74-106); Potassium 4.3 mmol/L (3.5-5.1); Sodium 140 mmol/L (136-145)
== END 2024-07-17 03:52 | disposition home or self-care (01) ==
PROVIDERS: PCP Family Medicine; Visit Provider Family Medicine
DX: D64.9 Anemia, unspecified (principal); R10.9 Unspecified abdominal pain; Z00.00 Encounter for general adult medical examination without abnormal findings
CPT/HCPCS: 36415; 80053; 85025

== ENCOUNTER 2024-08-01 00:23 | Outpatient (CLI) | payer MEDICARE, SELFPAY ==
--- NOTE | 2024-08-01 07:00 | DI.MRI_ITS ---
Exam(s) MR PELVIS WO/W EXAM: MR PELVIS WO/W CLINICAL HISTORY: lesion in ilium seen on lumbar MRI,K63.81. TECHNIQUE: Multiplanar multisequence MRI of the pelvis was performed. CONTRAST MATERIAL: IV Contrast: 17 mL of Dotarem contrast administered. COMPARISON: CR XR HIP RT COMPLETE AP PELVIS from 05/30/2024 CR XR LUMBAR SPINE COMPLETE from 06/20/2024 MR MR LUMBAR SPINE WO from 07/11/2024 FINDINGS: The examination is limited due to patient motion artifact. BONES/JOINTS: No fracture or contusion pattern. There is a 1.3 x 1.5 cm enhancing lesion in the lesse r trochanter of the right femur. (Series 44947, image 9). There is a 3.0 x 1.6 cm enhancing lesion in the medial aspect of the right iliac bone adjacent to the sacroiliac joint (series 52047, image 44 ). There is a peripherally enhancing lesions seen in the right acetabular roof measuring 6.6 cranioc audad by 2.8 transverse by 6.1 cm AP this is associated with disruption of the inner cortex and an a enhancing soft tissue mass deep to the right iliacus muscle. There is diffuse hyperintense signal se en on the T2 weighted images throughout the right pelvis. There is also increased signal on the post contrast images in the soft tissues surrounding the right iliac bone involving the iliacus and the gl uteus muscles. MUSCULOTENDINOUS STRUCTURES: Please see the above section under bones and joints. No muscular fatty atrophy. SOFT TISSUES: There is diverticulosis of the colon without definite evidence of acute diverticulitis. Prostate gland appears mildly enlarged. The visualized urinary bladder is grossly unremarkable. T here is a 1.7 cm right external iliac lymph node. It lies just inferior to the iliac bifurcation. OTHER FINDINGS: None. IMPRESSION: 1. Multiple heterogeneously enhancing bone lesions. The largest is in the right iliac bone and measu res 6.6 x 6.1 cm. Primary diagnostic concerns are for metastatic disease or multiple myeloma. The a cetabular lesion shows cortical disruption with a soft tissue component extending deep to the right i liacus muscle. 2. 1.7 cm right external iliac lymph node. 3. Whole-body bone scan should be considered for further evaluation. Unexpected findings DATA REPOSITORY:
[2024-08-01] MEDS: Gadoterate meglumine 20 ML VIAL 17 ML IVP (10:23)
[2024-08-01] MEDS: Normal Saline Flush 10 ML SYR IVP (10:26)
== END 2024-08-01 00:43 ==
LOC: DI 00:23
PROVIDERS: PCP Family Medicine; Visit Provider Family Medicine
DX: K63.81 Dieulafoy lesion of intestine (principal); M89.9 Disorder of bone, unspecified
CPT/HCPCS: 72197

== ENCOUNTER 2024-08-05 04:59 | Outpatient (CLI) | payer MEDICARE, SELFPAY ==
[2024-08-06 09:53] LABS: PSA, Diagnostic 74.2 ng/mL (<=6.5)
== END 2024-08-05 05:00 | disposition home or self-care (01) ==
LOC: LBO 04:59
PROVIDERS: PCP Family Medicine; Visit Provider Family Medicine
DX: C61 Malignant neoplasm of prostate (principal)
CPT/HCPCS: 36415; 84153

== ENCOUNTER 2024-09-16 03:16 | Outpatient (CLI) | payer MEDICARE, SELFPAY ==
--- NOTE | 2024-09-16 | DI.NM_ITS ---
Exam(s) NM BONE SCAN WHOLE BODY GRP EXAM: NM BONE SCAN WHOLE BODY GRP CLINICAL HISTORY: PROSTATE CA METASTATIC TO BONE,C61,C79.51,BONE BX. TECHNIQUE: Injected Dose: 25 mCi Tc-99m MDP Delayed Images: 2-3 hours. COMPARISON: CR XR HIP RT COMPLETE AP PELVIS from 05/30/2024 CR XR LUMBAR SPINE COMPLETE from 06/20/2024 MR MR LUMBAR SPINE WO from 07/11/2024 MR MR PELVIS WO/W from 08/01/2024 FINDINGS: A large abnormal area of intense uptake is noted in the right ilium and extending inferiorly to the l evel of the upper ischium. The acetabulum is also involved. Additional focus of abnormal activity is noted in the right lesser trochanter. A focus of intense activity is noted in the mid thoracic spine. Tiny abnormal focus noted at the lef t ischial sacral junction. There are few other mild areas of increased activity in the cervical and upper thoracic spine which a re nonspecific and could be degenerative. Bilateral renal excretion is identified. IMPRESSION: Large area of abnormal activity in the right liz pelvis consistent with metastatic disease. Other f oci are noted in the right lesser trochanter, left iliosacral region and upper to mid thoracic spine. DATA REPOSITORY:
== END 2024-09-16 03:36 ==
PROVIDERS: PCP Family Medicine; Visit Provider Preventive Medicine Undersea and Hyperbaric Medicine
DX: C61 Malignant neoplasm of prostate (principal); C79.51 Secondary malignant neoplasm of bone
CPT/HCPCS: 78306

== ENCOUNTER 2024-10-03 00:16 | Outpatient (CLI) | payer MEDICARE, SELFPAY ==
--- NOTE | 2024-10-03 | DI.CT_ITS ---
Exam(s) CT CHEST/ABD/PEL W EXAM: CT CHEST/ABD/PEL W CLINICAL HISTORY: C61, TECHNIQUE: Imaging Protocol: Axial computed tomography images with coronal and sagittal reformatted images were created and reviewed. Lung Computer Aided Detection (CAD) was utilized. CONTRAST MATERIAL: Intravenous: Omnipaque 350 contrast volume:100 mL Oral: Yes COMPARISON: CT CT CHEST PE CTA from 09/08/2021 FINDINGS: CHEST: Tracheobronchial tree: Patent where visualized. No evidence of bronchiectasis. Pulmonary parenchyma: No consolidation or dominant measurable mass. Calcified granuloma are present. There is a small 3 mm nodule in the left lower lobe (series 10, image 122). Visualized thyroid gland: Unremarkable. Mediastinum and Mago: No dominant adenopathy or fluid collection. The esophagus is unremarkable. The re is a small hiatal hernia. Pleura: No effusion or pneumothorax. Heart: The heart is not dilated. Two vessel coronary artery calcification is present. No pericardial effusion. Pulmonary arteries: No pulmonary emboli are identified. Aorta: Thoracic aorta non-dilated. Atherosclerotic calcification is seen. No evidence of dissection. Lymph nodes: Within normal limits. Soft tissues: Unremarkable. Bones:Within normal limits for the patient's age. There is sclerosis of the T6 vertebral body. ABDOMEN: Liver: Normal density. No measurable mass. Portal, Superior Mesenteric, and Splenic Veins: Unremarkable. Gallbladder and Biliary Tract: Status post cholecystectomy. No significant biliary ductal dilatation . Pancreas: Normal density, no abnormal calcifications or inflammatory process. Spleen: Normal. Adrenals: No masses seen. Kidneys: Normal size, contour and axis. No radiodense stones or obstructive uropathy. There are sever al hypodensities seen in the kidneys bilaterally. They are too small for further characterization bu t likely reflect small cysts. No follow-up is recommended. Abdominal Aorta: Abdominal portion non-dilated. Atherosclerotic calcification is present. Bowel: There is diverticulosis of the colon without evidence of acute diverticulitis. There is no ev idence of bowel obstruction. No significant bowel wall thickening is seen. There is no evidence of appendicitis. Peritoneal Cavity: No ascites, collection or mesenteric inflammatory response. No free air. Lymph Nodes: Within normal limits. Bones: There is a mottled and sclerotic appearance of the right hemipelvis. There are areas of corti laly disruption suggesting pathologic fracture. Periosteal reaction is present. There is also associ ated enhancing soft tissue involving the right iliac bone. The findings are consistent with metastat ic disease. There is also sclerosis involving the right lesser trochanter. Soft Tissues: Unremarkable. PELVIS: Bladder: There is diffuse thickening of the wall of the urinary bladder. This may be due to underdis tention, but cystitis cannot be excluded. Reproductive Organs: Unremarkable as visualized. Lymph Nodes: Within normal limits. Bones: Within normal limits. IMPRESSION: 1. Osseous metastatic disease involving the T6 vertebral body and the right lesser trochanter. There also is metastatic involvement and of the right hemipelvis with destructive changes seen in the supr a-acetabular region and findings suggestive of a nondisplaced fracture. There is associated soft tis yady disease around the right iliac bone. 2. 3 mm left lower lobe pulmonary nodule. 3. Incidental findings in the abdomen and pelvis as described above. RADIATION DOSE DELIVERED: 469.95mGy.cm Total DLP DATA REPOSITORY: All CT scans at this facility are submitted to the National Radiology Data Registry (NRDR) Dose Index Registry (DIR) with the [employer] (ACR). RADIATION OPTIMIZATION: All CT scans at this facility use at least one of these dose optimization te chniques: automated exposure control; mA and/or kV adjustment per patient size (includes targeted exa ms where dose is matched to clinical indication); or iterative reconstruction.
[2024-10-03 08:19] LABS: Abs Immature Grans 0.02 10^3/uL (0.0-0.06); Absolute Basophil Count 0.01 10^3/uL (0.0-0.2); Absolute Eosinophil Count 0.34 10^3/uL (0.0-0.7); Absolute Monocyte Count 0.59 10^3/uL (0.1-0.8); Absolute Neutrophil Count 3.31 10^3/uL (1.2-6.7); Basophils % 0.2 %; Eosinophils % 6.7 %; HGB 12.6 g/dL (13.5-17.5); Immature Grans % 0.4 %; Lymphocytes % 15.8 %; MCH 32.3 pg (27.0-33.0); MCHC 33.2 % (32.0-36.0); MCV 97 fL (80-95); MPV 8.5 fL (8.0-11.0); Monocytes % 11.6 %; Neutrophils % 65.3 %; Platelet Count 240 10^3/uL (130-400); RDW 13.2 % (11.8-14.1); RDW-SD 47.4 fL; WBC 5.07 10^3/uL (4.4-10.8)
[2024-10-03 08:34] LABS: ALT 73 U/L (16-63); AST 45 U/L (15-37); Albumin 3.2 g/dL (3.4-5.0); Alkaline Phosphatase 178 U/L (46-116); Anion Gap 5.5 mmol/L (3-11); BUN 24 mg/dL (7-18); Bilirubin, Total 0.21 mg/dL (0.2-1.0); CO2 27.5 mmol/L (21.0-32.0); Chloride 109 mmol/L (98-107); Estimated GFR 76.08 (mL/min/1.73m2); Glucose 99 mg/dL (74-106); Potassium 4.9 mmol/L (3.5-5.1); Sodium 142 mmol/L (136-145)
[2024-10-03] MEDS: Barium Sulfate 2% W/V-Berry Smoothie 450 ML BTL PO ×2 (09:33→09:34)
[2024-10-03] MEDS: Omnipaque 350 MG/ML 100 ML BTL IJ (09:58)
[2024-10-03] MEDS: Normal Saline - Diluent 50 ML VIAL IJ (09:59)
[2024-10-06 15:50] LABS: PSA, Ultrasensitive 27.2 ng/mL (<= 7.2)
[2024-10-08 14:24] LABS: Testosterone, Total 11 ng/dL (240-950)
== END 2024-10-03 00:36 ==
LOC: DI 00:17
PROVIDERS: PCP Family Medicine; Visit Provider Internal Medicine
DX: C61 Malignant neoplasm of prostate (principal); C79.51 Secondary malignant neoplasm of bone
CPT/HCPCS: 74177; 80053; 84153; 84403; 71260; 85025; J3490

== ENCOUNTER 2024-11-11 04:27 | Outpatient (CLI) | payer MEDICARE, SELFPAY ==
[2024-11-11 09:49] LABS: Abs Immature Grans 0.02 10^3/uL (0.0-0.06); Absolute Basophil Count 0.03 10^3/uL (0.0-0.2); Absolute Eosinophil Count 0.35 10^3/uL (0.0-0.7); Absolute Lymphocyte Count 0.72 10^3/uL (1.2-3.4); Absolute Monocyte Count 0.53 10^3/uL (0.1-0.8); Absolute Neutrophil Count 2.76 10^3/uL (1.2-6.7); Basophils % 0.7 %; Eosinophils % 7.9 %; HCT 40.4 % (40.0-50.0); HGB 13.4 g/dL (13.5-17.5); Immature Grans % 0.5 %; Lymphocytes % 16.3 %; MCH 32.4 pg (27.0-33.0); MCHC 33.2 % (32.0-36.0); MCV 98 fL (80-95); MPV 8.2 fL (8.0-11.0); Neutrophils % 62.6 %; Platelet Count 218 10^3/uL (130-400); RBC 4.14 10^6/uL (4.36-5.78); RDW 13.1 % (11.8-14.1); WBC 4.41 10^3/uL (4.4-10.8)
[2024-11-11 10:09] LABS: ALT 75 U/L (16-63); AST 44 U/L (15-37); Albumin 3.5 g/dL (3.4-5.0); Alkaline Phosphatase 147 U/L (46-116); Anion Gap 4.7 mmol/L (3-11); BUN 22 mg/dL (7-18); Bilirubin, Total 0.46 mg/dL (0.2-1.0); CO2 28.3 mmol/L (21.0-32.0); CREATININE 1.2 mg/dL (0.70-1.30); Calcium 9.2 mg/dL (8.5-10.1); Chloride 107 mmol/L (98-107); Estimated GFR 61.13 (mL/min/1.73m2); Glucose 78 mg/dL (74-106); Potassium 4.5 mmol/L (3.5-5.1); Sodium 140 mmol/L (136-145); Total Protein 8.3 g/dL (6.4-8.2)
[2024-11-12 15:51] LABS: PSA, Ultrasensitive 6.8 ng/mL (<= 7.2)
[2024-11-15 10:33] LABS: Testosterone, Total 8.6 ng/dL (240-950)
== END 2024-11-11 04:28 | disposition home or self-care (01) ==
LOC: LBO 04:28
PROVIDERS: PCP Family Medicine; Visit Provider Internal Medicine
DX: C61 Malignant neoplasm of prostate (principal); C79.51 Secondary malignant neoplasm of bone
CPT/HCPCS: 36415; 80053; 84153; 84403; 85025

== ENCOUNTER 2024-12-02 02:58 | Outpatient (CLI) | payer MEDICARE, SELFPAY ==
[2024-12-02 09:16] LABS: Abs Immature Grans 0.01 10^3/uL (0.0-0.06); Absolute Basophil Count 0.02 10^3/uL (0.0-0.2); Absolute Eosinophil Count 0.35 10^3/uL (0.0-0.7); Absolute Lymphocyte Count 0.68 10^3/uL (1.2-3.4); Absolute Monocyte Count 0.41 10^3/uL (0.1-0.8); Absolute Neutrophil Count 2.77 10^3/uL (1.2-6.7); Basophils % 0.5 %; Eosinophils % 8.3 %; HCT 39.9 % (40.0-50.0); HGB 13.3 g/dL (13.5-17.5); Immature Grans % 0.2 %; MCH 32.4 pg (27.0-33.0); MCHC 33.3 % (32.0-36.0); MCV 97 fL (80-95); MPV 8.5 fL (8.0-11.0); Monocytes % 9.7 %; Neutrophils % 65.3 %; Platelet Count 233 10^3/uL (130-400); RBC 4.11 10^6/uL (4.36-5.78); RDW 13.3 % (11.8-14.1); RDW-SD 47.8 fL; WBC 4.24 10^3/uL (4.4-10.8)
[2024-12-02 10:03] LABS: ALT 52 U/L (16-63); AST 40 U/L (15-37); Albumin 3.7 g/dL (3.4-5.0); Alkaline Phosphatase 154 U/L (46-116); Anion Gap 6.7 mmol/L (3-11); BUN 20 mg/dL (7-18); Bilirubin, Total 0.6 mg/dL (0.2-1.0); CO2 28.3 mmol/L (21.0-32.0); CREATININE 1.2 mg/dL (0.70-1.30); Calcium 9.6 mg/dL (8.5-10.1); Chloride 107 mmol/L (98-107); Estimated GFR 61.13 (mL/min/1.73m2); Glucose 89 mg/dL (74-106); Potassium 4.2 mmol/L (3.5-5.1); Sodium 142 mmol/L (136-145); Total Protein 8.5 g/dL (6.4-8.2)
[2024-12-03 18:20] LABS: PSA, Ultrasensitive 3.1 ng/mL (<= 7.2)
[2024-12-07 13:41] LABS: Testosterone, Total 14 ng/dL (240-950)
== END 2024-12-02 02:59 | disposition home or self-care (01) ==
PROVIDERS: PCP Family Medicine; Visit Provider Internal Medicine
DX: C61 Malignant neoplasm of prostate (principal); C79.51 Secondary malignant neoplasm of bone
CPT/HCPCS: 36415; 80053; 84153; 84403; 85025

== ENCOUNTER 2024-12-23 02:03 | Outpatient (CLI) | payer MEDICARE, SELFPAY ==
[2024-12-23 09:52] LABS: Abs Immature Grans 0.01 10^3/uL (0.0-0.06); Absolute Basophil Count 0.03 10^3/uL (0.0-0.2); Absolute Eosinophil Count 0.33 10^3/uL (0.0-0.7); Absolute Lymphocyte Count 0.74 10^3/uL (1.2-3.4); Absolute Neutrophil Count 3.16 10^3/uL (1.2-6.7); Basophils % 0.6 %; Eosinophils % 6.9 %; HCT 39.4 % (40.0-50.0); HGB 13.1 g/dL (13.5-17.5); Immature Grans % 0.2 %; Lymphocytes % 15.5 %; MCH 32.1 pg (27.0-33.0); MCHC 33.2 % (32.0-36.0); MCV 97 fL (80-95); Monocytes % 10.5 %; Neutrophils % 66.3 %; Platelet Count 244 10^3/uL (130-400); RBC 4.08 10^6/uL (4.36-5.78); RDW 13.2 % (11.8-14.1); RDW-SD 47.5 fL; WBC 4.77 10^3/uL (4.4-10.8)
[2024-12-23 10:06] LABS: ALT 34 U/L (16-63); AST 30 U/L (15-37); Albumin 3.6 g/dL (3.4-5.0); Alkaline Phosphatase 134 U/L (46-116); Anion Gap 6.1 mmol/L (3-11); BUN 26 mg/dL (7-18); Bilirubin, Total 0.7 mg/dL (0.2-1.0); CO2 25.9 mmol/L (21.0-32.0); CREATININE 1.2 mg/dL (0.70-1.30); Calcium 9.4 mg/dL (8.5-10.1); Chloride 107 mmol/L (98-107); Estimated GFR 61.13 (mL/min/1.73m2); Glucose 97 mg/dL (74-106); Potassium 4.9 mmol/L (3.5-5.1); Sodium 139 mmol/L (136-145); Total Protein 8.1 g/dL (6.4-8.2)
[2024-12-24 18:52] LABS: PSA, Ultrasensitive 0.73 ng/mL (<= 7.2)
[2024-12-26 16:47] LABS: Testosterone, Total 9.3 ng/dL (240-950)
== END 2024-12-23 02:04 | disposition home or self-care (01) ==
LOC: LBO 02:04
PROVIDERS: PCP Family Medicine; Visit Provider Internal Medicine
DX: C61 Malignant neoplasm of prostate (principal); C79.51 Secondary malignant neoplasm of bone
CPT/HCPCS: 36415; 80053; 84153; 84403; 85025

== ENCOUNTER 2024-12-25 22:15 | Emergency (ER) | payer MEDICARE, SELFPAY ==
--- NOTE | 2024-12-25 22:15 | RT.EKG_ITS ---
APPROVED REPORT Exam: Resting ECG Reason for Exam: chest pain Patient Location: E HR:81 bpm ECG Measurements Heart Rate 81 AXIS SC 139 P 60 QRSd 96 QRS -12 QT 377 T 36 QTc 438 Conclusion Sinus rhythm...normal P axis, V-rate 60- 99 Low voltage, extremity leads...all extremity leads <0.5mV Normal [place]/Interval No acute ST changes There are no significant changes compared to prior EKG performed on 09/08/2021 at 08:22.
--- NOTE | 2024-12-25 22:17 | ED.GENADUL_ITS ---
Discharge Plan Disposition Patient Disposition: Home Condition: Good Discharge Details Clinical Impression: Chest pain, Bilateral knee pain Primary Care Provider: Darren Barbour ED Provider: Nelson King Schroeder Meds and New Rx's Prescriptions: Continued simvastatin 40 mg tablet 40 mg PO HS Qty: 90 3RF lisinopril 10 mg tablet 10 mg PO DAILY Qty: 90 3RF dexamethasone sodium phosphate 4 mg/mL solution 4 mg IV .COMPLEX Rx Instructions: 4 mg intravenously For Chemotherapy Cycles; diphenhydramine HCl 50 mg/mL solution 25 mg IV QHS PRN Rx Instructions: may repeat once in 30-60 minutes if not effective Neulasta 6 mg/0.6 mL syringe 6 mg subcut ONCE Rx Instructions: as a single dose: Chemotherapy Cycles prochlorperazine maleate 10 mg tablet 10 mg PO DAILY Nubeqa 300 mg tablet 600 mg PO BID No Action sildenafil (pulm.hypertension) 20 mg tablet 20 mg PO As Directed MDD 100 mg Qty: 30 4RF Rx Instructions: 2-5 tabs two hours before intercourse famotidine 10 mg/mL solution 10 mg IV ONCE Rx Instructions: as a single dose: Chemotherapy treatment docetaxel 80 mg/8 mL (Final) solution 140 mg IV .COMPLEX Rx Instructions: 140 mg intravenously Chemotherapy Cycles; aspirin 81 mg Tablet,Delayed Release (Dr/Ec) 81 mg PO DAILY Qty: 0 0RF Discharge Instructions Instructions: Chest Pain, Adult ED Additional Instructions: You were seen in the emergency department for chest pain as well as knee and hip pain. Your evaluation including EKG, laboratory studies, CT scan as well as exam are all reassuring. Suspect your pain related to the new chemotherapy agent. Please discuss with your oncologist. Return to ED for any new or worsening chest pain, neurologic change, shortness of breath, other concerns. HPI General Mode of arrival: ambulatory . Date/Time Provider Initiated Documentation: 12/25/24 22:16 . Limitations to Documentation: no limitations . Information obtained by: patient, RN notes reviewed and old records reviewed . HPI Narrative: Patient presents to ED with complaint of chest pain. Patient received his first dose of a new IV chemotherapy on Sunday. He developed some worsening right hip pain as well as bilateral knee pain few hours ago. He took ibuprofen for that. He has since developed some mild left-sided chest tightness with some radiation into the left arm. Pain is not pleuritic. No radiation of pain to the neck or back. No lightheadedness, diaphoresis, shortness of breath, nausea. Leg pain is joint related. Denies pain throughout the leg and there is no swelling. Continue chemo drug does have side effect of joint and muscle pain. He was not overly concerned with that when it started but became concerned when he developed the chest pain as he does have a prior history of cardiac disease with stents. Related Data Home Medications ?Medication ?Instructions ?Recorded ?Confirmed aspirin 81 mg tablet,delayed 81 mg PO DAILY #0 tabs 06/24/20 12/25/24 release lisinopril 10 mg tablet 10 mg PO DAILY #90 tabs 12/04/23 12/25/24 simvastatin 40 mg tablet 40 mg PO HS #90 tabs 12/04/23 12/25/24 sildenafil (pulm.hypertension) 20 20 mg PO As Directed #30 tabs 01/30/24 12/25/24 mg tablet dexamethasone sodium phosphate 4 4 mg IV .COMPLEX 12/24/24 12/25/24 mg/mL injection solution diphenhydramine HCl 50 mg/mL 25 mg IV QHS PRN 12/24/24 12/25/24 injection solution docetaxel 80 mg/8 mL (Final Conc.) 140 mg IV .COMPLEX 12/24/24 12/25/24 intravenous solution famotidine 10 mg/mL intravenous 10 mg IV ONCE 12/24/24 12/25/24 solution pegfilgrastim 6 mg/0.6 mL 6 mg subcut ONCE 12/24/24 12/25/24 subcutaneous syringe (Neulasta) darolutamide 300 mg tablet (Nubeqa) 600 mg PO BID Cancer 12/25/24 12/25/24 prochlorperazine maleate 10 mg 10 mg PO DAILY 12/25/24 12/25/24 tablet Previous Rx's ?Medication ?Instructions ?Recorded aspirin 81 mg tablet,delayed 81 mg PO DAILY #0 tabs 06/24/20 release lisinopril 10 mg tablet 10 mg PO DAILY #90 tabs 12/04/23 simvastatin 40 mg tablet 40 mg PO HS #90 tabs 12/04/23 sildenafil (pulm.hypertension) 20 20 mg PO As Directed #30 tabs 01/30/24 mg tablet Allergies Allergy/AdvReac Type Severity Reaction Status Date / Time cetirizine HCl (From Zyrtec) Allergy Intermediate Hives Verified 12/25/24 22:47 atorvastatin AdvReac Severe joint pains Verified 12/25/24 22:47 hydrocortisone (From AdvReac Mild Hives Verified 12/25/24 22:47 Hydrocortone Acetate) General BHARAT: 3 Exam Narrative Exam Narrative: Const: WDWN elderly male in NAD. VS per triage. HEENT: NC/AT. Normal facial exam. Neck: Supple. Trachea midline. Lungs: Normal respiratory effort. Lungs are clear. Cor: RRR without murmur. Good radial pulses. GI: Soft/ND/NT. Neuro: A+O x 3. Normal speech, mentation, gait. Cranial nerves II - XII grossly intact. No gross motor or sensory deficit. Ext: No C/C/E. Normal ROM of hips/knees. No erythema or warmth. Medical Decision Making Patient presenting to ED with chief complaint of left-sided chest pain with some radiation to the arm, onset about 30 to 45 minutes prior to ED arrival. Patient had developed bilateral knee pain and worsening right hip pain earlier in the evening, presumably related to the chemo which was new and received on Sunday. However, when he developed chest pain he became little more concerned because of his prior history of heart attacks. Has no associated symptoms. Did take ibuprofen for the joint pain prior to coming in. His EKG is sinus rhythm with no acute ST changes noted. Will need serial troponins. Presentation not really consistent with pulmonary embolus but he is not low risk due to age and history of active cancer so D-dimer sent. Chest imaging per D- dimer results. Chewable aspirin given for chest pain. IV Tylenol given for joint pain. 02:20 - Patient's labs are significant for white count of 18.6 which I suspect is related to his Neulasta that he received with chemo. Hemoglobin is decent at 12. Initial troponin normal. Subsequent troponins remained flat. His D-dimer was over thousand so CTA was performed. Liver function, kidney function, electrolytes all good. CTA of the chest preliminary read by radiology without PE, infiltrate, acute findings. I think his pains are probably related to the new chemotherapy. His chest pain does not seem to be related to ACS given unchanged EKG and normal troponins x 3. I have discussed findings with patient and . Patient will be discharged home to follow-up/discuss with oncology. Return precautions discussed and provided. Medical Records Medical records reviewed: Yes I reviewed the patient's medical records. Medical records narrative: Recent oncology notes Lab Data Lab results reviewed: Yes I reviewed the patient's lab results. Lab results narrative: See MDM ECG Data Attestation: I personally reviewed and interpreted this ECG (s) as follows: Prior ECG tracings: available for review Interpretation: See MDM/EKG PFS All Active Problems (Updated 12/26/24 @ 02:24 by Nelson King MD) Bilateral knee pain (Acute) Chest pain (Acute) Onychomycosis (Acute) Lytic bone lesion of femur (Acute) Dieulafoy lesion of ileum (Acute) Hip pain, right (Acute) Low back pain (Acute) Bleeding hemorrhoids (Acute) Eczema (Acute) Elevated serum protein level (Acute) Fatigue (Acute) Trigger finger (Acute) left 5th Knee pain, left (Acute) Memory impairment (Acute) Elevated liver enzymes (Acute) Chronic sinusitis (Acute) Abnormal urinalysis (Acute) Biceps tendinitis of both shoulders (Acute) Left rotator cuff tear (Acute) Traumatic tear of right rotator cuff (Acute ~03/2018) Shoulder pain, right (Acute) Nasal sinus congestion (Acute) Skin cancer, basal cell (Acute) Decreased vision in both eyes (Acute) Double vision (Acute) Post-nasal drip (Acute) Rhinorrhea (Acute) Impacted cerumen of both ears (Acute) Neoplasm of unspecified behavior of bone, soft tissue, and skin (Acute) Inflamed sebaceous cyst (Acute) Polyp of colon (Acute) Bursitis of right shoulder (Chronic) Coronary atherosclerosis of [place] coronary vessel (Chronic 08/23/95) A) LA 05/30 B) 2 STENTS PLACED 06/12/06 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; parietal region-basal cell; 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 Maternal Grandfather , AGE 74 Heart disease Sister No problems noted. Son No problems noted. Daughter No problems noted. Daughter No problems noted. Social History Smoking/Tobacco Use Status: Former Tobacco Use Quit Date: 09/24/05 Tobacco: How many years used: 20 Second Hand Exposure: Yes Smoking risk assessment performed?: Yes Alcohol Intake: current Alcohol Intake frequency: a few times a month Alcohol type: wine Drug use: Never Substance use type: does not use Counseling given: No Caregiver/Support person: Yes Household members: spouse Housing: house Communication Needs: Hard of Hearing Do you need help understanding health information?: Rarely Pets and animals: No Sexually active: Yes Do you think of yourself as: straight/heterosexual Current gender identity: male What is your relationship status?: How often do you talk on the phone with friends or family?: decline to answer How often do you get together with friends or relatives?: decline to answer How often do you attend zoroastrian or judaism services?: decline to answer Do you belong to any clubs or organized social groups?: no Panel score (0-1 are the most socially isolated patients): 1 What type of physical activity do you participate in: walking and other Details: rowing machine Duration: 30-45 minutes/day Frequency: daily Jennifer/Adventism: No preference Special jennifer needs: No Seatbelt use: always Helmet use: Yes Helmet use: always Drive intox or ride w/intox automobile drivers: No Do you feel safe at home: Yes Do you feel safe in your relationship?: Yes
[2024-12-25 22:18] VITALS: BP 112/71; PULSE 81; RESP 18; TEMP 36.6; O2SAT 96
[2024-12-25] MEDS: Aspirin 81 MG CHEW 324 MG CH (22:38)
[2024-12-25] MEDS: ACETAMINOPHEN 1,000 MG/100 ML BAG 400 MG IVPB (22:38)
[2024-12-25 22:43] VITALS: RESP 18
[2024-12-25 22:58] LABS: Troponin I 10 ng/L (<or=76)
[2024-12-25 23:07] LABS: D-Dimer 1359 ng/mlFEU (<500)
[2024-12-25 23:16] LABS: Lab Add On Test DONE
[2024-12-25 23:19] LABS: Abs Immature Grans 1.24 10^3/uL (0.0-0.06); HCT 35.6 % (40.0-50.0); MCH 33.2 pg (27.0-33.0); MCHC 33.7 % (32.0-36.0); MCV 99 fL (80-95); MPV 9.7 fL (8.0-11.0); Platelet Count 195 10^3/uL (130-400); RBC 3.61 10^6/uL (4.36-5.78); RDW 13.2 % (11.8-14.1); RDW-SD 47.2 fL; WBC 18.58 10^3/uL (4.4-10.8)
[2024-12-25 23:22] VITALS: PULSE 75; PULSE 76; RESP 22; O2SAT 94
[2024-12-25 23:28] LABS: ALT 32 U/L (16-63); AST 24 U/L (15-37); Albumin 3.3 g/dL (3.4-5.0); Alkaline Phosphatase 124 U/L (46-116); BUN 28 mg/dL (7-18); Bilirubin, Total 0.6 mg/dL (0.2-1.0); CREATININE 0.9 mg/dL (0.70-1.30); Calcium 8.2 mg/dL (8.5-10.1); Chloride 106 mmol/L (98-107); Estimated GFR 86.34 (mL/min/1.73m2); Glucose 120 mg/dL (74-106); Magnesium 2.1 mg/dL; Sodium 139 mmol/L (136-145); Total Protein 7.2 g/dL (6.4-8.2)
[2024-12-25 23:37] LABS: Absolute Lymphocyte Count 1.11 10^3/uL (1.2-3.4); Absolute Monocyte Count 0.37 10^3/uL (0.1-0.8); Diff Comment Manual Differential; Metamyelocytes % 4; RBC Morphology Normal
[2024-12-25 23:38] LABS: Absolute Neutrophil Count 16.35 10^3/uL (1.2-6.7); Bands % 0 %
[2024-12-25 23:54] VITALS: PULSE 80; PULSE 82; RESP 23; O2SAT 97
[2024-12-25 23:56] VITALS: BP 115/46; PULSE 73; PULSE 76; RESP 24; O2SAT 96
[2024-12-25] MEDS: Omnipaque 350 MG/ML 100 ML BTL 70 ML IJ (23:56)
[2024-12-25] MEDS: Normal Saline - Diluent 50 ML VIAL IJ (23:57)
--- NOTE | 2024-12-25 23:58 | DI.CT_ITS ---
Exam(s) CT CHEST PE CTA EXAM: CT CHEST PE CTA CLINICAL HISTORY: active cancer, CP, elevated d-dimer. TECHNIQUE: Imaging Protocol: CT angiography of the chest was performed using pulmonary embolus arley col. Multi planar reconstructions were performed. CONTRAST MATERIAL: Intravenous: Omnipaque 350 Contrast volume: 70 cc COMPARISON: CT CT CHEST/ABD/PEL W from 10/03/2024 FINDINGS: CHEST: PULMONARY ARTERIES: There are no intraluminal filling defects to suggest acute pulmonary emboli. LUNGS: There are no infiltrates nor evidence of pulmonary infarction.. No metastatic appearing lung n odules. No pleural effusions. MEDIASTINUM: There is no hilar nor mediastinal adenopathy. Visualized thyroid unremarkable. CARDIAC: Heart size is upper normal. There is no pericardial effusion.Caliber of the thoracic aorta is within normal limits. No dissection. Incidentally noted is independent origin of the left vertebr al artery off the aortic arch. There is no significant shift of the interventricular septum. PARTIALLY VISUALIZED UPPERMOST ABDOMEN: No adrenal masses. Gallbladder surgically absent. OSSEOUS: Sclerotic involvement of T6 vertebral body again noted, probably metastatic. There is no ac tanacross fracture at this level. IMPRESSION: 1. No evidence of acute pulmonary emboli. No evidence of pulmonary infarction.No pleural effusions. 2. T6 vertebral body blastic sclerotic metastatic disease again noted. RADIATION DOSE DELIVERED: 75.91mGy.cm Total DLP DATA REPOSITORY: All CT scans at this facility are submitted to the National Radiology Data Registry (NRDR) Dose Index Registry (DIR) with the [employer] (ACR). RADIATION OPTIMIZATION: All CT scans at this facility use at least one of these dose optimization te chniques: automated exposure control; mA and/or kV adjustment per patient size (includes targeted exa ms where dose is matched to clinical indication); or iterative reconstruction.
[2024-12-26] VITALS (27 sets, daily range): BP systolic 98–122; BP diastolic 46–56; PULSE 66–83; RESP 14–24; O2SAT 94–98
[2024-12-26 00:21] LABS: Troponin I 9 ng/L (<or=76)
--- NOTE | 2024-12-26 01:05 | DI.VRAD_ITS ---
PROCEDURE INFORMATION: Exam: CTA Chest With Contrast Exam date and time: 12/25/2024 11:36 PM Age: 79 years old Clinical indication: Pain; Other: Sharp; Prior surgery; Surgery date: 6+ months; Surgery type: Stent; Active cancer, cp, elevated d-dimer. Stage 4 prostate cancer TECHNIQUE: Imaging protocol: Computed tomographic angiography of the chest with contrast. Exam focused on the arteries. 3D rendering (Not supervised by radiologist): MIP and/or 3D reconstructed images were created by the technologist. Radiation optimization: All CT scans at this facility use at least one of these dose optimization techniques: automated exposure control; mA and/or kV adjustment per patient size (includes targeted exams where dose is matched to clinical indication); or iterative reconstruction. Contrast material: [id number]; Contrast volume: 70 ml; Contrast route: INTRAVENOUS (IV); COMPARISON: CT CHEST PE CTA 09/08/2021 9:54 AM FINDINGS: Pulmonary arteries: Normal. No pulmonary emboli. Aorta: Unremarkable. No aortic aneurysm. No aortic dissection. Lungs: Calcified granulomas in the left lower lobe. There is no evidence of focal pulmonary consolidation. Pleural spaces: Unremarkable. No pneumothorax. No pleural effusion. Heart: Unremarkable. No cardiomegaly. No pericardial effusion. Coronary arteries: There is moderate atherosclerotic calcification of the coronary arteries. Lymph nodes: Unremarkable. No enlarged lymph nodes. Diaphragm: A small hiatal hernia is present. Gallbladder and biliary ducts: There has been a cholecystectomy. Bones/joints: The thoracic spine demonstrates mild degenerative changes at multiple levels. Sclerotic bone lesion in the T6 vertebral body, suggestive of metastasis. Soft tissues: Unremarkable. IMPRESSION: 1. No pulmonary embolism. 2. No acute infiltrates. Dictated and Authenticated by: Chris Multani MD. Orderin Fernando Damon MD
[2024-12-26 02:09] LABS: Troponin I 13 ng/L (<or=76)
== END 2024-12-26 02:51 | disposition home or self-care (01) ==
PROVIDERS: Emergency Provider Emergency Medicine; PCP Family Medicine
DX: M25.561 Pain in right knee; M25.562 Pain in left knee; C61 Malignant neoplasm of prostate; R07.9 Chest pain, unspecified; T45.1X5A Adverse effect of antineoplastic and immunosuppressive drugs, initial encounter
CPT/HCPCS: 36415; 71275; 80053; 93005; 96365; 99285; 83735; 84484; 85025; 85379; 93010; 99284; J0131; J3490

== ENCOUNTER 2024-12-30 02:36 | Outpatient (CLI) | payer MEDICARE, SELFPAY ==
[2024-12-30 09:17] LABS: Abs Immature Grans 5.14 10^3/uL (0.0-0.06); HCT 37.3 % (40.0-50.0); HGB 12.1 g/dL (13.5-17.5); MCH 32.4 pg (27.0-33.0); MCHC 32.4 % (32.0-36.0); MCV 100 fL (80-95); MPV 9.7 fL (8.0-11.0); Platelet Count 211 10^3/uL (130-400); RBC 3.73 10^6/uL (4.36-5.78); RDW 13.5 % (11.8-14.1); RDW-SD 49.4 fL; WBC 18.99 10^3/uL (4.4-10.8)
[2024-12-30 09:39] LABS: ALT 30 U/L (16-63); AST 29 U/L (15-37); Albumin 3.1 g/dL (3.4-5.0); Alkaline Phosphatase 141 U/L (46-116); Anion Gap 10.8 mmol/L (3-11); BUN 25 mg/dL (7-18); Bilirubin, Total 0.3 mg/dL (0.2-1.0); CO2 24.2 mmol/L (21.0-32.0); CREATININE 1.2 mg/dL (0.70-1.30); Chloride 105 mmol/L (98-107); Estimated GFR 61.13 (mL/min/1.73m2); Glucose 128 mg/dL (74-106); Potassium 4.6 mmol/L (3.5-5.1); Sodium 140 mmol/L (136-145); Total Protein 7.3 g/dL (6.4-8.2)
[2024-12-30 10:08] LABS: Absolute Basophil Count 0.19 10^3/uL (0.0-0.2); Absolute Eosinophil Count 0.38 10^3/uL (0.0-0.7); Absolute Lymphocyte Count 2.09 10^3/uL (1.2-3.4); Absolute Neutrophil Count 13.67 10^3/uL (1.2-6.7); Atypical Lymphocytes % 2 %; Bands % 6 %; Diff Comment Manual Differential; Metamyelocytes % 3; Myelocytes % 1; RBC Morphology Normal
== END 2024-12-30 02:37 | disposition home or self-care (01) ==
PROVIDERS: PCP Family Medicine; Visit Provider Nurse Practitioner
DX: C61 Malignant neoplasm of prostate (principal); C79.51 Secondary malignant neoplasm of bone
CPT/HCPCS: 36415; 80053; 85025

== ENCOUNTER 2025-01-13 03:48 | Outpatient (CLI) | payer MEDICARE, SELFPAY ==
[2025-01-13 09:32] LABS: Abs Immature Grans 0.02 10^3/uL (0.0-0.06); Absolute Basophil Count 0.05 10^3/uL (0.0-0.2); Absolute Eosinophil Count 0.32 10^3/uL (0.0-0.7); Absolute Lymphocyte Count 1.04 10^3/uL (1.2-3.4); Absolute Monocyte Count 0.83 10^3/uL (0.1-0.8); Absolute Neutrophil Count 3.65 10^3/uL (1.2-6.7); Basophils % 0.8 %; Eosinophils % 5.4 %; HCT 36.2 % (40.0-50.0); HGB 11.8 g/dL (13.5-17.5); Immature Grans % 0.3 %; Lymphocytes % 17.6 %; MCH 32.7 pg (27.0-33.0); MCHC 32.6 % (32.0-36.0); MCV 100 fL (80-95); MPV 8.5 fL (8.0-11.0); Neutrophils % 61.9 %; Platelet Count 359 10^3/uL (130-400); RBC 3.61 10^6/uL (4.36-5.78); RDW 14.1 % (11.8-14.1); RDW-SD 51.1 fL; WBC 5.91 10^3/uL (4.4-10.8)
[2025-01-13 09:50] LABS: ALT 133 U/L (16-63); AST 85 U/L (15-37); Albumin 3.2 g/dL (3.4-5.0); Alkaline Phosphatase 106 U/L (46-116); Anion Gap 7.4 mmol/L (3-11); BUN 14 mg/dL (7-18); Bilirubin, Total 0.7 mg/dL (0.2-1.0); CO2 24.6 mmol/L (21.0-32.0); Calcium 9.2 mg/dL (8.5-10.1); Chloride 106 mmol/L (98-107); Estimated GFR 76.08 (mL/min/1.73m2); Glucose 118 mg/dL (74-106); Potassium 4.4 mmol/L (3.5-5.1); Sodium 138 mmol/L (136-145)
[2025-01-15 18:20] LABS: PSA, Ultrasensitive 0.35 ng/mL (<= 7.2)
[2025-01-19 14:57] LABS: Testosterone, Total 7.5 ng/dL (240-950)
== END 2025-01-13 03:49 | disposition home or self-care (01) ==
PROVIDERS: PCP Family Medicine; Visit Provider Nurse Practitioner
DX: C61 Malignant neoplasm of prostate (principal); C79.51 Secondary malignant neoplasm of bone
CPT/HCPCS: 36415; 80053; 84153; 84403; 85025

== ENCOUNTER 2025-02-03 03:36 | Outpatient (CLI) | payer MEDICARE, SELFPAY ==
[2025-02-03 09:09] LABS: ALT 64 U/L (16-63); AST 34 U/L (15-37); Albumin 3.5 g/dL (3.4-5.0); Alkaline Phosphatase 109 U/L (46-116); Anion Gap 10.1 mmol/L (3-11); BUN 25 mg/dL (7-18); Bilirubin, Total 0.5 mg/dL (0.2-1.0); CO2 20.9 mmol/L (21.0-32.0); CREATININE 1.1 mg/dL (0.70-1.30); Calcium 9.4 mg/dL (8.5-10.1); Chloride 107 mmol/L (98-107); Estimated GFR 67.86 (mL/min/1.73m2); Glucose 167 mg/dL (74-106); Potassium 4.1 mmol/L (3.5-5.1); Sodium 138 mmol/L (136-145); Total Protein 7.2 g/dL (6.4-8.2)
[2025-02-03 10:10] LABS: Abs Immature Grans 0.05 10^3/uL (0.0-0.06); Absolute Basophil Count 0.01 10^3/uL (0.0-0.2); Absolute Lymphocyte Count 0.75 10^3/uL (1.2-3.4); Absolute Monocyte Count 0.56 10^3/uL (0.1-0.8); Absolute Neutrophil Count 7.58 10^3/uL (1.2-6.7); Basophils % 0.1 %; HCT 32.6 % (40.0-50.0); HGB 10.7 g/dL (13.5-17.5); Immature Grans % 0.6 %; Lymphocytes % 8.4 %; MCH 32.5 pg (27.0-33.0); MCHC 32.8 % (32.0-36.0); MCV 99 fL (80-95); MPV 9.1 fL (8.0-11.0); Monocytes % 6.3 %; Neutrophils % 84.6 %; Platelet Count 406 10^3/uL (130-400); RBC 3.29 10^6/uL (4.36-5.78); RDW 15.7 % (11.8-14.1); WBC 8.95 10^3/uL (4.4-10.8)
[2025-02-05 18:39] LABS: PSA, Ultrasensitive 0.15 ng/mL (<= 7.2)
[2025-02-08 10:18] LABS: Testosterone, Total <7.0 ng/dL (240-950)
== END 2025-02-03 03:37 | disposition home or self-care (01) ==
LOC: LBO 03:36
PROVIDERS: Nurse Practitioner; PCP Family Medicine; Visit Provider Internal Medicine
DX: C61 Malignant neoplasm of prostate (principal); C79.51 Secondary malignant neoplasm of bone
CPT/HCPCS: 36415; 80053; 84153; 84403; 85025

== ENCOUNTER 2025-02-24 02:05 | Outpatient (CLI) | payer MEDICARE, SELFPAY ==
[2025-02-24 08:15] LABS: Abs Immature Grans 0.03 10^3/uL (0.0-0.06); Absolute Lymphocyte Count 0.61 10^3/uL (1.2-3.4); Absolute Monocyte Count 0.34 10^3/uL (0.1-0.8); Absolute Neutrophil Count 5.44 10^3/uL (1.2-6.7); HCT 31.6 % (40.0-50.0); HGB 10.3 g/dL (13.5-17.5); Immature Grans % 0.5 %; Lymphocytes % 9.5 %; MCHC 32.6 % (32.0-36.0); MCV 101 fL (80-95); MPV 8.4 fL (8.0-11.0); Monocytes % 5.3 %; Neutrophils % 84.7 %; Platelet Count 374 10^3/uL (130-400); RBC 3.12 10^6/uL (4.36-5.78); RDW 16.9 % (11.8-14.1); RDW-SD 61.6 fL; WBC 6.42 10^3/uL (4.4-10.8)
[2025-02-24 08:35] LABS: ALT 25 U/L (16-63); AST 20 U/L (15-37); Albumin 3.5 g/dL (3.4-5.0); Alkaline Phosphatase 100 U/L (46-116); Anion Gap 11.8 mmol/L (3-11); Bilirubin, Total 0.4 mg/dL (0.2-1.0); CO2 23.2 mmol/L (21.0-32.0); Calcium 9.4 mg/dL (8.5-10.1); Chloride 105 mmol/L (98-107); Estimated GFR 76.08 (mL/min/1.73m2); Glucose 163 mg/dL (74-106); Potassium 4.4 mmol/L (3.5-5.1); Sodium 140 mmol/L (136-145)
[2025-02-24 08:53] LABS: BUN 22 mg/dL (7-18); Total Protein 7.1 g/dL (6.4-8.2)
[2025-02-27 16:09] LABS: PSA, Ultrasensitive 0.19 ng/mL (<= 7.2)
[2025-02-28 13:34] LABS: Testosterone, Total <7.0 ng/dL (240-950)
== END 2025-02-24 02:06 | disposition home or self-care (01) ==
PROVIDERS: PCP Family Medicine; Visit Provider Nurse Practitioner
DX: C61 Malignant neoplasm of prostate (principal); C79.51 Secondary malignant neoplasm of bone
CPT/HCPCS: 36415; 80053; 84153; 84403; 85025

== ENCOUNTER 2025-03-03 02:22 | Outpatient (CLI) | payer MEDICARE, SELFPAY ==
[2025-03-03 10:49] LABS: Abs Immature Grans 0.04 10^3/uL (0.0-0.06); HCT 29.1 % (40.0-50.0); HGB 9.4 g/dL (13.5-17.5); MCH 32.9 pg (27.0-33.0); MCHC 32.3 % (32.0-36.0); MCV 102 fL (80-95); MPV 9.5 fL (8.0-11.0); Platelet Count 217 10^3/uL (130-400); RBC 2.86 10^6/uL (4.36-5.78); RDW 16.8 % (11.8-14.1); RDW-SD 62.4 fL
[2025-03-03 11:06] LABS: ALT 24 U/L (16-63); AST 19 U/L (15-37); Albumin 3.1 g/dL (3.4-5.0); Alkaline Phosphatase 77 U/L (46-116); Anion Gap 7.8 mmol/L (3-11); BUN 22 mg/dL (7-18); Bilirubin, Total 0.6 mg/dL (0.2-1.0); CO2 25.2 mmol/L (21.0-32.0); CREATININE 0.8 mg/dL (0.70-1.30); Calcium 8.8 mg/dL (8.5-10.1); Chloride 107 mmol/L (98-107); Estimated GFR 89.47 (mL/min/1.73m2); Glucose 126 mg/dL (74-106); Potassium 4.7 mmol/L (3.5-5.1); Sodium 140 mmol/L (136-145); Total Protein 6.5 g/dL (6.4-8.2)
[2025-03-03 11:22] LABS: Absolute Basophil Count 0.01 10^3/uL (0.0-0.2); Absolute Eosinophil Count 0.02 10^3/uL (0.0-0.7); Absolute Lymphocyte Count 0.35 10^3/uL (1.2-3.4); Absolute Monocyte Count 0.04 10^3/uL (0.1-0.8)
[2025-03-03 11:23] LABS: Diff Comment Manual Differential; RBC Morphology Normal
[2025-03-03 11:26] LABS: Absolute Neutrophil Count 0.36 10^3/uL (1.2-6.7); WBC 0.78 10^3/uL (4.4-10.8)
[2025-03-05 09:34] LABS: PSA, Ultrasensitive 0.15 ng/mL (<= 7.2)
[2025-03-08 16:56] LABS: Testosterone, Total 7.2 ng/dL (240-950)
== END 2025-03-03 02:23 | disposition home or self-care (01) ==
LOC: LBO 02:23
PROVIDERS: PCP Family Medicine; Visit Provider Nurse Practitioner
DX: C61 Malignant neoplasm of prostate (principal); C79.51 Secondary malignant neoplasm of bone
CPT/HCPCS: 36415; 80053; 84153; 84403; 85025

== ENCOUNTER 2025-03-03 13:17 | Observation (INO) | payer MEDICARE, SELFPAY ==
[2025-03-03] VITALS (55 sets, daily range): BP systolic 96–145; BP diastolic 48–87; PULSE 72–94; RESP 16–33; TEMP 36.7–36.8; O2SAT 97–99
--- NOTE | 2025-03-03 13:54 | W.ED.GENAD ---
Discharge Plan Discharge Details Chief Complaint: [facility] Primary Care Provider: Darren Barbour ED Provider: Attila Lange Home Meds and New Rx's Prescriptions: No Action sildenafil (pulm.hypertension) 20 mg tablet 20 mg PO As Directed MDD 100 mg Qty: 30 4RF Rx Instructions: 2-5 tabs two hours before intercourse lisinopril 10 mg tablet 10 mg PO DAILY Qty: 90 3RF dexamethasone sodium phosphate 4 mg/mL solution 4 mg IV .COMPLEX Rx Instructions: 4 mg intravenously For Chemotherapy Cycles; famotidine 10 mg/mL solution 10 mg IV ONCE Rx Instructions: as a single dose: Chemotherapy treatment diphenhydramine HCl 50 mg/mL solution 25 mg IV QHS PRN Rx Instructions: may repeat once in 30-60 minutes if not effective docetaxel 80 mg/8 mL (Final) solution 140 mg IV .COMPLEX Rx Instructions: 140 mg intravenously Chemotherapy Cycles; Neulasta 6 mg/0.6 mL syringe 6 mg subcut ONCE Rx Instructions: as a single dose: Chemotherapy Cycles loratadine [Claritin] 10 mg tablet 10 mg PO BID Rx Instructions: 12/30/[address] Barbour. See task. -hb simvastatin 40 mg tablet 40 mg PO HS Qty: 90 3RF prochlorperazine maleate 10 mg tablet 10 mg PO DAILY Nubeqa 300 mg tablet 600 mg PO BID HPI General Date/Time Provider Initiated Documentation: 03/03/25 13:24. HPI Narrative: 79 year-old male presents to ED today by POV/ambulating with a chief complaint of sent down from cancer center with leukopenia/absolute neutropenia of a profound nature, with onset 10 days after his last chemoinfusion for stage IV prostate cancer, he receives docetaxel, Nubeqa pegfilgrastim. Quality described as feels relatively ok but endorses cold chills for the past 10 days, and an area of redness on his R forearm, no radiation to rigors, cough, chest pain, abdominal pain, endorses intermittent loose stools that respond to Imodium. Severity is described as mild. Palliating factors include nothing specific attempted. Provoking factors include nothing specific. Events leading up to the incident/Associated Symptoms: Patient is followed by [facility] [facility] oncology. Patient not anticoagulated. Related Data Home Medications ?Medication ?Instructions ?Recorded ?Confirmed lisinopril 10 mg tablet 10 mg PO DAILY #90 tabs 12/04/23 03/03/25 sildenafil (pulm.hypertension) 20 20 mg PO As Directed #30 tabs 01/30/24 03/03/25 mg tablet dexamethasone sodium phosphate 4 4 mg IV .COMPLEX 12/24/24 03/03/25 mg/mL injection solution diphenhydramine HCl 50 mg/mL 25 mg IV QHS PRN 12/24/24 03/03/25 injection solution docetaxel 80 mg/8 mL (Final Conc.) 140 mg IV .COMPLEX 12/24/24 03/03/25 intravenous solution famotidine 10 mg/mL intravenous 10 mg IV ONCE 12/24/24 03/03/25 solution pegfilgrastim 6 mg/0.6 mL 6 mg subcut ONCE 12/24/24 03/03/25 subcutaneous syringe (Neulasta) darolutamide 300 mg tablet (Nubeqa) 600 mg PO BID Cancer 12/25/24 03/03/25 prochlorperazine maleate 10 mg 10 mg PO DAILY 12/25/24 03/03/25 tablet loratadine 10 mg tablet (Claritin) 10 mg PO BID 12/30/24 03/03/25 simvastatin 40 mg tablet 40 mg PO HS #90 tabs 01/07/25 03/03/25 Previous Rx's ?Medication ?Instructions ?Recorded lisinopril 10 mg tablet 10 mg PO DAILY #90 tabs 12/04/23 sildenafil (pulm.hypertension) 20 20 mg PO As Directed #30 tabs 01/30/24 mg tablet simvastatin 40 mg tablet 40 mg PO HS #90 tabs 01/07/25 Allergies Allergy/AdvReac Type Severity Reaction Status Date / Time cetirizine HCl (From yrte) Allergy Intermediate Hives Verified 03/03/25 13:23 atorvastatin AdvReac Severe joint pains Verified 03/03/25 13:23 hydrocortisone (From AdvReac Mild Hives Verified 03/03/25 13:23 Hydrocortone Acetate) General Stated Complaint: GenMedical BHARAT: 3 Review of Systems All systems reviewed & are unremarkable except as noted in HPI and below Exam Narrative Exam Narrative: GENERAL APPEARANCE: Well-nourished, toxic, awake and alert, atraumatic, mild acute distress. SKIN: Warm, pink, dry, 2 x 2 cm area of erythema and warmth to the right forearm HEAD: Normocephalic, atraumatic, normal hair distribution for gender/age. EYES: Normal conjunctiva, no exudates on lids/lashes. ENT: Nares patent, no circumoral cyanosis, no facial swelling NECK: Supple, trachea midline, painless cervical ROM. LUNGS/CHEST: Lungs CTA bilaterally-no rhonchi/rales/wheezes diffusely, non-labored respirations, normal A/P diameter, symmetrical expansion, no chest wall deformity HEART (CV/PV): Regular rate and rhythm without murmur, no peripheral edema, no JVD. ABDOMEN: Soft, non-distended, no guarding, no tenderness. MSK: Normal ROM, no swelling/deformity to bilateral UEs or LEs, moving all extremities without weakness, no cyanosis, spine midline without tenderness, normal curvature. NEURO: Mental Status AAOx4 - alert to person, place, time, events No facial droop, no forehead involvement. Motor: No focal weakness - strength 5/5 in bilateral UEs and LEs, proximal and distal, symmetric. Sensory: sensation intact to light touch globally. Gait normal: patient ambulated without ataxia into ED room. PSYCH: euthymic, cooperative, pleasant, appropriate speech Course Vital Signs Vital signs: Vital Signs Temperature 36.7 C 03/03/25 13:20 Pulse 82 03/03/25 13:20 Respiratory Rate 18 03/03/25 13:20 Blood Pressure 122/64 03/03/25 13:20 Pulse Oximetry 97 03/03/25 13:20 Temperature 36.7 C 03/03/25 13:25 Pulse 82 03/03/25 13:25 Respiratory Rate 18 03/03/25 13:25 Blood Pressure 122/64 03/03/25 13:25 Pulse Oximetry 97 03/03/25 13:25 Oxygen Delivery Method Room Air 03/03/25 13:25 Oxygen Flow Rate 0 03/03/25 13:25 Pain Level 2 03/03/25 13:25 Comment legs 03/03/25 13:25 Medical Decision Making This dictation utilizes [id number] dictation software and may contain unedited grammatical errors. 79 year-old male presents to ED today by POV/ambulating with a chief complaint of sent down from cancer center with leukopenia/absolute neutropenia of a profound nature, with onset 10 days after his last chemoinfusion for stage IV prostate cancer, he receives docetaxel, Nubeqa pegfilgrastim. Quality described as feels relatively ok but endorses cold chills for the past 10 days, and an area of redness on his R forearm, no radiation to rigors, cough, chest pain, abdominal pain, endorses intermittent loose stools that respond to Imodium. Severity is described as mild. Palliating factors include nothing specific attempted. Provoking factors include nothing specific. Events leading up to the incident/Associated Symptoms: Patient is followed by [facility] oncology. 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 Family and social history: Lives at home with his , no recent travel or sick contacts. Pertinent exam findings / vital signs include benign cardiopulmonary exam, blowing systolic heart murmur barely audible, mild epigastric tenderness, afebrile on oral temperature, 2 x 2 erythematous area to right forearm. Differential / pathologies of concern include neutropenic fever, cellulitis, PNA, GI bleeding. Diagnostic studies of: -CBC, CMP, lactate, UA, CRP/ESR, lipase, procalcitonin, blood cultures, XR chest. - CBC shows leukopenia to 0.85 WBCs, 0.22 absolute neutrophil count, worsening hemoglobin on recheck from 9.4-8.9 - CMP is unremarkable, mild elevation of BUN to 22 with normal creatinine - Magnesium within normal limits - CRP is slightly elevated at 1.16 - Lipase negative - Procalcitonin negative, lactate 1.3 Interventions of: - Consult [facility] oncology/hematology for recommendations on timing of GI scopes, antibiotic reccs. ED Course/Assessment/Plan: 79-year-old male presents with 10 days of chills after his last infusion of chemo, he questions whether he is also on immunotherapy, he is on hormone therapy for stage IV prostate cancer managed by the cancer center, he had profound leukopenia/neutropenia there, upon recheck his ANC is 0.22, CRP mildly elevated, blood cultures pending, x-ray chest pending. I did discuss with hospitalist on-call that after shift change my colleague would reconsult with them once [facility] oncology calls back with antibiotic reps, possible timing recommendations for EGD/colonoscopy, patient signed out to Cinthya Bill NP with likely admission for neutropenic fever versus transfer to [facility]. Disposition of Neutropenic Fever. Patient verbalized understanding of the plan and return to ED criteria and engaged in shared decision making. Medical Records Medical records reviewed: Yes I reviewed the patient's medical records. Imaging Data Radiologic Study: Attestation: I personally reviewed and interpreted this imaging study as follows: Imaging: X-Ray My impression: Pending at shift-change. Lab Data Lab results reviewed: Yes I reviewed the patient's lab results. Labs: 03/03/25 14:22 Blood Blood Culture - Pending 03/03/25 14:05 Blood Blood Culture - Pending Laboratory Tests Range/Units 03/03/25 14:22 WBC (4.4-10.8) 10^3/uL 0.85 L* RBC (4.36-5.78) 10^6/uL 2.72 L Hgb (13.5-17.5) g/dL 8.9 L Hct (40.0-50.0) % 27.7 L MCV (80-95) fL 102 H MCH (27.0-33.0) pg 32.7 MCHC (32.0-36.0) % 32.1 RDW (11.8-14.1) % 16.9 H Plt Count (130-400) 10^3/uL 214 MPV (8.0-11.0) fL 9.4 Immature Gran % % 0.0 Neutrophils % % 23.0 Band Neutrophils % % 3 Lymphocytes % % 49.0 Atypical Lymphs % % 5 Monocytes % % 8.0 Eosinophils % % 6.0 Basophils % % 1.0 Metamyelocytes % 5 Nucleated RBC % (0.0-0.3) % 1.0 H Absolute Neutrophils (1.2-6.7) 10^3/uL 0.22 L* Absolute Lymphocytes (1.2-3.4) 10^3/uL 0.46 L Absolute Monocytes (0.1-0.8) 10^3/uL 0.07 L Absolute Eosinophils (0.0-0.7) 10^3/uL 0.05 Absolute Basophils (0.0-0.2) 10^3/uL 0.01 RBC Morphology Normal ESR (0-20) mm/hr 16 VBG Lactate (<or=2.0) mmol/L 1.3 Sodium (136-145) mmol/L 140 Potassium (3.5-5.1) mmol/L 4.4 Chloride (98-107) mmol/L 106 Carbon Dioxide (21.0-32.0) mmol/L 27.2 Anion Gap (3-11) mmol/L 6.8 BUN (7-18) mg/dL 22 H Creatinine (0.70-1.30) mg/dL 0.8 Est GFR (CKD-EPI 2020) (mL/min/1.73m2) 89.47 Glucose (74-106) mg/dL 126 H Calcium (8.5-10.1) mg/dL 8.5 Magnesium (1.8-2.4) mg/dL 1.9 Total Bilirubin (0.2-1.0) mg/dL 0.6 AST (15-37) U/L 19 ALT (16-63) U/L 21 Alkaline Phosphatase (46-116) U/L 76 C-Reactive Protein (<or=0.5) mg/dL 1.16 H Total Protein (6.4-8.2) g/dL 6.2 L Albumin (3.4-5.0) g/dL 2.9 L Lipase (<78) U/L 61 Procalcitonin ng/mL < 0.10 Quality:SDOH Health Related Social Needs: No Data to Display PFSH All Active Problems (Updated 01/26/25 @ 00:03 by GOYO GOMEZ) Onychomycosis (Acute) Lytic bone lesion of femur (Acute) Dieulafoy lesion of ileum (Acute) Hip pain, right (Acute) Low back pain (Acute) Bleeding hemorrhoids (Acute) Eczema (Acute) Elevated serum protein level (Acute) Fatigue (Acute) Trigger finger (Acute) left 5th Knee pain, left (Acute) Memory impairment (Acute) Elevated liver enzymes (Acute) Chronic sinusitis (Acute) Abnormal urinalysis (Acute) Biceps tendinitis of both shoulders (Acute) Left rotator cuff tear (Acute) Traumatic tear of right rotator cuff (Acute ~03/2018) Shoulder pain, right (Acute) Nasal sinus congestion (Acute) Skin cancer, basal cell (Acute) Decreased vision in both eyes (Acute) Double vision (Acute) Post-nasal drip (Acute) Rhinorrhea (Acute) Impacted cerumen of both ears (Acute) Neoplasm of unspecified behavior of bone, soft tissue, and skin (Acute) Inflamed sebaceous cyst (Acute) Polyp of colon (Acute) Bursitis of right shoulder (Chronic) Coronary atherosclerosis of [place] coronary vessel (Chronic 08/23/95) A) IN 05/30 B) 2 STENTS PLACED 06/12/06 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; parietal region-basal cell; 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 Maternal Grandfather , AGE 74 Heart disease Sister No problems noted. Son No problems noted. Daughter No problems noted. Daughter No problems noted. Social History Smoking/Tobacco Use Status: Former Tobacco Use Quit Date: 09/24/05 Tobacco: How many years used: 20 Second Hand Exposure: Yes Smoking risk assessment performed?: Yes Alcohol Intake: current Alcohol Intake frequency: a few times a month Alcohol type: wine Drug use: Never Substance use type: does not use Counseling given: No Caregiver/Support person: Yes Household members: spouse Housing: house Communication Needs: Hard of Hearing Do you need help understanding health information?: Rarely Pets and animals: No Sexually active: Yes Do you think of yourself as: straight/heterosexual Current gender identity: male What is your relationship status?: How often do you talk on the phone with friends or family?: decline to answer How often do you get together with friends or relatives?: decline to answer How often do you attend anabaptist or uatsdin services?: decline to answer Do you belong to any clubs or organized social groups?: no Panel score (0-1 are the most socially isolated patients): 1 What type of physical activity do you participate in: walking and other Details: rowing machine Duration: 30-45 minutes/day Frequency: daily Jennifer/Amish: No preference Special jennifer needs: No Seatbelt use: always Helmet use: Yes Helmet use: always Drive intox or ride w/intox delivery driver assistant: No Do you feel safe at home: Yes Do you feel safe in your relationship?: Yes
[2025-03-03 14:33] LABS: Lactate 1.3 mmol/L (<or=2.0)
[2025-03-03 14:37] LABS: ESR 16 mm/hr (0-20)
[2025-03-03 14:41] LABS: Abs Immature Grans 0.05 10^3/uL (0.0-0.06); HCT 27.7 % (40.0-50.0); HGB 8.9 g/dL (13.5-17.5); MCH 32.7 pg (27.0-33.0); MCHC 32.1 % (32.0-36.0); MCV 102 fL (80-95); MPV 9.4 fL (8.0-11.0); Platelet Count 214 10^3/uL (130-400); RBC 2.72 10^6/uL (4.36-5.78); RDW 16.9 % (11.8-14.1); RDW-SD 62.5 fL
[2025-03-03 14:55] LABS: C-Reactive Protein 1.16 mg/dL (<or=0.5); Lipase 61 U/L (<78)
[2025-03-03 14:59] LABS: ALT 21 U/L (16-63); AST 19 U/L (15-37); Albumin 2.9 g/dL (3.4-5.0); Alkaline Phosphatase 76 U/L (46-116); Anion Gap 6.8 mmol/L (3-11); BUN 22 mg/dL (7-18); Bilirubin, Total 0.6 mg/dL (0.2-1.0); CO2 27.2 mmol/L (21.0-32.0); CREATININE 0.8 mg/dL (0.70-1.30); Calcium 8.5 mg/dL (8.5-10.1); Chloride 106 mmol/L (98-107); Estimated GFR 89.47 (mL/min/1.73m2); Glucose 126 mg/dL (74-106); Magnesium 1.9 mg/dL (1.8-2.4); Potassium 4.4 mmol/L (3.5-5.1); Sodium 140 mmol/L (136-145); Total Protein 6.2 g/dL (6.4-8.2)
[2025-03-03 15:08] LABS: Procalcitonin < 0.10 ng/mL
--- NOTE | 2025-03-03 15:18 | DI.RAD_ITS ---
Exam(s) XR CHEST 2V PA LATERAL EXAM: XR CHEST 2V PA LATERAL CLINICAL HISTORY: neutropenia, chills TECHNIQUE: 2D digital imaging was performed of the chest. Two images were obtained. PA and lateral views were obtained. COMPARISON: CR XR PORTABLE CHEST AP from 06/23/2020 CR,XR XR CHEST 2V PA LATERAL from 07/04/2020 FINDINGS: MEDIASTINUM: Normal. HEART: Normal. PULMONARY VASCULATURE: Normal. LUNGS: No focal consolidating infiltrates are present. PLEURAL SPACE: No pleural effusion or pneumothorax. BONE:Within normal limits for the patient's age. OTHER FINDINGS:Normal. IMPRESSION: No acute pulmonary findings. DATA REPOSITORY: RADIATION DOSE DELIVERED:
[2025-03-03 15:21] LABS: Absolute Basophil Count 0.01 10^3/uL (0.0-0.2); Absolute Eosinophil Count 0.05 10^3/uL (0.0-0.7); Absolute Lymphocyte Count 0.46 10^3/uL (1.2-3.4); Absolute Monocyte Count 0.07 10^3/uL (0.1-0.8); Atypical Lymphocytes % 5 %; Bands % 3 %
[2025-03-03 15:22] LABS: Metamyelocytes % 5; RBC Morphology Normal
[2025-03-03 15:24] LABS: WBC 0.85 10^3/uL (4.4-10.8)
[2025-03-03 15:25] LABS: Absolute Neutrophil Count 0.22 10^3/uL (1.2-6.7); Diff Comment Manual Differential
--- NOTE | 2025-03-03 16:06 | W.EDPROG ---
Date of service: 03/03/25 Time of Service: 16:06 Medical Decision Making Care assumed from provider (CHRISTOPHER Wilson) Please see their initial HPI, PE, and documentation. Discussed patient details and case and pending workup and disposition. Patient is hemodynamically stable, and alert and oriented. At the time of signout awaiting [facility] consultation for neutropenia and subjective fever. Patient has a history of stage IV prostate cancer with mets to the bone, Crohn's disease hypertension and ND sent here from infusion center for the low white blood cell count. Currently his white blood cells are 0.85 hemoglobin 8.927 point absolute neutrophils is 0.22 Will discuss with [facility] antibiotic recommendations and transfer versus admission. Patient has been afebrile here throughout his stay thus far but does report subjective fever and chills throughout the week Patient reevaluation he is alert and orientated conversive sitting there with his family. He did mention that he skipped his Onpro injection on February 24 and that could have affected his white blood cell count. I will discuss this with the oncology team. He was also told by the infusion clinic that today would be the last day that he could receive this injection. He reports that he skipped it due to adverse effect of increased leg pain. 1715: Spoke with Dr. Vicki Wolfe with [facility] oncology regarding patient case in details she recommends 24-hour observation no prophylactic antibiotics at this time unless patient spikes a fever if there is development of fever then Levaquin or similar antibiotic. She does recommend that patient receive the PEGfilgrastim injection and okay to discharge after 24-hour observation if remains afebrile and the WBCs remain stable. Will contact Hospitalist. 1731: Upon discussion of the recommendations from [facility] hematology oncology and discussion of plan of care with patient and family patient is requesting to leave AGAINST MEDICAL ADVICE. I did discuss the risks versus benefits and the risks of going home he verbalizes understanding, he does not appear to be under the influence and can make his own decisions. I did report that if he does spike a fever that he should return to the emergency department he would have to start the process all over again he verbalizes understanding. I will have him sign out AGAINST MEDICAL ADVICE form. I did order the pegfilgrastim injection he agrees to stay until that is given here. Patient requesting to leave AMA. The patient appears clinically sober and is not under the influence of any known substances. Discussed risks and benefits with patient. Patient verbalizes understanding of situation and the risks of leaving including worsening condition, developing disability, including but not limited to . Discussed results of labs and imaging, if they were performed and recommendations for further treatment and/or observation. The patient verbalizes understanding of the results discussed. Every effort was made to involve family and situation discussed. At this time patient has opted to leave against medical advice. Patient is alert and oriented and has the capacity to make own decisions. 180: Informed by staff antisubmarine officer that patient has changed his mind and is willing to be admitted. I did confirm this with the patient and family he does agree to be admitted in observation for doing 4 hours. Will contact hospitalist. 1849: Spoke with Dr. Junior with hospitalist, he agrees to come and speak with patient in ED. Dr. Junior at bedside for patient evaluation. He agrees to accept patient for admission. Patient remained hemodynamically stable throughout the remainder of his stay. This text was generated using [email or web address] system, please disregard any oddities of phrase or misspellings. Medical Records Medical records reviewed: Yes I reviewed the patient's medical records. Lab Data Lab results reviewed: Yes I reviewed the patient's lab results. Labs: 03/03/25 16:50 Blood Blood Culture - Pending 03/03/25 14:22 Blood Blood Culture - Pending Laboratory Tests Range/Units 03/03/25 03/03/25 14:22 16:04 WBC (4.4-10.8) 10^3/uL 0.85 L* RBC (4.36-5.78) 10^6/uL 2.72 L Hgb (13.5-17.5) g/dL 8.9 L Hct (40.0-50.0) % 27.7 L MCV (80-95) fL 102 H MCH (27.0-33.0) pg 32.7 MCHC (32.0-36.0) % 32.1 RDW (11.8-14.1) % 16.9 H Plt Count (130-400) 10^3/uL 214 MPV (8.0-11.0) fL 9.4 Immature Gran % % 0.0 Neutrophils % % 23.0 Band Neutrophils % % 3 Lymphocytes % % 49.0 Atypical Lymphs % % 5 Monocytes % % 8.0 Eosinophils % % 6.0 Basophils % % 1.0 Metamyelocytes % 5 Nucleated RBC % (0.0-0.3) % 1.0 H Absolute Neutrophils (1.2-6.7) 10^3/uL 0.22 L* Absolute Lymphocytes (1.2-3.4) 10^3/uL 0.46 L Absolute Monocytes (0.1-0.8) 10^3/uL 0.07 L Absolute Eosinophils (0.0-0.7) 10^3/uL 0.05 Absolute Basophils (0.0-0.2) 10^3/uL 0.01 RBC Morphology Normal ESR (0-20) mm/hr 16 VBG Lactate (<or=2.0) mmol/L 1.3 Sodium (136-145) mmol/L 140 Potassium (3.5-5.1) mmol/L 4.4 Chloride (98-107) mmol/L 106 Carbon Dioxide (21.0-32.0) mmol/L 27.2 Anion Gap (3-11) mmol/L 6.8 BUN (7-18) mg/dL 22 H Creatinine (0.70-1.30) mg/dL 0.8 Est GFR (CKD-EPI 2020) (mL/min/1.73m2) 89.47 Glucose (74-106) mg/dL 126 H Calcium (8.5-10.1) mg/dL 8.5 Magnesium (1.8-2.4) mg/dL 1.9 Total Bilirubin (0.2-1.0) mg/dL 0.6 AST (15-37) U/L 19 ALT (16-63) U/L 21 Alkaline Phosphatase (46-116) U/L 76 C-Reactive Protein (<or=0.5) mg/dL 1.16 H Total Protein (6.4-8.2) g/dL 6.2 L Albumin (3.4-5.0) g/dL 2.9 L Lipase (<78) U/L 61 Procalcitonin ng/mL < 0.10 Urine Color (Yellow) Yellow Urine Clarity (Clear) Clear Urine pH (5-8) 6.5 Ur Specific [place] (1.005-1.025) 1.015 Urine Protein (Neg-Trace) mg/dL Negative Urine Ketones (Negative) mg/dL Negative Urine Blood (Negative) Negative Urine Nitrite (Negative) Negative Urine Bilirubin (Negative) Negative Urine Urobilinogen (Up to 0.2) mg/dL 0.2 Ur Leukocyte Esterase (Negative) Negative Urine Glucose (Negative) mg/dL Negative Quality:SDOH Health Related Social Needs: No Data to Display Discharge Plan Disposition Patient Disposition: Admit to [facility] Condition: Serious Discharge Details Clinical Impression: Neutropenia Primary Care Provider: Darren Barbour ED Provider: Sally Yusuf Home Meds and New Rx's Prescriptions: Continued sildenafil (pulm.hypertension) 20 mg tablet 20 mg PO As Directed MDD 100 mg Qty: 30 4RF Rx Instructions: 2-5 tabs two hours before intercourse lisinopril 10 mg tablet 10 mg PO DAILY Qty: 90 3RF dexamethasone sodium phosphate 4 mg/mL solution 4 mg IV .COMPLEX Rx Instructions: 4 mg intravenously For Chemotherapy Cycles; famotidine 10 mg/mL solution 10 mg IV ONCE Rx Instructions: as a single dose: Chemotherapy treatment diphenhydramine HCl 50 mg/mL solution 25 mg IV QHS PRN Rx Instructions: may repeat once in 30-60 minutes if not effective docetaxel 80 mg/8 mL (Final) solution 140 mg IV .COMPLEX Rx Instructions: 140 mg intravenously Chemotherapy Cycles; Neulasta 6 mg/0.6 mL syringe 6 mg subcut ONCE Rx Instructions: as a single dose: Chemotherapy Cycles loratadine [Claritin] 10 mg tablet 10 mg PO BID Rx Instructions: 12/30/[address] Barbour. See task. -hb simvastatin 40 mg tablet 40 mg PO HS Qty: 90 3RF prochlorperazine maleate 10 mg tablet 10 mg PO DAILY Nubeqa 300 mg tablet 600 mg PO BID
[2025-03-03 16:10] LABS: Bilirubin Negative (Negative); Blood Negative (Negative); Clarity Clear (Clear); Glucose Negative (Negative); Ketones Negative (Negative); Leukocyte Esterase Negative (Negative); Nitrite Negative (Negative); Specific Gravity 1.015 (1.005-1.025); Urobilinogen 0.2 mg/dL (Up to 0.2); pH 6.5 (5-8)
--- NOTE | 2025-03-03 19:32 | W.PM.HP.N ---
Date of service: 03/03/25 Time of Service: 19:32 Assessment and Plan Assessment and plan (1) Neutropenia: Status: Acute Assessment and plan: monitor vitals overnight and recheck labs in am blood cultures pending (2) Prostate cancer: Assessment and plan: cw rx as outlined by oncology team (3) Metastatic cancer to bone: Assessment and plan: as above dvtp will add lovenox 2/2 hypercoagulable state with cancer History of Present Illness History of Present Illness Chief Complaint: subjective fever Narrative: This is an 79-year-old gentleman with a known history of prostate cancer presents to the ED with a subjective history of fever. While he was in the ED a consultation to [facility] oncology was placed and recommendation was made to keep the patient overnight for evaluation. The patient is actively being treated for cancer stage IV with mets to his bones. Patient originally was going to leave AGAINST MEDICAL ADVICE but his convinced him to stay and he was subsequently admitted to the hospital service for further evaluation and treatment patient states that he did miss his recent on pro injection due to bilateral lower extremity pain. Per the evaluation by oncology no antibiotics were requested at this time. Patient denies any recent cough, dysuria, polyuria, muscle aches. PFSH All Active Problems (Updated 03/03/25 @ 17:35 by Sally Yusuf NP) Neutropenia (Acute) Onychomycosis (Acute) Lytic bone lesion of femur (Acute) Dieulafoy lesion of ileum (Acute) Hip pain, right (Acute) Low back pain (Acute) Bleeding hemorrhoids (Acute) Eczema (Acute) Elevated serum protein level (Acute) Fatigue (Acute) Trigger finger (Acute) left 5th Knee pain, left (Acute) Memory impairment (Acute) Elevated liver enzymes (Acute) Chronic sinusitis (Acute) Abnormal urinalysis (Acute) Biceps tendinitis of both shoulders (Acute) Left rotator cuff tear (Acute) Traumatic tear of right rotator cuff (Acute ~03/2018) Shoulder pain, right (Acute) Nasal sinus congestion (Acute) Skin cancer, basal cell (Acute) Decreased vision in both eyes (Acute) Double vision (Acute) Post-nasal drip (Acute) Rhinorrhea (Acute) Impacted cerumen of both ears (Acute) Neoplasm of unspecified behavior of bone, soft tissue, and skin (Acute) Inflamed sebaceous cyst (Acute) Polyp of colon (Acute) Bursitis of right shoulder (Chronic) Coronary atherosclerosis of [place] coronary vessel (Chronic 08/23/95) A) PA 05/30 B) 2 STENTS PLACED 06/12/06 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; parietal region-basal cell; 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 Maternal Grandfather , AGE 74 Heart disease Sister No problems noted. Son No problems noted. Daughter No problems noted. Daughter No problems noted. Social History Smoking/Tobacco Use Status: Former Tobacco Use Quit Date: 09/24/05 Tobacco: How many years used: 20 Second Hand Exposure: Yes Smoking risk assessment performed?: Yes Alcohol Intake: current Alcohol Intake frequency: a few times a month Alcohol type: wine Drug use: Never Substance use type: does not use Counseling given: No Caregiver/Support person: Yes Household members: spouse Housing: house Communication Needs: Hard of Hearing Do you need help understanding health information?: Rarely Pets and animals: No Sexually active: Yes Do you think of yourself as: straight/heterosexual Current gender identity: male What is your relationship status?: How often do you talk on the phone with friends or family?: decline to answer How often do you get together with friends or relatives?: decline to answer How often do you attend christian or buddhism services?: decline to answer Do you belong to any clubs or organized social groups?: no Panel score (0-1 are the most socially isolated patients): 1 What type of physical activity do you participate in: walking and other Details: rowing machine Duration: 30-45 minutes/day Frequency: daily Jennifer/Rastafari: No preference Special jennifer needs: No Seatbelt use: always Helmet use: Yes Helmet use: always Drive intox 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 Do you feel safe at home: Yes Do you feel safe in your relationship?: Yes Meds Allergies and Home Medications Allergies Allergy/AdvReac Type Severity Reaction Status Date / Time cetirizine HCl (From Zyrtec) Allergy Intermediate Hives Verified 03/03/25 13:23 atorvastatin AdvReac Severe joint pains Verified 03/03/25 13:23 hydrocortisone (From AdvReac Mild Hives Verified 03/03/25 13:23 Hydrocortone Acetate) Home Medications ?Medication ?Instructions ?Recorded ?Confirmed ?Type lisinopril 10 mg tablet 10 mg PO DAILY #90 tabs 12/04/23 03/03/25 Rx sildenafil (pulm.hypertension) 20 20 mg PO As Directed #30 tabs 01/30/24 03/03/25 Rx mg tablet dexamethasone sodium phosphate 4 4 mg IV .COMPLEX 12/24/24 03/03/25 History mg/mL injection solution diphenhydramine HCl 50 mg/mL 25 mg IV QHS PRN 12/24/24 03/03/25 History injection solution docetaxel 80 mg/8 mL (Final Conc.) 140 mg IV .COMPLEX 12/24/24 03/03/25 History intravenous solution famotidine 10 mg/mL intravenous 10 mg IV ONCE 12/24/24 03/03/25 History solution pegfilgrastim 6 mg/0.6 mL 6 mg subcut ONCE 12/24/24 03/03/25 History subcutaneous syringe (Neulasta) darolutamide 300 mg tablet (Nubeqa) 600 mg PO BID Cancer 12/25/24 03/03/25 History prochlorperazine maleate 10 mg 10 mg PO DAILY 12/25/24 03/03/25 History tablet loratadine 10 mg tablet (Claritin) 10 mg PO BID 12/30/24 03/03/25 History simvastatin 40 mg tablet 40 mg PO HS #90 tabs 01/07/25 03/03/25 Rx Exam Narrative Exam Narrative: HEENT-normocephalic atraumatic mucous membranes moist oropharynx clear extract motions are intact Neck-no lymphadenopathy no JVD no thyromegaly Cardiovascular-regular rate and rhythm no murmur rubs or gallops Lungs-he does have bilateral expiratory wheeze in the lower bases bilaterally Abdomen-soft nontender nondistended bowel sounds active Extremity-no sinus clubbing or edema Neurologic-cranial nerves II through XII are intact as tested reflexes in all extremities normal as tested Psych-alert and oriented x 3 can give a linear history Results Labs 03/03/25 14:22 03/03/25 14:22 Labs: Laboratory Results - last 24 hr 03/03/25 03/03/25 14:22 16:04 WBC 0.85 L* RBC 2.72 L Hgb 8.9 L Hct 27.7 L MCV 102 H MCH 32.7 MCHC 32.1 RDW 16.9 H Plt Count 214 MPV 9.4 Immature Gran % 0.0 Neutrophils % 23.0 Band Neutrophils % 3 Lymphocytes % 49.0 Atypical Lymphs % 5 Monocytes % 8.0 Eosinophils % 6.0 Basophils % 1.0 Metamyelocytes % 5 Nucleated RBC % 1.0 H Absolute Neutrophils 0.22 L* Absolute Lymphocytes 0.46 L Absolute Monocytes 0.07 L Absolute Eosinophils 0.05 Absolute Basophils 0.01 RBC Morphology Normal ESR 16 VBG Lactate 1.3 Sodium 140 Potassium 4.4 Chloride 106 Carbon Dioxide 27.2 Anion Gap 6.8 BUN 22 H Creatinine 0.8 Est GFR (CKD-EPI 2020) 89.47 Glucose 126 H Calcium 8.5 Magnesium 1.9 Total Bilirubin 0.6 AST 19 ALT 21 Alkaline Phosphatase 76 C-Reactive Protein 1.16 H Total Protein 6.2 L Albumin 2.9 L Lipase 61 Procalcitonin < 0.10 Urine Color Yellow Urine Clarity Clear Urine pH 6.5 Ur Specific [place] 1.015 Urine Protein Negative Urine Ketones Negative Urine Blood Negative Urine Nitrite Negative Urine Bilirubin Negative Urine Urobilinogen 0.2 Ur Leukocyte Esterase Negative Urine Glucose Negative Last Vital Signs Temp 36.7 C 03/03/25 13:25 Pulse 82 03/03/25 13:25 Resp 18 03/03/25 13:25 BP 122/64 03/03/25 13:25 Pulse Ox 97 03/03/25 13:25 Time Spent Time spent with Patient: 40-54 minutes Time was spent: preparing to see the patient(eg.review tests), obtaining and/or reviewing separately otained hiistory, ordering medications,tests, procedures, referring, communicating with other health managed care nurse, indepentently interpreting results, counseling the patient and care coordination
--- NOTE | 2025-03-03 20:55 | W.PC.ACHO ---
Registration Status: Primary Language: Preferred Language: ED Information & Data Chief Complaint GenMedical 03/03/25 15:47 Triage Note pt sent from infusion center 03/03/25 13:20 for low white blood cell count Medical / Surgical History (Last Reviewed 12/25/24 @ 22:40 by Nelson King MD) Hypercholesterolemia Essential hypertension (08/31/16) Crohn's disease Metastatic cancer to bone Prostate cancer Palliative care patient Herpes zoster Myocardial infarction (08/23/05) (Last Reviewed 12/25/24 @ 22:40 by Nelson King MD) History of colonoscopy History of intravascular stent placement History of surgical removal of lesion Status post carpal tunnel release Status post cholecystectomy Status post vasectomy Most Recent Vital Signs Temperature 36.7 C 03/03/25 13:25 Pulse 82 03/03/25 13:25 Respiratory Rate 18 03/03/25 13:25 Blood Pressure 122/64 03/03/25 13:25 Pulse Oximetry 97 03/03/25 13:25 Oxygen Delivery Method Room Air 03/03/25 13:25 Oxygen Flow Rate 0 03/03/25 13:25 Pain Level 2 03/03/25 13:25 Comment legs 03/03/25 13:25 Allergies cetirizine HCl (From Zyrtec) Allergy (Intermediate, Verified 03/03/25 13:23) Hives Seen in the ER for a minor allergic rxn. atorvastatin Adverse Reaction (Severe, Verified 03/03/25 13:23) joint pains hydrocortisone (From Hydrocortone Acetate) Adverse Reaction (Mild, Verified 03/03/25 13:23) Hives IV IV Catheter Type [Left Saline Lock Antecubital] IV Catheter Gauge [Left 18 Antecubital] Diet Orders Category Date Time Status Regular/Normal [DIET] Nutrition 03/03/25 Dinner Active Diagnostics 03/03/25 03/03/25 Range/Units 16:04 14:22 WBC 0.85 L* (4.4-10.8) 10^3/uL RBC 2.72 L (4.36-5.78) 10^6/uL Hgb 8.9 L (13.5-17.5) g/dL Hct 27.7 L (40.0-50.0) % MCV 102 H (80-95) fL MCH 32.7 (27.0-33.0) pg MCHC 32.1 (32.0-36.0) % RDW 16.9 H (11.8-14.1) % Plt Count 214 (130-400) 10^3/uL MPV 9.4 (8.0-11.0) fL Immature Gran % 0.0 % Neutrophils % 23.0 % Band Neutrophils % 3 % Lymphocytes % 49.0 % Atypical Lymphs % 5 % Monocytes % 8.0 % Eosinophils % 6.0 % Basophils % 1.0 % Metamyelocytes % 5 Nucleated RBC % 1.0 H (0.0-0.3) % Absolute Neutrophils 0.22 L* (1.2-6.7) 10^3/uL Absolute Lymphocytes 0.46 L (1.2-3.4) 10^3/uL Absolute Monocytes 0.07 L (0.1-0.8) 10^3/uL Absolute Eosinophils 0.05 (0.0-0.7) 10^3/uL Absolute Basophils 0.01 (0.0-0.2) 10^3/uL RBC Morphology Normal ESR 16 (0-20) mm/hr VBG Lactate 1.3 (<or=2.0) mmol/L Sodium 140 (136-145) mmol/L Potassium 4.4 (3.5-5.1) mmol/L Chloride 106 (98-107) mmol/L Carbon Dioxide 27.2 (21.0-32.0) mmol/L Anion Gap 6.8 (3-11) mmol/L BUN 22 H (7-18) mg/dL Creatinine 0.8 (0.70-1.30) mg/dL Est GFR (CKD-EPI 2020) 89.47 (mL/min/1.73m2) Glucose 126 H (74-106) mg/dL Calcium 8.5 (8.5-10.1) mg/dL Magnesium 1.9 (1.8-2.4) mg/dL Total Bilirubin 0.6 (0.2-1.0) mg/dL AST 19 (15-37) U/L ALT 21 (16-63) U/L Alkaline Phosphatase 76 (46-116) U/L C-Reactive Protein 1.16 H (<or=0.5) mg/dL Total Protein 6.2 L (6.4-8.2) g/dL Albumin 2.9 L (3.4-5.0) g/dL Lipase 61 (<78) U/L Procalcitonin < 0.10 ng/mL Urine Color Yellow (Yellow) Urine Clarity Clear (Clear) Urine pH 6.5 (5-8) Ur Specific [place] 1.015 (1.005-1.025) Urine Protein Negative (Neg-Trace) mg/dL Urine Ketones Negative (Negative) mg/dL Urine Blood Negative (Negative) Urine Nitrite Negative (Negative) Urine Bilirubin Negative (Negative) Urine Urobilinogen 0.2 (Up to 0.2) mg/dL Ur Leukocyte Esterase Negative (Negative) Urine Glucose Negative (Negative) mg/dL 03/03/25 16:50 Blood Culture - Pending Blood 03/03/25 14:22 Blood Culture - Pending Blood Intake and Output - 24 Hour Total 03/03/25 13:17 thru 03/03/25 19:15 Output Total 300 Balance -300 Weight 73.482 kg Output: Urine 300 Other: # Voids 1 Falls Risk Assessment History of Falls No History 03/03/25 13:25 Contributing Factors No Factors 03/03/25 13:25 Ambulatory Aids Independent 03/03/25 13:25 Tubes/Lines None 03/03/25 13:25 Gait Evaluation No gait disturbance 03/03/25 13:25 Cognition No cognitive impairment 03/03/25 13:25 Fall Total Score 0 03/03/25 13:25 Level of Risk Standard/Low Risk 03/03/25 13:25 Problems (Last Reviewed 12/25/24 @ 22:40 by Nelson King MD) Neutropenia (Acute) v v v v v v v v v Sending and/or Receiving Nurses: Please use comment section below to note any information pertinent to the patient hand-off not included above. Information / Comments:Cold chills past ten days, sm bruise rt arm. [facility] through [facility]. Neutropenic preacautions.Hx of stage 4 prostate cancer mets to bones. Observe for the evening remaining afebrile if temp increase, pt. requires ABX therapy Report received fROM: CLIFFORD Bravo @ 2034, being admit to 218 03/03/25.
[2025-03-03] MEDS: Acetaminophen 325 MG TAB PO (22:28)
[2025-03-03] MEDS: Simvastatin 40 MG TAB PO (22:28)
[2025-03-03] MEDS: Enoxaparin 40 MG/0.4 ML SYR SC (22:32)
[2025-03-04 03:26] VITALS: BP 92/53; PULSE 78; RESP 19; TEMP 36.8; O2SAT 96
[2025-03-04 06:33] LABS: Abs Immature Grans 0.02 10^3/uL (0.0-0.06); Absolute Basophil Count 0.03 10^3/uL (0.0-0.2); Absolute Eosinophil Count 0.05 10^3/uL (0.0-0.7); Absolute Lymphocyte Count 0.53 10^3/uL (1.2-3.4); Absolute Monocyte Count 0.08 10^3/uL (0.1-0.8); Absolute Neutrophil Count 0.76 10^3/uL (1.2-6.7); Eosinophils % 3.4 %; HCT 28.1 % (40.0-50.0); HGB 8.8 g/dL (13.5-17.5); Immature Grans % 1.4 %; Lymphocytes % 36.1 %; MCH 31.9 pg (27.0-33.0); MCHC 31.3 % (32.0-36.0); MCV 102 fL (80-95); MPV 9.3 fL (8.0-11.0); Monocytes % 5.4 %; Neutrophils % 51.7 %; Platelet Count 216 10^3/uL (130-400); RBC 2.76 10^6/uL (4.36-5.78); RDW 16.7 % (11.8-14.1); RDW-SD 61.8 fL
[2025-03-04 07:15] LABS: ALT 21 U/L (16-63); AST 19 U/L (15-37); Albumin 2.7 g/dL (3.4-5.0); Alkaline Phosphatase 72 U/L (46-116); Anion Gap 9.9 mmol/L (3-11); BUN 17 mg/dL (7-18); Bilirubin, Total 0.5 mg/dL (0.2-1.0); CO2 24.1 mmol/L (21.0-32.0); CREATININE 0.8 mg/dL (0.70-1.30); Calcium 8.4 mg/dL (8.5-10.1); Chloride 107 mmol/L (98-107); Estimated GFR 89.47 (mL/min/1.73m2); Glucose 154 mg/dL (74-106); Potassium 4.1 mmol/L (3.5-5.1); Sodium 141 mmol/L (136-145); Total Protein 5.8 g/dL (6.4-8.2)
[2025-03-04 07:21] VITALS: BP 103/61; PULSE 84; RESP 14; TEMP 36.4; O2SAT 96
[2025-03-04] MEDS: Lisinopril 10 MG TAB PO (07:51)
[2025-03-04] MEDS: Acetaminophen 325 MG TAB PO (07:51)
[2025-03-04 08:04] LABS: WBC 1.47 10^3/uL (4.4-10.8)
--- NOTE | 2025-03-04 09:36 | DSE_ITS ---
Date of service: 03/04/25 Time of Service: 09:37 DS: Diagnosis Discharge Diagnosis (1) Neutropenia: Status: Acute (2) Prostate cancer: (3) Metastatic cancer to bone: Discharge Plan Disposition Patient Disposition: Home Condition: Good Discharge Details Reason For Visit: Subjective Fever Admit Date/Time: 03/03/25 19:30 Admit Provider: Nelson Junior Attending Provider: Nelson Junior Primary Care Provider: Darren Barbour Hospital Course Hospital Course: Patient initially presented to the hospital due to concerns for subjective fever and neutropenia. No source of infection was found nor did patient have any complaints that would indicate source of infection. While in the emergency department oncology was consulted and they recommended observing the patient overnight and initiating antibiotics if the fever developed, otherwise patient would be able to discharge home. While in the emergency department and during inpatient stay patient remained afebrile and was thus determined to be stable for discharge home with close follow-up with his oncologist. Home Meds and New Rx's Prescriptions: Continued sildenafil (pulm.hypertension) 20 mg tablet 20 mg PO As Directed MDD 100 mg Qty: 30 4RF Rx Instructions: 2-5 tabs two hours before intercourse lisinopril 10 mg tablet 10 mg PO DAILY Qty: 90 3RF dexamethasone sodium phosphate 4 mg/mL solution 4 mg IV .COMPLEX Rx Instructions: 4 mg intravenously For Chemotherapy Cycles; famotidine 10 mg/mL solution 10 mg IV ONCE Rx Instructions: as a single dose: Chemotherapy treatment diphenhydramine HCl 50 mg/mL solution 25 mg IV QHS PRN Rx Instructions: may repeat once in 30-60 minutes if not effective docetaxel 80 mg/8 mL (Final) solution 140 mg IV .COMPLEX Rx Instructions: 140 mg intravenously Chemotherapy Cycles; Neulasta 6 mg/0.6 mL syringe 6 mg subcut ONCE Rx Instructions: as a single dose: Chemotherapy Cycles loratadine [Claritin] 10 mg tablet 10 mg PO BID Rx Instructions: 12/30/[address] Barbour. See task. -hb simvastatin 40 mg tablet 40 mg PO HS Qty: 90 3RF prochlorperazine maleate 10 mg tablet 10 mg PO DAILY Nubeqa 300 mg tablet 600 mg PO BID Discharge Instructions Instructions: Neutropenia and fever in people being treated for cancer, Low- bacteria diet Additional Instructions: At this time you have opted to leave AGAINST MEDICAL ADVICE. It was recommended by the [facility] oncology on-call physician that you be observed in the hospital for the next 24 hours. Please check your temperature frequently while at home. If you do spike a fever please return to the hospital. Please understand that leaving AGAINST MEDICAL ADVICE could cause you her condition to deteriorate including up to disability and/or . You were given an injection of pegfilgrastim today prior to discharge. Please discuss this with your oncology team. Thank you for allowing us to care for you today. Please return if you change your mind. Follow up with primary care provider in 3-5 days. Return to ED sooner if any worsening fever, vomiting or concerns. Referrals: Darren Barbour MD [Primary Care Provider] - 3 days Activity:: Activity as Tolerated Equipment/Supplies:: No Equipment Needed Diet:: As Tolerated Discharge Orders Discharge Orders: Discharge Order (Routine); Ordered 03/04/25 Ordered By: Blade Segal DS: Summary Time Spent with Patient providing and/or coordinating discharge services: Greater than 30 minutes Status at Discharge Functional status at discharge: independent ambulation Overall status at discharge: patient is back to baseline Mental Status: mental status grossly normal Speech and Movement: speech and movement normal Mood: congruent mood Affect: normal affect Quality:SDOH Health Related Social Needs: No Data to Display Exam Narrative Exam Narrative: Well-appearing gentleman sitting up in the bed in no acute distress, ANO x 4, heart regular rhythm, lungs good auscultation bilaterally, abdomen soft, nontender, nondistended Psych Mental Status: mental status grossly normal Speech and Movement: speech and movement normal Mood: congruent mood Affect: normal affect DS: Data Vitals/I&O Vitals and I&O: Vital Signs Temperature 97.5 F L 03/04/25 07:21 Temperature Source Tympanic 03/04/25 07:21 Pulse 84 03/04/25 07:21 Pulse Rhythm Regular 03/03/25 21:27 Pulse 81 03/03/25 20:50 Respiratory Rate 14 03/04/25 07:21 Respiratory Effort Normal 03/03/25 21:27 Respiratory Depth Normal 03/03/25 21:27 Respiratory Pattern Normal 03/03/25 21:27 Blood Pressure 103/61 03/04/25 07:21 Blood Pressure Mean 75 03/04/25 07:21 Pulse Oximetry 96 03/04/25 07:21 Oxygen Delivery Method Room Air 03/04/25 07:21 Oxygen Flow Rate 0 03/04/25 07:21 Pain Level 2 03/04/25 07:21 Comment nurse notified 03/04/25 03:26 Intake & Output 03/03/25 03/04/25 03/04/25 17:59 05:59 17:59 Intake Total 260 / 260 Output Total 300 / 300 Balance -40 / -40 Weight 162 lb 162 lb 14.746 oz Intake: IV Oral 250 / 250 Output: Urine 300 / 300 Other: # Voids 1 Data Completed and Pending Labs on day of discharge: Labs from last 24 hours 03/04/25 03/03/25 03/03/25 06:24 16:04 14:22 WBC 1.47 L* 0.85 L* RBC 2.76 L 2.72 L Hgb 8.8 L 8.9 L Hct 28.1 L 27.7 L MCV 102 H 102 H MCH 31.9 32.7 MCHC 31.3 L 32.1 RDW 16.7 H 16.9 H Plt Count 216 214 MPV 9.3 9.4 Immature Gran % 1.4 0.0 Neutrophils % 51.7 23.0 Band Neutrophils % 3 Lymphocytes % 36.1 49.0 Atypical Lymphs % 5 Monocytes % 5.4 8.0 Eosinophils % 3.4 6.0 Basophils % 2.0 1.0 Metamyelocytes % 5 Nucleated RBC % 0.0 1.0 H Absolute Neutrophils 0.76 L 0.22 L* Absolute Lymphocytes 0.53 L 0.46 L Absolute Monocytes 0.08 L 0.07 L Absolute Eosinophils 0.05 0.05 Absolute Basophils 0.03 0.01 RBC Morphology Normal ESR 16 VBG Lactate 1.3 Sodium 141 140 Potassium 4.1 4.4 Chloride 107 106 Carbon Dioxide 24.1 27.2 Anion Gap 9.9 6.8 BUN 17 22 H Creatinine 0.8 0.8 Est GFR (CKD-EPI 2020) 89.47 89.47 Glucose 154 H 126 H Calcium 8.4 L 8.5 Magnesium 1.9 Total Bilirubin 0.5 0.6 AST 19 19 ALT 21 21 Alkaline Phosphatase 72 76 C-Reactive Protein 1.16 H Total Protein 5.8 L 6.2 L Albumin 2.7 L 2.9 L Lipase 61 Procalcitonin < 0.10 Urine Color Yellow Urine Clarity Clear Urine pH 6.5 Ur Specific [place] 1.015 Urine Protein Negative Urine Ketones Negative Urine Blood Negative Urine Nitrite Negative Urine Bilirubin Negative Urine Urobilinogen 0.2 Ur Leukocyte Esterase Negative Urine Glucose Negative 03/03/25 16:50 Blood Blood Culture - Pending 03/03/25 14:22 Blood Blood Culture - Pending Preliminary micro results at discharge 03/03/25 16:50 Blood Blood Culture - Pending 03/03/25 14:22 Blood Blood Culture - Pending [facility] All Active Problems (Updated 03/03/25 @ 17:35 by Sally Yusuf NP) Neutropenia (Acute) Onychomycosis (Acute) Lytic bone lesion of femur (Acute) [place]ulafoy lesion of ileum (Acute) Hip pain, right (Acute) Low back pain (Acute) Bleeding hemorrhoids (Acute) Eczema (Acute) Elevated serum protein level (Acute) Fatigue (Acute) Trigger finger (Acute) left 5th Knee pain, left (Acute) Memory impairment (Acute) Elevated liver enzymes (Acute) Chronic sinusitis (Acute) Abnormal urinalysis (Acute) Biceps tendinitis of both shoulders (Acute) Left rotator cuff tear (Acute) Traumatic tear of right rotator cuff (Acute ~03/2018) Shoulder pain, right (Acute) Nasal sinus congestion (Acute) Skin cancer, basal cell (Acute) Decreased vision in both eyes (Acute) Double vision (Acute) Post-nasal drip (Acute) Rhinorrhea (Acute) Impacted cerumen of both ears (Acute) Neoplasm of unspecified behavior of bone, soft tissue, and skin (Acute) Inflamed sebaceous cyst (Acute) Polyp of colon (Acute) Bursitis of right shoulder (Chronic) Coronary atherosclerosis of [place] coronary vessel (Chronic 08/23/95) A) MD 05/30 B) 2 STENTS PLACED 06/12/06 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; parietal region-basal cell; 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 Maternal Grandfather , AGE 74 Heart disease Sister No problems noted. Son No problems noted. Daughter No problems noted. Daughter No problems noted. Social History Smoking/Tobacco Use Status: Former Tobacco Use Quit Date: 09/24/05 Tobacco: How many years used: 20 Second Hand Exposure: Yes Smoking risk assessment performed?: Yes Alcohol Intake: current Alcohol Intake frequency: a few times a month Alcohol type: wine Drug use: Never Substance use type: does not use Counseling given: No Caregiver/Support person: Yes Household members: spouse Housing: house Communication Needs: Hard of Hearing Do you need help understanding health information?: Rarely Pets and animals: No Sexually active: Yes Do you think of yourself as: straight/heterosexual Current gender identity: male What is your relationship status?: How often do you talk on the phone with friends or family?: decline to answer How often do you get together with friends or relatives?: decline to answer How often do you attend scientologist or mormonism services?: decline to answer Do you belong to any clubs or organized social groups?: no Panel score (0-1 are the most socially isolated patients): 1 What type of physical activity do you participate in: walking and other Details: rowing machine Duration: 30-45 minutes/day Frequency: daily Jennifer/Gnosticism: No preference Special jennifer needs: No Seatbelt use: always Helmet use: Yes Helmet use: always Drive 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
--- NOTE | 2025-03-04 11:34 | PDOC.CMPRO ---
Date of service: 03/04/25 Time of Service: 11:34 Care Management Progress Note Progress Note Text Progress Note Text: Anthony was sent to the ED yesterday afternoon from the cancer center with leukopenia/absolute neutropenia of a profound nature. Anhtony is currently receiving chemo for stage IV prostate cancer. He did have c/o 10 days of chills after his last infusion. CBC showed WBCs at 0.85. Anthony was afebrile overnight and chose to leave against medical advise this morning. Anthony and his are independent in the community and denied the need for any community supports. Discharge Potential Discharge Needs: PCP F/U Appt and Other (oncology follow up) Anticipated Barriers to Discharge: None Identified Patient/Family Education Needs: Review discharge instructions, discuss Ask Me Three Transportation: Private vehicle Plan: Anthony was discharged home this morning against medical advice. He will f/u with his PCP on 03/05 and with his oncologist, and continue per his plan of care. Anthony was driven home by his . Social Determinants of Health Screening Will the Patient Participate in the Screening?: Declined to provide
== END 2025-03-04 10:06 | disposition home or self-care (01) ==
LOC: ER 19:13 → MS 21:18
PROVIDERS: Physician Assistant; Admitting Provider Hospitalist; Emergency Provider Registered Nurse Emergency; PCP Family Medicine; Responsible Provider Family Medicine; Visit Provider Hospitalist
DX: D70.9 Neutropenia, unspecified (principal); C61 Malignant neoplasm of prostate; C79.51 Secondary malignant neoplasm of bone; Z79.899 Other long term (current) drug therapy; B35.1 Tinea unguium; K63.81 Dieulafoy lesion of intestine; R41.3 Other amnesia; J32.9 Chronic sinusitis, unspecified; E78.00 Pure hypercholesterolemia, unspecified; I10 Essential (primary) hypertension; I25.2 Old myocardial infarction; Z87.891 Personal history of nicotine dependence; D68.69 Other thrombophilia
CPT/HCPCS: 00123; 36415; 80053; 83690; 84145; 85652; 87040; 96372; 99285; J1650; 71046; 81003; 83605; 83735; 85025; 86140; 99222; 99239; G0378; Q5108

== ENCOUNTER 2025-03-17 03:03 | Outpatient (CLI) | payer MEDICARE, SELFPAY ==
[2025-03-17 09:23] LABS: Abs Immature Grans 0.07 10^3/uL (0.0-0.06); Absolute Basophil Count 0.01 10^3/uL (0.0-0.2); Absolute Lymphocyte Count 0.74 10^3/uL (1.2-3.4); Absolute Monocyte Count 0.79 10^3/uL (0.1-0.8); Basophils % 0.1 %; HCT 28.8 % (40.0-50.0); HGB 9.3 g/dL (13.5-17.5); Immature Grans % 0.6 %; Lymphocytes % 6.2 %; MCH 32.4 pg (27.0-33.0); MCHC 32.3 % (32.0-36.0); MCV 100 fL (80-95); MPV 8.8 fL (8.0-11.0); Monocytes % 6.6 %; Neutrophils % 86.5 %; Platelet Count 302 10^3/uL (130-400); RBC 2.87 10^6/uL (4.36-5.78); RDW 17.7 % (11.8-14.1); WBC 11.97 10^3/uL (4.4-10.8)
[2025-03-17 09:26] LABS: Absolute Neutrophil Count 10.35 10^3/uL (1.2-6.7)
[2025-03-17 10:16] LABS: ALT 21 U/L (16-63); AST 13 U/L (15-37); Albumin 3.4 g/dL (3.4-5.0); Alkaline Phosphatase 102 U/L (46-116); Anion Gap 10.8 mmol/L (3-11); BUN 31 mg/dL (7-18); Bilirubin, Total 0.3 mg/dL (0.2-1.0); CO2 23.2 mmol/L (21.0-32.0); CREATININE 0.9 mg/dL (0.70-1.30); Chloride 105 mmol/L (98-107); Estimated GFR 86.34 (mL/min/1.73m2); Glucose 128 mg/dL (74-106); Potassium 4.6 mmol/L (3.5-5.1); Sodium 139 mmol/L (136-145); Total Protein 6.8 g/dL (6.4-8.2)
[2025-03-19 09:50] LABS: PSA, Ultrasensitive 0.36 ng/mL (<= 7.2)
[2025-03-25 08:46] LABS: Testosterone, Total <7.0 ng/dL (240-950)
== END 2025-03-17 03:04 | disposition home or self-care (01) ==
PROVIDERS: PCP Family Medicine; Visit Provider Nurse Practitioner
DX: C61 Malignant neoplasm of prostate (principal); C79.51 Secondary malignant neoplasm of bone
CPT/HCPCS: 36415; 80053; 84153; 84403; 85025

== ENCOUNTER 2025-04-07 03:38 | Outpatient (CLI) | payer MEDICARE, SELFPAY ==
[2025-04-07 09:24] LABS: Abs Immature Grans 0.01 10^3/uL (0.0-0.06); HCT 34.6 % (40.0-50.0); HGB 11.2 g/dL (13.5-17.5); Immature Grans % 0.2 %; MCH 33.7 pg (27.0-33.0); MCHC 32.4 % (32.0-36.0); MCV 104 fL (80-95); MPV 8.6 fL (8.0-11.0); Platelet Count 271 10^3/uL (130-400); RBC 3.32 10^6/uL (4.36-5.78); RDW 16.4 % (11.8-14.1); RDW-SD 62.6 fL; WBC 4.05 10^3/uL (4.4-10.8)
[2025-04-07 09:52] LABS: ALT 23 U/L (16-63); AST 17 U/L (15-37); Albumin 3.5 g/dL (3.4-5.0); Alkaline Phosphatase 90 U/L (46-116); Anion Gap 11.0 mmol/L (3-11); BUN 21 mg/dL (7-18); Bilirubin, Total 0.5 mg/dL (0.2-1.0); CO2 24.0 mmol/L (21.0-32.0); Calcium 9.2 mg/dL (8.5-10.1); Chloride 106 mmol/L (98-107); Estimated GFR 89.47 (mL/min/1.73m2); Glucose 140 mg/dL (74-106); Potassium 4.3 mmol/L (3.5-5.1); Sodium 141 mmol/L (136-145); Total Protein 7.1 g/dL (6.4-8.2)
== END 2025-04-07 03:39 | disposition home or self-care (01) ==
PROVIDERS: PCP Family Medicine; Visit Provider Nurse Practitioner
DX: C61 Malignant neoplasm of prostate (principal); C79.51 Secondary malignant neoplasm of bone
CPT/HCPCS: 36415; 80053; 84153; 84403; 85025

== ENCOUNTER 2025-05-20 02:27 | Outpatient (CLI) | payer MEDICARE, SELFPAY ==
[2025-05-20 10:20] LABS: Abs Immature Grans 0.01 10^3/uL (0.0-0.06); HCT 36.9 % (40.0-50.0); HGB 12.3 g/dL (13.5-17.5); Immature Grans % 0.2 %; MCH 33.6 pg (27.0-33.0); MCHC 33.3 % (32.0-36.0); MCV 101 fL (80-95); MPV 8.7 fL (8.0-11.0); Platelet Count 261 10^3/uL (130-400); RBC 3.66 10^6/uL (4.36-5.78); RDW 13.2 % (11.8-14.1); RDW-SD 49.1 fL; WBC 5.74 10^3/uL (4.4-10.8)
[2025-05-20 10:45] LABS: ALT 19 U/L (16-63); AST 18 U/L (15-37); Albumin 3.6 g/dL (3.4-5.0); Alkaline Phosphatase 98 U/L (46-116); Anion Gap 7.8 mmol/L (3-11); BUN 22 mg/dL (7-18); Bilirubin, Total 0.3 mg/dL (0.2-1.0); CO2 26.2 mmol/L (21.0-32.0); Calcium 9.3 mg/dL (8.5-10.1); Chloride 107 mmol/L (98-107); Estimated GFR 67.86 (mL/min/1.73m2); Glucose 126 mg/dL (74-106); Potassium 4.5 mmol/L (3.5-5.1); Sodium 141 mmol/L (136-145); Total Protein 7.3 g/dL (6.4-8.2)
== END 2025-05-20 02:28 | disposition home or self-care (01) ==
LOC: LBO 02:27
PROVIDERS: PCP Family Medicine; Visit Provider Nurse Practitioner
DX: C61 Malignant neoplasm of prostate (principal); C79.51 Secondary malignant neoplasm of bone
CPT/HCPCS: 36415; 80053; 84153; 84403; 85025

== ENCOUNTER 2025-07-02 04:17 | Outpatient (CLI) | payer MEDICARE, SELFPAY ==
[2025-07-02 10:07] LABS: Abs Immature Grans 0.02 10^3/uL (0.0-0.06); HCT 37.4 % (40.0-50.0); HGB 12.0 g/dL (13.5-17.5); Immature Grans % 0.5 %; MCH 31.4 pg (27.0-33.0); MCHC 32.1 % (32.0-36.0); MCV 98 fL (80-95); MPV 8.9 fL (8.0-11.0); Platelet Count 252 10^3/uL (130-400); RBC 3.82 10^6/uL (4.36-5.78); RDW 13.2 % (11.8-14.1); RDW-SD 47.5 fL; WBC 4.25 10^3/uL (4.4-10.8)
[2025-07-02 10:38] LABS: ALT 37 U/L (16-63); AST 25 U/L (15-37); Albumin 3.6 g/dL (3.4-5.0); Alkaline Phosphatase 100 U/L (46-116); Anion Gap 11.2 mmol/L (3-11); BUN 21 mg/dL (7-18); Bilirubin, Total 0.4 mg/dL (0.2-1.0); CO2 24.8 mmol/L (21.0-32.0); Calcium 9.5 mg/dL (8.5-10.1); Chloride 104 mmol/L (98-107); Estimated GFR 76.08 (mL/min/1.73m2); Glucose 110 mg/dL (74-106); Potassium 4.5 mmol/L (3.5-5.1); Sodium 140 mmol/L (136-145); Total Protein 7.6 g/dL (6.4-8.2)
== END 2025-07-02 04:18 | disposition home or self-care (01) ==
PROVIDERS: PCP Family Medicine; Visit Provider Nurse Practitioner
DX: C61 Malignant neoplasm of prostate (principal)
CPT/HCPCS: 36415; 80053; 84153; 84403; 85025

== ENCOUNTER 2025-08-07 08:53 | Outpatient (CLI) | payer MEDICARE, SELFPAY ==
[2025-08-07 08:39] LABS: Abs Immature Grans 0.01 10^3/uL (0.0-0.06); HCT 34.9 % (40.0-50.0); HGB 11.6 g/dL (13.5-17.5); Immature Grans % 0.2 %; MCH 32.1 pg (27.0-33.0); MCHC 33.2 % (32.0-36.0); MCV 97 fL (80-95); MPV 8.5 fL (8.0-11.0); Platelet Count 256 10^3/uL (130-400); RBC 3.61 10^6/uL (4.36-5.78); RDW 14.0 % (11.8-14.1); RDW-SD 50.3 fL; WBC 4.26 10^3/uL (4.4-10.8)
[2025-08-07 08:55] LABS: ALT 131 U/L (10-49); AST 111 U/L (<34); Albumin 4.3 g/dL (3.4-5.0); Alkaline Phosphatase 207 U/L (46-116); Anion Gap 8.1 mmol/L (3-11); BUN 13 mg/dL (9-23); Bilirubin, Total 0.70 mg/dL (0.2-1.2); CO2 25.9 mmol/L (20.0-31.0); Calcium 9.7 mg/dL (8.3-10.6); Chloride 108 mmol/L (98-107); Glucose 94 mg/dL (74-106); Potassium 4.3 mmol/L (3.5-5.1); Sodium 142 mmol/L (136-145); Total Protein 7.6 g/dL (5.7-8.2)
== END 2025-08-07 08:54 | disposition home or self-care (01) ==
LOC: LBO 08:54
PROVIDERS: PCP Family Medicine; Visit Provider Nurse Practitioner
DX: C61 Malignant neoplasm of prostate (principal)
CPT/HCPCS: 36415; 80053; 84153; 84403; 85025

== ENCOUNTER 2025-08-25 00:47 | Outpatient (CLI) | payer MEDICARE, SELFPAY ==
[2025-08-25 09:48] LABS: Abs Immature Grans 0.02 10^3/uL (0.0-0.06); HCT 34.3 % (40.0-50.0); HGB 11.1 g/dL (13.5-17.5); Immature Grans % 0.5 %; MCH 32.7 pg (27.0-33.0); MCHC 32.4 % (32.0-36.0); MCV 101 fL (80-95); MPV 8.3 fL (8.0-11.0); Platelet Count 265 10^3/uL (130-400); RBC 3.39 10^6/uL (4.36-5.78); RDW 14.5 % (11.8-14.1); RDW-SD 54.6 fL; WBC 4.36 10^3/uL (4.4-10.8)
[2025-08-25 10:11] LABS: ALT 144 U/L (10-49); AST 114 U/L (<34); Albumin 4.3 g/dL (3.2-5.0); Alkaline Phosphatase 286 U/L (46-116); Anion Gap 8.2 mmol/L (3-11); BUN 18 mg/dL (9-23); Bilirubin, Total 0.70 mg/dL (0.2-1.2); CO2 26.8 mmol/L (20.0-31.0); Calcium 9.6 mg/dL (8.3-10.6); Chloride 108 mmol/L (98-107); Glucose 92 mg/dL (74-106); Potassium 4.3 mmol/L (3.5-5.1); Sodium 143 mmol/L (136-145); Total Protein 8.2 g/dL (5.7-8.2)
== END 2025-08-25 00:48 | disposition home or self-care (01) ==
PROVIDERS: PCP Family Medicine; Visit Provider Nurse Practitioner
DX: C61 Malignant neoplasm of prostate (principal); C79.51 Secondary malignant neoplasm of bone
CPT/HCPCS: 36415; 80053; 84153; 84403; 85025

== ENCOUNTER 2025-09-08 09:19 | Outpatient (CLI) | payer MEDICARE, SELFPAY ==
[2025-09-08 13:18] LABS: ALT 42 U/L (10-49); AST 42 U/L (<34); Albumin 4.1 g/dL (3.2-5.0); Alkaline Phosphatase 178 U/L (46-116); Anion Gap 8 mmol/L (3-11); BUN 22 mg/dL (9-23); Bilirubin, Total 0.5 mg/dL (0.2-1.2); CO2 26.0 mmol/L (20.0-31.0); Calcium 9.6 mg/dL (8.3-10.6); Chloride 106 mmol/L (98-107); Glucose 91 mg/dL (74-106); Potassium 4.4 mmol/L (3.5-5.1); Sodium 140 mmol/L (136-145); Total Protein 8.1 g/dL (5.7-8.2)
== END 2025-09-08 09:20 | disposition home or self-care (01) ==
PROVIDERS: PCP Family Medicine; Visit Provider Nurse Practitioner
DX: C61 Malignant neoplasm of prostate (principal); C79.51 Secondary malignant neoplasm of bone
CPT/HCPCS: 36415; 80053

== ENCOUNTER 2025-09-21 00:45 | Outpatient (CLI) | payer MEDICARE, SELFPAY ==
[2025-09-21 11:48] LABS: ALT 15 U/L (10-49); AST 24 U/L (<34); Albumin 4.1 g/dL (3.2-5.0); Alkaline Phosphatase 115 U/L (46-116); Anion Gap 8.1 mmol/L (3-11); BUN 17 mg/dL (9-23); Bilirubin, Total 0.3 mg/dL (0.2-1.2); CO2 24.9 mmol/L (20.0-31.0); Calcium 9.1 mg/dL (8.3-10.6); Chloride 109 mmol/L (98-107); Glucose 98 mg/dL (74-106); Potassium 4.5 mmol/L (3.5-5.1); Sodium 142 mmol/L (136-145); Total Protein 7.9 g/dL (5.7-8.2)
== END 2025-09-21 00:46 | disposition home or self-care (01) ==
LOC: LBO 00:45
PROVIDERS: PCP Family Medicine; Visit Provider Nurse Practitioner
DX: C61 Malignant neoplasm of prostate (principal); C79.51 Secondary malignant neoplasm of bone
CPT/HCPCS: 36415; 80053; 84153; 84403